=== PATIENT | female | born 1935 | race Caucasian/White ===

== ENCOUNTER → 2016-07-12 | Outpatient (CLI) | payer BC ==
[~2016-07-12] MED LIST: ALL300 PO; ALLO300T2 PO; ALPR-411 PO; AMR2 PO; ASPEC81 PO; ASPI81TA28 PO; ATEN50TA8 PO; ATOR10TA82 PO; BIOTCAP2 PO; ERGO1CAP35 PO; ERGO500011 PO; ESCI1TAB6 PO; GLIM1TAB PO; LORA10TA5 PO; SITA50TA5 PO; SYN137 PO; TERA5CAP PO
== END | disposition home or self-care (01) ==
LOC: C.RDSM 13:08
PROVIDERS: ATTEND Family Medicine
DX: M25.642 Stiffness of left hand, not elsewhere classified (principal)

== ENCOUNTER 2016-08-05 21:21 | Emergency (ER) | payer BC ==
[~2016-08-05] VITALS: Ht 160 cm; Wt 92.7 kg
[~2016-08-05 21:21] MED LIST changes: -ALLO300T2 PO; -ASPI81TA28 PO; -ATOR10TA82 PO; -ERGO500011 PO; -ESCI1TAB6 PO; -GLIM1TAB PO
[2016-08-05 21:32] VITALS: TEMP 36.6; Ht 160 cm; Wt 92.7 kg
[2016-08-05 23:00] LABS: BASO % 0.3 %; BASO ABS # 0.02 K/uL (0-0.2); COMPLETE YES; EOS % 1.3 %; HEMATOCRIT 36.7 % (37-47); IG% 0.2 %; LYMPH % 34.6 %; LYMPH ABS # 2.13 K/uL (1.2-3.4); MEAN CELL VOLUME 92.2 fL (80-100); MEAN CORPUSCULAR HEMOGLOBIN 30.7 pg (25-34); MEAN CORPUSCULAR HGB CONC 33.2 g/dl (32-36); MEAN PLATELET VOLUME 11.4 fL (7.4-10.4); MONO % 8.6 %; PLATELET COUNT 137 K/uL (130-400); RED BLOOD COUNT 3.98 M/uL (4.2-5.4); WHITE BLOOD COUNT 6.15 K/uL (4.8-10.8)
[2016-08-05 23:05] LABS: BUN/CREATININE RATIO 22.2 (10-20); CALCIUM 10.1 mg/dl (8.5-10.1); CREATININE 0.99 mg/dl (0.60-1.20); POTASSIUM 4.5 mmol/L (3.5-5.1)
[2016-08-06 00:09] LABS: URINE APPEARANCE CLEAR (CLEAR); URINE BILIRUBIN NEG (NEG); URINE COLOR YELLOW; URINE EPITHELIAL CELL AUTO >30 /lpf (0-5); URINE NITRITE NEG (NEG); URINE PH 5.5 (4.5-7.5); URINE SPECIFIC GRAVITY 1.017 (1.000-1.030); UROBILINOGEN NEG (NEG); ZZUR CULT IF INDIC CLEAN CATCH YES
[2016-08-06 00:10] VITALS: BP 195/86; PULSE 58; O2SAT 95
[2016-08-06 00:12] LABS: MANUAL MICROSCOPIC REQUIRED? NO; REVIEW REQ? NO
[2016-08-06] MEDS ORDERED: ASPI81TA28 PO (00:21)
[2016-08-06] MEDS ORDERED: ALLO300T2 PO (00:21)
[2016-08-06] MEDS ORDERED: GLIM1TAB PO (00:21)
[2016-08-06] MEDS ORDERED: ATOR10TA82 PO (00:22)
[2016-08-06] MEDS ORDERED: ERGO500011 PO (00:22)
--- NOTE | 2016-08-06 03:25 | EMERGENCY ROOM VISIT NOTE ---
History Report prepared by Belinda: Yaniv Porter Under the Supervision of: Dr. Greg Zheng D.O. First contact with patient: 22:10 Chief Complaint: HYPERTENSION Stated Complaint: HIGH BLOOD PRESSURE History of Present Illness The patient is an 81 year old female who presents to the Emergency Room with complaints of constant hypertension occurring earlier tonight. The patient additionally is complaining of a slight headache for the past few days which she associates this with her high blood pressure. The patient states that her blood pressure was around 170, though it was after walking around and not resting. The patient states that she had some recent diarrhea. The patient states that she took two aspirin and alprazolam. Additionally she states that she has been having two new changes in her medication. Pt denies change in vision, fevers, chest pain, shortness of breath, nausea, vomiting, pain with urination, and melena. She notes that she has been very stressed recently with both her sons currently living back in with her. One just got out of nursing home. Source of History: patient Onset: earlier tonight Position: other (global) Quality: other (hypertensive) Timing: constant Associated Symptoms: + diarrhea Review of Systems See HPI for pertinent positives & negatives. A total of 10 systems reviewed and were otherwise negative. Past Medical & Surgical Medical Problems: (1) Diabetes (2) Hernia (3) HTN (hypertension) (4) Kidney stone (5) Sciatica Family History Diabetes mellitus FH: Parkinson's disease FH: liver cancer FHx: colon cancer Hypertension Social History Smoking Status: Never Smoker Alcohol Use: none Drug Use: none Marital Status: Housing Status: lives with significant other Occupation Status: retired Current/Historical Medications Scheduled Allopurinol (Zyloprim), 300 MG PO DAILY Aspirin (Aspirin Ec), 81 MG PO DAILY Atenolol (Tenormin), 50 MG PO QPM Atorvastatin (Lipitor), 10 MG PO DAILY Biotin (Biotin 5000), 1 CAP PO QAM Ergocalciferol (Vitamin D 94839 Unit), 1 TAB PO WK Glimepiride (Amaryl), 1 MG PO AMPM Levothyroxine Sodium (Levothyroxine Sodium), 137 TAB PO QAM Loratadine (Claritin), 10 MG PO DAILY Sitagliptin-Metformin Hcl (Janumet), 1 TAB PO QAM Terazosin (Hytrin), 5 MG PO HS Scheduled PRN Alprazolam (Xanax), 0.5 MG PO HS PRN for PRN Allergies Coded Allergies: Tramadol (Verified Allergy, Severe, HIVES, ITCHING, 08/06/16) Propoxyphene (Verified Allergy, Intermediate, ITCHING, 08/06/16) Candesartan (Verified Allergy, Unknown, UNKNOWN, 08/06/16) Ciprofloxacin (Verified Allergy, Unknown, SICK, 08/06/16) Iodine (Verified Allergy, Unknown, IV DYE-ITCHING, HOARSENESS-SEVERE REACTION, 08/06/16) Morphine (Verified Allergy, Unknown, HALLUCINATIONS, 08/06/16) Oxycodone (Verified Allergy, Unknown, UNKNOWN, 08/06/16) Penicillins (Verified Allergy, Unknown, RASH, 08/06/16) Scallop (Verified Allergy, Unknown, DIARRHEA, VOMITING, 08/06/16) Topiramate (Verified Allergy, Unknown, UNKNOWN, 08/06/16) Physical Exam Vital Signs Date Time Temp Pulse Resp B/P Pulse Ox O2 Delivery O2 Flow Rate FiO2 08/06/16 00:10 58 18 195/86 95 Room Air 08/05/16 23:54 55 18 190/86 97 Room Air 08/05/16 22:44 61 08/05/16 22:19 196/88 08/05/16 21:32 36.6 67 18 197/84 97 Room Air Physical Exam GENERAL: sitting up in bed, alert, well appearing, well nourished, no distress, non-toxic EYE EXAM: normal conjunctiva, PERRL and EOM's intact OROPHARYNX: no exudate, no erythema, lips, buccal mucosa, and tongue normal and mucous membranes are moist NECK: supple, no nuchal rigidity, no adenopathy, non-tender LUNGS: Clear to auscultation. Normal chest wall mechanics HEART: no murmurs, S1 normal and S2 normal ABDOMEN: abdomen soft, non-tender, normo-active bowel sounds, no masses, no rebound or guarding. BACK: Back is symmetrical on inspection and there is no deformity, no midline tenderness, no CVA tenderness. SKIN: no rashes and no bruising UPPER EXTREMITIES: upper extremities are grossly normal. LOWER EXTREMITIES: No pitting edema. NEURO EXAM: Normal sensorium, cranial nerves II-XII grossly intact, normal speech, no gross weakness of arms, no gross weakness of legs. No drift. Finger to nose intact. Gross sensation intact. Medical Decision & Procedures ER Provider Diagnostic Interpretation: Radiology results as stated below per my review and the radiologist's interpretation: CT HEAD: Comparison: None available No ICH, mass effect or edema. No evidence of acute cortical stroke. Visualized sinuses and mastoid air cells are clear Laboratory Results 08/05/16 22:35 Red Blood Count 3.98, Mean Corpuscular Volume 92.2, Mean Corpuscular Hemoglobin 30.7, Mean Corpuscular Hemoglobin Concent 33.2, Mean Platelet Volume 11.4, Neutrophils (%) (Auto) 55.0, Lymphocytes (%) (Auto) 34.6, Monocytes (%) (Auto) 8.6, Eosinophils (%) (Auto) 1.3, Basophils (%) (Auto) 0.3, Neutrophils # (Auto) 3.38, Lymphocytes # (Auto) 2.13, Monocytes # (Auto) 0.53, Eosinophils # (Auto) 0.08, Basophils # (Auto) 0.02 08/05/16 22:35 Test 08/05/16 22:35 08/05/16 23:43 White Blood Count 6.15 K/uL (4.8-10.8) Red Blood Count 3.98 M/uL (4.2-5.4) Hemoglobin 12.2 g/dL (12.0-16.0) Hematocrit 36.7 % (37-47) Mean Corpuscular Volume 92.2 fL (80-100) Mean Corpuscular Hemoglobin 30.7 pg (25-34) Mean Corpuscular Hemoglobin Concent 33.2 g/dl (32-36) Platelet Count 137 K/uL (130-400) Mean Platelet Volume 11.4 fL (7.4-10.4) Neutrophils (%) (Auto) 55.0 % Lymphocytes (%) (Auto) 34.6 % Monocytes (%) (Auto) 8.6 % Eosinophils (%) (Auto) 1.3 % Basophils (%) (Auto) 0.3 % Neutrophils # (Auto) 3.38 K/uL (1.4-6.5) Lymphocytes # (Auto) 2.13 K/uL (1.2-3.4) Monocytes # (Auto) 0.53 K/uL (0.11-0.59) Eosinophils # (Auto) 0.08 K/uL (0-0.5) Basophils # (Auto) 0.02 K/uL (0-0.2) RDW Standard Deviation 46.0 fL (36.4-46.3) RDW Coefficient of Variation 13.5 % (11.5-14.5) Immature Granulocyte % (Auto) 0.2 % Immature Granulocyte # (Auto) 0.01 K/uL (0.00-0.02) Anion Gap 8.0 mmol/L (3-11) Est Creatinine Clear Calc Drug Dose 47.4 ml/min Estimated GFR () 61.5 Estimated GFR (Non- 53.1 BUN/Creatinine Ratio 22.2 (10-20) Calcium Level 10.1 mg/dl (8.5-10.1) Urine Color YELLOW Urine Appearance CLEAR (CLEAR) Urine pH 5.5 (4.5-7.5) Urine Specific Caro 1.017 (1.000-1.030) Urine Protein TRACE (NEG) Urine Glucose (UA) NEG (NEG) Urine Ketones NEG (NEG) Urine Occult Blood NEG (NEG) Urine Nitrite NEG (NEG) Urine Bilirubin NEG (NEG) Urine Urobilinogen NEG (NEG) Urine Leukocyte Esterase SMALL (NEG) Urine WBC (Auto) 10-30 /hpf (0-5) Urine RBC (Auto) 0-4 /hpf (0-4) Urine Hyaline Casts (Auto) 1-5 /lpf (0-5) Urine Epithelial Cells (Auto) >30 /lpf (0-5) Urine Bacteria (Auto) NEG (NEG) Date/Time Source Procedure Growth Status 08/05/16 23:43 Urine , Clean Catch Urine Culture - Final THREE TYPES OF ORGANISMS PRESENT, ALL... Complete Laboratory results per my review. ECG Indication: other (hypertension) Rate (beats per minute): 59 Rhythm: sinus bradycardia Findings: other (LAD and LVH) Comparison ECG Date: 12/20/15 Change: no significant change ED Course ED COURSE: Vital signs were reviewed and showed hypertension The patients medical record was reviewed The above diagnostic studies were performed and reviewed. ED treatments and interventions as stated above. 2210: The patient was evaluated in room C3. A complete history and physical examination was performed. 0014: Upon reevaluation, the patient is feeling better.I discussed my findings with the patient and she understands and agrees with the treatment plan. Based on the patients age, coexisting illnesses, exam and lab findings the decision to treat as an outpatient was made. The patient remained stable while under my care. The patient appeared well at the time of discharge. Medical Decision Differential Diagnosis includes but is not limited to headache, tension headache , cluster headache, migraine, subarachnoid hemorrhage, meningitis, mass, central venous thrombus, concussion, trauma and epidural/subdural hemorrhage. Patient is an 81-year-old female who presents the ER for hypertension with a slight headache which started several days ago. She notes she has a history of hypertension. She is completely neurologically intact. CT head was negative. Vitals did show systolic blood pressures in the 190s. They did drop to 180 with rest. EKG was unchanged and did show some LVH. CBC and BMP was unremarkable. UA did have some small protein present. At this time I felt there is no need for any emergent changes in her blood pressure. I stressed the importance of close follow-up for better long-term blood pressure control. Patient felt comfortable with this. I do believe some of these exacerbating factors are family stressors as she is extremely worked up and anxious at this time. Discussed with Pt concerning signs and symptoms to watch out for. Pt was instructed to follow up with their PCP and discussed with the patient their option to return to the ED at anytime for persistent or worsening symptoms. The appropriate anticipatory guidance and out-patient management, including indications for return to the emergency department, were explained at length to the patient and understood. Impression Primary Impression: HTN (hypertension) Scribe Attestation The scribe's documentation has been prepared under my direction and personally reviewed by me in its entirety. I confirm that the note above accurately reflects all work, treatment, procedures, and medical decision making performed by me. Departure Information Dispostion Home / Self-Care Referrals Sparkle Hernandez DO (PCP) Forms HOME CARE DOCUMENTATION FORM, IMPORTANT VISIT INFORMATION, WORK / SCHOOL INSTRUCTIONS Patient Instructions ED HTN Established, My [facility] Problem Qualifiers Primary Impression: HTN (hypertension) Hypertension type: unspecified secondary hypertension Qualified Codes: I15.9 - Secondary hypertension, unspecified
--- NOTE | 2016-08-06 06:59 | DIAGNOSTIC IMAGING REPORT ---
HEAD CT NONCONTRAST CT DOSE: 569.73 mGy.cm HISTORY: Headache. TECHNIQUE: Multiaxial CT images of the head were performed without the use of intravenous contrast. Automated exposure control was utilized for this study. Comparison: Head CT 01/07/2008. Findings: The paranasal sinuses and mastoid air cells are clear. The calvarium and skull base are intact. There is no mass, hematoma, midline shift, acute infarct. White matter hypodensity is nonspecific but suggestive of microvascular ischemic change. The ventricles and sulci demonstrate mild age-related involutional changes. Impression: No acute intracranial abnormality. Electronically signed by: Kenneth Mishra M.D. 08/06/2016 6:57 AM Dictated Date/Time: 08/06/2016 6:56 AM
== END 2016-08-06 00:31 | disposition home or self-care (01) ==
LOC: C.EDB 21:22 → C.EDC 08-06 00:31
DX: I10 Essential (primary) hypertension (principal); E11.9 Type 2 diabetes mellitus without complications; Z87.442 Personal history of urinary calculi; Z79.82 Long term (current) use of aspirin; Z79.899 Other long term (current) drug therapy

== ENCOUNTER → 2016-08-14 | Outpatient (CLI) | payer BC ==
[~2016-08-14] MED LIST changes: -ALL300 PO; +ALLO300T2 PO; -AMR2 PO; -ASPEC81 PO; +ASPI81TA28 PO; +ATOR10TA82 PO; -ERGO1CAP35 PO; +ERGO500011 PO; +ESCI1TAB6 PO; +GLIM1TAB PO
[2016-08-14 13:37] LABS: ESTIMATED AVERAGE GLUCOSE 146 mg/dl; HA1C FLAG Normal (Normal)
[2016-08-14 14:23] LABS: RATIO 100.6 mcg/mg (0-30.0)
== END | disposition home or self-care (01) ==
LOC: C.LABBC 11:50
PROVIDERS: ATTEND Nurse Practitioner Family
DX: E11.9 Type 2 diabetes mellitus without complications (principal)

== ENCOUNTER 2016-09-06 18:22 | Emergency (ER) | payer BC ==
[~2016-09-06] VITALS: Ht 160 cm; Wt 89.6 kg
[~2016-09-06 18:22] MED LIST changes: -ESCI1TAB6 PO
[2016-09-06 18:31] VITALS: TEMP 37.6; Ht 160 cm; Wt 89.6 kg
[2016-09-06] MEDS ORDERED: SODIUM CHLORIDE 0.9% 1000ML 500 ML IV STA (18:43)
[2016-09-06 18:55] VITALS: O2SAT 96
[2016-09-06 19:07] LABS: HEMATOCRIT 37.4 % (37-47); MEAN CELL VOLUME 91.9 fL (80-100); MEAN CORPUSCULAR HGB CONC 32.6 g/dl (32-36); MEAN PLATELET VOLUME 10.7 fL (7.4-10.4); PLATELET COUNT 125 K/uL (130-400); RED BLOOD COUNT 4.07 M/uL (4.2-5.4); WHITE BLOOD COUNT 5.81 K/uL (4.8-10.8)
--- NOTE | 2016-09-06 19:09 | DIAGNOSTIC IMAGING REPORT ---
CHEST ONE VIEW PORTABLE CLINICAL HISTORY: Chest pain. COMPARISON STUDY: Chest CT January 19, 2016. FINDINGS: A 1.4 cm right upper lobe nodule is similar to exam of January 19, 2016 but slightly increased in size since earlier exams. There is no pneumothorax or pleural effusion. Borderline cardiomegaly is noted. There is no evidence of pulmonary edema. There is no consolidation to suggest pneumonia. IMPRESSION: 1. No acute cardiopulmonary findings. 2. 1.4 cm right upper lobe nodule which is similar to prior CT but increased in size since earlier exams. This represents an indeterminate slowly growing pulmonary nodule. Electronically signed by: Hardeep Osman M.D. 09/06/2016 7:08 PM Dictated Date/Time: 09/06/2016 7:04 PM
[2016-09-06 19:16] LABS: PARTIAL THROMBOPLASTIN RATIO 1.1; PROTHROMBIN TIME (PATIENT) 10.8 SECONDS (9.0-12.0)
[2016-09-06 19:25] LABS: BUN/CREATININE RATIO 21.4 (10-20); CALCIUM 10.2 mg/dl (8.5-10.1); CREATININE 0.92 mg/dl (0.60-1.20); POTASSIUM 4.3 mmol/L (3.5-5.1)
--- NOTE | 2016-09-06 19:25 | EMERGENCY ROOM VISIT NOTE ---
History Report prepared by Belinda: Yaniv Porter Under the Supervision of: Dr. Chi Moser M.D. First contact with patient: 18:37 Chief Complaint: SHORTNESS OF BREATH Stated Complaint: POSSIBLE REACTION TO CORTISONE SHOT - SOB, CP Nursing Triage Summary: Pt reports "stinging in my whole chest area and it got really hot. Then my head felt funny, but nothing I could put my finger on. I felt sob." Sx began approx 30 mins. Pt states had a cortisone shot today, but has had them in the past. History of Present Illness The patient is an 81 year old female who presents to the Emergency Room with complaints of sudden tingling in her chest and shortness of breath occurring 30- 40 minutes prior to arrival. The patient additionally felt heat and a buzzing in her chest. The patient states that a couple of hours ago she had two cortisone shots in her finger which might have contained some iodine, and she states that she is allergic to iodine. The patient denies any cough, fever, rashes, itching, or tightness in her throat. Source of History: patient Onset: 30-40 minutes prior to arrival Position: chest, other (global) Quality: tingling Timing: other (sudden) Associated Symptoms: + SOB, No cough, No fevers, No rash Review of Systems See HPI for pertinent positives & negatives. A total of 10 systems reviewed and were otherwise negative. Past Medical & Surgical Medical Problems: (1) Diabetes (2) Hernia (3) HTN (hypertension) (4) Kidney stone (5) Sciatica Family History Diabetes mellitus FH: Parkinson's disease FH: liver cancer FHx: colon cancer Hypertension Social History Smoking Status: Never Smoker Alcohol Use: none Drug Use: none Marital Status: Housing Status: lives with significant other Occupation Status: retired Current/Historical Medications Scheduled Allopurinol (Zyloprim), 300 MG PO DAILY Aspirin (Aspirin Ec), 81 MG PO DAILY Atenolol (Tenormin), 50 MG PO QPM Atorvastatin (Lipitor), 10 MG PO DAILY Biotin (Biotin 5000), 1 CAP PO QAM Ergocalciferol (Vitamin D 27528 Unit), 1 TAB PO WK Escitalopram Oxalate (Lexapro), 1 TAB PO DAILY Glimepiride (Amaryl), 1 MG PO AMPM Levothyroxine Sodium (Levothyroxine Sodium), 137 TAB PO QAM Loratadine (Claritin), 10 MG PO DAILY Sitagliptin-Metformin Hcl (Janumet), 1 TAB PO QAM Terazosin (Hytrin), 5 MG PO HS Scheduled PRN Alprazolam (Xanax), 0.5 MG PO HS PRN for PRN Allergies Coded Allergies: Tramadol (Verified Allergy, Severe, HIVES, ITCHING, 08/06/16) Propoxyphene (Verified Allergy, Intermediate, ITCHING, 08/06/16) Candesartan (Verified Allergy, Unknown, UNKNOWN, 08/06/16) Ciprofloxacin (Verified Allergy, Unknown, SICK, 08/06/16) Iodine (Verified Allergy, Unknown, IV DYE-ITCHING, HOARSENESS-SEVERE REACTION, 08/06/16) Morphine (Verified Allergy, Unknown, HALLUCINATIONS, 08/06/16) Oxycodone (Verified Allergy, Unknown, UNKNOWN, 08/06/16) Penicillins (Verified Allergy, Unknown, RASH, 08/06/16) Scallop (Verified Allergy, Unknown, DIARRHEA, VOMITING, 08/06/16) Topiramate (Verified Allergy, Unknown, UNKNOWN, 08/06/16) Physical Exam Vital Signs Date Time Temp Pulse Resp B/P Pulse Ox O2 Delivery O2 Flow Rate FiO2 09/06/16 22:06 56 25 96 09/06/16 22:01 184/70 09/06/16 21:36 60 22 97 09/06/16 21:31 188/83 09/06/16 21:06 52 19 96 09/06/16 21:01 176/74 09/06/16 20:31 186/75 09/06/16 20:06 63 16 97 09/06/16 20:01 164/83 09/06/16 19:52 58 17 96 09/06/16 19:31 188/87 09/06/16 19:22 63 25 98 09/06/16 19:02 186/79 09/06/16 18:55 96 Room Air 09/06/16 18:52 63 24 09/06/16 18:47 61 09/06/16 18:31 37.6 67 20 192/84 97 Room Air 09/06/16 18:29 97 Room Air Physical Exam GENERAL: Patient is in no acute distress. HEENT: No acute trauma, normocephalic atraumatic, mucous membranes moist, no nasal congestion, no scleral icterus. NECK: No stridor, no adenopathy, no meningismus, trachea is midline. LUNGS: Clear to auscultation bilaterally, no wheeze, no rhonchi, breath sounds equal. HEART: Without murmurs gallops or rubs, regular rate and rhythm. ABDOMEN: Soft, nontender, bowel sounds positive, no hernias, no peritonitis. EXTREMITIES: Mild bilateral pedal edema. No cyanosis, full range of motion of all the joints without pain or difficulty, no signs for acute trauma. NEUROLOGIC: Oriented x 3, no acute motor or sensory deficits, no focal weakness. SKIN: Pale. No rash, no jaundice, no diaphoresis. Medical Decision & Procedures ER Provider Diagnostic Interpretation: Radiology results as stated below per my review and radiologist interpretation: CHEST ONE VIEW PORTABLE CLINICAL HISTORY: Chest pain. COMPARISON STUDY: Chest CT January 19, 2016. FINDINGS: A 1.4 cm right upper lobe nodule is similar to exam of January 19, 2016 but slightly increased in size since earlier exams. There is no pneumothorax or pleural effusion. Borderline cardiomegaly is noted. There is no evidence of pulmonary edema. There is no consolidation to suggest pneumonia. IMPRESSION: 1. No acute cardiopulmonary findings. 2. 1.4 cm right upper lobe nodule which is similar to prior CT but increased in size since earlier exams. This represents an indeterminate slowly growing pulmonary nodule. Electronically signed by: Hardeep Osman M.D. 09/06/2016 7:08 PM Dictated Date/Time: 09/06/2016 7:04 PM Laboratory Results 09/06/16 18:50 09/06/16 18:50 Test 09/06/16 18:50 09/06/16 18:59 09/06/16 20:35 Red Blood Count 4.07 M/uL (4.2-5.4) Mean Corpuscular Volume 91.9 fL (80-100) Mean Corpuscular Hemoglobin 30.0 pg (25-34) Mean Corpuscular Hemoglobin Concent 32.6 g/dl (32-36) RDW Standard Deviation 44.6 fL (36.4-46.3) RDW Coefficient of Variation 13.4 % (11.5-14.5) Mean Platelet Volume 10.7 fL (7.4-10.4) Prothrombin Time 10.8 SECONDS (9.0-12.0) Prothromb Time International Ratio 1.0 (0.9-1.1) Activated Partial Thromboplast Time 28.5 SECONDS (21.0-31.0) Partial Thromboplastin Ratio 1.1 Anion Gap 5.0 mmol/L (3-11) Est Creatinine Clear Calc Drug Dose 50.1 ml/min Estimated GFR () 67.2 Estimated GFR (Non- 58.0 BUN/Creatinine Ratio 21.4 (10-20) Calcium Level 10.2 mg/dl (8.5-10.1) Total Bilirubin 0.4 mg/dl (0.2-1) Aspartate Amino Transf (AST/SGOT) 20 U/L (15-37) Alanine Aminotransferase (ALT/SGPT) 23 U/L (12-78) Alkaline Phosphatase 96 U/L (45-117) Total Protein 7.5 gm/dl (6.4-8.2) Albumin 3.9 gm/dl (3.4-5.0) Globulin 3.6 gm/dl (2.5-4.0) Albumin/Globulin Ratio 1.1 (0.9-2) Lipase 156 U/L (73-393) Bedside Troponin I 0.000 ng/ml (0-0.045) Troponin I < 0.015 ng/ml (0-0.045) Laboratory results reviewed by me. Medications Administered Medications (Trade) Dose Ordered Sig/Nathan Route Start Time Stop Time Status Last Admin Dose Admin Sodium Chloride (Nss 1000ml) 500 ml @ 999 mls/hr Q31M STAT IV 09/06/16 18:43 09/06/16 19:13 DC 09/06/16 19:06 999 MLS/HR ECG Indication: chest pain, SOB/dyspnea Rate (beats per minute): 67 Rhythm: sinus rhythm Findings: 1st degree AV block, no acute ischemic change, other (LVH) ED Course 1836: The patient was evaluated in room B2. A complete history and physical exam was performed. 1842: Sodium Chloride 500 ml @ 999 mls/hr IV 2027: I reevaluated the patient, and she was doing fine. 2208: Reevaluated the patient. Discussed results and discharge instructions: She verbalized understanding and agreement. The patient is ready for discharge. Medical Decision The patient is a 81 year old female who presents to the ED with complaints of chest tingling and shortness of breath. Differential diagnoses considered include medication reaction, viral illness, cardiac ischemia, SC, pneumonia, or electrolyte imbalance. There is no leukocytosis or concerning anemia. No significant electrolyte abnormality, kidney failure or hepatitis. EKG shows a sinus rhythm with LVH and a first-degree AV block, no acute ischemia. Cardiac enzyme testing times one is not consistent with acute cardiac injury. Chest x-ray does not show mediastinal widening, pneumonia or pneumothorax. The patient did receive a small amount of IV saline, she required no pain medication. The patient is resting comfortably. Her symptoms have resolved. She may have had a reaction to the cortisone shot received earlier. Her workup here is negative for any acute emergent process. She is being discharged home. She will keep a watch on her blood pressure as it was somewhat elevated here. Impression Primary Impression: Chest tightness Scribe Attestation The scribe's documentation has been prepared under my direction and personally reviewed by me in its entirety. I confirm that the note above accurately reflects all work, treatment, procedures, and medical decision making performed by me. Departure Information Dispostion Home / Self-Care Referrals Sparkle Hernandez DO (PCP) Forms HOME CARE DOCUMENTATION FORM, IMPORTANT VISIT INFORMATION Patient Instructions My [facility] Additional Instructions all testing was ok return if worsening
[2016-09-06 19:28] LABS: ALB/GLOB RATIO 1.1 (0.9-2)
[2016-09-06] MEDS ORDERED: ESCI1TAB6 PO (19:41)
[2016-09-06 22:01] VITALS: BP 184/70
[2016-09-06 22:06] VITALS: PULSE 56; O2SAT 96
== END 2016-09-06 22:15 | disposition home or self-care (01) ==
LOC: C.EDB 18:24
DX: R07.89 Other chest pain (principal); E11.9 Type 2 diabetes mellitus without complications; I10 Essential (primary) hypertension; Z87.442 Personal history of urinary calculi; M54.30 Sciatica, unspecified side; Z83.3 Family history of diabetes mellitus; Z80.9 Family history of malignant neoplasm, unspecified; Z82.49 Family history of ischemic heart disease and other diseases of the circulatory system; Z79.82 Long term (current) use of aspirin; Z79.899 Other long term (current) drug therapy

== ENCOUNTER → 2016-09-08 | Outpatient (CLI) | payer BC ==
[~2016-09-08] MED LIST changes: +ESCI1TAB6 PO
[2016-09-08 14:01] LABS: CHOLESTEROL/HDL RATIO 3.3; MAGNESIUM 1.6 mg/dl (1.8-2.4); THYROID STIMULATING HORMONE 0.042 uIu/ml (0.300-4.500)
== END | disposition home or self-care (01) ==
LOC: C.LABBC 09:02
PROVIDERS: ATTEND Family Medicine
DX: E11.9 Type 2 diabetes mellitus without complications (principal); E61.2 Magnesium deficiency

== ENCOUNTER → 2016-11-20 | Outpatient (CLI) | payer BC ==
[~2016-11-20] MED LIST changes: -ATOR10TA82 PO; +ATOR10TA88 PO; +ERGO1CAP41 PO; -ERGO500011 PO
[2016-11-20 14:32] LABS: ESTIMATED AVERAGE GLUCOSE 131 mg/dl; HA1C FLAG Normal (Normal)
[2016-11-20 14:45] LABS: MAGNESIUM 1.6 mg/dl (1.8-2.4); THYROID STIMULATING HORMONE 0.038 uIu/ml (0.300-4.500)
== END | disposition home or self-care (01) ==
LOC: C.LABBC 11:42
PROVIDERS: ATTEND Nurse Practitioner Family
DX: E11.21 Type 2 diabetes mellitus with diabetic nephropathy (principal); E11.42 Type 2 diabetes mellitus with diabetic polyneuropathy; I10 Essential (primary) hypertension; R00.1 Bradycardia, unspecified

== ENCOUNTER → 2017-01-04 | Outpatient (CLI) | payer BC ==
[2017-01-04 13:45] LABS: BLOOD UREA NITROGEN 33 mg/dl (7-18); BUN/CREATININE RATIO 30.2 (10-20); CALCIUM 10.2 mg/dl (8.5-10.1); CARBON DIOXIDE 29 mmol/L (21-32); CHLORIDE 107 mmol/L (98-107); GLUCOSE 179 mg/dl (70-99); MAGNESIUM 1.8 mg/dl (1.8-2.4); POTASSIUM 4.2 mmol/L (3.5-5.1); SODIUM 140 mmol/L (136-145)
[2017-01-04 13:56] LABS: THYROID STIMULATING HORMONE 0.155 uIu/ml (0.300-4.500)
== END | disposition home or self-care (01) ==
LOC: C.LABBC 11:42
PROVIDERS: ATTEND Nurse Practitioner Family
DX: I10 Essential (primary) hypertension (principal); E83.42 Hypomagnesemia; E03.9 Hypothyroidism, unspecified

== ENCOUNTER → 2017-01-23 | Outpatient (CLI) | payer BC ==
--- NOTE | 2017-01-23 12:17 | DIAGNOSTIC IMAGING REPORT ---
CT OF THE CHEST WITHOUT IV CONTRAST CLINICAL HISTORY: Solitary pulmonary nodule. COMPARISON STUDY: Chest CT January 19, 2016 and chest radiograph September 06, 2016 and PET/CT November 29, 2011. CT DOSE: 435.44 mGycm TECHNIQUE: Axial images of the chest were obtained without IV contrast. Images were reviewed in the axial, sagittal, and coronal planes. IV contrast was not administered for this examination. A dose lowering technique was utilized adhering to the principles of ALARA. FINDINGS: No enlarged axillary, mediastinal or hilar lymph nodes are present. The size of the heart is normal. There is no pericardial effusion. There is extensive coronary artery calcification. Central airways are patent. There is no consolidation to suggest pneumonia. Several calcified nodules are unchanged. A 1.1 cm circumscribed right upper lobe nodule shown image 86 of 306 is unchanged since exam of January 19, 2016. This has slightly increased in size since exam of August 30, 2011 when it measured 1 cm. A subtle 6 mm groundglass density within left upper lobe shown on image 47 is unchanged. Numerous additional smaller nodules are unchanged. There are no new pulmonary nodules. Bony thorax is unremarkable. Upper abdomen is unremarkable on this unenhanced exam. Subpleural reticulation and groundglass opacity is noted. This is similar to prior study. There is no honeycombing. There is no traction bronchiectasis. IMPRESSION: No change in several pulmonary nodules as prior exam. The 1.1 cm right upper lobe nodule is unchanged since exam of January 19, 2016 and only slightly increased in size since exam of August 30, 2011. This remains indeterminate and a follow-up chest CT in one year is recommended. Electronically signed by: Hardeep Osman M.D. 01/23/2017 12:16 PM Dictated Date/Time: 01/23/2017 12:09 PM
== END | disposition home or self-care (01) ==
LOC: C.CTS 11:47
PROVIDERS: ATTEND Internal Medicine Pulmonary Disease
DX: R91.1 Solitary pulmonary nodule (principal)

== ENCOUNTER → 2017-01-30 | Outpatient (CLI) | payer BC ==
[2017-01-30 16:32] LABS: BASO % 0.2 %; BASO ABS # 0.01 K/uL (0-0.2); COMPLETE YES; EOS % 2.2 %; HEMATOCRIT 38.4 % (37-47); IG% 0.2 %; LYMPH % 36.9 %; LYMPH ABS # 2.22 K/uL (1.2-3.4); MEAN CELL VOLUME 92.1 fL (80-100); MEAN CORPUSCULAR HEMOGLOBIN 29.5 pg (25-34); MEAN PLATELET VOLUME 11.7 fL (7.4-10.4); MONO % 5.5 %; PLATELET COUNT 139 K/uL (130-400); RED BLOOD COUNT 4.17 M/uL (4.2-5.4); WHITE BLOOD COUNT 6.02 K/uL (4.8-10.8)
[2017-01-30 16:54] LABS: FERRITIN 204.7 ng/ml (8.0-388.0)
== END | disposition home or self-care (01) ==
LOC: C.LAB1850 15:45
PROVIDERS: ATTEND Dermatology
DX: L65.9 Nonscarring hair loss, unspecified (principal)

== ENCOUNTER → 2017-02-28 | Outpatient (CLI) | payer BC ==
[~2017-02-28] MED LIST changes: +ATOR10TA82 PO; -ATOR10TA88 PO; -ERGO1CAP41 PO; +ERGO500011 PO
[2017-02-28 17:41] LABS: THYROID STIMULATING HORMONE 0.064 uIu/ml (0.300-4.500)
== END | disposition home or self-care (01) ==
LOC: C.LABBC 12:26
PROVIDERS: ATTEND Nurse Practitioner Family
DX: E03.9 Hypothyroidism, unspecified (principal); B37.2 Candidiasis of skin and nail

== ENCOUNTER → 2017-04-05 | Outpatient (CLI) | payer BC ==
[~2017-04-05] MED LIST changes: +CHOL100010 PO; +HYDR-5688 PO; +LEVO112T4 PO; -LORA10TA5 PO; +LORA10TA6 PO
== END | disposition home or self-care (01) ==
LOC: C.LAB1850 14:54
PROVIDERS: ATTEND Dermatology
DX: L65.9 Nonscarring hair loss, unspecified (principal)

== ENCOUNTER → 2017-04-18 | Outpatient (CLI) | payer BC ==
--- NOTE | 2017-04-18 11:40 | DIAGNOSTIC IMAGING REPORT ---
ULTRASOUND OF THE ADRENAL GLANDS CLINICAL HISTORY: Abnormal adrenal laboratory studies. COMPARISON STUDY: Abdominal CT dated 11/15/2015. Chest CT dated 01/23/2017. FINDINGS: Real-time grayscale sonography of the adrenal glands was attempted. The adrenal glands are not identified. There is no sonographic evidence of adrenal lesion. No adrenal lesion seen on recent CT scans. IMPRESSION: The adrenal glands were not visualized. There is no sonographic evidence of adrenal lesion, and no adrenal lesion was seen by CT on 11/15/2015 or 01/23/2017. Electronically signed by: Chi Crystal M.D. 04/18/2017 11:38 AM Dictated Date/Time: 04/18/2017 11:36 AM
== END | disposition home or self-care (01) ==
LOC: C.ULTRBC 11:04
PROVIDERS: ATTEND Dermatology
DX: R89.9 Unspecified abnormal finding in specimens from other organs, systems and tissues (principal)

== ENCOUNTER → 2017-04-24 | Outpatient (CLI) | payer BC ==
[~2017-04-24] MED LIST changes: -CHOL100010 PO; -HYDR-5688 PO; -LEVO112T4 PO
[2017-04-25 06:32] LABS: HEMOGLOBIN A1C 6.1 % (4.5-5.6)
== END | disposition home or self-care (01) ==
LOC: C.LABBC 12:45
PROVIDERS: ATTEND Nurse Practitioner Family
DX: E11.21 Type 2 diabetes mellitus with diabetic nephropathy (principal); E03.9 Hypothyroidism, unspecified

== ENCOUNTER → 2017-05-24 | Outpatient (CLI) | payer BC ==
[2017-05-24 18:25] LABS: HEMOGLOBIN A1C 6.2 % (4.5-5.6)
== END | disposition home or self-care (01) ==
LOC: C.LABBC 14:52
PROVIDERS: ATTEND Nurse Practitioner Family
DX: E03.9 Hypothyroidism, unspecified (principal)

== ENCOUNTER → 2017-08-03 | Outpatient (CLI) | payer BC | END | disposition home or self-care (01) | LOC: C.LABBC 11:33 | PROVIDERS: ATTEND Family Medicine | DX: E03.9 Hypothyroidism, unspecified (principal) ==

== ENCOUNTER → 2017-08-16 | Outpatient (CLI) | payer BC ==
--- NOTE | 2017-08-16 11:17 | DIAGNOSTIC IMAGING REPORT ---
L KNEE 3 VIEWS CLINICAL HISTORY: LEFT KNEE PAIN pain COMPARISON: None. DISCUSSION: Evidence for a total right knee arthroplasty. Mild degenerative change medial joint compartment left knee. Minimal degenerative change of the left patellofemoral articular services. No significant joint effusion. Soft tissue vascular calcification bilaterally. There is no evidence for soft tissue swelling. IMPRESSION: 1. Anatomic alignment post right knee total arthroplasty. 2. Mild degenerative narrowing medial joint compartment left knee. 3. Minimal degenerative change patellofemoral joint left knee. The above report was generated using voice recognition software. It may contain grammatical, syntax or spelling errors. Electronically signed by: Amado Yu M.D. 08/16/2017 11:15 AM Dictated Date/Time: 08/16/2017 11:14 AM
== END | disposition home or self-care (01) ==
LOC: C.RDSM 11:05
PROVIDERS: ATTEND Family Medicine
DX: M25.562 Pain in left knee (principal)

== ENCOUNTER 2017-09-03 16:44 | Emergency (ER) | payer BC ==
[2017-09-03 16:46] VITALS: TEMP 37.1; Ht 160 cm
[2017-09-03] MEDS ORDERED: TRAMADOL HCL 50 MG TAB PO STA (17:25)
--- NOTE | 2017-09-03 17:25 | EMERGENCY ROOM VISIT NOTE ---
History First contact with patient: 16:50 Chief Complaint: LEG PAIN,LEG INJURY Stated Complaint: LEG PAIN L History of Present Illness The patient is a 82 year old female who presents to the Emergency Room with complaints of left knee and leg pain for approximately 2 weeks. Prior to the pain, the patient started using an exercise bike. She noticed the pain in her leg the day after. She has tried naproxen and ibuprofen with minimal relief of the pain. She is having difficulty with weightbearing. She denies any prior injury to the knee. She denies any history of DVT. She does not smoke. No recent long travel. No hormone replacement. The patient saw her primary care physician approximately 2 weeks ago. An x-ray was performed of the knee. She was told there were no abnormalities. She denies any chest pain or difficulty breathing. Patient was seen and evaluated by her orthopedic doctor today. She was sent here to the emergency department for possible concern for blood clot. Review of Systems 10 system review performed and negative unless noted in HPI or below Past Medical/Surgical History Medical Problems: (1) Diabetes (2) Hernia (3) HTN (hypertension) (4) Kidney stone (5) Sciatica Family History Diabetes mellitus FH: Parkinson's disease FH: liver cancer FHx: colon cancer Hypertension Social History Smoking Status: Never Smoker Alcohol Use: none Drug Use: none Marital Status: Housing Status: lives with significant other Occupation Status: retired Current/Historical Medications Scheduled Allopurinol (Zyloprim), 300 MG PO DAILY Aspirin (Aspirin Ec), 81 MG PO DAILY Atenolol (Tenormin), 50 MG PO QPM Atorvastatin (Lipitor), 10 MG PO DAILY Biotin (Biotin 5000), 1 CAP PO QAM Cholecalciferol (Vitamin D), PO DAILY Escitalopram Oxalate (Lexapro), 1 TAB PO DAILY Glimepiride (Amaryl), 1 MG PO AMPM Levothyroxine Sodium (Levothyroxine Sodium), 137 TAB PO QAM Loratadine (Claritin), 10 MG PO DAILY Sitagliptin-Metformin Hcl (Janumet), 1 TAB PO QAM Terazosin (Hytrin), 5 MG PO HS Scheduled PRN Alprazolam (Xanax), 0.25 MG PO HS PRN for PRN Hydrocodone/Acetaminophen 5MG/325MG ([place] 5MG/325MG), 1 TABLET PO Q4H PRN for Pain Physical Exam Vital Signs Date Time Temp Pulse Resp B/P (MAP) Pulse Ox O2 Delivery O2 Flow Rate FiO2 09/03/17 19:26 70 16 125/69 99 09/03/17 18:46 77 18 178/74 98 Room Air 09/03/17 16:46 37.1 60 20 182/95 98 Room Air Physical Exam VITALS: Vitals are noted on the nurse's note and reviewed by myself. Vital signs stable. GENERAL: 82-year-old female, in no acute distress, nondiaphoretic, well- developed well-nourished. SKIN: The skin was intact HEAD: Normocephalic atraumatic. Conjunctivae without injection, sclerae without icterus. Extraocular movements intact. NECK:. No JVD. HEART: Regular rate and rhythm without murmurs gallops or rubs. LUNGS: Clear to auscultation bilaterally without wheezes, rales or rhonchi. No accessory muscle use. MUSCULOSKELETAL: LLE: Trace pitting edema in the left lower extremity noted without any erythema or warmth appreciated. There is tenderness in the popliteal area. Difficulty with flexion of the knee. Significant pain with flexion of the knee. Tenderness over the joint line noted. Effusion noted. No ligamentous instability appreciated however exam is limited secondary to pain. DP pulse + 2. Sensation in the foot is intact. NEURO: Patient was alert and oriented to person place and time. Normal sensation to touch. No focal neurological deficits. Medical Decision & Procedures ER Provider Diagnostic Interpretation: Left knee x-ray IMPRESSION: 1. Small joint effusion and mild soft tissue swelling without acute fracture or dislocation. 2. 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 3. Peripheral arterial disease. The above report was generated using voice recognition software. It may contain grammatical, syntax or spelling errors. Electronically signed by: Madhu Martin M.D. 09/03/2017 5:32 PM Dictated Date/Time: 09/03/2017 5:30 PM Left lower extremity ultrasound IMPRESSION: No evidence of deep venous thrombus within the left lower extremity. Electronically signed by: Hardeep Osman M.D. 09/03/2017 6:24 PM Dictated Date/Time: 09/03/2017 6:24 PM The status of this report is Signed. Draft = Not yet reviewed or approved by Radiologist. Signed = Reviewed and approved by Radiologist. Laboratory Results 09/03/17 17:42 Red Blood Count 3.89, Mean Corpuscular Volume 90.2, Mean Corpuscular Hemoglobin 29.3, Mean Corpuscular Hemoglobin Concent 32.5, Mean Platelet Volume 10.7, Neutrophils (%) (Auto) 60.6, Lymphocytes (%) (Auto) 31.7, Monocytes (%) (Auto) 5.5, Eosinophils (%) (Auto) 1.6, Basophils (%) (Auto) 0.4, Neutrophils # (Auto) 3.43, Lymphocytes # (Auto) 1.79, Monocytes # (Auto) 0.31, Eosinophils # (Auto) 0.09, Basophils # (Auto) 0.02 09/03/17 17:42 Test 09/03/17 17:42 White Blood Count 5.65 K/uL (4.8-10.8) Red Blood Count 3.89 M/uL (4.2-5.4) Hemoglobin 11.4 g/dL (12.0-16.0) Hematocrit 35.1 % (37-47) Mean Corpuscular Volume 90.2 fL (80-100) Mean Corpuscular Hemoglobin 29.3 pg (25-34) Mean Corpuscular Hemoglobin Concent 32.5 g/dl (32-36) Platelet Count 116 K/uL (130-400) Mean Platelet Volume 10.7 fL (7.4-10.4) Neutrophils (%) (Auto) 60.6 % Lymphocytes (%) (Auto) 31.7 % Monocytes (%) (Auto) 5.5 % Eosinophils (%) (Auto) 1.6 % Basophils (%) (Auto) 0.4 % Neutrophils # (Auto) 3.43 K/uL (1.4-6.5) Lymphocytes # (Auto) 1.79 K/uL (1.2-3.4) Monocytes # (Auto) 0.31 K/uL (0.11-0.59) Eosinophils # (Auto) 0.09 K/uL (0-0.5) Basophils # (Auto) 0.02 K/uL (0-0.2) RDW Standard Deviation 45.8 fL (36.4-46.3) RDW Coefficient of Variation 14.0 % (11.5-14.5) Immature Granulocyte % (Auto) 0.2 % Immature Granulocyte # (Auto) 0.01 K/uL (0.00-0.02) Prothrombin Time 10.3 SECONDS (9.0-12.0) Prothromb Time International Ratio 1.0 (0.9-1.1) Activated Partial Thromboplast Time 27.5 SECONDS (21.0-31.0) Partial Thromboplastin Ratio 1.1 Anion Gap 6.0 mmol/L (3-11) Estimated GFR () 60.3 Estimated GFR (Non- 52.1 BUN/Creatinine Ratio 28.3 (10-20) Calcium Level 10.0 mg/dl (8.5-10.1) Medications Administered Medications (Trade) Dose Ordered Sig/Nathan Route Start Time Stop Time Status Last Admin Dose Admin Acetaminophen/ Hydrocodone Bitart ([place] 5/325 Tab) 1 tab ONE STAT PO 09/03/17 17:28 09/03/17 17:29 DC 09/03/17 17:57 1 TAB ED Course Patient was seen and examined Vital signs including blood pressure were reviewed medications list was verified with patient Labs were obtained, and a saline lock was established The patient was given [place] for pain. Imaging was performed and reviewed. The patient was reassessed and resting comfortably. She was also seen by my supervising physician. I reviewed the patient's workup with the patient. Her orthopedic doctor was also notified. They are comfortable with her being discharged home. The patient was given a knee immobilizer. She has a walker at home. I reviewed discharge instructions the patient. They voiced understanding and had no further questions. Medical Decision Differential diagnosis: Knee injury, effusion, DVT, cellulitis, PAD, PVD, cellulitis, among others were entertained This patient is an 82-year-old female that presents to the emergency department with left knee/leg pain for the last 2 weeks. On exam, she had difficulty with flexion of the knee. She had a knee effusion present. She had some mild edema present. The left calf was noticeably larger than the right. She had good distal pulses. Imaging did not reveal any signs of a DVT. She does have a small knee effusion in addition to osteoarthritis. I believe this is likely more of a knee injury as opposed to a vascular issue. The patient had good pain relief in the emergency department. I believe she is stable to be discharged home. She was given a knee immobilizer. She will follow-up with her orthopedic doctor, in addition to her primary care physician. She will return with any worsening or concerning symptoms. This chart was completed in part utilizing [employer] Speech Voice Recognition software. Attempts were made to minimize the grammatical errors, random word insertions, pronoun errors and incomplete sentences. Any formal questions or concerns about the content, text or information contained within the body of this dictation should be directly addressed to the provider for clarification. Medication Reconcilliation Current Medication List: was personally reviewed by me Blood Pressure Screening Patient's blood pressure: Elevated blood pressure Blood pressure disposition: Referred to PCP Impression Primary Impression: Leg pain, left Departure Information Dispostion Home / Self-Care Condition GOOD Prescriptions Hydrocodone/Acetaminophen 5MG/325MG ([place] 5MG/325MG) Tab 1 TABLET PO Q4H Y for Pain, #15 TAB For Initial Treatment Prov: Misty Amezquita PA-C 09/03/17 Referrals Sparkle Hernandez DO (PCP) Colt Flores MD Patient Instructions My [facility] Additional Instructions You were evaluated in the emergency department for knee and leg pain. There are no signs of a blood clot. Please apply ice for 20 minute intervals and elevate the leg. [place] 1/2 tab to 1 tab every 4 hours for severe pain. Do not drink alcohol or drive while taking this medication. This may be taken with ibuprofen, but avoid Tylenol. Please use the knee immobilizer and walker for stability and getting around Please follow-up with Dr. Keith. Call tomorrow morning for a follow-up appointment. Of note, your blood pressure was elevated today. Please have this rechecked. Please do not hesitate to return to the emergency department with any new, worsening or concerning symptoms It was a pleasure participating in your care today.
[2017-09-03] MEDS ORDERED: HYDROCODONE/ACETAMIN 5/325MG TAB PO STA (17:28)
--- NOTE | 2017-09-03 17:33 | DIAGNOSTIC IMAGING REPORT ---
L KNEE 3 VIEWS HISTORY: 82 years-old Female L knee pain swelling acute left knee pain and swelling COMPARISON: Radiograph 08/16/2017 TECHNIQUE: 3 views of the left knee FINDINGS: Bones are mildly demineralized. Moderate patellofemoral osteoarthritis with minimal marginal spurring about the medial and lateral compartments. Chondrocalcinosis with spurring of the tibial spines. 6 mm linear ossification is seen lateral to the lateral femoral condyle. Peripheral arterial calcifications are noted. Small joint effusion with mild soft tissue swelling about the knee. There is no acute fracture or dislocation identified. IMPRESSION: 1. Small joint effusion and mild soft tissue swelling without acute fracture or dislocation. 2. 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 3. Peripheral arterial disease. The above report was generated using voice recognition software. It may contain grammatical, syntax or spelling errors. Electronically signed by: Madhu Martin M.D. 09/03/2017 5:32 PM Dictated Date/Time: 09/03/2017 5:30 PM
[2017-09-03] MEDS ORDERED: CHOL100010 PO (17:58)
[2017-09-03 18:00] LABS: BASO % 0.4 %; BASO ABS # 0.02 K/uL (0-0.2); EOS % 1.6 %; EOS ABS # 0.09 K/uL (0-0.5); HEMATOCRIT 35.1 % (37-47); HEMOGLOBIN 11.4 g/dL (12.0-16.0); IG# 0.01 K/uL (0.00-0.02); LYMPH % 31.7 %; LYMPH ABS # 1.79 K/uL (1.2-3.4); MEAN CELL VOLUME 90.2 fL (80-100); MEAN CORPUSCULAR HEMOGLOBIN 29.3 pg (25-34); MEAN CORPUSCULAR HGB CONC 32.5 g/dl (32-36); MEAN PLATELET VOLUME 10.7 fL (7.4-10.4); MONO % 5.5 %; MONO ABS # 0.31 K/uL (0.11-0.59); NEUT % 60.6 %; NEUT ABS # 3.43 K/uL (1.4-6.5); PLATELET COUNT 116 K/uL (130-400); RED CELL DISTRIBUTION WIDTH SD 45.8 fL (36.4-46.3); WHITE BLOOD COUNT 5.65 K/uL (4.8-10.8)
[2017-09-03 18:09] LABS: PTT PATIENT 27.5 SECONDS (21.0-31.0)
[2017-09-03 18:18] LABS: BLOOD UREA NITROGEN 28 mg/dl (7-18); CARBON DIOXIDE 27 mmol/L (21-32); GLUCOSE 88 mg/dl (70-99); POTASSIUM 4.3 mmol/L (3.5-5.1); SODIUM 141 mmol/L (136-145)
--- NOTE | 2017-09-03 18:26 | DIAGNOSTIC IMAGING REPORT ---
LEFT LOWER EXTREMITY VENOUS DOPPLER CLINICAL HISTORY: L knee/leg pain edema noted COMPARISON STUDY: No previous studies for comparison. TECHNIQUE: Sonography of the deep venous system of the left lower extremity was performed. Compression and augmentation were evaluated. FINDINGS: The common femoral, superficial femoral and popliteal veins were compressible. Augmentation was normal. Flow was shown within the deep calf vessels. IMPRESSION: No evidence of deep venous thrombus within the left lower extremity. Electronically signed by: Hardeep Osman M.D. 09/03/2017 6:24 PM Dictated Date/Time: 09/03/2017 6:24 PM
[2017-09-03] MEDS ORDERED: HYDR-5688 PO (18:52)
[2017-09-03] MEDS ORDERED: NORCO 5/325MG HOME PACK PO ONE (19:00)
[2017-09-03 19:26] VITALS: BP 125/69; PULSE 70; O2SAT 99
== END 2017-09-03 19:26 | disposition home or self-care (01) ==
LOC: C.EDB 16:45 → C.EDD 19:26
DX: M79.605 Pain in left leg (principal); E11.9 Type 2 diabetes mellitus without complications; I10 Essential (primary) hypertension; Z87.442 Personal history of urinary calculi; Z83.3 Family history of diabetes mellitus; Z82.0 Family history of epilepsy and other diseases of the nervous system; Z80.0 Family history of malignant neoplasm of digestive organs; Z79.82 Long term (current) use of aspirin; Z79.84 Long term (current) use of oral hypoglycemic drugs; Z79.899 Other long term (current) drug therapy

== ENCOUNTER → 2017-10-10 | Outpatient (CLI) | payer BC ==
[~2017-10-10] MED LIST changes: +CHOL100010 PO; -ERGO500011 PO; +HYDR-5688 PO; +LEVO112T4 PO
== END | disposition home or self-care (01) ==
LOC: C.PATHSPEC 17:56
PROVIDERS: ATTEND Physician Assistant
DX: D48.9 Neoplasm of uncertain behavior, unspecified (principal)

== ENCOUNTER → 2017-11-06 | Outpatient (CLI) | payer BC | END | disposition home or self-care (01) | LOC: C.RDSM 13:39 | PROVIDERS: ATTEND Orthopaedic Surgery | DX: S82.002A Unspecified fracture of left patella, initial encounter for closed fracture (principal); X58.XXXA Exposure to other specified factors, initial encounter ==

== ENCOUNTER → 2017-11-22 | Outpatient (CLI) | payer BC ==
[~2017-11-22] MED LIST changes: -BIOTCAP2 PO; -SYN137 PO
[2017-11-23 05:36] LABS: HEMOGLOBIN A1C 6.4 % (4.5-5.6)
== END | disposition home or self-care (01) ==
LOC: C.LABBC 12:56
PROVIDERS: ATTEND Family Medicine
DX: E11.42 Type 2 diabetes mellitus with diabetic polyneuropathy (principal); E03.9 Hypothyroidism, unspecified

== ENCOUNTER 2019-10-06 20:25 | Observation (INO) ==
[2019-10-06] MEDS ORDERED: SODIUM CHLORIDE 0.9% 500 ML IV SCH (21:00)
--- NOTE | 2019-10-06 21:00 | Emergency Department Note ---
History of Present Illness General Chief complaint: Rectal Bleed Stated complaint: BLEEDING FROM RECTAL Time Seen by Provider: 10/06/19 20:41 Source: patient Mode of arrival: ambulatory Limitations: no limitations History of Present Illness Provider Complaint: + gross hematochezia Onset (ago): 6 hour(s) Pain Consistency: + intermittent Severity: moderate Current Pain Intensity: 0 Relieved By: + none Exacerbated By: + none Context: + hemorrhoids; no anticoagulant use Associated symptoms: + denies other symptoms HPI Narrative: The patient presents to the ED with a chief complaint of rectal bleeding. The patient states that she had 2 episodes of bloody bowel movements this evening. She states that each episode she passed about a half a cup of blood. She does report some left lower quadrant abdominal pain. She had this for a number of days and provided a urine sample to her doctor earlier today to check for urinary tract infection. Denies chest pains, lightheadedness, dizziness, easy bruising or use of anticoagulants. Home Medications Home Medications Medication Instructions Recorded Confirmed Type aspirin [Aspir-81] 81 mg PO QAM 02/20/18 10/06/19 History blood-glucose meter #1 ea 12/16/18 06/26/19 History lancets 33 gauge #100 ea 12/16/18 06/26/19 History OneTouch Verio test strips #100 ea NS 01/10/19 06/26/19 Rx calcium carbonate 600 mg calcium 1,200 mg PO PM tab 05/15/19 10/06/19 History (1,500 mg) tablet atorvastatin 10 mg tablet 10 mg PO QAM #90 tab 07/03/19 10/06/19 Rx Diabetic Shoes #1 ea 07/04/19 Rx glimepiride 1 mg tablet 1 mg PO BID #180 tab 09/05/19 10/06/19 Rx allopurinol 300 mg PO QAM 10/06/19 10/06/19 History atenolol 25 mg PO PM 10/06/19 10/06/19 History levothyroxine 125 mcg PO QAM 10/06/19 10/06/19 History lisinopril 5 mg PO QAM 10/06/19 10/06/19 History Allergies Allergy/AdvReac Type Severity Reaction Status Date / Time iodine Allergy Severe IV Verified 10/06/19 21:35 DYE-TROUBLE BREATHING HOARSENESS-SEVERE REACTION tramadol Allergy Severe HIVES, Verified 10/06/19 21:35 ITCHING morphine Allergy Intermediate HALLUCINATI Verified 10/06/19 21:35 ONS propoxyphene Allergy Intermediate ITCHING Verified 10/06/19 21:35 scallops Allergy Intermediate DIARRHEA, Verified 10/06/19 21:35 VOMITING ciprofloxacin Allergy Mild SICK Verified 10/06/19 21:35 Penicillins Allergy Mild RASH Verified 10/06/19 21:35 candesartan Allergy Unknown UNKNOWN Verified 10/06/19 21:35 Cipro Allergy Unknown SICK Verified 11/07/17 20:31 oxycodone Allergy Unknown UNKNOWN Verified 10/06/19 21:35 topiramate Allergy Unknown UNKNOWN Verified 10/06/19 21:35 acetaminophen [From Percocet] Allergy Verified 10/06/19 21:35 levothyroxine sodium AdvReac Mild Dry mouth; Verified 10/06/19 21:35 fatigue Past Med/Surg History Medical History Chronic back pain Diabetes NIDDM Hx of cancer of uterus NO CHEMO/NO RADIATION Hyperlipidemia Hypertension Hypothyroidism Obesity Personal history of kidney stones Surgical History History of arthroplasty of right knee History of lithotripsy LEFT ESWL= 11/26/15= LMA#4 History of lumbar surgery X2 Hx of bilateral cataract extraction Hx of colonoscopy Hx of hand surgery Hx of hernia repair VENTRAL Hx of hysterectomy Hx of tonsillectomy Hx of wisdom tooth extraction Family History Father Parkinson disease Renal failure Liver cancer Colorectal cancer Mother Colorectal cancer Liver cancer Son Diabetes Unknown Hypertension Denies family history of Ovarian cancer Prostate cancer Myocardial infarction Breast cancer Social History Preferred Language: Hungarian Communication Ability: Effective Visual Impairment: No Limitations Hearing Ability: Normal Insurance Sales Executive Required: No Beliefs That Will Affect Care: None Current Living Situation: Spouse current occupational status: retired Feels Safe at Home: Yes Smoking Status: Former smoker Hx Alcohol Use: No Hx Substance Use: No Childhood Exposure to Second-Hand Smoke: Yes Dental Care, Regularly: Yes Physical Activity Frequency: 1-2 Times per Week Seatbelt Use: always Sunscreen Use: Yes Review of Systems A total of 10 systems reviewed and were otherwise negative Physical Exam Vital Signs: Vital Signs - 24 hr 10/06/19 20:27 10/06/19 21:14 10/06/19 21:20 Temperature 36.8 C Temperature Source Oral Pulse Rate 86 77 68 Pulse Rate from Sp O2 Sensor Respiratory Rate 20 21 30 H Respiratory Effort / Characteristics Non-Labored Sponta neous Respiratory Depth Normal Blood Pressure 214/102 H Blood Pressure Shaunna n 139 Pulse Oximetry 95 Oxygen Delivery Me thod Room Air Sepsis Action Take n by Nursing No Action Required 10/06/19 21:30 10/06/19 21:40 10/06/19 21:50 Temperature Temperature Source Pulse Rate 68 66 67 Pulse Rate from Sp O2 Sensor Respiratory Rate 29 H 32 H 28 H Respiratory Effort / Characteristics Respiratory Depth Blood Pressure Blood Pressure Shaunna n Pulse Oximetry Oxygen Delivery Me thod Sepsis Action Take n by Nursing 10/06/19 22:00 10/06/19 22:28 10/06/19 22:30 Temperature Temperature Source Pulse Rate 67 70 Pulse Rate from Sp O2 Sensor 73 69 Respiratory Rate 24 18 Respiratory Effort / Characteristics Respiratory Depth Blood Pressure 192/97 H Blood Pressure Shaunna n 111 Pulse Oximetry 96 98 Oxygen Delivery Me thod Sepsis Action Take n by Nursing 10/06/19 22:31 Temperature Temperature Source Pulse Rate 68 Pulse Rate from Sp O2 Sensor 68 Respiratory Rate 27 H Respiratory Effort / Characteristics Respiratory Depth Blood Pressure Blood Pressure Shaunna n Pulse Oximetry 97 Oxygen Delivery Me thod Sepsis Action Take n by Nursing Physical Exam: CONSTITUTIONAL/VITAL SIGNS: Reviewed / noted above. GENERAL: Non-toxic in appearance. INTEGUMENTARY: Warm, dry, and [place]. HEAD: Normocephalic. EYES: without scleral icterus or trauma. ENT/OROPHARYNX: clear and moist. LYMPHADENOPATHY/NECK: Is supple without lymphadenopathy or meningismus. RESPIRATORY: Lungs clear and equal. CARDIOVASCULAR: Regular rate and rhythm. GI/ABDOMEN: Soft and nontender. No organomegaly or pulsatile mass. No rebound or guarding. Normal bowel sounds. EXTREMITIES: Warm and well perfused. BACK: No CVA tenderness. NEUROLOGICAL: Intact without focal deficits. PSYCHIATRIC: normal affect. MUSCULOSKELETAL: Normally developed with good muscle tone. Rectal exam: The patient has gross blood on rectal exam. TRIAGE NURSING DOCUMENTATION REVIEWED. Course Administered Medications Discontinued Medications Sodium Chloride (Nss) 500 mls @ 999 mls/hr IV .Q31M TIFFANY Stop: 10/06/19 21:30 Last Infusion: 10/06/19 21:40 Dose: 0 mls/hr Documented by: [id number] Admin: 10/06/19 21:09 Dose: 999 mls/hr Documented by: [id number] Medical Decision Making Differential Diagnosis + hemorrhoids, + gastritis, + Lower gastrointestinal hemorrhage, + hematochezia, + AVM, + coagulopathy, + colitis, + inflammatory bowel disease and + malignancy Medical Records Attestation: I reviewed the patient's medical records. Home Medications Current Medication List: was personally reviewed by me Laboratory Data Attestation: I reviewed the patient's lab results. Result diagrams: 10/06/19 21:04 10/06/19 21:04 Lab Results 10/06/19 10/06/19 10/06/19 Range/Units 21:04 21:04 21:04 WBC 4.99 (4.8-10.8) K/uL RBC 3.90 L (4.2-5.4) M/uL Hgb 11.4 L (12.0-16.0) g/dL Hct 35.6 L (37-47) % MCV 91.3 (80-100) fL MCH 29.2 (25-34) pg MCHC 32.0 (32-36) g/dL RDW Std Deviation 47.1 H (36.4-46.3) fL RDW Coeff of Tia 14.2 (11.5-14.5) % Plt Count 136 (130-400) K/uL MPV 11.1 H (7.4-10.4) fL Immature Gran % (Auto) 0.6 % Neut % (Auto) 64.7 % Lymph % (Auto) 25.5 % [place] % (Auto) 7.2 % Eos % (Auto) 1.8 % Baso % (Auto) 0.2 % Neut # (Auto) 3.23 (1.4-6.5) K/uL Lymph # (Auto) 1.27 (1.2-3.4) K/uL [place] # (Auto) 0.36 (0.11-0.59) K/uL Eos # (Auto) 0.09 (0-0.5) K/uL Baso # (Auto) 0.01 (0-0.2) K/uL Immature Gran # (Auto) 0.03 H (0.00-0.02) K/uL PT 10.6 (9.0-12.0) Seconds INR 1.0 (0.9-1.1) APTT 28.8 (21.0-31.0) Seconds PTT Ratio 1.0 Sodium (136-145) mmol/L Potassium (3.5-5.1) mmol/L Chloride (98-107) mmol/L Carbon Dioxide (21-32) mmol/L Anion Gap (3-11) BUN (7-18) mg/dl Creatinine (0.6-1.2) mg/dl Est Cr Clr Drug Dosing ml/min Est GFR ( Amer) Est GFR (Non-Af Amer) BUN/Creatinine Ratio (10-20) Glucose (70-99) mg/dl Calcium (8.5-10.1) mg/dl Total Bilirubin (0.2-1) mg/dl AST (15-37) U/L ALT (12-78) U/L Alkaline Phosphatase (45-117) U/L Total Protein (6.4-8.2) gm/dl Albumin (3.4-5.0) gm/dl Globulin (2.5-4.0) gm/dl Albumin/Globulin Ratio (0.9-2) Urine Color Urine Appearance (Clear) Urine pH (4.5-7.5) Ur Specific [place] (1.000-1.030) Urine Protein (Negative) Urine Glucose (UA) (Negative) Urine Ketones (Negative) Urine Blood (Negative) Urine Nitrite (Negative) Urine Bilirubin (Negative) Urine Urobilinogen (Negative) Ur Leukocyte Esterase (Negative) Urine WBC (Auto) (0-5) /hpf Urine RBC (Auto) (0-4) /hpf U Hyaline Cast (Auto) (0-5) /lpf U Epithel Cells (Auto) (0-5) /lpf Urine Bacteria (Auto) (Negative) Blood Type O Positive Antibody Screen NEGATIVE 10/06/19 10/06/19 Range/Units 21:04 22:15 WBC (4.8-10.8) K/uL RBC (4.2-5.4) M/uL Hgb (12.0-16.0) g/dL Hct (37-47) % MCV (80-100) fL MCH (25-34) pg MCHC (32-36) g/dL RDW Std Deviation (36.4-46.3) fL RDW Coeff of Tia (11.5-14.5) % Plt Count (130-400) K/uL MPV (7.4-10.4) fL Immature Gran % (Auto) % Neut % (Auto) % Lymph % (Auto) % [place] % (Auto) % Eos % (Auto) % Baso % (Auto) % Neut # (Auto) (1.4-6.5) K/uL Lymph # (Auto) (1.2-3.4) K/uL [place] # (Auto) (0.11-0.59) K/uL Eos # (Auto) (0-0.5) K/uL Baso # (Auto) (0-0.2) K/uL Immature Gran # (Auto) (0.00-0.02) K/uL PT (9.0-12.0) Seconds INR (0.9-1.1) APTT (21.0-31.0) Seconds PTT Ratio Sodium 139 (136-145) mmol/L Potassium 4.0 (3.5-5.1) mmol/L Chloride 106 (98-107) mmol/L Carbon Dioxide 26 (21-32) mmol/L Anion Gap 7.0 (3-11) BUN 23 H (7-18) mg/dl Creatinine 1.13 (0.6-1.2) mg/dl Est Cr Clr Drug Dosing 39.6 ml/min Est GFR ( Amer) 51.3 Est GFR (Non-Af Amer) 44.3 BUN/Creatinine Ratio 20.3 H (10-20) Glucose 274 H (70-99) mg/dl Calcium 9.8 (8.5-10.1) mg/dl Total Bilirubin 0.3 (0.2-1) mg/dl AST 19 (15-37) U/L ALT 22 (12-78) U/L Alkaline Phosphatase 89 (45-117) U/L Total Protein 7.1 (6.4-8.2) gm/dl Albumin 3.3 L (3.4-5.0) gm/dl Globulin 3.8 (2.5-4.0) gm/dl Albumin/Globulin Ratio 0.9 (0.9-2) Urine Color Yellow Urine Appearance Clear (Clear) Urine pH 5.5 (4.5-7.5) Ur Specific [place] 1.018 (1.000-1.030) Urine Protein 2+ H (Negative) Urine Glucose (UA) 2+ H (Negative) Urine Ketones Negative (Negative) Urine Blood 2+ H (Negative) Urine Nitrite Negative (Negative) Urine Bilirubin Negative (Negative) Urine Urobilinogen Negative (Negative) Ur Leukocyte Esterase Negative (Negative) Urine WBC (Auto) 1-5 (0-5) /hpf Urine RBC (Auto) 0-4 (0-4) /hpf U Hyaline Cast (Auto) 0 (0-5) /lpf U Epithel Cells (Auto) >30 H (0-5) /lpf Urine Bacteria (Auto) Negative (Negative) Blood Type Antibody Screen Imaging Data Radiologist's Impression: CT scan of the abdomen pelvis reveals no acute intra- abdominal abnormality. Fat-containing ventral hernia. ECG Data Attestation: I personally reviewed and interpreted this ECG as follows: Indication: weakness Rate (beats per minute): 72 Rhythm: normal sinus Findings: no PVC and no ST elevation Blood Pressure Blood Pressure Findings: Elevated blood pressure Blood Pressure Disposition: further management by hospitalist PHIL Narrative The patient presents to the ED with a chief complaint of rectal bleeding. The patient states that she had 2 episodes of bloody bowel movements this evening. She states that each episode she passed about a half a cup of blood. She does report some left lower quadrant abdominal pain. She had this for a number of days and provided a urine sample to her doctor earlier today to check for urinary tract infection. The patient exam reveals gross blood on rectal. Is mildly tender in the left lower quadrant. The patient's twelve-lead EKG shows a sinus rhythm at a rate of 72 with LVH. CBC is unremarkable. Hemoglobin was 11.4. Complete metabolic panel was unremarkable. Urine was contaminated. CT scan of the abdomen pelvis did not show acute abnormality. The patient was told the results of the test. The patient will be seen by the hospitalist for hospitalization for her rectal bleeding. Impression & Plan Acute GI bleeding Discharge Plan Visit Data Chief Complaint: Rectal Bleed Stated Complaint: BLEEDING FROM RECTAL ED Provider: Benjamin Minor Discharge Problem: Acute GI bleeding Patient Disposition: Being Evaluated by Hospitalist Forms Stand Alone Forms: [facility], Virtual Emergency Department, Important Visit Information Prescriptions Prescriptions: No Action (DME) OneTouch Verio test strips strip See Dose Instructions .ROUTE .MEDSUPPLY Qty: 100 RF: 11 atorvastatin 10 mg tablet 10 mg PO QAM Qty: 90 RF: 3 (DME) Diabetic Shoes Misc See Rx Instructions .ROUTE .MEDSUPPLY Qty: 1 RF: 0 glimepiride 1 mg tablet 1 mg PO BID Qty: 180 RF: 1 (DME) blood-glucose meter [OneTouch Verio Meter] misc See Dose Instructions .ROUTE .MEDSUPPLY Qty: 1 RF: 0 (DME) lancets [OneTouch Delica Plus Lancet] 33 gauge misc See Dose Instructions .ROUTE .MEDSUPPLY Qty: 100 RF: 0 aspirin [Aspir-81] 81 mg Tablet,Delayed Release (Dr/Ec) 81 mg PO QAM RF: 0 calcium carbonate [Calcium 600] 600 mg calcium (1,500 mg) tablet 1,200 mg PO PM RF: 0 atenolol 25 mg tablet 25 mg PO PM RF: 0 levothyroxine 125 mcg tablet 125 mcg PO QAM RF: 0 allopurinol 300 mg tablet 300 mg PO QAM RF: 0 lisinopril 5 mg tablet 5 mg PO QAM RF: 0 Referrals Referrals: Sabine Aldrich MD [Primary Care Provider] -
[2019-10-06 21:22] LABS: Basophils # (auto) 0.01 K/uL (0-0.2); Basophils % (auto) 0.2 %; Eosinophils # (auto) 0.09 K/uL (0-0.5); Eosinophils % (auto) 1.8 %; Hematocrit (blood only) 35.6 % (37-47); Hemoglobin 11.4 g/dL (12.0-16.0); Immature Granulocytes # (auto) 0.03 K/uL (0.00-0.02); Immature Granulocytes % (auto) 0.6 %; Lymphocytes # (auto) 1.27 K/uL (1.2-3.4); Lymphocytes % (auto) 25.5 %; Mean Corpuscular Hemoglobin 29.2 pg (25-34); Mean Corpuscular Volume 91.3 fL (80-100); Mean Platelet Volume 11.1 fL (7.4-10.4); Monocytes # (auto) 0.36 K/uL (0.11-0.59); Monocytes % (auto) 7.2 %; Neutrophils # (auto) 3.23 K/uL (1.4-6.5); Neutrophils % (auto) 64.7 %; Platelet Count 136 K/uL (130-400); RDW Coefficient of Variation 14.2 % (11.5-14.5); RDW Standard Deviation 47.1 fL (36.4-46.3); White Blood Count 4.99 K/uL (4.8-10.8)
[2019-10-06 21:36] LABS: Partial Thromboplastin Time 28.8 Seconds (21.0-31.0); Prothrombin Time 10.6 Seconds (9.0-12.0)
[2019-10-06 21:42] LABS: Albumin Level 3.3 gm/dl (3.4-5.0); BUN Creatinine Ratio 20.3 (10-20); Calcium 9.8 mg/dl (8.5-10.1); Creatinine Clr Calc Pharmacy 39.6 ml/min; Est GFR (African American) 51.3; Est GFR (Non-African American) 44.3
[2019-10-06 21:45] LABS: Albumin Globulin Ratio 0.9 (0.9-2); Bilirubin,Total 0.3 mg/dl (0.2-1); Globulin 3.8 gm/dl (2.5-4.0); Total Protein 7.1 gm/dl (6.4-8.2)
[2019-10-06 22:37] LABS: Appearance Urine Clear (Clear); Bacteria Urine Automated Negative (Negative); Bilirubin Urine Negative (Negative); Blood Urine 2+ (Negative); Cast Urine Automated 0 /lpf (0-5); Color Urine Yellow; Epithelial Cell Urine Auto >30 /lpf (0-5); Glucose Urine UA 2+ (Negative); Ketones Urine Negative (Negative); Leukocyte Esterase Urine Negative (Negative); Nitrite Urine Negative (Negative); Protein Urine 2+ (Negative); RBC Urine Automated 0-4 /hpf (0-4); Specific Gravity Urine 1.018 (1.000-1.030); Urobilinogen Urine Negative (Negative); pH Urine 5.5 (4.5-7.5)
--- NOTE | 2019-10-07 00:33 | History & Physical Report ---
Date of Service October 07, 2019 Assessment & Plan (1) Acute GI bleeding: Pt is an 84yo female with a PMHx of hypothyroidism, DMII, HLD, HTN, Hyperuricemia, Anxiety, Depression, PTSD who presents with rectal bleed. Rectal bleed -Pt with 2 day Hx of BRBPR associated with dizziness currently -Denies melena or hematochezia, states it is liquid red blood that stains her underwear and pants. -Denies use of anticoagulation but takes home baby aspirin -Known Hx of external hemorrhoids, last colonoscopy was normal about 3 years ago. -hemodynamically stable, Hgb of 11.4 on admission -FOBT pending -CT abdomen/pelvis with no evidence of diverticulosis/diverticulitis -consult placed to GI -NPO for possible procedure -hold home aspirin -IV protonix 40mg BID -given pt hemodynamic stability, will re-check hgb with AM labs Suprapubic pain -Pt with outpt workup for UTI prior to arrival -UA notes blood, but no bacteria, nitrites or leukocyte esterase -No indication to treat currently Hypothyroidism -hold PO home levothyroxine 125mcg DMII -hgba1c of 7.7 on June 17, 2019, repeat placed for AM -hold home PO glimepiride 1mg BID and metformin -ISS while hospitalized HLD -hold home PO atorvastatin 10mg -hold home PO aspirin 81mg HTN -hold home PO atenolol 25mg -hold home PO lisinopril 5mg Hyperuricemia -hold home PO allopurinol 300mg FEN/GI: NPO, NSS@80mls CODE STATUS: Full DVT prophylaxis: pt currently bleeding, no chemical proph at this time Dispo: Med/Surg with tele History of Present Illness Primary Care Provider: Sabine Aldrich MD Pt is an 84yo female with a PMHx of hypothyroidism, DMII, HLD, HTN, Hyperuricemia, Anxiety, Depression, PTSD who presents with rectal bleed. States it started about 2 days ago, has been worsening to the point that has been soiling her underwear and pants. Has Hx of external hemorrhoids. Last colonoscopy was 3 years prior, unremarkable. Not on anticoagulants but takes daily aspirin 81mg. Currently dizzy on her feet. Had recent workup for UTI given suprapubic torres. Allergies Allergy/AdvReac Type Severity Reaction Status Date / Time iodine Allergy Severe IV Verified 10/06/19 21:35 DYE-TROUBLE BREATHING HOARSENESS-SEVERE REACTION tramadol Allergy Severe HIVES, Verified 10/06/19 21:35 ITCHING morphine Allergy Intermediate HALLUCINATI Verified 10/06/19 21:35 ONS propoxyphene Allergy Intermediate ITCHING Verified 10/06/19 21:35 scallops Allergy Intermediate DIARRHEA, Verified 10/06/19 21:35 VOMITING ciprofloxacin Allergy Mild SICK Verified 10/06/19 21:35 Penicillins Allergy Mild RASH Verified 10/06/19 21:35 candesartan Allergy Unknown UNKNOWN Verified 10/06/19 21:35 Cipro Allergy Unknown SICK Verified 11/07/17 20:31 oxycodone Allergy Unknown UNKNOWN Verified 10/06/19 21:35 topiramate Allergy Unknown UNKNOWN Verified 10/06/19 21:35 acetaminophen [From Percocet] Allergy Verified 10/06/19 21:35 levothyroxine sodium AdvReac Mild Dry mouth; Verified 10/06/19 21:35 fatigue Home Medications Home Medications Medication Instructions Recorded Confirmed Type aspirin [Aspir-81] 81 mg PO QAM 02/20/18 10/06/19 History blood-glucose meter #1 ea 12/16/18 06/26/19 History lancets 33 gauge #100 ea 12/16/18 06/26/19 History OneTouch Verio test strips #100 ea NS 01/10/19 06/26/19 Rx calcium carbonate 600 mg calcium 1,200 mg PO PM tab 05/15/19 10/06/19 History (1,500 mg) tablet atorvastatin 10 mg tablet 10 mg PO QAM #90 tab 07/03/19 10/06/19 Rx Diabetic Shoes #1 ea 07/04/19 Rx glimepiride 1 mg tablet 1 mg PO BID #180 tab 09/05/19 10/06/19 Rx allopurinol 300 mg PO QAM 10/06/19 10/06/19 History atenolol 25 mg PO PM 10/06/19 10/06/19 History levothyroxine 125 mcg PO QAM 10/06/19 10/06/19 History lisinopril 5 mg PO QAM 10/06/19 10/06/19 History Past Med/Surg History Medical History Chronic back pain Diabetes NIDDM Hx of cancer of uterus NO CHEMO/NO RADIATION Hyperlipidemia Hypertension Hypothyroidism Obesity Personal history of kidney stones Surgical History History of arthroplasty of right knee History of lithotripsy LEFT ESWL= 11/26/15= LMA#4 History of lumbar surgery X2 Hx of bilateral cataract extraction Hx of colonoscopy Hx of hand surgery Hx of hernia repair VENTRAL Hx of hysterectomy Hx of tonsillectomy Hx of wisdom tooth extraction Family History Father Parkinson disease Renal failure Liver cancer Colorectal cancer Mother Colorectal cancer Liver cancer Son Diabetes Unknown Hypertension Denies family history of Ovarian cancer Prostate cancer Myocardial infarction Breast cancer Social History Preferred Language: Thai Communication Ability: Effective Visual Impairment: No Limitations Hearing Ability: Normal Shopping Centre Manager Required: No Beliefs That Will Affect Care: None Current Living Situation: Spouse current occupational status: retired Feels Safe at Home: Yes Smoking Status: Former smoker Hx Alcohol Use: No Hx Substance Use: No Childhood Exposure to Second-Hand Smoke: Yes Dental Care, Regularly: Yes Physical Activity Frequency: 1-2 Times per Week Seatbelt Use: always Sunscreen Use: Yes Review of Systems Constitutional: no fever, no chills and no sweats Eyes: no worsening vision Ear, Nose, Mouth, Throat: no nasal congestion and no sore throat Respiratory: no cough and no dyspnea Cardiovascular: + edema; no chest pain, no dyspnea, no palpitations and no calf pain Gastrointestinal: + abdominal pain; no nausea, no vomiting, no hematemesis, no constipation, no diarrhea/loose stools, no blood in stools and no melena Genitourinary: + dysuria Musculoskeletal: no body aches Integumentary: no rash and no bleeding lesions Neurologic: + dizziness; no headache(s) and no confusion Psychiatric: + depression and + anxiety; no confusion Physical Exam Physical Exam: General: Alert, oriented. No acute distress laying in bed Skin: No noted rashes or bruises, lots of SKs noted on back Psych: Appropriate mood and affect Neuro: No gross deficits HEENT: NC/AT Chest: Nontender to palpation. CV: RRR, Normal s1, s2. Resp: Breath sounds clear bilaterally, no increased effort of breathing. No crackles/rhonchi/rales. Abdomen: Soft, nontender. No guarding. +suprapubic tenderness Extremities: Trace edema in lower extremities bilaterally. Results & Data Results & Data ([facility]) Vital Signs (Past 12 Hours) Vital Signs Temp Pulse Pulse Resp BP BP Pulse Ox 10/07/19 00:03 70 18 188/90 H 96 10/06/19 22:31 68 27 H 97 10/06/19 22:30 70 18 192/97 H 98 10/06/19 22:28 96 10/06/19 22:00 67 24 10/06/19 21:50 67 28 H 10/06/19 21:40 66 32 H 10/06/19 21:30 68 29 H 10/06/19 21:20 68 30 H 10/06/19 21:14 77 21 10/06/19 20:27 36.8 C 86 20 214/102 H 95 Supervising Physician Co-Signing Physician Notes Attending addendum: I have physically seen this patient, have supervised the medical residents activities, and agree with the H&P unless as otherwise noted. Assessment and Plan: Rectal bleeding- Most likely hemorrhoidal. Last colonoscopy 3 years ago with no other findings Hemoglobin stable 11.4, with stable blood pressure and heart rate CT abdomen pelvis no acute findings NPO Hold aspirin Pantoprazole 40 mg IV twice daily Serial H&H's every 6 hours Consult gastroenterology Diabetes mellitus- Hold glimepiride and metformin Placed on Accu-Cheks before meals and at bedtime/every 6 hours with NovoLog coverage per scale Remainder of orders and notations as noted Resident Activity Tracking Resident Involvement: Resident Care Provided Care Provided: Adult Hospital Medicine
[2019-10-07] MEDS ORDERED: CARBOHYDRATES FOR HYPOGLYCEMIA PO PRN (01:46)
[2019-10-07] MEDS ORDERED: GLUCOSE 10 TABS/TUBE PO PRN (01:46)
[2019-10-07] MEDS ORDERED: GLUCOSE 40% GEL 15 GM TUBE PO PRN (01:46)
[2019-10-07] MEDS ORDERED: GLUCAGON FOR INJ 1 MG VIAL SQ PRN (01:46)
[2019-10-07] MEDS ORDERED: DEXTROSE 50% 50 ML SYRINGE IV PRN (01:46)
[2019-10-07] MEDS: PANTOprazole 40 MG in SYRINGE 0 ML IV SCH ×4 (03:26→20:46)
[2019-10-07] MEDS: SODIUM CHLORIDE 0.9% 1000ML 1,000 ML IV SCH ×2 (03:26→16:00)
[2019-10-07] MEDS: INSULIN ASPART 100 UNITS/ML 3 ML PEN SC SCH ×5 (03:34→23:54)
[2019-10-07 06:17] LABS: Basophils # (auto) 0.01 K/uL (0-0.2); Basophils % (auto) 0.2 %; Eosinophils # (auto) 0.07 K/uL (0-0.5); Eosinophils % (auto) 1.4 %; Hematocrit (blood only) 32.9 % (37-47); Hemoglobin 10.8 g/dL (12.0-16.0); Immature Granulocytes # (auto) 0.03 K/uL (0.00-0.02); Immature Granulocytes % (auto) 0.6 %; Lymphocytes # (auto) 1.54 K/uL (1.2-3.4); Lymphocytes % (auto) 31.1 %; Mean Corpuscular Hemoglobin 29.8 pg (25-34); Mean Corpuscular Hgb Conc 32.8 g/dL (32-36); Mean Corpuscular Volume 90.9 fL (80-100); Mean Platelet Volume 10.6 fL (7.4-10.4); Monocytes # (auto) 0.34 K/uL (0.11-0.59); Monocytes % (auto) 6.9 %; Neutrophils # (auto) 2.96 K/uL (1.4-6.5); Neutrophils % (auto) 59.8 %; Platelet Count 107 K/uL (130-400); RDW Coefficient of Variation 14.3 % (11.5-14.5); Red Blood Count 3.62 M/uL (4.2-5.4); White Blood Count 4.95 K/uL (4.8-10.8)
[2019-10-07 06:26] LABS: Prothrombin Time 10.8 Seconds (9.0-12.0)
[2019-10-07 06:45] LABS: Estimated Average Glucose 183 mg/dl
[2019-10-07 06:52] LABS: BUN Creatinine Ratio 21.2 (10-20); Calcium 9.4 mg/dl (8.5-10.1); Creatinine Clr Calc Pharmacy 56.6 ml/min; Est GFR (African American) 73.5; Est GFR (Non-African American) 63.4; Potassium 4.1 mmol/L (3.5-5.1)
--- NOTE | 2019-10-07 08:46 | CT Scan Report ---
ABDOMEN AND PELVIS CT WITHOUT CONTRAST CT DOSE: 1072.06 mGy.cm HISTORY: Left lower quadrant pain. TECHNIQUE: Multiaxial CT images of the abdomen and pelvis were performed without contrast. A dose lo wering technique was utilized adhering to the principles of ALARA. COMPARISON STUDY: Abdomen and pelvis CT 11/15/2015. FINDINGS: A few scattered tiny nodules at the lung bases which are likely benign. There is mild chron ic interstitial thickening at the lung bases. No pneumoperitoneum. No pneumatosis. Small fat-containi ng left-sided Bochdalek hernia, unchanged. Subtle nodular contour to the liver consistent with cirrho sis. This is also unchanged. The unenhanced gallbladder, spleen, and adrenal glands unremarkable. Sta ble 3 cm hypodense lesion within the lower pole of the right kidney and a 9 cm exophytic hypodense le ariana within the left kidney. These favor cysts. There is a 5 mm stone within the lower pole the left kidney. No ureteral stones. No hydronephrosis. Normal bladder. Small fat-containing umbilical hernia which has slightly increased in size. A few scattered punctate calcifications within the pancreas rem ain unchanged. This is consistent with a chronic pancreatitis. No evidence for acute pancreatitis. No retroperitoneal lymphadenopathy. Calcified plaque within the normal caliber abdominal aorta. Subopti mal evaluation for bowel pathology due to the lack of intravenous and oral contrast. However, there i s no definite bowel wall thickening or obstruction. Normal appendix. IMPRESSION: 1. No definite bowel wall thickening or obstruction. 2. Left-sided nephrolithiasis. No ureteral stones. No hydronephrosis. 3. Normal appendix. 4. Slight increase in size in the small fat-containing umbilical hernia. 5. Cirrhotic liver, unchanged. ACT 112: Negative or not required by law. Electronically signed by: Kenneth Mishra M.D. 10/07/2019 8:44 AM
[2019-10-07] MEDS ORDERED: ONDANSETRON INJ 2 MG/ML 2 ML VIAL IV PRN (14:11)
--- NOTE | 2019-10-07 15:47 | Electrocardiogram Report ---
Test Reason : Blood Pressure : / mmHG Vent. Rate : 072 BPM Atrial Rate : 072 BPM P-R Int : 226 ms QRS Dur : 108 ms QT Int : 388 ms P-R-T Axes : 054 -39 116 degrees QTc Int : 424 ms Sinus rhythm with 1st degree A-V block with Premature atrial complexes Left axis deviation Left ventricular hypertrophy with repolarization abnormality Cannot rule out Septal infarct (cited on or before 27-OCT-2018) Abnormal ECG When compared with ECG of 27-OCT-2018 21:02, Premature atrial complexes are now Present Questionable change in initial forces of Septal leads T wave inversion now evident in Anterior leads Confirmed by Aroldo Saravia ([id number]) on 10/07/2019 3:46:50 PM Referred By: REFERRED SELF Confirmed By:Aroldo Saravia
--- NOTE | 2019-10-07 16:32 | Gastrointestinal Consultation ---
Date of Consultation October 07, 2019 Assessment & Plan (1) Acute GI bleeding: Most consistent with lower GI bleeding with bright red stool. Has abated at present. Doubt UGI bleed with rapid transit as would expect hemodynmic changes and more acute drop in Hgb. Discussed with patient watch and wait to see if bleeding has completely resolved versus do colonscopy to evaluate for benign and serious patholgy causing bleeding. She elects to do colonoscopy and will arrange for tomorrow. Proc and risks explained which include but not limited to med reaction, bleeding, perforation, aspiration, and missed lesions. cirrhosis on CT--compensated, will discuss with patient tomorrow as she is di stressed about bleeding at present and do not want to add to that. However, favor no workup as she is 84. anemia--follow and transfuse prn. History of Present Illness Reason for Consultation: rectal bleeding Requesting Physician: DR Nida Hanley Attending Physician: Junior De La Rosa, History of Present Illness CC rectal bleeding HPI Reviewed this EMR and [facility] EMR for recent data. Noted colonscopy by me 08/2015 to cecum for hx of colon polyps and fhx of CRC. Exam was to cecum and noted internal hemorrhoids, otherwise normal. Pt states she has had limited rectal bleeding thought from hemorrhoids in the past but she had acute onset of profuse bright red bleeding yesterday. She has been NPO and no bms nor bleeding today. CBC on admit 11.4 vs 11.6 on 10/27/[address] scan showed some cirrhosis but was stable from 2016. She is on ASA but no blood thinners otherwise. She has midline lower abd pain increased with the quanity of IVF she is receiving. Allergies Allergy/AdvReac Type Severity Reaction Status Date / Time iodine Allergy Severe IV Verified 10/06/19 21:35 DYE-TROUBLE BREATHING HOARSENESS-SEVERE REACTION tramadol Allergy Severe HIVES, Verified 10/06/19 21:35 ITCHING morphine Allergy Intermediate HALLUCINATI Verified 10/06/19 21:35 ONS propoxyphene Allergy Intermediate ITCHING Verified 10/06/19 21:35 scallops Allergy Intermediate DIARRHEA, Verified 10/06/19 21:35 VOMITING ciprofloxacin Allergy Mild SICK Verified 10/06/19 21:35 Penicillins Allergy Mild RASH Verified 10/06/19 21:35 candesartan Allergy Unknown UNKNOWN Verified 10/06/19 21:35 Cipro Allergy Unknown SICK Verified 11/07/17 20:31 oxycodone Allergy Unknown UNKNOWN Verified 10/06/19 21:35 topiramate Allergy Unknown UNKNOWN Verified 10/06/19 21:35 acetaminophen [From Percocet] Allergy Verified 10/06/19 21:35 levothyroxine sodium AdvReac Mild Dry mouth; Verified 10/06/19 21:35 fatigue Home Medications Home Medications Medication Instructions Recorded Confirmed Type aspirin [Aspir-81] 81 mg PO QAM 02/20/18 10/06/19 History blood-glucose meter #1 ea 12/16/18 06/26/19 History lancets 33 gauge #100 ea 12/16/18 06/26/19 History OneTouch Verio test strips #100 ea NS 01/10/19 06/26/19 Rx calcium carbonate 600 mg calcium 1,200 mg PO PM tab 05/15/19 10/06/19 History (1,500 mg) tablet atorvastatin 10 mg tablet 10 mg PO QAM #90 tab 07/03/19 10/06/19 Rx Diabetic Shoes #1 ea 07/04/19 Rx glimepiride 1 mg tablet 1 mg PO BID #180 tab 09/05/19 10/06/19 Rx allopurinol 300 mg PO QAM 10/06/19 10/06/19 History atenolol 25 mg PO PM 10/06/19 10/06/19 History levothyroxine 125 mcg PO QAM 10/06/19 10/06/19 History lisinopril 5 mg PO QAM 10/06/19 10/06/19 History Patient History Medical History Chronic back pain Diabetes NIDDM Hx of cancer of uterus NO CHEMO/NO RADIATION Hyperlipidemia Hypertension Hypothyroidism Obesity Personal history of kidney stones Surgical History History of arthroplasty of right knee History of lithotripsy LEFT ESWL= 11/26/15= LMA#4 History of lumbar surgery X2 Hx of bilateral cataract extraction Hx of colonoscopy Hx of hand surgery Hx of hernia repair VENTRAL Hx of hysterectomy Hx of tonsillectomy Hx of wisdom tooth extraction Family History Father Parkinson disease Renal failure Liver cancer Colorectal cancer Mother Colorectal cancer Liver cancer Son Diabetes Unknown Hypertension Denies family history of Ovarian cancer Prostate cancer Myocardial infarction Breast cancer Social History Preferred Language: Bengali Communication Ability: Effective Visual Impairment: No Limitations Hearing Ability: Normal Athletic Gear Custodian Required: No Beliefs That Will Affect Care: None Current Living Situation: Spouse current occupational status: retired Feels Safe at Home: Yes Smoking Status: Former smoker Hx Alcohol Use: No Hx Substance Use: No Childhood Exposure to Second-Hand Smoke: Yes Dental Care, Regularly: Yes Physical Activity Frequency: 1-2 Times per Week Seatbelt Use: always Sunscreen Use: Yes Review of Systems Review of Systems: All systems reviewed & are unremarkable except as noted in HPI & below Physical Exam Constitutional: WD/WN, vitals as above ENMT: external ear and nose normal. Neck: normal visual inspection and trachea midline Respiratory: normal respiratory effort, lungs clear to auscultation Cardiovascular: RRR, no murmur, no edema Gastrointestinal (Abdomen): normal bowel sounds, soft, nontender, no hepatosplenomegaly Skin: warm and dry Neurologic: PERRL, EOMI, accommodation nl, no face palsy, no dysarthria Psychiatric: A+Ox3, euthymic affect Results & Data ([facility]) Vital Signs (Past 12 Hours) Vital Signs Temp Pulse Pulse Resp BP Pulse Ox 10/07/19 16:18 84 10/07/19 15:22 37.2 C 60 20 174/78 H 95 10/07/19 11:23 36.8 C 64 20 173/75 H 93 10/07/19 09:10 62 10/07/19 07:31 36.7 C 55 L 20 150/68 H 96 10/07/19 05:28 65
[2019-10-07] MEDS ORDERED: POLYETHYLENE (MIRALAX) 17 GM PACK PO SCH (18:00)
[2019-10-07] MEDS ORDERED: ATENOLOL 25 MG TABLET PO SCH (21:00)
[2019-10-08] MEDS: INSULIN ASPART 100 UNITS/ML 3 ML PEN SC SCH ×3 (00:18→12:50)
[2019-10-08] MEDS ORDERED: MAGNESIUM CITRATE 296 ML/BTL PO STA (05:15)
[2019-10-08] MEDS: PANTOprazole 40 MG in SYRINGE 0 ML IV SCH (08:56)
[2019-10-08 09:33] LABS: Basophils # (auto) 0.01 K/uL (0-0.2); Basophils % (auto) 0.2 %; Eosinophils # (auto) 0.09 K/uL (0-0.5); Hematocrit (blood only) 32.7 % (37-47); Hemoglobin 10.6 g/dL (12.0-16.0); Immature Granulocytes # (auto) 0.01 K/uL (0.00-0.02); Immature Granulocytes % (auto) 0.2 %; Lymphocytes # (auto) 1.34 K/uL (1.2-3.4); Lymphocytes % (auto) 29.1 %; Mean Corpuscular Hemoglobin 29.6 pg (25-34); Mean Corpuscular Hgb Conc 32.4 g/dL (32-36); Mean Corpuscular Volume 91.3 fL (80-100); Mean Platelet Volume 10.4 fL (7.4-10.4); Monocytes # (auto) 0.29 K/uL (0.11-0.59); Monocytes % (auto) 6.3 %; Neutrophils # (auto) 2.87 K/uL (1.4-6.5); Neutrophils % (auto) 62.2 %; Platelet Count 128 K/uL (130-400); RDW Coefficient of Variation 14.2 % (11.5-14.5); RDW Standard Deviation 46.8 fL (36.4-46.3); Red Blood Count 3.58 M/uL (4.2-5.4); White Blood Count 4.61 K/uL (4.8-10.8)
[2019-10-08 10:11] LABS: Albumin Level 3.1 gm/dl (3.4-5.0); BUN Creatinine Ratio 15.9 (10-20); Calcium 9.5 mg/dl (8.5-10.1); Creatinine Clr Calc Pharmacy 43.2 ml/min; Est GFR (Non-African American) 45.7; Potassium 4.4 mmol/L (3.5-5.1)
[2019-10-08 10:13] LABS: Albumin Globulin Ratio 0.8 (0.9-2); Bilirubin,Total 0.5 mg/dl (0.2-1); Globulin 3.7 gm/dl (2.5-4.0); Total Protein 6.8 gm/dl (6.4-8.2)
[2019-10-08 10:18] LABS: Tear Drop Cells Occasional
[2019-10-08] MEDS ORDERED: MAGNESIUM CITRATE 296 ML/BTL ONE (10:44)
[2019-10-08] MEDS ORDERED: D5W AND 1/2NSS 1,000 ML IV SCH (10:45)
--- NOTE | 2019-10-08 11:53 | Anesthesiology Consultation ---
Date of Service October 08, 2019 Assessment & Plan Chart Review Chart Review: Acceptable Risk for Surgery and Patient NOT seen in Pre Admission Testing Consults Requested none ASA ASA4 Proposed Anesthesia Anesthesia Type: MAC History Surgery Operation Date: 10/08/19 16:30 Proposed Procedures p Colonoscopy Dr Sandoval - Nilton Sandoval Height/Weight Height: 5 ft 3 in Weight: 104.4 kg Allergies Allergy/AdvReac Type Severity Reaction Status Date / Time iodine Allergy Severe IV Verified 10/06/19 21:35 DYE-TROUBLE BREATHING HOARSENESS-SEVERE REACTION tramadol Allergy Severe HIVES, Verified 10/06/19 21:35 ITCHING morphine Allergy Intermediate HALLUCINATI Verified 10/06/19 21:35 ONS propoxyphene Allergy Intermediate ITCHING Verified 10/06/19 21:35 scallops Allergy Intermediate DIARRHEA, Verified 10/06/19 21:35 VOMITING ciprofloxacin Allergy Mild SICK Verified 10/06/19 21:35 Penicillins Allergy Mild RASH Verified 10/06/19 21:35 candesartan Allergy Unknown UNKNOWN Verified 10/06/19 21:35 Cipro Allergy Unknown SICK Verified 11/07/17 20:31 oxycodone Allergy Unknown UNKNOWN Verified 10/06/19 21:35 topiramate Allergy Unknown UNKNOWN Verified 10/06/19 21:35 acetaminophen [From Percocet] Allergy Verified 10/06/19 21:35 levothyroxine sodium AdvReac Mild Dry mouth; Verified 10/06/19 21:35 fatigue Medications Home Medications Medication Instructions Recorded Confirmed Last Taken aspirin [Aspir-81] 81 mg PO QAM 02/20/18 10/06/19 10/06/19 blood-glucose meter #1 ea 12/16/18 06/26/19 Unknown lancets 33 gauge #100 ea 12/16/18 06/26/19 Unknown OneTouch Verio test strips #100 ea NS 01/10/19 06/26/19 Unknown calcium carbonate 600 mg calcium 1,200 mg PO PM tab 05/15/19 10/06/19 10/05/19 (1,500 mg) tablet atorvastatin 10 mg tablet 10 mg PO QAM #90 tab 07/03/19 10/06/19 10/06/19 Diabetic Shoes #1 ea 07/04/19 Unknown glimepiride 1 mg tablet 1 mg PO BID #180 tab 09/05/19 10/06/19 10/06/19 allopurinol 300 mg PO QAM 10/06/19 10/06/19 10/06/19 atenolol 25 mg PO PM 10/06/19 10/06/19 10/05/19 levothyroxine 125 mcg PO QAM 10/06/19 10/06/19 10/06/19 lisinopril 5 mg PO QAM 10/06/19 10/06/19 10/06/19 Active Medications Generic Name Dose Route Start Last Admin Trade Name Freq PRN Reason Stop Dose Admin Atenolol 25 mg 10/07/19 21:00 10/07/19 20:46 Tenormin PO 11/06/19 20:59 25 mg PM TIFFANY Administration Pantoprazole Sodium 40 mg/ 10 mls @ 5 mls/min 10/07/19 02:30 10/08/19 08:56 Syringe IV 11/06/19 02:29 5 mls/min BID TIFFANY Administration Dextrose/Sodium Chloride 1,000 mls @ 80 mls/hr 10/08/19 10:45 10/08/19 11:12 D5w And 1/2nss IV 11/07/19 10:44 80 mls/hr .[id number] TIFFANY Administration Insulin Aspart 0 units 10/07/19 02:45 10/08/19 05:55 Novolog Flexpen SC 11/06/19 02:44 Not Given Q6 TIFFANY Ondansetron HCl 4 mg 10/07/19 14:11 10/07/19 18:03 Zofran IV 11/06/19 14:10 4 mg Q4H PRN Administration Nausea Past Medical History Medical History Chronic back pain Diabetes NIDDM Hx of cancer of uterus NO CHEMO/NO RADIATION Hyperlipidemia Hypertension Hypothyroidism Obesity Personal history of kidney stones Exercise / Class Metabolic Activity III < 4 Walking/Shop/Light housework Past Family History Family History Father Parkinson disease Renal failure Liver cancer Colorectal cancer Mother Colorectal cancer Liver cancer Son Diabetes Unknown Hypertension Denies family history of Ovarian cancer Prostate cancer Myocardial infarction Breast cancer Past Surgical History Surgical History History of arthroplasty of right knee History of lithotripsy LEFT ESWL= 11/26/15= LMA#4 History of lumbar surgery X2 Hx of bilateral cataract extraction Hx of colonoscopy Hx of hand surgery Hx of hernia repair VENTRAL Hx of hysterectomy Hx of tonsillectomy Hx of wisdom tooth extraction Past Anesthesia History No Hx of Anesthesia Complications and No Family Hx of Anesthesia Complications History of PONV No Hx of PONV and No Hx of Motion Sickness Social History Smoking Status: Former smoker Hx Alcohol Use: No Hx Substance Use: No substance use type: does not use Physical Exam Vital Signs Last Vital Signs Temp 36.4 C L 10/08/19 07:14 Pulse 56 L 10/08/19 07:14 Resp 18 10/08/19 07:14 BP 154/68 H 10/08/19 07:14 Pulse Ox 97 10/08/19 07:14 Testing Laboratory Results 10/08/19 09:23 10/08/19 09:23 PT 10.8 Seconds (9.0-12.0) 10/07/19 06:04 INR 1.0 (0.9-1.1) 10/07/19 06:04 APTT 28.8 Seconds (21.0-31.0) 10/06/19 21:04 Hemoglobin A1c 8.0 % (4.5-5.6) H 10/07/19 06:04 Urine Color Yellow 10/06/19 22:15 Urine Appearance Clear (Clear) 10/06/19 22:15 Urine pH 5.5 (4.5-7.5) 10/06/19 22:15 Ur Specific Bude 1.018 (1.000-1.030) 10/06/19 22:15 Urine Protein 2+ (Negative) H 10/06/19 22:15 Urine Glucose (UA) 2+ (Negative) H 10/06/19 22:15 Urine Ketones Negative (Negative) 10/06/19 22:15 Urine Nitrite Negative (Negative) 10/06/19 22:15 Ur Leukocyte Esterase Negative (Negative) 10/06/19 22:15 Urine WBC (Auto) 1-5 /hpf (0-5) 10/06/19 22:15 Urine RBC (Auto) 0-4 /hpf (0-4) 10/06/19 22:15 U Hyaline Cast (Auto) 0 /lpf (0-5) 10/06/19 22:15 U Epithel Cells (Auto) >30 /lpf (0-5) H 10/06/19 22:15 Urine Bacteria (Auto) Negative (Negative) 10/06/19 22:15 Blood Type O Positive 10/06/19 21:04 Antibody Screen NEGATIVE 10/06/19 21:04 10/08/19 10/08/19 10/07/19 11:42 05:50 23:58 POC Glucose 166 H 119 H 189 H Electrocardiogram Date: 10/06/19 Findings: + LVH SR aw/1st degree AV block w/ PAC's
--- NOTE | 2019-10-08 13:45 | History & Physical Report ---
Date of Service October 08, 2019 Assessment & Plan (1) Acute GI bleeding: Colonoscopy today for lower GI bleeding. Proc and risks explained which include but not limited to med reaction, bleeding, perforation, aspiration, and missed lesions. cirrhosis on CT--compensated. Favor no workup as she is 84. anemia--stable. History of Present Illness Chief Complaint: CC gi bleeding Primary Care Provider: Sabine Aldrich MD HPI She took prep last night and had results. When I called early this am the nurse stated there was still some blood and yellow material with sediment. I ordered mag citrate. Pt states blood cleared and most recent stool is green. She denies abd pain. Allergies Allergy/AdvReac Type Severity Reaction Status Date / Time iodine Allergy Severe IV Verified 10/06/19 21:35 DYE-TROUBLE BREATHING HOARSENESS-SEVERE REACTION tramadol Allergy Severe HIVES, Verified 10/06/19 21:35 ITCHING morphine Allergy Intermediate HALLUCINATI Verified 10/06/19 21:35 ONS propoxyphene Allergy Intermediate ITCHING Verified 10/06/19 21:35 scallops Allergy Intermediate DIARRHEA, Verified 10/06/19 21:35 VOMITING ciprofloxacin Allergy Mild SICK Verified 10/06/19 21:35 Penicillins Allergy Mild RASH Verified 10/06/19 21:35 candesartan Allergy Unknown UNKNOWN Verified 10/06/19 21:35 Cipro Allergy Unknown SICK Verified 11/07/17 20:31 oxycodone Allergy Unknown UNKNOWN Verified 10/06/19 21:35 topiramate Allergy Unknown UNKNOWN Verified 10/06/19 21:35 acetaminophen [From Percocet] Allergy Verified 10/06/19 21:35 levothyroxine sodium AdvReac Mild Dry mouth; Verified 10/06/19 21:35 fatigue Home Medications Home Medications Medication Instructions Recorded Confirmed Type aspirin [Aspir-81] 81 mg PO QAM 02/20/18 10/06/19 History blood-glucose meter #1 ea 12/16/18 06/26/19 History lancets 33 gauge #100 ea 12/16/18 06/26/19 History OneTouch Verio test strips #100 ea NS 01/10/19 06/26/19 Rx calcium carbonate 600 mg calcium 1,200 mg PO PM tab 05/15/19 10/06/19 History (1,500 mg) tablet atorvastatin 10 mg tablet 10 mg PO QAM #90 tab 07/03/19 10/06/19 Rx Diabetic Shoes #1 ea 07/04/19 Rx glimepiride 1 mg tablet 1 mg PO BID #180 tab 09/05/19 10/06/19 Rx allopurinol 300 mg PO QAM 10/06/19 10/06/19 History atenolol 25 mg PO PM 10/06/19 10/06/19 History levothyroxine 125 mcg PO QAM 10/06/19 10/06/19 History lisinopril 5 mg PO QAM 10/06/19 10/06/19 History Past Med/Surg History Medical History Chronic back pain Diabetes NIDDM Hx of cancer of uterus NO CHEMO/NO RADIATION Hyperlipidemia Hypertension Hypothyroidism Obesity Personal history of kidney stones Surgical History History of arthroplasty of right knee History of lithotripsy LEFT ESWL= 11/26/15= LMA#4 History of lumbar surgery X2 Hx of bilateral cataract extraction Hx of colonoscopy Hx of hand surgery Hx of hernia repair VENTRAL Hx of hysterectomy Hx of tonsillectomy Hx of wisdom tooth extraction Family History Father Parkinson disease Renal failure Liver cancer Colorectal cancer Mother Colorectal cancer Liver cancer Son Diabetes Unknown Hypertension Denies family history of Ovarian cancer Prostate cancer Myocardial infarction Breast cancer Social History Preferred Language: Slovenian Communication Ability: Effective Visual Impairment: No Limitations Hearing Ability: Normal Butter Fat Tester Required: No Beliefs That Will Affect Care: None Current Living Situation: Spouse current occupational status: retired Feels Safe at Home: Yes Smoking Status: Former smoker Hx Alcohol Use: No Hx Substance Use: No Childhood Exposure to Second-Hand Smoke: Yes Dental Care, Regularly: Yes Physical Activity Frequency: 1-2 Times per Week Seatbelt Use: always Sunscreen Use: Yes Physical Exam Constitutional: WD/WN, vitals as above Respiratory: normal respiratory effort, lungs clear to auscultation Cardiovascular: RRR, no murmur, no edema Gastrointestinal (Abdomen): normal bowel sounds, soft, nontender, no hepatosplenomegaly Psychiatric: A+Ox3, euthymic affect Results & Data Vital Signs (Past 12 Hours) Vital Signs Temp Pulse Resp BP Pulse Ox 10/08/19 07:14 36.4 C L 56 L 18 154/68 H 97 10/08/19 03:46 36.7 C 55 L 18 141/54 H 95
[2019-10-08] MEDS ORDERED: ePHEDrine sulfate 50 MG/ML AMP IV PRN (13:51)
[2019-10-08] MEDS ORDERED: ATROPINE SULFATE 0.1 MG/ML 10ML SYR IV PRN (13:51)
[2019-10-08] MEDS ORDERED: LIDOCAINE HCL 2% 2 ML VIAL/AMP(20MG/ML) INFIL ONE (13:59)
[2019-10-08] MEDS ORDERED: PROPOFOL IV EMULSION 10 MG/ML 20 ML VIAL IV ONE (13:59)
--- NOTE | 2019-10-08 14:24 | Post Operative Brief Note ---
Immediate Post Op Note v1 Date of Surgery October 08, 2019 Pre & Post Diagnosis Operation Date: 10/08/19 16:30 Pre-Op Diagnosis: RECTAL BLEED Post-Op Diagnosis: hemorrhoids I identified the patient and participated in the time-out.: Yes Procedure Operation Date: 10/08/19 16:30 Actual Procedures p Colonoscopy - Nilton Sandoval Surgeon Nilton Sandoval Fish Hatchery Laborer see report Estimated Blood Loss 0 Findings See Below No fresh nor old blood noted. Large hemorrhoids noted, presumably source of bleeding. As long as she is stable post colonscopy, she can be DCed today.
--- NOTE | 2019-10-08 14:30 | GI REPORT ---
Patient Name: Tonie Salinas Procedure Date: 10/08/2019 1:39 PM Date of : 1935 Admit Type: Inpatient Age: 84 Gender: Female Attending MD: Nilton Sandoval MD Procedure: Colonoscopy Providers: Nilton Sandoval MD Referring MD: Referred Self Indications: Hematochezia Medicines: Monitored Anesthesia Care Complications: No immediate complications. Estimated blood loss: None. Estimated Blood Loss: Estimated blood loss: none. Procedure: Pre-Anesthesia Assessment: - The risks and benefits of the procedure and the sedation options and risks were discussed with the patient. All questions were answered and informed consent was obtained. - Patient identification and proposed procedure were verified prior to the procedure by the physician, the nurse and the poultice machine operator. The procedure was verified in the procedure room. After I obtained informed consent, the scope was passed under direct vision. Throughout the procedure, the patient's blood pressure, pulse, and oxygen saturations were monitored continuously. The Colonoscope was introduced through the anus and advanced to the cecum, identified by appendiceal orifice and ileocecal valve. Attempted to intubate ileocecal valve but was not successful. The colonoscopy was performed without difficulty. The patient tolerated the procedure well. Procedure and risks explained to patient which include but not limited to med reaction, bleeding, perforation, aspiration and missed lesions. Judicious gas insufflation and gas removal done on the way out. The lumen always well visualized when advancing the scope. Washes and suctioning used as needed for good visuzlization of mucosa. Prep was good. Retroflexion in the rectum to look at the distal rectum and anal canal done. Findings: Internal hemorrhoids were found during retroflexion. The hemorrhoids were large. The exam was otherwise without abnormality on direct and retroflexion views. Impression: - Internal hemorrhoids. - The examination was otherwise normal on direct and retroflexion views. - No specimens collected. Recommendation: - Return patient to [facility] for possible discharge same day. Nilton Sandoval M.D. Nilton Sandoval MD 10/08/2019 2:29:47 PM This report has been signed electronically. Note Initiated On: 10/08/2019 1:39 PM Number of Addenda: 0 I attest to the content of the Intraoperative Record and orders documented therein, exceptions below {[id number]}
--- NOTE | 2019-10-08 14:39 | Anesthesiology Progress Note ---
Date of Service October 08, 2019 Anesthesia Post Procedure Vital Signs Vital Signs: Temp Pulse Pulse Resp BP BP Pulse Ox 10/08/19 14:34 58 L 18 128/50 L 99 10/08/19 14:19 54 L 18 125/48 L 99 10/08/19 13:40 36.8 C 63 18 178/77 H 98 10/08/19 07:14 36.4 C L 56 L 18 154/68 H 97 10/08/19 03:46 36.7 C 55 L 18 141/54 H 95 10/07/19 23:33 36.6 C 60 18 132/71 94 10/07/19 20:48 110 H 121/87 10/07/19 16:18 84 10/07/19 15:22 37.2 C 60 20 174/78 H 95 Transfer of Care Handoff Completed per policy Notes Mental Status: alert / awake / arousable Patient Amnestic to Procedure: Yes Nausea / Vomiting: adequately controlled Pain: adequately controlled Airway Patency, RR, SpO2: stable & adequate BP & HR: stable & adequate Hydration State: stable & adequate Anesthetic Complications: no major complications apparent
--- NOTE | 2019-10-08 15:59 | Discharge Summary ---
Date of Service October 08, 2019 Admission HPI Per Admitting Provider Pt is an 84yo female with a PMHx of hypothyroidism, DMII, HLD, HTN, Hyperuricemia, Anxiety, Depression, PTSD who presents with rectal bleed. States it started about 2 days ago, has been worsening to the point that has be en soiling her underwear and pants. Has Hx of external hemorrhoids. Last colonoscopy was 3 years prior, unremarkable. Not on anticoagulants but takes daily aspirin 81mg. Currently dizzy on her feet. Had recent workup for UTI given suprapubic pain Principal Diagnosis Lower GI bleeding, likely due to hemorrhoids Discharge Exam Constitutional WD/WN, vitals as above + overweight Eyes PERRL, conjunctivae normal, anicteric sclerae ENMT external ear and nose normal, oropharynx normal Neck trachea midline, no thyromegaly Respiratory normal respiratory effort, lungs clear to auscultation Cardiovascular RRR, no murmur, no edema Gastrointestinal (Abdomen) normal bowel sounds, soft, nontender, no hepatosplenomegaly Musculoskeletal no cyanosis or clubbing, extremities motor strength 5/5 Skin no rashes, warm and dry Neurologic patellar DTR's 2+ bilat, sensation intact and PERRL, EOMI, accommodation nl, no face palsy, no dysarthria Psychiatric A+Ox3, euthymic affect Lymphatic no cervical or axillary lymphadenopathy Discharge Data Allergies Allergy/AdvReac Type Severity Reaction Status Date / Time iodine Allergy Severe IV Verified 10/10/19 11:58 DYE-TROUBLE BREATHING HOARSENESS-SEVERE REACTION tramadol Allergy Severe HIVES, Verified 10/10/19 11:58 ITCHING morphine Allergy Intermediate HALLUCINATI Verified 10/10/19 11:58 ONS propoxyphene Allergy Intermediate ITCHING Verified 10/10/19 11:58 scallops Allergy Intermediate DIARRHEA, Verified 10/10/19 11:58 VOMITING ciprofloxacin Allergy Mild SICK Verified 10/10/19 11:58 Penicillins Allergy Mild RASH Verified 10/10/19 11:58 candesartan Allergy Unknown UNKNOWN Verified 10/10/19 11:58 Cipro Allergy Unknown SICK Verified 11/07/17 20:31 oxycodone Allergy Unknown UNKNOWN Verified 10/10/19 11:58 topiramate Allergy Unknown UNKNOWN Verified 10/10/19 11:58 acetaminophen [From Percocet] Allergy Verified 10/10/19 11:58 levothyroxine sodium AdvReac Mild Dry mouth; Verified 10/10/19 11:58 fatigue Consultations 10/06/19 22:48 ED Decision to Admit Stat 10/07/19 01:46 Consult Gastroenterology Routine Procedures Performed Operation Date: 10/08/19 16:30 Actual Procedures p Colonoscopy - Nilton Sandoval Ordered Studies 10/06/19 21:42 CT abd pelvis wo con Urgent Hospital Course (1) Acute GI bleeding: no further bleeding after admission, all prior bleeding was described as bright red blood went through colonoscopy prep, adequately cleaned out colonoscopy on the day of discharge, no signs of bleeding, no colon lesions identified she has large hemorrhoids, likely the source of bleeding discharged to home per GI recommendations (2) Increased frequency of urination: ongoing issue, combined with suprapubic pain patient says she has been following with Dr. Dorman, multiple medications have been tried with limited success she even got a second opinion from a urologist with [facility], Dr. Powers, she had nothing else to suggest patient has a follow up appointment with Dr. Dorman soon (3) Anxiety disorder: mood stable while admitted (4) Controlled type 2 diabetes mellitus with kidney complication, without long- term current use of insulin: Novolog SS diabetic diet resume home regimen on discharge (5) Depression: (6) Hypertension: BP well controlled on home regimen (7) Hyperuricemia: Allopurinol Total Time Total Time Spent Total Time Spent (In Minutes): 25 Total Time Includes: Examination of the Patient, Discharge Planning, Medication Reconciliation and Communication With Other Providers (Dr. Sandoval) Discharge Plan Discharge Items Patient Disposition: Home - Self-Care Reason For Visit: RECTAL BLEED Discharge Diagnosis: Rectal bleeding, likely from hemorrhoids, no active bleeding Cirrhotic changes in liver Condition on Discharge: Good Goals: follow up with Dr. Sandoval, his office will call you Activity: Resume your previous activity Non-emergency contact: Primary Care Provider and Press Worker Helper Call non-emergency contact if: you have any medication questions, your symptoms worsen and you have a fever Follow-up/Referrals: Sabine Aldrich MD [Primary Care Provider] - 10/14/19 4:00 pm (Please, follow up at Dr. Aldrich's office with her associate, Giovani MERAZ, on SundayOctober 13 at 4:00 pm. *If you need to change this appointment, call their office at [phone].) Nilton Sandoval [Physician] - (his office will call for appt) Diet: Carb Consistent or DM2 and Heart Healthy Addtl Attending Provider Instructions: Medications: no changes Rectal bleeding, resolved mild drop in hemoglobin initially but not stable for 24 hours, no further signs of bleeding colonoscopy today with Dr. Sandoval showed hemorrhoids, no other signs of bleeding safe to discharge home Dr. Sandoval will call you for follow up Cirrhotic changes in liver on CT scan Dr. Sandoval will follow up with you, his office will call Urinary frequency, bladder pain please keep appointment with Dr. Dorman Pending Studies at Discharge: No Stand-Alone Forms: My [employer], Smoking Cessation Medications and DC Order Prescriptions: Continued (DME) OneTouch Verio test strips strip See Dose Instructions .ROUTE .MEDSUPPLY Qty: 100 RF: 11 (DME) Diabetic Shoes Mis See Rx Instructions .ROUTE .MEDSUPPLY Qty: 1 RF: 0 glimepiride 1 mg tablet 1 mg PO BID Qty: 180 RF: 1 (DME) blood-glucose meter [[place]Touch [place]io Meter[place] [facility] [place] Dose Instructions .ROUTE .MEDSUPPLY Qty: 1 RF: 0 (DME) lancets [OneTouch Delica Plus Lancet] [facility] See Dose Instructions .ROUTE .MEDSUPPLY Qty: 100 RF: 0 aspirin [Aspir-81] 81 mg Tablet,Delayed Release (Dr/Ec) 81 mg PO QAM RF: 0 calcium carbonate [Calcium 600] 600 mg calcium (1,500 mg) tablet 1,200 mg PO PM RF: 0 atenolol 25 mg tablet 25 mg PO PM RF: 0 levothyroxine 125 mcg tablet 125 mcg PO QAM RF: 0 allopurinol 300 mg tablet 300 mg PO QAM RF: 0 lisinopril 5 mg tablet 5 mg PO QAM RF: 0 No Action tacrolimus 0.1 % ointment 1 applic TOPICAL BID PRN (Reason: Rash) RF: 0 Janumet 50-500 mg tablet 1 tab PO DAILY RF: 0 ketoconazole 2 % cream 1 applic TOPICAL BID PRN (Reason: Rash) RF: 0 pramoxine [Proctofoam] 1 % foam 1 appln PA BID Qty: 15 RF: 0 Discharge Orders: Discharge Order (Routine); Ordered 10/08/19 Ordered By: Junior Hammond/Other Patient Handouts: Managing Type 2 Diabetes Admission Data Admit Date/Time: 10/07/19 00:03 Attending Provider: Junior De La Rosa Admit Provider: Nida Hanley Primary Care Provider: Sabine Aldrich Other Providers: Frank Adan ; Tal Shaffer Other Interventions: Discharge Summary Assessment (RN) Last Done: 10/08/19 16:00 DC Date/Time DO NOT enter until pt leaves facility: 10/08/19 17:01 Coding Level of Care Code D/C Day Management <30 mins Diagnoses Acute GI bleeding K92.2 Increased frequency of urination R35.0 Anxiety disorder F41.9 Controlled type 2 diabetes mellitus with kidney complication, without long-term current use of insulin E11.29 Depression F32.9 Hypertension I10 Hyperuricemia E79.0
[2019-10-08] MEDS ORDERED: INSULIN ASPART 100 UNITS/ML 3 ML PEN SC SCH (16:30)
--- NOTE | 2019-10-09 01:13 | Billing Data ---
Date of Service October 09, 2019 Coding Level of Care Code 86200 Initial Inpt Care Lvl 3
== END 2019-10-08 17:01 | disposition home or self-care (01) ==
LOC: ED 20:25 → INTOOBSV 10-07 00:03 → SUATTDRO 10-07 00:03 → 2W 10-07 00:03

== ENCOUNTER 2020-01-17 11:12 | Inpatient (IN) ==
--- NOTE | 2020-01-17 11:38 | Emergency Department Note ---
Impression & Plan Acute CVA (cerebrovascular accident), HTN (hypertension), Arm weakness ED Provider Note NAME: NIKKI CURIEL AGE: 84 SEX: F : 1935 ARRIVES VIA: Walk-In INFORMANT: Patient ED PROVIDER(S): Greg Zheng DO CHIEF COMPLAINT: Right upper extremity weakness and numbness HPI: Patient is an 84-year-old female who presents the ER for right upper extremity weakness and numbness. She notes that last night she was waking up every hour. At 8 AM she took her pills and notes that she had no weakness or numbness. Patient does not remember what happened when she woke up around 9:00 but at 10:00 she noticed some weakness in her right upper extremity. Feels as though it is numb. Denies any headache or change in vision. No chest pain or shortness of breath. No nausea vomiting or diarrhea. She is never had this before. She is severely allergic to IV iodine. No other exacerbating or remitting factors. ROS: See above HPI for pertinent positives & negatives. A total of 10 systems reviewed and were otherwise negative. PAST MEDICAL HISTORY:See Below PAST SURGICAL HISTORY:See Below FAMILY HISTORY:See Below SOCIAL HISTORY:See Below HOME MEDICATIONS:See Below ALLERGIES:See Below VITALS:See Below PHYSICAL EXAMINATION: GENERAL: Sitting up in bed, alert, well appearing, well nourished, no distress, non-toxic EYE EXAM: normal conjunctiva. PERRL and EOM's intact. OROPHARYNX: no exudate, no erythema, lips, buccal mucosa, and tongue normal and mucous membranes are moist NECK: supple, no nuchal rigidity, no adenopathy, non-tender LUNGS: Clear to auscultation. Normal chest wall mechanics HEART: no murmurs, S1 normal and S2 normal ABDOMEN: abdomen soft, non-tender, normo-active bowel sounds, no masses, no rebound or guarding. BACK: Back is symmetrical on inspection and there is no deformity, no midline tenderness, no CVA tenderness. SKIN: no rashes and no bruising UPPER EXTREMITIES: upper extremities are grossly normal. LOWER EXTREMITIES: No pitting edema. NEURO EXAM: Normal sensorium, cranial nerves II-XII intact, normal speech, weakness with grasp as well as flexion-extension at the elbow and the shoulder of the right upper extremity 4 out of 5, left upper extremity 5 out of 5, no weakness of legs. +No drift with right upper extremity. Gross sensation intact. MEDICAL DECISION MAKING: Patient is an 84-year-old female who presents the ER for right upper extremity weakness. Uncertain of the true onset of symptoms but does appear to to have occurred some around 9. On exam patient has weakness with grasp as well as flexion extension of the shoulder and elbow. Stroke alert was called after a slightly protracted time as he took extra time to ascertain what exact time this occurred. Labs showed no significant leukocytosis or anemia. INR was unremarkable. BMP with slightly elevated chloride. Calcium was slightly elevated and magnesium was low. LFTs bilirubin troponin was negative. Patient was significantly hypertensive. Only able to obtain Noncon CT head due to contrast allergy. Discussed with Dr. Aburto from [facility]-stroke neurology who evaluated the patient. She recommended lowering the blood pressure in preparation for possible TPA. Blood pressure was 200 initially. She is given 2 doses of IV labetalol. Systolic pressures trended down to 170. Patient was evaluated by [facility]-stroke. She had a previous history of a GI bleed which is secondary to an internal hemorrhoid. After prolonged conversation with the family by Dr. Aburto they elected to go with Plavix and aspirin at this time and hold on TPA. Noncon of the head showed no obvious infarct. Patient was admitted to the hospital for stroke. She was given 300 Plavix and aspirin loading dose. Triage Nursing notes reviewed. Prior medical records reviewed Vital Signs: reviewed and remarkable for HTN Differential diagnosis: Differential Diagnosis includes but is not limited to ischemic Stroke, hemorrhagic stroke, bells palsy, mass, neoplasm, migraine headache, seizure, subarachnoid hemorrhage, TIA, and transient global amnesia. ER treatment provided: See below Diagnostics interpreted by me: ECG: Sinus rhythm rate of 64 Left axis LVH by voltage criteria ST depression high lateral Normal QTC Cardiac Monitoring: An order was placed for continuous cardiac monitoring. The monitor shows a rate of 60 with sinus rhythm. Laboratory studies: As stated above and show below. Imaging studies: CT head was negative Consultation(s): Dr. Aburto from [facility]-stroke neurology recommended holding on TPA and administering double antiplatelet treatment ED COURSE: Procedures: none Critical Care: I have personally spent 32 minutes of critical care time in the direct management of this patient. This includes bedside care, interpretation of diagnostic studies, and testing, discussion with consultants, patient, and family members, and other required patient management activities. This 32 minutes is in excess of all separately billable procedures. Past Med/Surg History Medical History (Updated 01/17/20 @ 15:54 by Greg Zheng DO) Chronic back pain Cirrhosis Diabetes NIDDM History of anesthesia reaction hallucinations after back surgery. Hx of cancer of uterus NO CHEMO/NO RADIATION Hyperlipidemia Hypertension Hypothyroidism Obesity Personal history of kidney stones Poor historian Surgical History H/O colonoscopy 10/07/19 Dr. Nilton Sandoval History of arthroplasty of right knee History of lithotripsy LEFT ESWL= 11/26/15= LMA#4 History of lumbar surgery X2 Hx of bilateral cataract extraction Hx of colonoscopy Hx of hand surgery Hx of hernia repair VENTRAL Hx of hysterectomy Robotic Lap hysterectomy with BSO Hx of tonsillectomy Hx of wisdom tooth extraction Family History Father Parkinson disease Renal failure Liver cancer Colorectal cancer Mother Colorectal cancer Liver cancer Son Diabetes Unknown Hypertension Denies family history of Ovarian cancer Prostate cancer Myocardial infarction Breast cancer Social History Smoking Status: Former smoker Second Hand Exposure: No; Hx Alcohol Use: No Hx Substance Use: No Preferred Language: [place] Communication Ability: Effective Visual Impairment: No Limitations Hearing Ability: Normal Order Make Up Clerk Required: No Beliefs That Will Affect Care: None Current Living Situation: Spouse Current Living Situation Comment: and son current occupational status: retired Feels Safe at Home: Yes Childhood Exposure to Second-Hand Smoke: Yes Dental Care, Regularly: Yes Physical Activity Frequency: 1-2 Times per Week Seatbelt Use: always Sunscreen Use: Yes Assistive Devices: Cane, Denture - Upper, Denture - Lower, Glasses and Walker Allergies Allergies Allergy/AdvReac Type Severity Reaction Status Date / Time iodine Allergy Severe IV Verified 01/17/20 13:01 DYE-TROUBLE BREATHING HOARSENESS-SEVERE REACTION tramadol Allergy Severe HIVES, Verified 01/17/20 13:01 ITCHING morphine Allergy Intermediate HALLUCINATI Verified 01/17/20 13:01 ONS propoxyphene Allergy Intermediate ITCHING Verified 01/17/20 13:01 scallops Allergy Intermediate DIARRHEA, Verified 01/17/20 13:01 VOMITING ciprofloxacin Allergy Mild SICK Verified 01/17/20 13:01 Penicillins Allergy Mild RASH Verified 01/17/20 13:01 candesartan Allergy Unknown UNKNOWN Verified 01/17/20 13:01 Cipro Allergy Unknown SICK Verified 11/07/17 20:31 oxycodone Allergy Unknown UNKNOWN Verified 01/17/20 13:01 topiramate Allergy Unknown UNKNOWN Verified 01/17/20 13:01 levothyroxine sodium AdvReac Mild Dry mouth; Verified 01/17/20 13:01 fatigue atorvastatin AdvReac Unknown Muscle Pain Verified 01/17/20 13:01 Home Meds Home Medications Medication Instructions Recorded Confirmed blood-glucose meter #1 ea 12/16/18 01/15/20 calcium carbonate 600 mg calcium 600 mg PO PM tab 05/15/19 01/17/20 (1,500 mg) tablet allopurinol 300 mg PO QAM 10/06/19 01/17/20 atenolol 25 mg PO PM 10/06/19 01/17/20 levothyroxine 125 mcg PO QAM 10/06/19 01/17/20 lisinopril 5 mg PO QAM 10/06/19 01/17/20 Janumet 1 tab PO QAM 01/17/20 01/17/20 aspirin [Aspir-81] 81 mg PO QAM 01/17/20 01/17/20 Previous Rx's Medication Instructions Recorded OneTouch Verio test strips #100 ea NS 01/10/19 Diabetic Shoes #1 ea 07/04/19 glimepiride 1 mg tablet 1 mg PO BID #180 tab 09/05/19 lancets 33 gauge #100 ea 11/14/19 Results & Data (ED) Vital Signs Vital Signs - 24 hr 01/17/20 11:14 01/17/20 11:44 01/17/20 12:01 Temperature 36.7 C Temperature Source Oral Pulse Rate 68 64 Pulse Rate from SpO2 Sensor 66 Respiratory Rate 19 20 Respiratory Effort / Characteristics Non-Labored Spontaneous Respiratory Depth Normal Respiratory Pattern Regular Blood Pressure 206/87 H 208/78 H 204/83 H Blood Pressure Mean 126 119 93 Pulse Oximetry 98 97 97 Oxygen Delivery Method Room Air Room Air Sepsis Recent Fever Within 48 Hours No Sepsis New/Unexplained Change in Mental Status No Sepsis Action Taken by Nursing No Action Required 01/17/20 12:15 01/17/20 12:16 01/17/20 12:20 Temperature Temperature Source Pulse Rate 64 63 63 Pulse Rate from SpO2 Sensor Respiratory Rate 21 19 19 Respiratory Effort / Characteristics Respiratory Depth Respiratory Pattern Blood Pressure 170/105 H 176/78 H Blood Pressure Mean 128 103 Pulse Oximetry 96 Oxygen Delivery Method Sepsis Recent Fever Within 48 Hours Sepsis New/Unexplained Change in Mental Status Sepsis Action Taken by Nursing 01/17/20 12:21 01/17/20 12:27 01/17/20 12:30 Temperature Temperature Source Pulse Rate 64 64 64 Pulse Rate from SpO2 Sensor 64 64 Respiratory Rate 22 18 18 Respiratory Effort / Characteristics Respiratory Depth Respiratory Pattern Blood Pressure 184/95 H 184/95 H Blood Pressure Mean 124 143 Pulse Oximetry 96 95 Oxygen Delivery Method Sepsis Recent Fever Within 48 Hours Sepsis New/Unexplained Change in Mental Status Sepsis Action Taken by Nursing 01/17/20 12:31 01/17/20 12:32 01/17/20 12:40 Temperature Temperature Source Pulse Rate 65 63 62 Pulse Rate from SpO2 Sensor 64 63 62 Respiratory Rate 22 21 23 Respiratory Effort / Characteristics Respiratory Depth Respiratory Pattern Blood Pressure 172/98 H 180/85 H Blood Pressure Mean 127 113 Pulse Oximetry 95 96 97 Oxygen Delivery Method Sepsis Recent Fever Within 48 Hours Sepsis New/Unexplained Change in Mental Status Sepsis Action Taken by Nursing 01/17/20 12:45 01/17/20 13:00 01/17/20 13:16 Temperature Temperature Source Pulse Rate 62 62 63 Pulse Rate from SpO2 Sensor 61 Respiratory Rate 24 19 14 Respiratory Effort / Characteristics Respiratory Depth Respiratory Pattern Blood Pressure 182/86 H 187/85 H 172/73 H Blood Pressure Mean 116 98 105 Pulse Oximetry 94 94 95 Oxygen Delivery Method Room Air Sepsis Recent Fever Within 48 Hours Sepsis New/Unexplained Change in Mental Status Sepsis Action Taken by Nursing 01/17/20 13:30 Temperature Temperature Source Pulse Rate 63 Pulse Rate from SpO2 Sensor Respiratory Rate 22 Respiratory Effort / Characteristics Respiratory Depth Respiratory Pattern Blood Pressure 176/80 H Blood Pressure Mean 93 Pulse Oximetry 96 Oxygen Delivery Method Sepsis Recent Fever Within 48 Hours Sepsis New/Unexplained Change in Mental Status Sepsis Action Taken by Nursing Laboratory Data Result diagrams: 01/17/20 11:31 01/17/20 11:31 Lab Results 01/17/20 01/17/20 01/17/20 Range/Units 11:28 11:31 11:31 WBC 4.98 (4.8-10.8) K/uL RBC 4.15 L (4.2-5.4) M/uL Hgb 12.1 (12.0-16.0) g/dL Hct 37.3 (37-47) % MCV 89.9 (80-100) fL MCH 29.2 (25-34) pg MCHC 32.4 (32-36) g/dL RDW Std Deviation 46.2 (36.4-46.3) fL RDW Coeff of Tia 14.0 (11.5-14.5) % Plt Count 131 (130-400) K/uL MPV 10.6 H (7.4-10.4) fL Immature Gran % (Auto) 0.4 % Neut % (Auto) 63.5 % Lymph % (Auto) 28.5 % Norton % (Auto) 5.6 % Eos % (Auto) 2.0 % Baso % (Auto) 0.0 % Neut # (Auto) 3.16 (1.4-6.5) K/uL Lymph # (Auto) 1.42 (1.2-3.4) K/uL Norton # (Auto) 0.28 (0.11-0.59) K/uL Eos # (Auto) 0.10 (0-0.5) K/uL Baso # (Auto) 0.00 (0-0.2) K/uL Immature Gran # (Auto) 0.02 (0.00-0.02) K/uL PT 10.8 (9.0-12.0) Seconds INR 1.0 (0.9-1.1) APTT 27.4 (21.0-31.0) Seconds PTT Ratio 1.0 Sodium (136-145) mmol/L Potassium (3.5-5.1) mmol/L Chloride (98-107) mmol/L Carbon Dioxide (21-32) mmol/L Anion Gap (3-11) BUN (7-18) mg/dl Creatinine (0.6-1.2) mg/dl Est Cr Clr Drug Dosing ml/min Est GFR ( Amer) Est GFR (Non-Af Amer) BUN/Creatinine Ratio (10-20) Glucose (70-99) mg/dl POC Glucose 152 H (70-99) mg/dl Calcium (8.5-10.1) mg/dl Magnesium (1.8-2.4) mg/dl Total Bilirubin (0.2-1) mg/dl AST (15-37) U/L ALT (12-78) U/L Alkaline Phosphatase (45-117) U/L Troponin I (0-0.045) ng/ml Total Protein (6.4-8.2) gm/dl Albumin (3.4-5.0) gm/dl Globulin (2.5-4.0) gm/dl Albumin/Globulin Ratio (0.9-2) 01/17/20 Range/Units 11:31 WBC (4.8-10.8) K/uL RBC (4.2-5.4) M/uL Hgb (12.0-16.0) g/dL Hct (37-47) % MCV (80-100) fL MCH (25-34) pg MCHC (32-36) g/dL RDW Std Deviation (36.4-46.3) fL RDW Coeff of Tia (11.5-14.5) % Plt Count (130-400) K/uL MPV (7.4-10.4) fL Immature Gran % (Auto) % Neut % (Auto) % Lymph % (Auto) % Norton % (Auto) % Eos % (Auto) % Baso % (Auto) % Neut # (Auto) (1.4-6.5) K/uL Lymph # (Auto) (1.2-3.4) K/uL Norton # (Auto) (0.11-0.59) K/uL Eos # (Auto) (0-0.5) K/uL Baso # (Auto) (0-0.2) K/uL Immature Gran # (Auto) (0.00-0.02) K/uL PT (9.0-12.0) Seconds INR (0.9-1.1) APTT (21.0-31.0) Seconds PTT Ratio Sodium 139 (136-145) mmol/L Potassium 4.3 (3.5-5.1) mmol/L Chloride 108 H (98-107) mmol/L Carbon Dioxide 24 (21-32) mmol/L Anion Gap 7.0 (3-11) BUN 23 H (7-18) mg/dl Creatinine 0.95 (0.6-1.2) mg/dl Est Cr Clr Drug Dosing 46.3 ml/min Est GFR ( Amer) 63.3 Est GFR (Non-Af Amer) 54.6 BUN/Creatinine Ratio 23.7 H (10-20) Glucose 162 H (70-99) mg/dl POC Glucose (70-99) mg/dl Calcium 10.9 H (8.5-10.1) mg/dl Magnesium 1.4 L (1.8-2.4) mg/dl Total Bilirubin 0.5 (0.2-1) mg/dl AST 18 (15-37) U/L ALT 19 (12-78) U/L Alkaline Phosphatase 96 (45-117) U/L Troponin I < 0.015 (0-0.045) ng/ml Total Protein 7.6 (6.4-8.2) gm/dl Albumin 3.4 (3.4-5.0) gm/dl Globulin 4.2 H (2.5-4.0) gm/dl Albumin/Globulin Ratio 0.8 L (0.9-2) Administered Medications Discontinued Medications Aspirin (Aspirin Chew 324 Mg) 324 mg PO NOW STA Stop: 01/17/20 12:44 Last Admin: 01/17/20 13:05 Dose: 243 mg Documented by: [id number] Clopidogrel Bisulfate (Clopidogrel Bisulfate 300 Mg Tab) 300 mg PO NOW STA Stop: 01/17/20 12:44 Last Admin: 01/17/20 13:05 Dose: 300 mg Documented by: [id number] Nicardipine HCl 25 mg/ Sodium (Chloride) 250 mls @ 50 mls/hr IV .Q5H TIFFANY Stop: 02/16/20 11:44 Last Admin: 01/17/20 13:05 Dose: Not Given Documented by: [id number] Labetalol HCl (Labetalol Hcl Iv 5 Mg/Ml 20ml) 10 mg IV NOW STA Stop: 01/17/20 11:46 Last Admin: 01/17/20 11:53 Dose: 10 mg Documented by: [id number] Cosigned by: [id number] Labetalol HCl (Labetalol Hcl Iv 5 Mg/Ml 20ml) 10 mg IV NOW STA Stop: 01/17/20 12:09 Last Admin: 01/17/20 12:08 Dose: 10 mg Documented by: [id number] Cosigned by: [id number] Miscellaneous (Stat Iv Infusion Titration Per Protocol) 1 ea N/A NOW STA Stop: 01/17/20 11:46 Last Admin: 01/17/20 13:04 Dose: Not Given Documented by: [id number] Ondansetron HCl (Ondansetron Inj 2 Mg/Ml 2 Ml Vial) Confirm Administered Dose 4 mg .ROUTE .STK-MED ONE Stop: 01/17/20 12:00 Last Admin: 01/17/20 12:02 Dose: 4 mg Documented by: [id number] Discharge Plan Visit Data Chief Complaint: Stroke/CVA Symptoms Stated Complaint: STROKE SYMPTOMS ED Provider: Greg Zheng Discharge Problem: Acute CVA (cerebrovascular accident), HTN (hypertension), Arm weakness Patient Disposition: Admitted As Inpatient Discharge Instructions Interventions: ED Discharge Assessment Last Done: 01/17/20 15:05 Discharge Problem: HTN (hypertension) Qualifiers: Hypertension type: unspecified Qualified Code(s): I10 - Essential (primary) hypertension
[2020-01-17 11:43] LABS: Hematocrit (blood only) 37.3 % (37-47); Hemoglobin 12.1 g/dL (12.0-16.0); Immature Granulocytes # (auto) 0.02 K/uL (0.00-0.02); Immature Granulocytes % (auto) 0.4 %; Lymphocytes # (auto) 1.42 K/uL (1.2-3.4); Lymphocytes % (auto) 28.5 %; Mean Corpuscular Hemoglobin 29.2 pg (25-34); Mean Corpuscular Hgb Conc 32.4 g/dL (32-36); Mean Corpuscular Volume 89.9 fL (80-100); Mean Platelet Volume 10.6 fL (7.4-10.4); Monocytes # (auto) 0.28 K/uL (0.11-0.59); Monocytes % (auto) 5.6 %; Neutrophils # (auto) 3.16 K/uL (1.4-6.5); Neutrophils % (auto) 63.5 %; Platelet Count 131 K/uL (130-400); RDW Standard Deviation 46.2 fL (36.4-46.3); Red Blood Count 4.15 M/uL (4.2-5.4); White Blood Count 4.98 K/uL (4.8-10.8)
[2020-01-17] MEDS ORDERED: STAT IV Infusion **Titration per Protocol STA (11:45)
[2020-01-17] MEDS ORDERED: LABETALOL HCL IV 5 MG/ML 20ML IV STA ×2 (11:45→12:08)
[2020-01-17] MEDS ORDERED: niCARdipine 25 MG in SODIUM CHLORIDE 0.9% 240 ML IV SCH (11:45)
--- NOTE | 2020-01-17 11:49 | CT Scan Report ---
HEAD CT NONCONTRAST CT DOSE: 537.48 mGy.cm HISTORY: Right arm numbness and weakness. Stroke evaluation TECHNIQUE: Multiaxial CT images of the head were performed without the use of intravenous contrast. A utomated exposure control was utilized for this study. A dose lowering technique was utilized adheri ng to the principles of ALARA. Comparison: Head CT 10/27/2018. Findings: The paranasal sinuses and mastoid air cells are clear. The calvarium and skull base are int act. There is no mass, hematoma, midline shift, acute infarct. White matter hypodensity is nonspecifi c but suggestive of microvascular ischemic change. The ventricles and sulci demonstrate mild age-rela [place] involutional changes. Impression: No acute intracranial abnormality. ACT 112: Negative or not required by law. Electronically signed by: Kenneth Mishra M.D. 01/17/2020 11:48 AM
[2020-01-17 11:58] LABS: Partial Thromboplastin Time 27.4 Seconds (21.0-31.0); Prothrombin Time 10.8 Seconds (9.0-12.0)
[2020-01-17 11:59] LABS: Alanine Aminotransferase 19 U/L (12-78); Albumin Level 3.4 gm/dl (3.4-5.0); Aspartate Aminotransferase 18 U/L (15-37); BUN Creatinine Ratio 23.7 (10-20); Blood Urea Nitrogen 23 mg/dl (7-18); Calcium 10.9 mg/dl (8.5-10.1); Carbon Dioxide 24 mmol/L (21-32); Chloride 108 mmol/L (98-107); Creatinine Clr Calc Pharmacy 46.3 ml/min; Est GFR (African American) 63.3; Est GFR (Non-African American) 54.6; Glucose 162 mg/dl (70-99); Magnesium 1.4 mg/dl (1.8-2.4); Potassium 4.3 mmol/L (3.5-5.1); Sodium 139 mmol/L (136-145)
[2020-01-17] MEDS ORDERED: ONDANSETRON INJ 2 MG/ML 2 ML VIAL ONE (11:59)
[2020-01-17 12:04] LABS: Albumin Globulin Ratio 0.8 (0.9-2); Alkaline Phosphatase 96 U/L (45-117); Bilirubin,Total 0.5 mg/dl (0.2-1); Globulin 4.2 gm/dl (2.5-4.0); Total Protein 7.6 gm/dl (6.4-8.2); Troponin I < 0.015 ng/ml (0-0.045)
[2020-01-17] MEDS ORDERED: CLOPIDOGREL BISULFATE 300 MG TAB PO STA (12:43)
[2020-01-17] MEDS ORDERED: ASPIRIN CHEW 324 MG PO STA (12:43)
--- NOTE | 2020-01-17 14:08 | History & Physical Report ---
Date of Service January 17, 2020 Assessment & Plan (1) Stroke-like episode: 84yo C female with history of DM, HTN, HLP presenting with RUE heaviness, paresthesias. Code Stroke called, no tPA administered. Patient loaded with ASA and Plavix. Symptoms stable and unchanged. ?TIA, CVA. ?right shoulder dysfunction - rotator cuff? - patient with mid-deltoid point tenderness, inability to raise arm past 90 degrees. -Admit to PCU -NIHSS, Neuro checks per protocol -Dysphagia screening as needed -Check MRI brain, MRA head and neck - patient with severe allergy to contrast dye -Check 2D echocardiogram -Check lipid panel in AM - patient is intolerant to statins due to muscle pain -Last Hgb A1C from 01/11 = 6.7 -Neurology consultation per protocol - assistance appreciated -Continue ASA 81mg po daily -Plavix 75mg po daily -Hold antihypertensive agents to allow for permissive HTN -Labetalol as needed for BP > 200/100 Present on Admission?: Yes (2) HTN (hypertension): Patient with elevated BP on arrival, was given Labetalol 10mg IV x 2 doses, now improved -Hold Lisinopril and Atenolol to allow for permissive HTN -Labetalol as needed Present on Admission?: Yes (3) Diabetes: Patient with well controlled DM - last HbgA1C on 01/12/20 = 6.7. On oral agents at home -Hold Glimepiride and Janumet -Lantus 7u BID and ISS, goal blood sugar 100 - 140 -CC diet as tolerated Present on Admission?: Yes (4) Cirrhosis: Patient recently diagnosed with liver cirrhosis. No history of EtOH, ?secondary to [place]. Compensated -Monitor Present on Admission?: Yes (5) Hypothyroidism: Chronic -Continue Levothyroxine F/E/N- [place]. Electrolytes WNL, will give Mg x 2 gm. AHA/CC diet as tolerated with aspiration precautions Ppx - Low risk for DVT Code - Full per discussion with patient Dispo - Observation to PCU to complete stroke workup Present on Admission?: Yes History of Present Illness Chief Complaint: RUE weakness Primary Care Provider: Sabine Aldrich MD Reed Salinas is a pleasant 84yo C female with history of HTN, HLP, DM and Cirrhosis presenting with RUE weakness/numbness. Patient reports that her symptoms were first noted this AM around 0900. She reported some mild paresthesias of her RUE as well as inability to raise it above 90 degrees and inability to control her RUE. Patient came to [facility] as a Code Stroke - no tPA administered. ASA and Plavix loading recommended. Patient feels that her right arm is heavy, slightly clumsy. She denies symptoms involving her RLE. No visual or speech disturbances. She reports some word-finding difficulty at baseline but does not feel that this has worsened. She does have a mild pressure in her head at present, otherwise no complaints. Patient with longstanding history of right rotator cuff pain. She has been offered injections in the past. ER Course: ASA 324mg, Plavix 300mg, Labetalol 10mg IV x 2 doses, Zofran 4mg IV Allergies Allergy/AdvReac Type Severity Reaction Status Date / Time iodine Allergy Severe IV Verified 01/17/20 13:01 DYE-TROUBLE BREATHING HOARSENESS-SEVERE REACTION tramadol Allergy Severe HIVES, Verified 01/17/20 13:01 ITCHING morphine Allergy Intermediate HALLUCINATI Verified 01/17/20 13:01 ONS propoxyphene Allergy Intermediate ITCHING Verified 01/17/20 13:01 scallops Allergy Intermediate DIARRHEA, Verified 01/17/20 13:01 VOMITING ciprofloxacin Allergy Mild SICK Verified 01/17/20 13:01 Penicillins Allergy Mild RASH Verified 01/17/20 13:01 candesartan Allergy Unknown UNKNOWN Verified 01/17/20 13:01 Cipro Allergy Unknown SICK Verified 11/07/17 20:31 oxycodone Allergy Unknown UNKNOWN Verified 01/17/20 13:01 topiramate Allergy Unknown UNKNOWN Verified 01/17/20 13:01 levothyroxine sodium AdvReac Mild Dry mouth; Verified 01/17/20 13:01 fatigue atorvastatin AdvReac Unknown Muscle Pain Verified 01/17/20 13:01 Home Medications Home Medications Medication Instructions Recorded Confirmed Type blood-glucose meter #1 ea 12/16/18 01/15/20 History OneTouch Verio test strips #100 ea NS 01/10/19 01/15/20 Rx calcium carbonate 600 mg calcium 600 mg PO PM tab 05/15/19 01/17/20 History (1,500 mg) tablet Diabetic Shoes #1 ea 07/04/19 01/15/20 Rx glimepiride 1 mg tablet 1 mg PO BID #180 tab 09/05/19 01/17/20 Rx allopurinol 300 mg PO QAM 10/06/19 01/17/20 History atenolol 25 mg PO PM 10/06/19 01/17/20 History levothyroxine 125 mcg PO QAM 10/06/19 01/17/20 History lisinopril 5 mg PO QAM 10/06/19 01/17/20 History lancets 33 gauge #100 ea 11/14/19 01/15/20 Rx Janumet 1 tab PO QAM 01/17/20 01/17/20 History aspirin [Aspir-81] 81 mg PO QAM 01/17/20 01/17/20 History Past Med/Surg History Medical History (Updated 01/17/20 @ 14:06 by Urmila Saldana DO) Chronic back pain Cirrhosis Diabetes NIDDM History of anesthesia reaction hallucinations after back surgery. Hx of cancer of uterus NO CHEMO/NO RADIATION Hyperlipidemia Hypertension Hypothyroidism Obesity Personal history of kidney stones Poor historian Surgical History H/O colonoscopy 10/07/19 Dr. Nilton Sandoval History of arthroplasty of right knee History of lithotripsy LEFT ESWL= 11/26/15= LMA#4 History of lumbar surgery X2 Hx of bilateral cataract extraction Hx of colonoscopy Hx of hand surgery Hx of hernia repair VENTRAL Hx of hysterectomy Robotic Lap hysterectomy with BSO Hx of tonsillectomy Hx of wisdom tooth extraction Family History Father Parkinson disease Renal failure Liver cancer Colorectal cancer Mother Colorectal cancer Liver cancer Son Diabetes Unknown Hypertension Denies family history of Ovarian cancer Prostate cancer Myocardial infarction Breast cancer Social History Smoking Status: Former smoker Second Hand Exposure: No; Do You Dip or Chew Tobacco: No; Tobacco Cessation Education Requested by Patient: No Hx Alcohol Use: No Hx Substance Use: No Preferred Language: Belarusian Communication Ability: Effective Visual Impairment: No Limitations Hearing Ability: Normal Icu Clerk Required: No Beliefs That Will Affect Care: None Current Living Situation: Spouse Current Living Situation Comment: and son current occupational status: retired Other Information That Helps Us Care for You: No Feels Safe at Home: Yes Safety Concerns: Feels Safe At This Time Childhood Exposure to Second-Hand Smoke: Yes Dental Care, Regularly: Yes Physical Activity Frequency: 1-2 Times per Week Seatbelt Use: always Sunscreen Use: Yes Assistive Devices: Cane, Denture - Upper, Denture - Lower, Glasses and Walker Review of Systems Review of Systems: All systems reviewed & are unremarkable except as noted in HPI & below No complaint of fever/cough/SOB/chest pain No concerns for COVID-19 exposure Physical Exam Physical Exam: General: patient resting comfortably, NAD, non-toxic in appearance, AA&O x 4 Skin: warm, dry, intact HEENT: NC/AT, PERRL, EOMI, anicteric sclera, conjunctiva without injection, external ear normal to inspection and nontender, nares patent, moist mucus membranes, dentition intact, no oropharyngeal lesions, neck supple, trachea midline, no LAD, no thyromegaly, no JVD Heart: +S1/S2, regular, no m/r/g Lungs: equal air entry bilaterally, no rales/rhonchi/wheezes Abd: +BS, soft, NT/ND, no masses/organomegaly/ascites Ext: warm, 2+ pulses in UE/LE bilaterally, no clubbing/cyanosis or edema. 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 Gait is slightly unsteady - patient uses a cane to ambulate Results & Data Results & Data ([facility]) Vital Signs (Past 12 Hours) Vital Signs Temp Pulse Resp BP Pulse Ox 01/17/20 13:16 63 14 172/73 H 95 01/17/20 13:00 62 19 187/85 H 94 01/17/20 12:45 62 24 182/86 H 94 01/17/20 12:40 62 23 180/85 H 97 10/03/20 12:32 63 21 96 01/17/20 12:31 65 22 172/98 H 95 01/17/20 12:30 64 18 95 01/17/20 12:27 64 18 184/95 H 96 01/17/20 12:21 64 22 184/95 H 01/17/20 12:20 63 19 176/78 H 01/17/20 12:16 63 19 01/17/20 12:15 64 21 170/105 H 96 01/17/20 12:01 64 20 204/83 H 97 01/17/20 11:44 208/78 H 97 01/17/20 11:14 36.7 C 68 19 206/87 H 98 Laboratory Results Lab Results 01/17/20 01/17/20 01/17/20 Range/Units 11:28 11:31 11:31 WBC 4.98 (4.8-10.8) K/uL RBC 4.15 L (4.2-5.4) M/uL Hgb 12.1 (12.0-16.0) g/dL Hct 37.3 (37-47) % MCV 89.9 (80-100) fL MCH 29.2 (25-34) pg MCHC 32.4 (32-36) g/dL RDW Std Deviation 46.2 (36.4-46.3) fL RDW Coeff of Tia 14.0 (11.5-14.5) % Plt Count 131 (130-400) K/uL MPV 10.6 H (7.4-10.4) fL Immature Gran % (Auto) 0.4 % Neut % (Auto) 63.5 % Lymph % (Auto) 28.5 % [place] % (Auto) 5.6 % Eos % (Auto) 2.0 % Baso % (Auto) 0.0 % Neut # (Auto) 3.16 (1.4-6.5) K/uL Lymph # (Auto) 1.42 (1.2-3.4) K/uL [place] # (Auto) 0.28 (0.11-0.59) K/uL Eos # (Auto) 0.10 (0-0.5) K/uL Baso # (Auto) 0.00 (0-0.2) K/uL Immature Gran # (Auto) 0.02 (0.00-0.02) K/uL PT 10.8 (9.0-12.0) Seconds INR 1.0 (0.9-1.1) APTT 27.4 (21.0-31.0) Seconds PTT Ratio 1.0 Sodium (136-145) mmol/L Potassium (3.5-5.1) mmol/L Chloride (98-107) mmol/L Carbon Dioxide (21-32) mmol/L Anion Gap (3-11) BUN (7-18) mg/dl Creatinine (0.6-1.2) mg/dl Est Cr Clr Drug Dosing ml/min Est GFR ( Amer) Est GFR (Non-Af Amer) BUN/Creatinine Ratio (10-20) Glucose (70-99) mg/dl POC Glucose 152 H (70-99) mg/dl Calcium (8.5-10.1) mg/dl Magnesium (1.8-2.4) mg/dl Total Bilirubin (0.2-1) mg/dl AST (15-37) U/L ALT (12-78) U/L Alkaline Phosphatase (45-117) U/L Troponin I (0-0.045) ng/ml Total Protein (6.4-8.2) gm/dl Albumin (3.4-5.0) gm/dl Globulin (2.5-4.0) gm/dl Albumin/Globulin Ratio (0.9-2) 01/17/20 Range/Units 11:31 WBC (4.8-10.8) K/uL RBC (4.2-5.4) M/uL Hgb (12.0-16.0) g/dL Hct (37-47) % MCV (80-100) fL MCH (25-34) pg MCHC (32-36) g/dL RDW Std Deviation (36.4-46.3) fL RDW Coeff of Tia (11.5-14.5) % Plt Count (130-400) K/uL MPV (7.4-10.4) fL Immature Gran % (Auto) % Neut % (Auto) % Lymph % (Auto) % [place] % (Auto) % Eos % (Auto) % Baso % (Auto) % Neut # (Auto) (1.4-6.5) K/uL Lymph # (Auto) (1.2-3.4) K/uL [place] # (Auto) (0.11-0.59) K/uL Eos # (Auto) (0-0.5) K/uL Baso # (Auto) (0-0.2) K/uL Immature Gran # (Auto) (0.00-0.02) K/uL PT (9.0-12.0) Seconds INR (0.9-1.1) APTT (21.0-31.0) Seconds PTT Ratio Sodium 139 (136-145) mmol/L Potassium 4.3 (3.5-5.1) mmol/L Chloride 108 H (98-107) mmol/L Carbon Dioxide 24 (21-32) mmol/L Anion Gap 7.0 (3-11) BUN 23 H (7-18) mg/dl Creatinine 0.95 (0.6-1.2) mg/dl Est Cr Clr Drug Dosing 46.3 ml/min Est GFR ( Amer) 63.3 Est GFR (Non-Af Amer) 54.6 BUN/Creatinine Ratio 23.7 H (10-20) Glucose 162 H (70-99) mg/dl POC Glucose (70-99) mg/dl Calcium 10.9 H (8.5-10.1) mg/dl Magnesium 1.4 L (1.8-2.4) mg/dl Total Bilirubin 0.5 (0.2-1) mg/dl AST 18 (15-37) U/L ALT 19 (12-78) U/L Alkaline Phosphatase 96 (45-117) U/L Troponin I < 0.015 (0-0.045) ng/ml Total Protein 7.6 (6.4-8.2) gm/dl Albumin 3.4 (3.4-5.0) gm/dl Globulin 4.2 H (2.5-4.0) gm/dl Albumin/Globulin Ratio 0.8 L (0.9-2) Diagnostic Findings HEAD CT NONCONTRAST CT DOSE: 537.48 mGy.cm HISTORY: Right arm numbness and weakness. Stroke evaluation TECHNIQUE: Multiaxial CT images of the head were performed without the use of intravenous contrast. Automated exposure control was utilized for this study. A dose lowering technique was utilized adhering to the principles of ALARA. Comparison: Head CT 10/27/2018. Findings: The paranasal sinuses and mastoid air cells are clear. The calvarium and skull base are intact. There is no mass, hematoma, midline shift, acute infarct. White matter hypodensity is nonspecific but suggestive of microvascular ischemic change. The ventricles and sulci demonstrate mild age-related involutional changes. Impression: No acute intracranial abnormality. ACT 112: Negative or not required by law. Electronically signed by: Kenneth Mishra M.D. 01/17/2020 11:48 AM Dictated: 01/17/20 1146 Transcribed: 01/17/20 1146 ECG Additional Comments: EKG with SR at 64bpm, 1st degree AV block with PS=310, FHO=567, JCi=050, LAD Code Status & VTE Plan Code Status FULL PG Care Time/CCT Total # of Minutes Spent Total Time Spent with Patient: Total time spent is greater than 50% in coordination of care (as documented) at patient's floor/unit and/or counseling patient: Coding Level of Care Code 48778 OBS Care - Level 3 Diagnoses Stroke-like episode R29.90 HTN (hypertension) I10 Hypertension type: essential hypertension Diabetes E11.9 Diabetes mellitus type: type 2 Diabetes mellitus assisted insulin use: without terminal block assembler use Diabetes mellitus complication status: without complication Cirrhosis K74.60 Hepatic cirrhosis type: unspecified hepatic cirrhosis Ascites presence: unspecified Hypothyroidism E03.9 Hypothyroidism type: unspecified (1) Cirrhosis Hepatic cirrhosis type: unspecified hepatic cirrhosis Ascites presence: unspecified Qualified Code(s): K74.60 - Unspecified cirrhosis of liver (2) HTN (hypertension) Hypertension type: essential hypertension Qualified Code(s): I10 - Essential (primary) hypertension (3) Diabetes Diabetes mellitus type: type 2 Diabetes mellitus terminal block assembler insulin use: without terminal block assembler use Diabetes mellitus complication status: without complication Qualified Code(s): E11.9 - Type 2 diabetes mellitus without complications (4) Hypothyroidism Hypothyroidism type: unspecified Qualified Code(s): E03.9 - Hypothyroidism, unspecified
[2020-01-17] MEDS ORDERED: GLUCOSE 40% GEL 15 GM TUBE PO PRN (15:37)
[2020-01-17] MEDS ORDERED: GLUCOSE 10 TABS/TUBE PO PRN (15:37)
[2020-01-17] MEDS ORDERED: CARBOHYDRATES FOR HYPOGLYCEMIA PO PRN (15:37)
[2020-01-17] MEDS ORDERED: LABETALOL HCL IV 5 MG/ML 20ML IV PRN (15:37)
[2020-01-17] MEDS ORDERED: GLUCAGON FOR INJ 1 MG VIAL SQ PRN (15:37)
[2020-01-17] MEDS ORDERED: DEXTROSE 50% 50 ML SYRINGE IV PRN (15:37)
[2020-01-17] MEDS ORDERED: ONDANSETRON INJ 2 MG/ML 2 ML VIAL IV PRN (15:37)
[2020-01-17] MEDS: MAGNESIUM SULFATE / D5W 1 GM/100 ML BAG IV SCH ×2 (16:38→20:12)
[2020-01-17] MEDS ORDERED: LORazepam 1 MG/2 ML VIAL IV PRN ×2 (16:50→17:01)
--- NOTE | 2020-01-17 17:25 | Electrocardiogram Report ---
Test Reason : Blood Pressure : / mmHG Vent. Rate : 064 BPM Atrial Rate : 064 BPM P-R Int : 236 ms QRS Dur : 118 ms QT Int : 410 ms P-R-T Axes : 060 -35 122 degrees QTc Int : 422 ms Sinus rhythm with 1st degree A-V block Left axis deviation Left ventricular hypertrophy with QRS widening and repolarization abnormality Abnormal ECG When compared with ECG of 06-OCT-2019 21:12, Premature atrial complexes are no longer Present Confirmed by Turner Stafford ([id number]) on 01/17/2020 5:25:24 PM Referred By: REFERRED SELF Confirmed By:Sukhi Stafford
[2020-01-17] MEDS: INSULIN ASPART 100 UNITS/ML 3 ML PEN SC SCH ×2 (18:34→20:15)
[2020-01-17] MEDS ORDERED: GADOXETATE DISODIUM IV ONE (18:43)
--- NOTE | 2020-01-17 18:53 | Magnetic Resonance Report ---
Brain MRI WITH AND WITHOUT CONTRAST HISTORY: Right upper extremity paresthesia. Assess for stroke. TECHNIQUE: Multiplanar multisequence MRI of the brain was performed both before and after the intrave nous administration of contrast. COMPARISON STUDY: Head CT 01/17/2020. Brain MRI 01/03/2006. FINDINGS: Small focus of restricted diffusion within the left high convexity consistent with an acute infarct. This is at the frontoparietal junction. There are also a few small foci of restricted diffu ariana within the left occipital lobe consistent with an additional acute infarct. The midline structur es are intact. Trace mastoid effusions. The mastoid air cells are clear. The major vascular flow-void s at the skull base are well-maintained. Mild atrophy and microvascular ischemic changes are noted. T here is no mass, hematoma, midline shift. Small focal areas of enhancement associated with the infarc t is noted. No additional areas of abnormal enhancement within the brain. IMPRESSION: Small acute infarcts seen within the left occipital lobe and left high convexity. ACT 112: Negative or not required by law. Electronically signed by: Kenneth Mishra M.D. 01/17/2020 6:52 PM
--- NOTE | 2020-01-17 18:55 | Magnetic Resonance Report ---
Brain MRA HISTORY: Left-sided stroke. Right upper extremity paresthesias. TECHNIQUE: 3-D [id number] MRA of the brain was performed without contrast. COMPARISON STUDY: None. FINDINGS: Motion artifact results in suboptimal evaluation. Visualized intracranial internal carotid arteries, distal vertebral arteries, and basilar artery are widely patent. There is no significant st enosis, occlusion, or aneurysm seen within the bilateral ACAs, MCAs, or glass unloading equipment tender. IMPRESSION: Motion artifact. However, no definite stenosis, occlusion, or aneurysm within the [place]. ACT 112: Negative or not required by law. Electronically signed by: Kenneth Mishra M.D. 01/17/2020 6:54 PM
--- NOTE | 2020-01-17 18:58 | Magnetic Resonance Report ---
NECK CTA HISTORY: Left-sided stroke. Right upper extremity weakness/paresthesias. TECHNIQUE: Multiaxial CT images of the neck were performed following the intravenous administration o f contrast to evaluate the major cervical vessels. Maximum intensity projection images were also obta ined. All measurements were calculated based on NASCET criteria. A dose lowering technique was utili zed adhering to the principles of ALARA. COMPARISON STUDY: None. FINDINGS: Suboptimal evaluation due to motion artifact. The aortic arch and proximal great vessels ap pear patent. Nondiagnostic evaluation of the bilateral proximal to mid internal carotid arteries. However, no high -grade stenosis or occlusion identified within the visualized carotid or vertebral arteries.. IMPRESSION: Suboptimal study due to motion artifact. However, no high-grade stenosis or occlusion identified with in the carotid or vertebral arteries. ACT 112: Negative or not required by law. Electronically signed by: Kenneth Mishra M.D. 01/17/2020 6:57 PM
[2020-01-17] MEDS: INSULIN GLARGINE SOLOSTAR 100 UNITS/ML 3 ML PEN SC SCH (20:12)
[2020-01-17] MEDS: ACETAMINOPHEN 325 MG TAB PO PRN (20:12)
[2020-01-18] MEDS: ACETAMINOPHEN 325 MG TAB PO PRN ×2 (05:32→18:29)
[2020-01-18] MEDS: LEVOTHYROXINE SODIUM 125 MCG TABLET PO SCH (05:32)
[2020-01-18 06:14] LABS: Basophils # (auto) 0.01 K/uL (0-0.2); Basophils % (auto) 0.2 %; Eosinophils # (auto) 0.05 K/uL (0-0.5); Eosinophils % (auto) 0.9 %; Hematocrit (blood only) 34.4 % (37-47); Hemoglobin 11.1 g/dL (12.0-16.0); Immature Granulocytes # (auto) 0.03 K/uL (0.00-0.02); Immature Granulocytes % (auto) 0.5 %; Lymphocytes % (auto) 28.5 %; Mean Corpuscular Hemoglobin 29.1 pg (25-34); Mean Corpuscular Hgb Conc 32.3 g/dL (32-36); Mean Corpuscular Volume 90.1 fL (80-100); Mean Platelet Volume 11.7 fL (7.4-10.4); Monocytes # (auto) 0.55 K/uL (0.11-0.59); Monocytes % (auto) 9.8 %; Neutrophils # (auto) 3.37 K/uL (1.4-6.5); Neutrophils % (auto) 60.1 %; Platelet Count 152 K/uL (130-400); RDW Coefficient of Variation 14.2 % (11.5-14.5); RDW Standard Deviation 46.5 fL (36.4-46.3); Red Blood Count 3.82 M/uL (4.2-5.4); White Blood Count 5.61 K/uL (4.8-10.8)
[2020-01-18 06:48] LABS: BUN Creatinine Ratio 19.5 (10-20); Calcium 9.7 mg/dl (8.5-10.1); Creatinine Clr Calc Pharmacy 40.9 ml/min; Est GFR (African American) 55.4; Est GFR (Non-African American) 47.8; Potassium 4.2 mmol/L (3.5-5.1)
[2020-01-18] MEDS: ASPIRIN 81 MG ECTAB PO SCH (08:18)
[2020-01-18] MEDS: INSULIN ASPART 100 UNITS/ML 3 ML PEN SC SCH ×4 (08:18→20:30)
[2020-01-18] MEDS: INSULIN GLARGINE SOLOSTAR 100 UNITS/ML 3 ML PEN SC SCH ×2 (08:18→20:30)
[2020-01-18] MEDS: allopurinoL 300 MG TAB PO SCH (08:19)
[2020-01-18] MEDS: CLOPIDOGREL BISULFATE 75 MG TAB PO SCH (08:19)
--- NOTE | 2020-01-18 10:46 | Neurology Consultation ---
Date of Consultation January 18, 2020 Assessment & Plan (1) Acute CVA (cerebrovascular accident): (2) Arm weakness: (3) HTN (hypertension): (4) Diabetic peripheral neuropathy: Patient had the acute onset of right upper extremity weakness January 16. MRI of the brain shows a small left posterior frontal /parietal infarct at the convexity, as well as a small left occipital stroke. The patient has no vision problems, weakness or numbness in the face or leg on the right. She has a moderate right upper extremity paresis. There is no obvious new sensory deficit or speech problems. The patient may have an underlying dementia of a mild nature but I see no evidence for aphasia or dysarthria. 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 She has no abnormal cardiac or dysrhythmic history but I cannot entirely exclude embolus as a source. Echocardiogram is pending. She also has diabetes and dyslipidemia which increase her risk for small vessel ischemia. Recommendations: 1. Agree with dual antiplatelet therapy including 81 milligram aspirin +75 milligrams clopidogrel daily for 3 weeks. After 3 weeks discontinue aspirin and remain on clopidogrel alone. I see no reason for anticoagulation at this time. 2. Control blood pressure as you are doing, aiming for a mean arterial pressure of 95-100. 3. Improve glucose control, aiming for a hemoglobin A1c of closer to 6.0. 4. The patient requires a statin if no other contraindications but she would not be a high dose statin candidate given her advanced age 5. awaiting echocardiogram is also. 6. physical, occupational, and speech therapy consults. Increase activity as able. Overall, I spent a total of 70 minutes with this case including review of records, review of MRI films, direct evaluation the patient bedside, and discussion of the case with the patient at bedside, nurse at bedside, and with Dr. Moss including differential diagnosis and treatment. History of Present Illness Reason for Consultation: Patient is an 84-year-old, who was asked to see the rest Dr. Saldana, for neurologic consultation regarding stroke Requesting Physician: Dr. Saldana Attending Physician: Oneil Moss MD History of Present Illness patient has a longstanding history of diabetes since her "40s or 50s". She also carries a diagnosis of hypertension and dyslipidemia as well as hypothyroidism. She has renal stones and a 2 month history of cirrhosis. She was in her usual state of health when she woke up around 0800 on January 16 and seemed unremarkable. She next woke up around 0930 feeling well and at 1000 she had the onset of weakness of the right upper extremity. She felt it was rather sudden but not "instantaneous". She had no pain and she felt that she had numbness of the right arm. Her speech was unremarkable but she wondered if her ability to think of words was a little worse than usual since this event. The symptoms stayed. She arrived to the emergency room January 16 1114, with a temperature 36.7, pulse 68, respiratory rate 19, blood pressure 2/6 over 87, and O2 saturation 98 percent. On exam she was described as having 4/5 strength diffusely in the right upper extremity. CBC was unremarkable. Chem profile was remarkable for glucose of 162. CT scan of the head was unremarkable. Tele stroke with [facility] was performed and she was deemed to be not a tPA candidate. She was given a 300 milligram loading dose of clopidogrel. MR angiography of the head and neck were largely unremarkable although she did move some during the study. No significant stenoses of major vessels were noted. MRI of the brain showed 2 small areas of acute stroke 1 in the left occipital lobe and the other in the high convexity frontoparietal head region. Overall she has mild small vessel ischemia for age as well as mild generalized atrophy. I reviewed these films. Echocardiogram was performed but the result is pending. This morning she feels that her arms a little bit better than yesterday but still weak. She denied any type of symptoms in her lower extremities, face, vision, confusion, speech issues, balance issues, or incontinence. She has been fatigued more recently but has enough energy to do what she has to do CBC was unremarkable this morning. Chem profile was unremarkable and triglycerides were 198 include total cholesterol 185. hemoglobin A1c January 11 was 6.7 Allergies Allergy/AdvReac Type Severity Reaction Status Date / Time iodine Allergy Severe IV Verified 01/17/20 13:01 DYE-TROUBLE BREATHING HOARSENESS-SEVERE REACTION tramadol Allergy Severe HIVES, Verified 01/17/20 13:01 ITCHING morphine Allergy Intermediate HALLUCINATI Verified 01/17/20 13:01 ONS propoxyphene Allergy Intermediate ITCHING Verified 01/17/20 13:01 scallops Allergy Intermediate DIARRHEA, Verified 01/17/20 13:01 VOMITING ciprofloxacin Allergy Mild SICK Verified 01/17/20 13:01 Penicillins Allergy Mild RASH Verified 01/17/20 13:01 candesartan Allergy Unknown UNKNOWN Verified 01/17/20 13:01 Cipro Allergy Unknown SICK Verified 11/07/17 20:31 oxycodone Allergy Unknown UNKNOWN Verified 01/17/20 13:01 topiramate Allergy Unknown UNKNOWN Verified 01/17/20 13:01 levothyroxine sodium AdvReac Mild Dry mouth; Verified 01/17/20 13:01 fatigue atorvastatin AdvReac Unknown Muscle Pain Verified 01/17/20 13:01 Home Medications Home Medications Medication Instructions Recorded Confirmed Type blood-glucose meter #1 ea 12/16/18 01/15/20 History OneTouch Verio test strips #100 ea NS 01/10/19 01/15/20 Rx calcium carbonate 600 mg calcium 600 mg PO PM tab 05/15/19 01/17/20 History (1,500 mg) tablet Diabetic Shoes #1 ea 07/04/19 01/15/20 Rx glimepiride 1 mg tablet 1 mg PO BID #180 tab 09/05/19 01/17/20 Rx allopurinol 300 mg PO QAM 10/06/19 01/17/20 History atenolol 25 mg PO PM 10/06/19 01/17/20 History levothyroxine 125 mcg PO QAM 10/06/19 01/17/20 History lisinopril 5 mg PO QAM 10/06/19 01/17/20 History lancets 33 gauge #100 ea 11/14/19 01/15/20 Rx Janumet 1 tab PO QAM 01/17/20 01/17/20 History aspirin [Aspir-81] 81 mg PO QAM 01/17/20 01/17/20 History Patient History Medical History Chronic back pain Cirrhosis Diabetes NIDDM History of anesthesia reaction hallucinations after back surgery. Hx of cancer of uterus NO CHEMO/NO RADIATION Hyperlipidemia Hypertension Hypothyroidism Obesity Personal history of kidney stones Poor historian Surgical History H/O colonoscopy 10/07/19 Dr. Nilton Sandoval History of arthroplasty of right knee History of lithotripsy LEFT ESWL= 11/26/15= LMA#4 History of lumbar surgery X2 Hx of bilateral cataract extraction Hx of colonoscopy Hx of hand surgery Hx of hernia repair VENTRAL Hx of hysterectomy Robotic Lap hysterectomy with BSO Hx of tonsillectomy Hx of wisdom tooth extraction Family History Father , in his 30s according to the patient Liver cancer Colorectal cancer Mother , age 87 of renal complications Kidney disease Parkinson disease Son Diabetes Unknown Hypertension Denies family history of Ovarian cancer Prostate cancer Myocardial infarction Breast cancer Social History Smoking Status: Former smoker Second Hand Exposure: No; Hx Alcohol Use: No Hx Substance Use: No Preferred Language: Kiswahili Communication Ability: Effective Visual Impairment: No Limitations Hearing Ability: Normal Auto Fleet Manager Required: No Beliefs That Will Affect Care: None Current Living Situation: Spouse Current Living Situation Comment: and son current occupational status: retired 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 Feels Safe at Home: Yes Childhood Exposure to Second-Hand Smoke: Yes Dental Care, Regularly: Yes Physical Activity Frequency: 1-2 Times per Week Seatbelt Use: always Sunscreen Use: Yes Assistive Devices: Cane, Denture - Upper, Denture - Lower, Glasses and Walker Review of Systems Constitutional: + fatigue; no fever and no weakness Eyes: no diplopia, no eye pain and no worsening vision Ear, Nose, Mouth, Throat: + hearing loss; no ear pain, no tinnitus, no dizziness, no hoarseness and no dysphagia Respiratory: no cough and no dyspnea Cardiovascular: no chest pain, no palpitations and no lightheadedness Gastrointestinal: no abdominal pain, no nausea and no vomiting Genitourinary: + urinary frequency and + urinary urgency; no dysuria and no urinary incontinence Musculoskeletal: no back pain, no neck pain, no radicular pain, no joint pain and no myalgia Integumentary: + rash ( has a left upper thigh rash and seen by Dermatology recently); no lesions Neurologic: + gait abnormality, + localized weakness and + memory loss; no generalized weakness, no tingling, no numbness, no tremor(s), no abnormal movements, no headache(s), no abnormal speech and no confusion Psychiatric: no depression, no irritability, no anxiety, no difficulty concentrating, no confusion and no hallucinations Endocrine: + fatigue; no flushing Hematologic / Lymphatic: no easy bleeding and no easy bruising Allergy / Immunological: no urticaria and no problem reported Exam (Neuro) Physical Exam: The patient is right-handed. The patient is awake, alert, and attentive. Speech is normal without any obvious aphasia or dysarthria. She can name objects, repeat phrases, and has normal spontaneous speech. Mentation and thought processes are intact, with orientation to person, place and time, and normal fund of knowledge. Attention and concentration are normal. Mood and affect are normal and appropriate. General appearance and grooming are normal. short to intermediate term memory is mildly impaired The discs are sharp with positive venous pulsations bilaterally. There are no exudates, hemorrhages, or blood vessel changes seen. Pupils are 3 mm bilaterally and reactive to light. Extraocular eye muscles are intact without nystagmus. Visual acuity and visual lazar seem normal grossly to confrontation. There are no deficits to sensation in the face in all 3 distributions of the fifth cranial nerve bilaterally. Corneal reflexes are positive bilaterally. Facial strength and symmetry was normal bilaterally. Hearing is decreased bilaterally. Palate moves well without asymmetry. There is normal sternocleidomastoid and trapezius (shoulder shrug) strength bilaterally. Tongue is midline with good strength bilaterally. Neck has a full range of motion without discomfort. There are no cervical bruits bilaterally. There are no cranial or ocular bruits. Heart is without murmur. There is a regular rhythm and rate. Cervical, thoracic, and lumbar spine are nontender to palpation. Gait is not tested and stance sitting up in bed is somewhat poor and gives her increased lightheadedness. With outstretched arms there is Drift on the right. There are no resting tremors. There is no ataxia with finger to nose testing , but there is some mild action tremor on the left with [id number] testing.. There is good facility in the left hand and decreased on the right. No other abnormal involuntary movements are noted. Motor strength is 5/5 diffusely in the left upper extremity including deltoids, biceps, triceps, brachioradialis, wrist flexors and extensors, office assistant receptionist, and intrinsic hand muscles. strength is 4/5 diffusely in the right upper extremity both proximally distally including shoulder, biceps, triceps, wrist, and intrinsics/office assistant receptionist. Motor strength is 5/5 diffusely in the legs bilaterally including hip flexors, quadriceps, hamstrings, gastrocnemius, tibialis anterior, tibialis posterior, and Peroneii muscles. Toe extensors are normal and there is good bulk in the extensor digitorum brevis muscles bilaterally. The limbs have good tone without rigidity or spasticity. There is no atrophy noted in the muscles. Muscle bulk is normal, there is no tenderness to palpation, no myotonia to percussion, and no fasciculations seen. Sensory examination is intact to touch and pin throughout all 4 limbs diffusely. Reflexes are 1/4 in the biceps, triceps, brachioradialis, and quadriceps tendons bilaterally. Achilles tendon reflexes are absent bilaterally. There is no clonus bilaterally. Toes are downgoing with plantar stimulation bilaterally. Peripheral pulses are present and of normal quality distally in all 4 limbs. There is no peripheral edema noted in the limbs. Results & Data ([facility]) Vital Signs (Past 12 Hours) Vital Signs Temp Pulse Pulse Resp BP BP Pulse Ox 01/18/20 07:32 37.5 C 67 21 142/56 H 93 01/18/20 03:50 37.6 C H 68 21 155/78 H 96 01/18/20 00:57 64 01/17/20 23:16 37.8 C H 68 20 148/59 H 95 Diagnostic Findings Brain MRI WITH AND WITHOUT CONTRAST HISTORY: Right upper extremity paresthesia. Assess for stroke. TECHNIQUE: Multiplanar multisequence MRI of the brain was performed both before and after the intravenous administration of contrast. COMPARISON STUDY: Head CT 01/17/2020. Brain MRI 01/03/2006. FINDINGS: Small focus of restricted diffusion within the left high convexity consistent with an acute infarct. This is at the frontoparietal junction. There are also a few small foci of restricted diffusion within the left occipital lobe consistent with an additional acute infarct. The midline structures are intact. Trace mastoid effusions. The mastoid air cells are clear. The major vascular flow-voids at the skull base are well-maintained. Mild atrophy and microvascular ischemic changes are noted. There is no mass, hematoma, midline shift. Small focal areas of enhancement associated with the infarct is noted. No additional areas of abnormal enhancement within the brain. IMPRESSION: Small acute infarcts seen within the left occipital lobe and left high convexity. ACT 112: Negative or not required by law. Electronically signed by: Kenneth Mishra M.D. 01/17/2020 6:52 PM PG Care Time/CCT Total # of Minutes Spent Total Time Spent with Patient: Total time spent is greater than 50% in coordination of care (as documented) at patient's floor/unit and/or counseling patient: Coding Level of Care Code 39879 OBS Care - Level 3 Diagnoses Acute CVA (cerebrovascular accident) I63.9 Arm weakness R29.898 HTN (hypertension) I10 Hypertension type: essential hypertension Diabetic peripheral neuropathy E11.42 Time Spent (min) 70 (1) HTN (hypertension) Hypertension type: essential hypertension Qualified Code(s): I10 - Essential (primary) hypertension
--- NOTE | 2020-01-18 13:12 | Hospitalist Progress Note ---
Date of Service January 18, 2020 Assessment & Plan (1) Acute CVA (cerebrovascular accident): MRI brain on 01/16 showed small acute infarcts seen within the left occipital lobe and left high convexity. - MRA brain/neck on 01/16 was limited, but showed no high-grade stenosis or occlusion. - Continue ASA/Plavix - To follow CHANCE trial will plan for DAPT x 3 weeks, then Plavix afterward. - A1c 6.7%; LDL was 110. - Will discuss alternative statin; she has had muscle pain with prior attempts. 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 - Blood pressure control (2) HTN (hypertension): Patient with elevated BP to 210/80 on arrival, was given Labetalol 10mg IV x 2 doses, now improved. - Continue lisinopril and atenolol to allow for permissive HTN - Labetalol as needed (3) Diabetes: Patient with well controlled DM - last HbgA1C on 01/12/20 = 6.7%. On oral agents at home. - Hold Glimepiride and Janumet - Lantus 7u BID and ISS, goal blood sugar 100 - 140 - CC diet as tolerated (4) Cirrhosis: Patient recently diagnosed with liver cirrhosis. No history of EtOH, ?secondary to [place]. Compensated. - Outpatient follow up (5) Hypothyroidism: Chronic. No signs/symptoms of hypo-/hyperthyroidism. TSH was 0.05 on 01/11. - Continue levothyroxine 125 mcg. - Defer to outpatient provider to adjust levothyroxine. (6) DVT prophylaxis: SCDs - Low DVT risk per admission calculator; early ambulation as well. Admission and Anticipated Discharge Date Admission Date: January 17, 2020 Subjective Doing better today. Still having some memory and word-finding issues. Reports no fevers/chills, chest pain, shortness of breath, abdominal pain, nausea, or vomiting. Physical Exam Constitutional: WD/WN, vitals as above Eyes: EOM intact bilaterally; no conjunctival abnormality ENMT: external ear and nose normal, oropharynx normal Neck: trachea midline, no thyromegaly normal visual inspection Respiratory: normal respiratory effort, lungs clear to auscultation no respiratory distress Cardiovascular: RRR, no murmur, no edema Gastrointestinal (Abdomen): Inspection/Auscultation: abdomen normal to inspection; abdomen not distended Musculoskeletal: no cyanosis or clubbing, extremities motor strength 5/5 Skin: no rashes, warm and dry Neurologic: moves all extremities and awake Psychiatric: Orientation: alert, oriented to person and cooperative Results & Data Results & Data ([facility]) Vital Signs (Past 12 Hours) Vital Signs Temp Pulse Resp BP BP Pulse Ox 01/18/20 12:35 36.7 C 65 16 166/70 H 95 01/18/20 07:32 37.5 C 67 21 142/56 H 93 01/18/20 03:50 37.6 C H 68 21 155/78 H 96 PG Care Time/CCT Total # of Minutes Spent Total Time Spent with Patient: Total time spent is greater than 50% in coordination of care (as documented) at patient's floor/unit and/or counseling patient: Coding Level of Care Code 68460 Subseq Hosp Care Lvl 3 Diagnoses Acute CVA (cerebrovascular accident) I63.9 HTN (hypertension) I10 Hypertension type: essential hypertension Diabetes E11.9 Diabetes mellitus type: type 2 Diabetes mellitus halfway insulin use: without halfway use Diabetes mellitus complication status: without complication Cirrhosis K74.60 Hepatic cirrhosis type: unspecified hepatic cirrhosis Ascites presence: unspecified Hypothyroidism E03.9 Hypothyroidism type: unspecified DVT prophylaxis Z29.9 (1) HTN (hypertension) Hypertension type: essential hypertension Qualified Code(s): I10 - Essential (primary) hypertension (2) Diabetes Diabetes mellitus type: type 2 Diabetes mellitus superintendent container terminal insulin use: without superintendent container terminal use Diabetes mellitus complication status: without complication Qualified Code(s): E11.9 - Type 2 diabetes mellitus without complications (3) Cirrhosis Hepatic cirrhosis type: unspecified hepatic cirrhosis Ascites presence: unspecified Qualified Code(s): K74.60 - Unspecified cirrhosis of liver (4) Hypothyroidism Hypothyroidism type: unspecified Qualified Code(s): E03.9 - Hypothyroidism, unspecified
[2020-01-18] MEDS ORDERED: KETOCONAZOLE 2% CR 15 GM TUBE EXT PRN (18:17)
--- NOTE | 2020-01-18 18:46 | XCELERA ---
[id number]
[2020-01-19 06:27] LABS: Basophils # (auto) 0.01 K/uL (0-0.2); Basophils % (auto) 0.3 %; Eosinophils # (auto) 0.09 K/uL (0-0.5); Eosinophils % (auto) 2.3 %; Hematocrit (blood only) 36.7 % (37-47); Hemoglobin 11.4 g/dL (12.0-16.0); Immature Granulocytes # (auto) 0.02 K/uL (0.00-0.02); Immature Granulocytes % (auto) 0.5 %; Lymphocytes # (auto) 1.63 K/uL (1.2-3.4); Lymphocytes % (auto) 41.3 %; Mean Corpuscular Hemoglobin 28.4 pg (25-34); Mean Corpuscular Hgb Conc 31.1 g/dL (32-36); Mean Corpuscular Volume 91.3 fL (80-100); Mean Platelet Volume 10.2 fL (7.4-10.4); Monocytes # (auto) 0.31 K/uL (0.11-0.59); Monocytes % (auto) 7.8 %; Neutrophils # (auto) 1.89 K/uL (1.4-6.5); Neutrophils % (auto) 47.8 %; Platelet Count 125 K/uL (130-400); RDW Coefficient of Variation 14.2 % (11.5-14.5); RDW Standard Deviation 47.4 fL (36.4-46.3); Red Blood Count 4.02 M/uL (4.2-5.4); White Blood Count 3.95 K/uL (4.8-10.8)
[2020-01-19 06:28] VITALS: TEMP 97.5; O2SAT 93
[2020-01-19] MEDS: LEVOTHYROXINE SODIUM 125 MCG TABLET PO SCH (06:33)
[2020-01-19 06:59] LABS: BUN Creatinine Ratio 25.3 (10-20); Calcium 10.2 mg/dl (8.5-10.1); Creatinine Clr Calc Pharmacy 41.3 ml/min; Est GFR (African American) 56.1; Est GFR (Non-African American) 48.4; Potassium 4.1 mmol/L (3.5-5.1)
[2020-01-19] MEDS: INSULIN GLARGINE SOLOSTAR 100 UNITS/ML 3 ML PEN SC SCH (08:31)
[2020-01-19] MEDS: allopurinoL 300 MG TAB PO SCH (08:31)
[2020-01-19] MEDS: INSULIN ASPART 100 UNITS/ML 3 ML PEN SC SCH ×2 (08:31→12:41)
[2020-01-19] MEDS: ASPIRIN 81 MG ECTAB PO SCH (08:31)
[2020-01-19] MEDS: CLOPIDOGREL BISULFATE 75 MG TAB PO SCH (08:31)
[2020-01-19] MEDS ORDERED: PHARMACIST DISCHARGE MED REC CONSULT STA (11:56)
[2020-01-19 12:27] VITALS: BP 155/78; PULSE 70
--- NOTE | 2020-01-19 13:49 | Discharge Summary ---
Date of Service January 19, 2020 Admission HPI Per Admitting Provider Reed Salinas is a pleasant 84yo C female with history of HTN, HLP, DM and Cirrhosis presenting with RUE weakness/numbness. Patient reports that her symptoms were first noted this AM around 0900. She reported some mild paresthesias of her RUE as well as inability to raise it above 90 degrees and inability to control her RUE. Patient came to [facility] as a Code Stroke - no tPA administered. ASA and Plavix loading recommended. Patient feels that her right arm is heavy, slightly clumsy. She denies symptoms involving her RLE. No visual or speech disturbances. She reports some word- finding difficulty at baseline but does not feel that this has worsened. She does have a mild pressure in her head at present, otherwise no complaints. Patient with longstanding history of right rotator cuff pain. She has been of fered injections in the past. ER Course: ASA 324mg, Plavix 300mg, Labetalol 10mg IV x 2 doses, Zofran 4mg IV Principal Diagnosis Acute CVA Discharge Exam Constitutional WD/WN, vitals as above Eyes EOM intact bilaterally; no conjunctival abnormality ENMT external ear and nose normal, oropharynx normal Neck trachea midline, no thyromegaly normal visual inspection Respiratory normal respiratory effort, lungs clear to auscultation no respiratory distress Cardiovascular RRR, no murmur, no edema Gastrointestinal (Abdomen) Inspection/Auscultation: abdomen normal to inspection; abdomen not distended Musculoskeletal no cyanosis or clubbing, extremities motor strength 5/5 Skin no rashes, warm and dry Neurologic moves all extremities and awake Psychiatric Orientation: alert, oriented to person and cooperative Discharge Data Allergies Allergy/AdvReac Type Severity Reaction Status Date / Time iodine Allergy Severe IV Verified 01/17/20 13:01 DYE-TROUBLE BREATHING HOARSENESS-SEVERE REACTION tramadol Allergy Severe HIVES, Verified 01/17/20 13:01 ITCHING morphine Allergy Intermediate HALLUCINATI Verified 01/17/20 13:01 ONS propoxyphene Allergy Intermediate ITCHING Verified 01/17/20 13:01 scallops Allergy Intermediate DIARRHEA, Verified 01/17/20 13:01 VOMITING ciprofloxacin Allergy Mild SICK Verified 01/17/20 13:01 Penicillins Allergy Mild RASH Verified 01/17/20 13:01 candesartan Allergy Unknown UNKNOWN Verified 01/17/20 13:01 Cipro Allergy Unknown SICK Verified 11/07/17 20:31 oxycodone Allergy Unknown UNKNOWN Verified 01/17/20 13:01 topiramate Allergy Unknown UNKNOWN Verified 01/17/20 13:01 levothyroxine sodium AdvReac Mild Dry mouth; Verified 01/17/20 13:01 fatigue atorvastatin AdvReac Unknown Muscle Pain Verified 01/17/20 13:01 Consultations 01/17/20 12:25 ED Decision to Admit Stat 01/17/20 15:37 Consult Neurology Routine Ordered Studies 01/17/20 11:32 CT head/brain wo con Stat 01/17/20 15:37 MR angio head wo con Urgent MR angio neck wo/w con Routine MR brain wo/w con Routine Hospital Course (1) Acute CVA (cerebrovascular accident): MRI brain on 01/16 showed small acute infarcts seen within the left occipital lobe and left high convexity. - MRA brain/neck on 01/16 was limited, but showed no high-grade stenosis or occlusions. - Continue ASA/Plavix - To follow CHANCE trial will plan for DAPT x 3 weeks, then Plavix afterward. - A1c 6.7%; LDL was 110. - Discharged on rosuvastatin given muscle pain with atorvastatin. Can follow up with PCP. - PT/OT/PIPER INSTALLER recommended home with home services. - Echo without any concerning findings. - Given multiple small strokes, will get 30-day event monitor on discharge to rule out afib and embolic source. (2) HTN (hypertension): Patient with elevated BP to 210/80 on arrival, was given Labetalol 10mg IV x 2 doses, now improved. - Continue lisinopril and atenolol to allow for permissive HTN - Labetalol as needed - By discharge, BP was 155/80. Will need PCP follow up to aim for BP < 130/80. (3) Diabetes: Patient with well controlled DM - last HbgA1C on 01/12/20 = 6.7%. On oral agents at home. - Continue glimepiride and Janumet - No changes needed. (4) Cirrhosis: Patient recently diagnosed with liver cirrhosis. No history of EtOH, ?secondary to [place]. Compensated. - Outpatient follow up (5) Hypothyroidism: Chronic. No signs/symptoms of hypo-/hyperthyroidism. TSH was 0.05 on 01/11. - Continue levothyroxine 125 mcg. - Defer to outpatient provider to adjust levothyroxine. (6) DVT prophylaxis: SCDs - Low DVT risk per admission calculator; early ambulation as well. Total Time Total Time Spent Total Time Spent (In Minutes): 35 Discharge Plan Discharge Items Patient Disposition: Home - Home Health Services Reason For Visit: STROKE LIKE SYMPTOMS Discharge Diagnosis: Stroke Activity: Resume your previous activity Non-emergency contact: Primary Care Provider and Neurologist Call non-emergency contact if: your symptoms worsen Follow-up/Referrals: Ajay Sanchez MD [Physician] - (Please see Dr. Sanchez or his associate in 4-6 weeks.) Sabine Aldrich MD [Primary Care Provider] - 01/21/20 4:00 pm (appointment with Dr Aldrich at 01/21/20 at 4pm appointment with Sonja Mena in 's office 02/16/20 at 1pm) Diet: Carb Consistent or DM2 and Heart Healthy Addtl Attending Provider Instructions: Ms. Salinas, You were admitted to the hospital with symptoms concerning for a stroke. The MRI of your brain did show some small strokes. We think that this is what is causing some of your memory troubles as well as the speech troubles. We are adjusting your medications to hopefully prevent any future stroke. We are also sending a heart monitor to your house that will make sure you don't have any funny heart rhythms that could have caused the stroke. Please take aspirin and Plavix for 21 days (3 weeks). After 3 weeks, you can stop the aspirin and just take Plavix until you are seen by Dr. Sanchez in the office and can discuss any other medication changes needed. We did start a medication called rosuvastatin. You have had muscle aches in the past, but this is a different one, so hopefully will help prevent you from feeling the muscle aches. Pending Studies at Discharge: No Stand-Alone Forms: My [employer], Smoking Cessation Medications and DC Order Prescriptions: New clopidogrel 75 mg Tablet 75 mg PO QAM Qty: 30 RF: 1 rosuvastatin 20 mg tablet 20 mg PO HS Qty: 30 RF: 0 Continued (DME) OneTouch Verio test strips strip See Dose Instructions .ROUTE .MEDSUPPLY Qty: 100 RF: 11 (DME) Diabetic Shoes Misc See Rx Instructions .ROUTE .MEDSUPPLY Qty: 1 RF: 0 glimepiride 1 mg tablet 1 mg PO BID Qty: 180 RF: 1 (DME) lancets [OneTouch Delica Plus Lancet] 33 gauge misc See Dose Instructions .ROUTE .MEDSUPPLY Qty: 100 RF: 0 (DME) blood-glucose meter [OneTouch Verio Meter] misc See Dose Instructions .ROUTE .MEDSUPPLY Qty: 1 RF: 0 calcium carbonate [Calcium 600] 600 mg calcium (1,500 mg) tablet 600 mg PO PM RF: 0 aspirin 81 mg Tablet,Delayed Release (Dr/Ec) 81 mg PO QAM RF: 0 Janumet 50-500 mg tablet 1 tab PO QAM RF: 0 atenolol 25 mg tablet 25 mg PO PM RF: 0 levothyroxine 125 mcg tablet 125 mcg PO QAM RF: 0 allopurinol 300 mg tablet 300 mg PO QAM RF: 0 lisinopril 5 mg tablet 5 mg PO QAM RF: 0 Discharge Orders: Discharge Order (Routine); Ordered 01/19/20 Ordered By: Oneil Moss Admission Data Admit Date/Time: 01/18/20 15:32 Attending Provider: Oneil Moss Admit Provider: Urmila Saldana Primary Care Provider: Sabine Aldrich Other Providers: Ajay Sanchez ; Oneil Moss ; [facility] Other Interventions: Discharge Summary Assessment (RN) Last Done: 01/19/20 11:59 Coding Level of Care Code D/C Day Management >30 mins Diagnoses Acute CVA (cerebrovascular accident) I63.9 HTN (hypertension) I10 Hypertension type: essential hypertension Diabetes E11.9 Diabetes mellitus type: type 2 Diabetes mellitus assisted insulin use: without oil heaterman use Diabetes mellitus complication status: without complication Cirrhosis K74.60 Hepatic cirrhosis type: unspecified hepatic cirrhosis Ascites presence: unspecified Hypothyroidism E03.9 Hypothyroidism type: unspecified DVT prophylaxis Z29.9
--- NOTE | 2020-01-20 08:06 | Pharmacy Report ---
Pharmacist Stroke Counseling - Date of Service January 20, 2020 - Scope: Pharmacy has been consulted to provide medication discharge counseling for this patient admitted with [ischemic stroke] [hemorrhagic stroke] [transient ischemic attack] as per the Pharmacist Discharge Counseling for Stroke Patients Abbie col. - Medications on Discharge: Home Medications Medication Instructions Recorded Confirmed blood-glucose meter #1 ea 12/16/18 01/15/20 calcium carbonate 600 mg calcium 600 mg PO PM tab 05/15/19 01/17/20 (1,500 mg) tablet allopurinol 300 mg PO QAM 10/06/19 01/17/20 atenolol 25 mg PO PM 10/06/19 01/17/20 levothyroxine 125 mcg PO QAM 10/06/19 01/17/20 lisinopril 5 mg PO QAM 10/06/19 01/17/20 Janumet 1 tab PO QAM 01/17/20 01/17/20 aspirin 81 mg PO QAM 01/17/20 01/17/20 New Rx's Medication Instructions Recorded OneTouch Verio test strips #100 ea NS 01/10/19 Diabetic Shoes #1 ea 07/04/19 glimepiride 1 mg tablet 1 mg PO BID #180 tab 09/05/19 lancets 33 gauge #100 ea 11/14/19 clopidogrel 75 mg PO QAM #30 tab 01/19/20 rosuvastatin 20 mg PO HS #30 tab 01/19/20 - Action: The above medications, specifically ones for stroke treatment/prophylaxis, have been reviewed in detail with the patient and/or patient termite control service representative(s) prior to discharge. This includes indication, common adverse reactions, drug interactions, and medication administration. Medication counseling has been employed using the teach-back method to ensure understanding. - Outcome: The patient and/or patient termite control service representative(s) have demonstrated understanding of the medications. Additional comments: Called and spoke with patient over the phone for discharge counseling 01/18. Reviewed all new medications in depth and reviewed monitoring/side effects. Patient aware to stop aspirin after 3 weeks and continue only on plavix thereafter. No concerns during interview. Patient demonstrated understanding of medication changes. Thank you for allowing pharmacy to be involved in the care of this patient. Please call [phone] with any additional questions
== END 2020-01-19 14:30 | disposition home health service (06) | DRG 66 ==
LOC: 2E 11:12 → ED 11:12 → SUATTDRO 13:37 → 2E 15:05

== ENCOUNTER 2021-06-04 03:43 | Inpatient (IN) ==
[2021-06-04] MEDS ORDERED: ACETAMINOPHEN 1,000 MG/100 ML VIAL IV STA ×2 (03:59→07:58)
[2021-06-04] MEDS ORDERED: fentaNYL citrate 100 MCG/2 ML VIAL IV STA ×2 (03:59→05:39)
[2021-06-04] MEDS ORDERED: SODIUM CHLORIDE 0.9% 1000ML 1,000 ML IV SCH (04:00)
--- NOTE | 2021-06-04 04:03 | Emergency Department Note ---
History of Present Illness General Chief complaint: Flank Pain Stated complaint: PAIN IN LEFT SIDE AND DIARRHEA Time Seen by Provider: 06/04/21 03:53 Source: patient Mode of arrival: ambulatory Limitations: no limitations History of Present Illness Provider complaint: Flank pain Onset (ago): hour(s) 2 Location: back and abdomen Radiation: non-radiation Severity: severe Pain Consistency: + constant Maximum Pain Intensity: 10 Relieved By: + none Exacerbated By: + none Associated symptoms: + denies other symptoms Treatments prior to arrival: none This is an 86-year-old female presents due to concern for abrupt onset left flank pain. Patient states the pain woke her up from sleep, was sudden and severe. Patient states that it is a sharp pain and otherwise nonradiating. Patient denies any accompanying nausea or vomiting, fevers or chills. Patient states pain is similar to a prior episode where she was diagnosed with a kidney stone. Patient denies any recent change in diet or medications. Patient states she has been evaluated for her kidneys previously. Patient did not take any medication prior to arrival. Patient states she has had loose stools recently since starting lactulose. She denies any black or bloody stools. Patient denies noting any change in her urine. Pt seen during a time of high acuity and national emergency pandemic while wearing PPE. Home Medications Medication Instructions Recorded Confirmed Type blood-glucose meter (OneTouch #1 ea 12/16/18 05/31/21 History Verio Meter) Diabetic Shoes #1 ea 07/04/19 05/31/21 Rx lancets 33 gauge (OneTouch Delica #200 ea 02/11/20 05/31/21 Rx Plus Lancet) linagliptin 2.5 mg-metformin 500 1 tab PO DAILY 90 Days #90 tab 09/02/20 06/04/21 Rx mg tablet (Jentadueto) levothyroxine 100 mcg tablet 100 mcg PO DAILY #90 tab 11/19/20 06/04/21 Rx cholecalciferol (vitamin D3) 50 200 mcg PO DAILY 01/31/21 06/04/21 History mcg (2,000 unit) capsule (Vitamin D3) cyanocobalamin (vitamin B-12) 1,000 mcg PO DAILY #30 tab 02/14/21 06/04/21 Rx 1,000 mcg tablet clopidogrel 75 mg tablet 75 mg PO QAM #90 tab 03/02/21 06/04/21 Rx lisinopril 20 mg tablet 20 mg PO DAILY #90 tab 03/07/21 06/04/21 Rx magnesium oxide 400 mg PO DAILY #90 cap 03/07/21 06/04/21 Rx atenolol 25 mg tablet 25 mg PO QPM #90 tab 04/01/21 06/04/21 Rx glimepiride 1 mg tablet See Rx Instructions .ROUTE 04/11/21 06/04/21 Rx .COMPLEX #180 tab OneTouch Verio test strips (blood #100 ea NS 05/17/21 05/31/21 Rx sugar diagnostic) Allergies Allergy/AdvReac Type Severity Reaction Status Date / Time iodine Allergy Severe IV Verified 06/04/21 08:04 DYE-TROUBLE BREATHING HOARSENESS-SEVERE REACTION tramadol Allergy Severe HIVES, Verified 06/04/21 08:04 ITCHING morphine Allergy Intermediate HALLUCINATI Verified 06/04/21 08:04 ONS propoxyphene Allergy Intermediate ITCHING Verified 06/04/21 08:04 scallops Allergy Intermediate DIARRHEA, Verified 06/04/21 08:04 VOMITING ciprofloxacin Allergy Mild SICK Verified 06/04/21 08:04 Penicillins Allergy Mild RASH Verified 06/04/21 08:04 candesartan Allergy Unknown UNKNOWN Verified 06/04/21 08:04 oxycodone Allergy Unknown UNKNOWN Verified 06/04/21 08:04 topiramate Allergy Unknown UNKNOWN Verified 06/04/21 08:04 atorvastatin AdvReac Intermediate Muscle Pain Verified 06/04/21 08:04 levothyroxine sodium AdvReac Mild Dry mouth; Verified 05/31/21 15:45 fatigue Past Med/Surg History Medical History Chronic back pain Cirrhosis Diabetes NIDDM History of anesthesia reaction hallucinations after back surgery. Hx of cancer of uterus NO CHEMO/NO RADIATION Hyperlipidemia Hypertension Hypothyroidism Obesity Personal history of kidney stones Poor historian Stroke Surgical History H/O colonoscopy 10/07/19 Dr. Nilton Sandoval History of arthroplasty of right knee History of lithotripsy LEFT ESWL= 11/26/15= LMA#4 History of lumbar surgery X2 Hx of bilateral cataract extraction Hx of colonoscopy Hx of hand surgery Hx of hernia repair VENTRAL Hx of hysterectomy Robotic Lap hysterectomy with BSO Hx of tonsillectomy Hx of wisdom tooth extraction S/P total knee replacement using cement Family History Father , in his 30s according to the patient Liver cancer Colorectal cancer Mother , age 87 of renal complications Kidney disease Parkinson disease Son Diabetes Unknown Hypertension Denies family history of Ovarian cancer Prostate cancer Myocardial infarction Breast cancer Social History Smoking Status: Never smoker Second Hand Exposure: No; Do You Dip or Chew Tobacco: No; Hx Alcohol Use: No Hx Substance Use: No Preferred Language: [place] Communication Ability: Effective Visual Impairment: No Limitations Hearing Ability: Normal Client Service Representative Required: No Beliefs That Will Affect Care: None marital status: Current Living Situation: Spouse and Family Current Living Situation Comment: and son current occupational status: retired 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 Other Information That Helps Us Care for You: No other: 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 Feels Safe at Home: Yes Safety Concerns: Feels Safe At This Time Childhood Exposure to Second-Hand Smoke: Yes Dental Care, Regularly: Yes Physical Activity Frequency: 1-2 Times per Week Seatbelt Use: always Sunscreen Use: Yes Assistive Devices: None Review of Systems A total of 10 systems reviewed and were otherwise negative All systems reviewed & are unremarkable except as noted in HPI & below Physical Exam Vital Signs Vital Signs - 24 hr 06/04/21 05:30 06/04/21 05:31 06/04/21 05:52 Pulse Rate 45 L Pulse Rate [Apical] 47 L Pulse Rate from SpO2 Sensor Pulse Rhythm [Apical] Pulse Strength [Apical] Respiratory Rate 26 H 22 20 Respiratory Effort / Characteristics Non-Labored Spontaneous Respiratory Depth Respiratory Pattern Blood Pressure 160/67 H Blood Pressure [Right Arm] 160/67 H Blood Pressure Mean 98 Blood Pressure Mean [Right Arm] 98 Blood Pressure Position [Right Arm] Pulse Oximetry 97 96 Oxygen Delivery Method Room Air Nasal Cannula Oxygen Flow Rate 2 06/04/21 05:59 06/04/21 06:25 06/04/21 08:00 Pulse Rate 48 L Pulse Rate [Apical] 53 L Pulse Rate from SpO2 Sensor 48 L Pulse Rhythm [Apical] Regular Pulse Strength [Apical] Normal Respiratory Rate 16 18 Respiratory Effort / Characteristics Non-Labored Spontaneous Respiratory Depth Normal Respiratory Pattern Regular Blood Pressure 167/69 H Blood Pressure [Right Arm] 193/120 H Blood Pressure Mean 101 Blood Pressure Mean [Right Arm] 144 Blood Pressure Position [Right Arm] Lying Pulse Oximetry 99 99 99 Oxygen Delivery Method Room Air Room Air Nasal Cannula Oxygen Flow Rate 2 GENERAL: alert, uncomfortable appearing, well nourished, mild distress, non- toxic, BMI>33 EYE EXAM: normal conjunctiva, PERRL and EOM's grossly intact OROPHARYNX: no exudate, no erythema, lips, buccal mucosa, and tongue normal and mucous membranes are moist NECK: supple, no nuchal rigidity, no adenopathy, non-tender LUNGS: Clear to auscultation. Normal chest wall mechanics, no w/r/r HEART: no murmurs, S1 normal and S2 normal ABDOMEN: abdomen soft, non-tender, normo-active bowel sounds, no masses, no rebound or guarding. Discomfort with palpation in the left flank. BACK: Back is symmetrical on inspection and there is no deformity, no midline tenderness, no CVA tenderness. SKIN: no rashes and no bruising UPPER EXTREMITIES: upper extremities are grossly normal. FROM, nml pulses b/l. LOWER EXTREMITIES: No pitting edema. FROM, nml pulses b/l. NEURO EXAM: Normal sensorium, cranial nerves II-XII grossly intact, normal speech, no gross weakness of arms, no gross weakness of legs. Gross sensation intact. Course Course 0652: Pt updated on results. States still having pain. states has minimal relief with fentanyl. 0702: Discussed with Dr. Lisa, urology. 0755: Discussed with Dr. Shah. Administered Medications Acetaminophen (Acetaminophen 1000 Mg/100 Ml Iv) 1,000 mg IV Q8H PRN PRN Reason: Pain Stop: 06/07/21 23:56 Last Admin: 06/05/21 05:03 Dose: 1,000 mg Documented by: [id number] Atenolol (Atenolol 25 Mg Tablet) 25 mg PO QPM [facility] Stop: 07/04/21 20:59 Last Admin: 06/04/21 20:07 Dose: 25 mg Documented by: [id number] Clopidogrel Bisulfate (Clopidogrel Bisulfate 75 Mg Tab) 75 mg PO QAM [facility] Stop: 07/04/21 10:29 Last Admin: 06/04/21 12:03 Dose: 75 mg Documented by: [id number] Cyanocobalamin (Cyanocobalamin (B-12) 500 Mcg Tablet) 1,000 mcg PO DAILY [facility] Stop: 07/04/21 10:29 Last Admin: 06/04/21 12:02 Dose: 1,000 mcg Documented by: [id number] Heparin Sodium (Porcine) (Heparin Sod 5,000 Unit/0.5 Ml Vial) 5,000 units SQ Q12 [facility] Stop: 07/04/21 10:29 Last Admin: 06/04/21 20:07 Dose: 5,000 units Documented by: [id number] Admin: 06/04/21 12:50 Dose: Not Given Documented by: [id number] Hydromorphone HCl (Hydromorphone Inj 0.5 Mg/0.5 Ml Syr) 0.25 mg IV Q6H PRN PRN Reason: Pain - breakthrough Stop: 06/18/21 12:34 Last Admin: 06/04/21 23:32 Dose: 0.25 mg Documented by: [id number] Lactated Ringer's (Lr) 1,000 mls @ 125 mls/hr IV .Q8H TIFFANY Stop: 07/04/21 10:03 Last Admin: 06/05/21 02:38 Dose: 125 mls/hr Documented by: [id number] Infusion: 06/05/21 02:13 Dose: 125 mls/hr Documented by: [id number] Admin: 06/04/21 18:13 Dose: 125 mls/hr Documented by: [id number] Infusion: 06/04/21 18:13 Dose: 125 mls/hr Documented by: [id number] Admin: 06/04/21 10:28 Dose: 125 mls/hr Documented by: [id number] Insulin Aspart (Insulin Aspart Per Unit) 0 units SC ACHS TIFFANY Stop: 07/04/21 11:29 Last Admin: 06/04/21 21:42 Dose: Not Given Documented by: [id number] Cosigned by: [id number] Admin: 06/04/21 18:25 Dose: Not Given Documented by: [id number] Admin: 06/04/21 13:31 Dose: 3 units Documented by: [id number] Cosigned by: [id number] Levothyroxine Sodium (Levothyroxine Sodium 100 Mcg Tablet) 100 mcg PO DAILYBB [facility] Stop: 07/04/21 10:29 Last Admin: 06/05/21 05:09 Dose: 100 mcg Documented by: [id number] Admin: 06/04/21 12:02 Dose: 100 mcg Documented by: [id number] Lisinopril (Lisinopril 20 Mg Tab) 20 mg PO DAILY [facility] Stop: 07/04/21 10:29 Last Admin: 06/04/21 12:02 Dose: 20 mg Documented by: [id number] Magnesium Oxide (Magnesium Oxide 400 Mg Tab) 400 mg PO DAILY [facility] Stop: 07/04/21 10:29 Last Admin: 06/04/21 12:02 Dose: 400 mg Documented by: [id number] Tamsulosin HCl (Tamsulosin Hcl 0.4 Mg Cap) 0.4 mg PO BID [facility] Stop: 07/04/21 10:29 Last Admin: 06/04/21 20:07 Dose: 0.4 mg Documented by: [id number] Admin: 06/04/21 12:02 Dose: 0.4 mg Documented by: [id number] Vitamin D (Cholecalciferol 5,000 Units 125 Mcg Tab) 5,000 units PO QAM [facility] Stop: 07/04/21 10:29 Last Admin: 06/04/21 12:02 Dose: 5,000 units Documented by: [id number] Vitamin D (Cholecalciferol 1,000 Units 25 Mcg Tab) 3,000 units PO QAM [facility] Stop: 07/04/21 10:29 Last Admin: 06/04/21 12:03 Dose: 3,000 units Documented by: [id number] Discontinued Medications Acetaminophen (Acetaminophen 325 Mg Tab) 650 mg PO TID [facility] Stop: 07/04/21 08:59 Last Admin: 06/04/21 20:06 Dose: 650 mg Documented by: [id number] Admin: 06/04/21 13:31 Dose: 650 mg Documented by: [id number] Admin: 06/04/21 08:18 Dose: 650 mg Documented by: [id number] Fentanyl Citrate (Fentanyl Citrate 100 Mcg/2 Ml Vial) 50 mcg IV NOW STA Stop: 06/04/21 04:00 Last Admin: 06/04/21 04:17 Dose: 50 mcg Documented by: [id number] Fentanyl Citrate (Fentanyl Citrate 100 Mcg/2 Ml Vial) 50 mcg IV NOW STA Stop: 06/04/21 05:40 Last Admin: 02/19/22 05:46 Dose: 50 mcg Documented by: [id number] Fentanyl Citrate (Fentanyl Citrate 100 Mcg/2 Ml Vial) 50 mcg IV Q15M PRN PRN Reason: Pain Stop: 06/18/21 06:51 Last Admin: 06/04/21 09:47 Dose: 50 mcg Documented by: [id number] Admin: 06/04/21 07:17 Dose: 50 mcg Documented by: [id number] Sodium Chloride (Nss 1000ml) 1,000 mls @ 125 mls/hr IV .Q8H TIFFANY Stop: 07/04/21 03:59 Last Infusion: 06/04/21 10:06 Dose: 0 mls/hr Documented by: [id number] Admin: 06/04/21 04:18 Dose: 125 mls/hr Documented by: [id number] Acetaminophen (Ofirmev) 1,000 mg in 100 mls @ 400 mls/hr IV NOW STA Stop: 06/04/21 04:13 Last Infusion: 06/04/21 05:04 Dose: 0 mls/hr Documented by: [id number] Admin: 06/04/21 04:19 Dose: 400 mls/hr Documented by: [id number] Magnesium Sulfate/Dextrose (Magnesium Sulfate / D5w) 1 gm in 100 mls @ 100 mls/hr IV NOW STA Stop: 06/04/21 06:22 Last Infusion: 06/04/21 06:24 Dose: 0 mls/hr Documented by: [id number] Admin: 06/04/21 05:28 Dose: 100 mls/hr Documented by: [id number] Lorazepam (Ativan) 0.25 mg in 0.5 mls @ 0.5 mls/min IV NOW STA Stop: 06/04/21 07:21 Last Admin: 06/04/21 08:17 Dose: 0.5 mls/min Documented by: [id number] Acetaminophen (Ofirmev) 1,000 mg in 100 mls @ 400 mls/hr IV NOW STA Stop: 06/04/21 08:12 Last Admin: 06/04/21 08:19 Dose: Not Given Documented by: [id number] Ondansetron HCl (Ondansetron Inj 2 Mg/Ml 2 Ml Vial) 4 mg IV NOW STA Stop: 06/04/21 04:32 Last Admin: 06/04/21 04:54 Dose: 4 mg Documented by: [id number] Ondansetron HCl (Ondansetron Inj 2 Mg/Ml 2 Ml Vial) Confirm Administered Dose 4 mg .ROUTE .STK-MED ONE Stop: 06/04/21 04:31 Last Admin: 06/04/21 04:54 Dose: Not Given Documented by: [id number] Medical Decision Making Differential Diagnosis Differential diagnosis: Etiologies such as shingles, pyelonephritis/UTI, renal colic, appendicitis, diverticulitis, mesenteric ischemia, torsion, aortic pathology, infections, inflammatory bowel disease, bowel obstruction, PUD, biliary pathology, as well as others were entertained. Medical Records Attestation: I reviewed the patient's medical records. Home Medications Current Medication List: was personally reviewed by me Laboratory Data Attestation: I reviewed the patient's lab results. Result diagrams: 06/04/21 04:12 06/04/21 05:45 Lab Results 06/04/21 06/04/21 06/04/21 Range/Units 04:12 04:12 05:45 WBC 5.85 (4.8-10.8) K/uL RBC 4.12 L (4.2-5.4) M/uL Hgb 12.3 (12.0-16.0) g/dL Hct 37.2 (37-47) % MCV 90.3 (80-100) fL MCH 29.9 (25-34) pg MCHC 33.1 (32-36) g/dL RDW Std Deviation 43.5 (36.4-46.3) fL RDW Coeff of Tia 13.3 (11.5-14.5) % Plt Count 133 (130-400) K/uL MPV 11.0 H (7.4-10.4) fL Immature Gran % (Auto) 0.3 % Neut % (Auto) 58.5 % Lymph % (Auto) 32.1 % Weber % (Auto) 7.2 % Eos % (Auto) 1.7 % Baso % (Auto) 0.2 % Neut # (Auto) 3.42 (1.4-6.5) K/uL Lymph # (Auto) 1.88 (1.2-3.4) K/uL Weber # (Auto) 0.42 (0.11-0.59) K/uL Eos # (Auto) 0.10 (0-0.5) K/uL Baso # (Auto) 0.01 (0-0.2) K/uL Immature Gran # (Auto) 0.02 (0.00-0.02) K/uL Sodium 134 L (136-145) mmol/L Potassium TNP 4.7 Chloride 104 (98-107) mmol/L Carbon Dioxide 21 (21-32) mmol/L Anion Gap 9 (3-11) BUN 43 H (6-23) mg/dl Creatinine 1.47 H (0.6-1.2) mg/dl Est Cr Clr Drug Dosing Not Reportable Est GFR ( Amer) 36.8 ml/min Est GFR (Non-Af Amer) 31.8 ml/min BUN/Creatinine Ratio 29.3 H (10-20) Glucose 172 H (70-99(Fasting)) mg/dl Calcium 10.5 H (8.5-10.1) mg/dl Magnesium 1.6 L (1.7-2.4) mg/dl Total Bilirubin 0.4 (0.2-1.0) mg/dl AST TNP 13 ALT 14 (7-52) U/L Alkaline Phosphatase 79 (34-104) U/L Troponin I < 0.03 (0-0.04) ng/ml Total Protein 6.9 (6.0-8.3) gm/dl Albumin 3.9 (3.4-5.0) gm/dl Globulin 3.0 (2.5-4.0) gm/dl Albumin/Globulin Ratio 1.3 (0.9-2) Lipase 33 (11-82) U/L Urine Color Urine Appearance Urine pH Ur Specific El[place] Urine Protein Urine Glucose (UA) Urine Ketones Urine Blood Urine Nitrite Urine Bilirubin Urine Urobilinogen Ur Leukocyte Esterase Urine WBC (Auto) Urine RBC (Auto) U Hyaline Cast (Auto) U Epithel Cells (Auto) Urine Bacteria (Auto) Ur Renal Epithelial Cell Urine Crystals Calcium Oxalate Crystal Uric Acid Crystals Triple Phos Crystals Other Crystals Amorphous Sediment Granular Casts Waxy Casts RBC Casts WBC Casts Other Casts Urine Mucus Urine Other Urine Trichomonas Urine Yeast Urine Sperm Ur Oval Fat Bodies SARS-CoV-2, RNA, NAAT (NEGATIVE) 02/19/22 02/19/22 Range/Units 07:20 08:00 WBC (4.8-10.8) K/uL RBC (4.2-5.4) M/uL Hgb (12.0-16.0) g/dL Hct (37-47) % MCV (80-100) fL MCH (25-34) pg MCHC (32-36) g/dL RDW Std Deviation (36.4-46.3) fL RDW Coeff of Tia (11.5-14.5) % Plt Count (130-400) K/uL MPV (7.4-10.4) fL Immature Gran % (Auto) % Neut % (Auto) % Lymph % (Auto) % Weber % (Auto) % Eos % (Auto) % Baso % (Auto) % Neut # (Auto) (1.4-6.5) K/uL Lymph # (Auto) (1.2-3.4) K/uL Weber # (Auto) (0.11-0.59) K/uL Eos # (Auto) (0-0.5) K/uL Baso # (Auto) (0-0.2) K/uL Immature Gran # (Auto) (0.00-0.02) K/uL Sodium (136-145) mmol/L Potassium Chloride (98-107) mmol/L Carbon Dioxide (21-32) mmol/L Anion Gap (3-11) BUN (6-23) mg/dl Creatinine (0.6-1.2) mg/dl Est Cr Clr Drug Dosing Est GFR ( Amer) ml/min Est GFR (Non-Af Amer) ml/min BUN/Creatinine Ratio (10-20) Glucose (70-99(Fasting)) mg/dl Calcium (8.5-10.1) mg/dl Magnesium (1.7-2.4) mg/dl Total Bilirubin (0.2-1.0) mg/dl AST ALT (7-52) U/L Alkaline Phosphatase (34-104) U/L Troponin I (0-0.04) ng/ml Total Protein (6.0-8.3) gm/dl Albumin (3.4-5.0) gm/dl Globulin (2.5-4.0) gm/dl Albumin/Globulin Ratio (0.9-2) Lipase (11-82) U/L Urine Color Cancelled Urine Appearance Cancelled Urine pH Cancelled Ur Specific [place] Cancelled Urine Protein Cancelled Urine Glucose (UA) Cancelled Urine Ketones Cancelled Urine Blood Cancelled Urine Nitrite Cancelled Urine Bilirubin Cancelled Urine Urobilinogen Cancelled Ur Leukocyte Esterase Cancelled Urine WBC (Auto) Cancelled Urine RBC (Auto) Cancelled U Hyaline Cast (Auto) Cancelled U Epithel Cells (Auto) Cancelled Urine Bacteria (Auto) Cancelled Ur Renal Epithelial Cell Cancelled Urine Crystals Cancelled Calcium Oxalate Crystal Cancelled Uric Acid Crystals Cancelled Triple Phos Crystals Cancelled Other Crystals Cancelled Amorphous Sediment Cancelled Granular Casts Cancelled Waxy Casts Cancelled RBC Casts Cancelled WBC Casts Cancelled Other Casts Cancelled Urine Mucus Cancelled Urine Other Cancelled Urine Trichomonas Cancelled Urine Yeast Cancelled Urine Sperm Cancelled Ur Oval Fat Bodies Cancelled SARS-CoV-2, RNA, NAAT NEGATIVE (NEGATIVE) Imaging Data Radiologist's Impression: Abdomen/Pelvis CT 06/04/21 03:59 CT SCAN OF THE ABDOMEN AND PELVIS WITHOUT IV CONTRAST CLINICAL HISTORY: Left flank pain. COMPARISON STUDY: Abdominal CT dated 04/20/2020. TECHNIQUE: CT scan of the abdomen and pelvis is performed from the lung bases to the proximal femora. Images are reviewed in the axial, sagittal, and coronal p lanes. IV contrast was not administered for this examination. A dose lowering technique was utilized adhering to the principles of ALARA. CT DOSE: 656.36 mGy.cm FINDINGS: Lung bases: The heart is normal in size and without pericardial effusion. The coronary arteries are densely calcified. Subpleural reticulation is noted at both lung bases. There are scattered calcified granulomas. No airspace consolidation or pleural effusion is identified. A fat-containing Bochdalek hernia is noted on the left. A small hiatal hernia is noted. Liver: The unenhanced liver is cirrhotic in morphology and heterogeneous in attenuation. There is nodularity of the surface contour and hypertrophy of the left lobe. There is no intrahepatic biliary ductal dilatation. Gallbladder: Unremarkable. Spleen: Normal in size and attenuation. Pancreas: The unenhanced pancreas is moderately atrophic. calcifications indicate chronic pancreatitis. Adrenal glands: Unremarkable. Kidneys: The unenhanced kidneys demonstrate cortical atrophy. There is a 7 mm obstructing calculus at the left ureteropelvic junction seen on image #182. This is located at the level of L3 and causes moderate left hydronephrosis. There are 2 additional calculi seen just below this stone in the left proximal ureter measuring up to 4 mm on image #190. There is associated left-sided perinephric stranding and fluid. No additional left renal calculi are identified. There is a punctate nonobstructing right renal calculus. No right ureteral stone is seen. Bilateral renal cysts measure up to 7.7 cm. Abdominal vasculature: The abdominal aorta is normal in course and caliber noti ng advanced atherosclerotic calcification. Bowel: There is no bowel obstruction. The appendix is normal as visualized. Peritoneum: There is no intraperitoneal free air or abdominal ascites. There is evidence of previous ventral hernia repair. A large fat-containing umbilical hernia is noted. Lymphadenopathy: None. Pelvic viscera: The bladder is normal as visualized. The uterus is surgically a bsent. No adnexal lesion is seen. Skeletal structures: The skeletal structures are osteopenic. There is moderate to advanced lumbosacral spondylosis with postlaminectomy change seen in the lower lumbar region. No lytic or blastic lesions are seen. IMPRESSION: 1. There is a 7 mm obstructing calculus at the left ureteropelvic junction. This causes moderate left-sided hydronephrosis. 2. There are 2 additional smaller calculi in the left proximal ureter just below this stone measuring up to 4 mm. 3. There is a punctate nonobstructing right renal calculus. 4. Cirrhotic liver morphology. 5. Advanced coronary artery calcification. 6. Large fat-containing umbilical hernia. 7. There is evidence of chronic pancreatitis. 8. Additional findings as above. ACT 112: Negative or not required by law. Electronically signed by: Chi Crystal M.D. 06/04/2021 6:23 AM ECG Data Attestation: I personally reviewed and interpreted this ECG as follows: Indication: + weakness Rate (beats per minute): 50 Rhythm: + sinus bradycardia ECG Intervals/blocks: + First degree AV block, + IVCD and + Normal QT ECG [employer]: + Left axis deviation ECG ST segments: + Nonspecific ST abnormalities MDM Narrative This is an elderly female who presents after abrupt onset of left-sided flank pain. Patient with complicated past medical history and lengthy allergy list. Patient was afebrile and hemodynamically stable. Labs are drawn and sent and were reassuring, CT did reveal multiple stones, the largest of which was at the UPJ which per the patient's report has been there for a while and is being monitored by Dr. Dorman of urology. I suspect the 2 smaller stones more distal are the cause of her pain this evening. Patient did receive multiple doses of I V pain medication as well as IV Tylenol in an attempt to control her pain. Patient reported persistent pain and due to limitations given patient's allergy list and other medications as well as concern given her advanced age, I discussed with the patient additional inpatient evaluation and management. She verbalized understanding was in agreement. I did discuss case with Dr. Lisa given multiple stones noted, and then discussed the case with the hospitalist. No evidence at this time for evolving bacteremia/sepsis. Patient was being cautiously rehydrated, and when she urinated it was only small amount, we opted to send the culture and lieu of the UA. We will attempt to obtain a second spe cimen for UA when she urinates again. The hospitalist was updated on this also. An order was placed for continuous cardiac monitoring. The monitor shows a rate of _56_ with _sinus bradycardia_ rhythm. Impression & Plan Acute left flank pain, Hypomagnesemia, Ureterolithiasis, Creatinine elevation Discharge Plan Visit Data Chief Complaint: Flank Pain Stated Complaint: PAIN IN LEFT SIDE AND DIARRHEA ED Provider: Eveline Patton Discharge Problem: Acute left flank pain, Hypomagnesemia, Ureterolithiasis, Creatinine elevation Patient Disposition: Admitted As Inpatient Discharge Instructions Interventions: ED Discharge Assessment Last Done: 06/04/21 09:38
[2021-06-04 04:28] LABS: Basophils # (auto) 0.01 K/uL (0-0.2); Basophils % (auto) 0.2 %; Eosinophils % (auto) 1.7 %; Hematocrit (blood only) 37.2 % (37-47); Hemoglobin 12.3 g/dL (12.0-16.0); Immature Granulocytes # (auto) 0.02 K/uL (0.00-0.02); Immature Granulocytes % (auto) 0.3 %; Lymphocytes # (auto) 1.88 K/uL (1.2-3.4); Lymphocytes % (auto) 32.1 %; Mean Corpuscular Hemoglobin 29.9 pg (25-34); Mean Corpuscular Hgb Conc 33.1 g/dL (32-36); Mean Corpuscular Volume 90.3 fL (80-100); Monocytes # (auto) 0.42 K/uL (0.11-0.59); Monocytes % (auto) 7.2 %; Neutrophils # (auto) 3.42 K/uL (1.4-6.5); Neutrophils % (auto) 58.5 %; Platelet Count 133 K/uL (130-400); RDW Coefficient of Variation 13.3 % (11.5-14.5); RDW Standard Deviation 43.5 fL (36.4-46.3); Red Blood Count 4.12 M/uL (4.2-5.4); White Blood Count 5.85 K/uL (4.8-10.8)
[2021-06-04] MEDS ORDERED: ONDANSETRON INJ 2 MG/ML 2 ML VIAL ONE (04:30)
[2021-06-04] MEDS ORDERED: ONDANSETRON INJ 2 MG/ML 2 ML VIAL IV STA (04:31)
[2021-06-04 05:07] LABS: Troponin I < 0.03 ng/ml (0-0.04)
[2021-06-04 05:20] LABS: Alanine Aminotransferase 14 U/L (7-52); Albumin Globulin Ratio 1.3 (0.9-2); Albumin Level 3.9 gm/dl (3.4-5.0); Alkaline Phosphatase 79 U/L (34-104); Anion Gap 9 (3-11); BUN Creatinine Ratio 29.3 (10-20); Bilirubin,Total 0.4 mg/dl (0.2-1.0); Blood Urea Nitrogen 43 mg/dl (6-23); Calcium 10.5 mg/dl (8.5-10.1); Carbon Dioxide 21 mmol/L (21-32); Chloride 104 mmol/L (98-107); Est GFR (African American) 36.8 ml/min; Est GFR (Non-African American) 31.8 ml/min; Glucose 172 mg/dl (70-99(Fasting)); Lipase 33 U/L (11-82); Magnesium 1.6 mg/dl (1.7-2.4); Sodium 134 mmol/L (136-145); Total Protein 6.9 gm/dl (6.0-8.3)
[2021-06-04] MEDS ORDERED: MAGNESIUM SULFATE / D5W 1 GM/100 ML BAG IV STA (05:23)
[2021-06-04 06:18] LABS: Potassium 4.7 mmol/L (3.5-5.1)
--- NOTE | 2021-06-04 06:25 | CT Scan Report ---
CT SCAN OF THE ABDOMEN AND PELVIS WITHOUT IV CONTRAST CLINICAL HISTORY: Left flank pain. COMPARISON STUDY: Abdominal CT dated 04/20/2020. TECHNIQUE: CT scan of the abdomen and pelvis is performed from the lung bases to the proximal femora. Images are reviewed in the axial, sagittal, and coronal planes. IV contrast was not administered for this examination. A dose lowering technique was utilized adhering to the principles of ALARA. CT DOSE: 656.36 mGy.cm FINDINGS: Lung bases: The heart is normal in size and without pericardial effusion. The coronary arteries are d ensely calcified. Subpleural reticulation is noted at both lung bases. There are scattered calcified granulomas. No airspace consolidation or pleural effusion is identified. A fat-containing Bochdalek h ernia is noted on the left. A small hiatal hernia is noted. Liver: The unenhanced liver is cirrhotic in morphology and heterogeneous in attenuation. There is nod ularity of the surface contour and hypertrophy of the left lobe. There is no intrahepatic biliary clinton zainab dilatation. Gallbladder: Unremarkable. Spleen: Normal in size and attenuation. Pancreas: The unenhanced pancreas is moderately atrophic. calcifications indicate chronic pa ncreatitis. Adrenal glands: Unremarkable. Kidneys: The unenhanced kidneys demonstrate cortical atrophy. There is a 7 mm obstructing calculus at the left ureteropelvic junction seen on image #182. This is located at the level of L3 and causes mo derate left hydronephrosis. There are 2 additional calculi seen just below this stone in the left pro ximal ureter measuring up to 4 mm on image #190. There is associated left-sided perinephric stranding and fluid. No additional left renal calculi are identified. There is a punctate nonobstructing right renal calculus. No right ureteral stone is seen. Bilateral renal cysts measure up to 7.7 cm. Abdominal vasculature: The abdominal aorta is normal in course and caliber noting advanced atheroscle rotic calcification. Bowel: There is no bowel obstruction. The appendix is normal as visualized. Peritoneum: There is no intraperitoneal free air or abdominal ascites. There is evidence of previous ventral hernia repair. A large fat-containing umbilical hernia is noted. Lymphadenopathy: None. Pelvic viscera: The bladder is normal as visualized. The uterus is surgically absent. No adnexal lesi on is seen. Skeletal structures: The skeletal structures are osteopenic. There is moderate to advanced lumbosacra l spondylosis with postlaminectomy change seen in the lower lumbar region. No lytic or blastic lesion s are seen. IMPRESSION: 1. There is a 7 mm obstructing calculus at the left ureteropelvic junction. This causes moderate left -sided hydronephrosis. 2. There are 2 additional smaller calculi in the left proximal ureter just below this stone measuring up to 4 mm. 3. There is a punctate nonobstructing right renal calculus. 4. Cirrhotic liver morphology. 5. Advanced coronary artery calcification. 6. Large fat-containing umbilical hernia. 7. There is evidence of chronic pancreatitis. 8. Additional findings as above. ACT 112: Negative or not required by law. Electronically signed by: Chi Crystal M.D. 06/04/2021 6:23 AM
[2021-06-04] MEDS: fentaNYL citrate 100 MCG/2 ML VIAL IV PRN ×2 (07:17→09:47)
[2021-06-04] MEDS ORDERED: LORazepam 0.25 MG/0.5 ML VIAL IV STA (07:20)
[2021-06-04] MEDS: ACETAMINOPHEN 325 MG TAB PO SCH ×3 (08:18→20:06)
--- NOTE | 2021-06-04 09:51 | Electrocardiogram Report ---
Test Reason : Blood Pressure : / mmHG Vent. Rate : 050 BPM Atrial Rate : 050 BPM P-R Int : 286 ms QRS Dur : 122 ms QT Int : 460 ms P-R-T Axes : 083 -36 109 degrees QTc Int : 419 ms Sinus bradycardia with 1st degree A-V block Left axis deviation Left ventricular hypertrophy with QRS widening and repolarization abnormality Cannot rule out Septal infarct (cited on or before 04-JUN-2021) Lateral infarct , age undetermined Abnormal ECG When compared with ECG of 01-MAR-2021 20:22, Serial changes of Septal infarct Present Confirmed by Rob Arambula ([id number]) on 06/04/2021 9:50:53 AM Referred By: REFERRED SELF Confirmed By:Rob Arambula
[2021-06-04] MEDS ORDERED: ALUMINUM/MAGNESIUM SUSP 30 ML UDC PO PRN (10:04)
[2021-06-04] MEDS ORDERED: POLYETHYLENE (MIRALAX) 17 GM PACK PO PRN (10:04)
[2021-06-04] MEDS ORDERED: MAGNESIUM HYDROXIDE SUSP 30 ML UDC PO PRN (10:04)
[2021-06-04] MEDS: LACTATED RINGER'S 1,000 ML IV SCH ×2 (10:28→18:13)
--- NOTE | 2021-06-04 11:44 | Urology Consultation ---
Date of Consultation June 04, 2021 Assessment & Plan (1) Ureterolithiasis: (2) Creatinine elevation: We reviewed the stones seen in her proximal left ureter on CT scan. I think the smaller of the stones has a good chance to pass spontaneously, however the 7 mm stone is likely to require intervention. Overall her renal function appears stable, I suspect the elevation is related to dehydration. I have low suspicion for an obstructed infection behind the stone. Given these factors, intervention with stone treatment/stent placement is not an emergency. For the time being we discussed that we could try for pain control and give her a trial of spontaneous passage. Unfortunately, pain control has been challenging so far and she will likely require an intervention in the future, it is not unreasonable to consider doing this while she is here and can be medically optimized. We discussed the proposed intervention of cystoscopy, left retrograde pyelogram, left ureteroscopy with laser lithotripsy and left ureteral stent placement. We discussed the risks of this procedure including bleeding, infection, injury to the urinary tract, inability to access/treat the stones, need for additional procedures. She and her expressed understanding but did not want to go through the surgery at the current moment. We discussed that this could potentially be done tomorrow, if her pain cannot be controlled and that she has not passed the stones. PLAN: Pain control: Tylenol, ibuprofen or ketorolac, consider tamsulosin and Pyridium. Strain all urine Okay for diet today, NPO at midnight on 06/05/21 for potential intervention. Briefly discussed her case with the anesthesia team, to make them aware of potential intervention tomorrow in case there is any optimization they would recommend. Tentatively plan for cystoscopy, left retrograde pyelogram, left ureteroscopy with laser lithotripsy, left ureteral stent placement on 06/05/2021. History of Present Illness Reason for Consultation: Left ureterolithiasis Attending Physician: Greg Shah DO History of Present Illness This is an 86-year-old female with history of prior stroke, hypertension, diabetes and nephrolithiasis who presented to the ED on 06/04/2021 with acute onset of left-sided flank pain. The pain is severe, and has not responded well to oral medications at this point. She has recently been undergoing work-up for milk allergy, and reports that she has been having a lot of diarrhea recently. She denies any fevers or chills. She reports she is still making urine. She reports a history of kidney stones in the past and has required surgery for stones. She does not remember what type of surgery she had. She is unsure whether she has had a stent in the past. Work-up in the ED was notable for no leukocytosis on lab work (WBC 5.5). Hemoglobin is normal (12.3). She is mildly hyponatremic (134). Sodium and chloride are within normal limits and her creatinine is 1.47, up slightly from what appears to be her baseline closer to 1. She was found to be Covid negative. A CT scan was performed, which I independently reviewed. There are 2 kidneys, both with associated cysts. On the left side there is moderate hydronephrosis related to what appears to be 2 stones in the proximal left ureter. The largest stone is approximately 6 mm in diameter, smaller is approximately 3 mm. The smaller stone appears to be within the ureter, and the larger stone is at the UPJ, difficult to interpret whether it is obstructing or not. There is a punctate stone in the right kidney, which may be intraparenchymal. Allergies Allergy/AdvReac Type Severity Reaction Status Date / Time iodine Allergy Severe IV Verified 06/04/21 08:04 DYE-TROUBLE BREATHING HOARSENESS-SEVERE REACTION tramadol Allergy Severe HIVES, Verified 06/04/21 08:04 ITCHING morphine Allergy Intermediate HALLUCINATI Verified 06/04/21 08:04 ONS propoxyphene Allergy Intermediate ITCHING Verified 06/04/21 08:04 scallops Allergy Intermediate DIARRHEA, Verified 06/04/21 08:04 VOMITING ciprofloxacin Allergy Mild SICK Verified 06/04/21 08:04 Penicillins Allergy Mild RASH Verified 06/04/21 08:04 candesartan Allergy Unknown UNKNOWN Verified 06/04/21 08:04 oxycodone Allergy Unknown UNKNOWN Verified 06/04/21 08:04 topiramate Allergy Unknown UNKNOWN Verified 06/04/21 08:04 atorvastatin AdvReac Intermediate Muscle Pain Verified 06/04/21 08:04 levothyroxine sodium AdvReac Mild Dry mouth; Verified 05/31/21 15:45 fatigue Home Medications Medication Instructions Recorded Confirmed Type blood-glucose meter (OneTouch #1 ea 12/16/18 05/31/21 History Verio Meter) Diabetic Shoes #1 ea 07/04/19 05/31/21 Rx lancets 33 gauge (OneTouch Delica #200 ea 02/11/20 05/31/21 Rx Plus Lancet) linagliptin 2.5 mg-metformin 500 1 tab PO DAILY 90 Days #90 tab 09/02/20 06/04/21 Rx mg tablet (Jentadueto) levothyroxine 100 mcg tablet 100 mcg PO DAILY #90 tab 11/19/20 06/04/21 Rx cholecalciferol (vitamin D3) 50 200 mcg PO DAILY 01/31/21 06/04/21 History mcg (2,000 unit) capsule (Vitamin D3) cyanocobalamin (vitamin B-12) 1,000 mcg PO DAILY #30 tab 02/14/21 06/04/21 Rx 1,000 mcg tablet clopidogrel 75 mg tablet 75 mg PO QAM #90 tab 03/02/21 06/04/21 Rx lisinopril 20 mg tablet 20 mg PO DAILY #90 tab 03/07/21 06/04/21 Rx magnesium oxide 400 mg PO DAILY #90 cap 03/07/21 06/04/21 Rx atenolol 25 mg tablet 25 mg PO QPM #90 tab 04/01/21 06/04/21 Rx glimepiride 1 mg tablet See Rx Instructions .ROUTE 04/11/21 06/04/21 Rx .COMPLEX #180 tab inTarvoTouch Verio test strips (blood #100 ea NS 05/17/21 05/31/21 Rx sugar diagnostic) Patient History Medical History (Updated 06/04/21 @ 11:47 by Ken Lisa MD) Chronic back pain Cirrhosis Diabetes NIDDM History of anesthesia reaction hallucinations after back surgery. Hx of cancer of uterus NO CHEMO/NO RADIATION Hyperlipidemia Hypertension Hypothyroidism Obesity Personal history of kidney stones Poor historian Stroke Surgical History H/O colonoscopy 10/07/19 Dr. Nilton Sandoval History of arthroplasty of right knee History of lithotripsy LEFT ESWL= 11/26/15= LMA#4 History of lumbar surgery X2 Hx of bilateral cataract extraction Hx of colonoscopy Hx of hand surgery Hx of hernia repair VENTRAL Hx of hysterectomy Robotic Lap hysterectomy with BSO Hx of tonsillectomy Hx of wisdom tooth extraction S/P total knee replacement using cement Family History Father , in his 30s according to the patient Liver cancer Colorectal cancer Mother , age 87 of renal complications Kidney disease Parkinson disease Son Diabetes Unknown Hypertension Denies family history of Ovarian cancer Prostate cancer Myocardial infarction Breast cancer Social History Smoking Status: Never smoker Second Hand Exposure: No; Do You Dip or Chew Tobacco: No; Hx Alcohol Use: No Hx Substance Use: No Preferred Language: Bangladeshi Communication Ability: Effective Visual Impairment: No Limitations Hearing Ability: Normal Wad Impregnator Required: No Beliefs That Will Affect Care: None marital status: Current Living Situation: Spouse and Family Current Living Situation Comment: and son current occupational status: retired 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 Constitutional: No recent fevers or chills Gastrointestinal: Recent diarrhea Physical Exam Constitutional: well developed and + frail appearing; no acute distress Eyes: + anicteric sclerae; pupils not irregular Respiratory: normal respiratory effort; no respiratory distress, does not use accessory muscles and no cough Cardiovascular: well perfused Gastrointestinal (Abdomen): Inspection/Auscultation: abdomen normal to inspection; abdomen not distended Musculoskeletal: Extremities: extremities normal to inspection Skin: normal turgor; no rashes and no lesions Neurologic: moves all extremities and awake Psychiatric: Orientation: alert and oriented x 3 Results & Data ([facility]) Vital Signs (Past 12 Hours) Vital Signs Temp Pulse Pulse Resp BP BP Pulse Ox 06/04/21 10:15 36.7 C 50 L 20 196/78 H 96 06/04/21 09:38 49 L 20 162/66 H 100 06/04/21 08:00 53 L 18 193/120 H 99 06/04/21 06:25 99 06/04/21 05:59 48 L 16 167/69 H 99 06/04/21 05:52 20 96 06/04/21 05:31 47 L 22 160/67 H 97 06/04/21 05:30 45 L 26 H 160/67 H 06/04/21 05:00 47 L 22 164/72 H 96 06/04/21 04:57 53 L 26 H 176/91 H 95 06/04/21 03:45 36.4 C L 60 16 204/84 H 98 PG Care Time/CCT Total # of Minutes Spent Total Time Spent with Patient: Total time spent is greater than 50% in coordination of care (as documented) at patient's floor/unit and/or counseling patient: Coding Level of Care Code 48873 Initial Inpt Care Lvl 3 Diagnoses Ureterolithiasis N20.1 Creatinine elevation R79.89
[2021-06-04] MEDS: LEVOTHYROXINE SODIUM 100 MCG TABLET PO SCH (12:02)
[2021-06-04] MEDS: CHOLECALCIFEROL 5,000 UNITS 125 MCG TAB PO SCH (12:02)
[2021-06-04] MEDS: CYANOCOBALAMIN (B-12) 500 MCG TABLET PO SCH (12:02)
[2021-06-04] MEDS: MAGNESIUM OXIDE 400 MG TAB PO SCH (12:02)
[2021-06-04] MEDS: lisinopril 20 MG TAB PO SCH (12:02)
[2021-06-04] MEDS: TAMSULOSIN HCL 0.4 MG CAP PO SCH ×2 (12:02→20:07)
[2021-06-04] MEDS: CHOLECALCIFEROL 1,000 UNITS 25 MCG TAB PO SCH (12:03)
[2021-06-04] MEDS: CLOPIDOGREL BISULFATE 75 MG TAB PO SCH (12:03)
[2021-06-04] MEDS: HEPARIN SOD 5,000 UNIT/0.5 ML VIAL SQ SCH ×3 (12:03→20:07)
[2021-06-04] MEDS ORDERED: HYDROmorphone INJ 0.5 MG/0.5 ML SYR IV PRN (12:35)
[2021-06-04] MEDS: INSULIN ASPART PER UNIT SC SCH ×3 (13:31→21:42)
--- NOTE | 2021-06-04 14:19 | Anesthesiology Consultation ---
Date of Service June 04, 2021 Assessment & Plan (1) Encounter for pre-operative examination: Chart Review Chart Review: data entry manager initiated History Surgery Operation Date: 06/05/21 10:00 Proposed Procedures p Cystoscopy, Retrograde, Left Ureteroscopy(Left) - Ken Lisa MD s Laser Lithotripsy Holmium, Left Stent(Left) - Ken Lisa MD Height/Weight Height: 5 ft 3 in Weight: 85.9 kg Allergies Allergy/AdvReac Type Severity Reaction Status Date / Time iodine Allergy Severe IV Verified 06/04/21 08:04 DYE-TROUBLE BREATHING HOARSENESS-SEVERE REACTION tramadol Allergy Severe HIVES, Verified 06/04/21 08:04 ITCHING morphine Allergy Intermediate HALLUCINATI Verified 06/04/21 08:04 ONS propoxyphene Allergy Intermediate ITCHING Verified 06/04/21 08:04 scallops Allergy Intermediate DIARRHEA, Verified 06/04/21 08:04 VOMITING ciprofloxacin Allergy Mild SICK Verified 06/04/21 08:04 Penicillins Allergy Mild RASH Verified 06/04/21 08:04 candesartan Allergy Unknown UNKNOWN Verified 06/04/21 08:04 oxycodone Allergy Unknown UNKNOWN Verified 06/04/21 08:04 topiramate Allergy Unknown UNKNOWN Verified 06/04/21 08:04 atorvastatin AdvReac Intermediate Muscle Pain Verified 06/04/21 08:04 levothyroxine sodium AdvReac Mild Dry mouth; Verified 05/31/21 15:45 fatigue Medications Home Medications Medication Instructions Recorded Confirmed Last Taken blood-glucose meter (OneTouch #1 ea 12/16/18 05/31/21 Unknown Verio Meter) Diabetic Shoes #1 ea 07/04/19 05/31/21 Unknown lancets 33 gauge (OneTouch Delica #200 ea 02/11/20 05/31/21 Unknown Plus Lancet) linagliptin 2.5 mg-metformin 500 1 tab PO DAILY 90 Days #90 tab 09/02/20 06/04/21 03/01/21 mg tablet (Jentadueto) levothyroxine 100 mcg tablet 100 mcg PO DAILY #90 tab 11/19/20 06/04/21 03/01/21 cholecalciferol (vitamin D3) 50 200 mcg PO DAILY 01/31/21 06/04/21 03/01/21 mcg (2,000 unit) capsule (Vitamin D3) cyanocobalamin (vitamin B-12) 1,000 mcg PO DAILY #30 tab 02/14/21 06/04/21 03/01/21 1,000 mcg tablet clopidogrel 75 mg tablet 75 mg PO QAM #90 tab 03/02/21 06/04/21 Unknown lisinopril 20 mg tablet 20 mg PO DAILY #90 tab 03/07/21 06/04/21 Unknown magnesium oxide 400 mg PO DAILY #90 cap 03/07/21 06/04/21 Unknown atenolol 25 mg tablet 25 mg PO QPM #90 tab 04/01/21 06/04/21 Unknown glimepiride 1 mg tablet See Rx Instructions .ROUTE 04/11/21 06/04/21 Unknown .COMPLEX #180 tab OneTouch Verio test strips (blood #100 ea NS 05/17/21 05/31/21 Unknown sugar diagnostic) Active Medications Generic Name Dose Route Start Last Admin Trade Name Freq PRN Reason Stop Dose Admin Acetaminophen 650 mg 06/04/21 09:00 06/04/21 13:31 Acetaminophen 325 Mg Tab PO 07/04/21 08:59 650 mg TID TIFFANY Administration Clopidogrel Bisulfate 75 mg 06/04/21 10:30 06/04/21 12:03 Clopidogrel Bisulfate 75 Mg Tab PO 07/04/21 10:29 75 mg QAM TIFFANY Administration Cyanocobalamin 1,000 mcg 06/04/21 10:30 06/04/21 12:02 Cyanocobalamin (B-12) 500 Mcg Tablet PO 07/04/21 10:29 1,000 mcg DAILY TIFFANY Administration Heparin Sodium (Porcine) 5,000 units 06/04/21 10:30 06/04/21 12:50 Heparin Sod 5,000 Unit/0.5 Ml Vial SQ 07/04/21 10:29 Not Given Q12 TIFFANY Lactated Ringer's 1,000 mls @ 125 mls/hr 06/04/21 10:04 06/04/21 10:28 Lr IV 07/04/21 10:03 125 mls/hr .Q8H TIFFANY Administration Insulin Aspart 0 units 06/04/21 11:30 06/04/21 13:31 Insulin Aspart Per Unit SC 07/04/21 11:29 3 units ACHS TIFFANY Administration Levothyroxine Sodium 100 mcg 06/04/21 10:30 06/04/21 12:02 Levothyroxine Sodium 100 Mcg Tablet PO 07/04/21 10:29 100 mcg DAILYBB TIFFANY Administration Lisinopril 20 mg 06/04/21 10:30 06/04/21 12:02 Lisinopril 20 Mg Tab PO 07/04/21 10:29 20 mg DAILY TIFFANY Administration Magnesium Oxide 400 mg 06/04/21 10:30 06/04/21 12:02 Magnesium Oxide 400 Mg Tab PO 07/04/21 10:29 400 mg DAILY TIFFANY Administration Tamsulosin HCl 0.4 mg 06/04/21 10:30 06/04/21 12:02 Tamsulosin Hcl 0.4 Mg Cap PO 07/04/21 10:29 0.4 mg BID TIFFANY Administration Vitamin D 5,000 units 06/04/21 10:30 06/04/21 12:02 Cholecalciferol 5,000 Units 125 Mcg Tab PO 07/04/21 10:29 5,000 units QAM TIFFANY Administration Vitamin D 3,000 units 06/04/21 10:30 06/04/21 12:03 Cholecalciferol 1,000 Units 25 Mcg Tab PO 07/04/21 10:29 3,000 units QAM TIFFANY Administration Past Medical History Medical History Chronic back pain Cirrhosis Diabetes NIDDM History of anesthesia reaction hallucinations after back surgery. Hx of cancer of uterus NO CHEMO/NO RADIATION Hyperlipidemia Hypertension Hypothyroidism Obesity Personal history of kidney stones Poor historian Stroke Past Family History Family History Father , in his 30s according to the patient Liver cancer Colorectal cancer Mother , age 87 of renal complications Kidney disease Parkinson disease Son Diabetes Unknown Hypertension Denies family history of Ovarian cancer Prostate cancer Myocardial infarction Breast cancer Past Surgical History Surgical History H/O colonoscopy 10/07/19 Dr. Nilton Sandoval History of arthroplasty of right knee History of lithotripsy LEFT ESWL= 11/26/15= LMA#4 History of lumbar surgery X2 Hx of bilateral cataract extraction Hx of colonoscopy Hx of hand surgery Hx of hernia repair VENTRAL Hx of hysterectomy Robotic Lap hysterectomy with BSO Hx of tonsillectomy Hx of wisdom tooth extraction S/P total knee replacement using cement Social History Smoking Status: Never smoker Do You Dip or Chew Tobacco: No Hx Alcohol Use: No Hx Substance Use: No substance use type: does not use Physical Exam Vital Signs Last Vital Signs Temp 98.1 F 06/04/21 10:15 Pulse 50 L 06/04/21 10:15 Resp 20 06/04/21 10:15 BP 196/78 H 06/04/21 10:15 Pulse Ox 96 06/04/21 10:15 Testing Laboratory Results 06/04/21 04:12 06/04/21 05:45 Urine Color Cancelled 06/04/21 07:20 Urine Appearance Cancelled 06/04/21 07:20 Urine pH Cancelled 06/04/21 07:20 Ur Specific Jackson Cancelled 06/04/21 07:20 Urine Protein Cancelled 06/04/21 07:20 Urine Glucose (UA) Cancelled 06/04/21 07:20 Urine Ketones Cancelled 06/04/21 07:20 Urine Nitrite Cancelled 06/04/21 07:20 Ur Leukocyte Esterase Cancelled 06/04/21 07:20 Urine WBC (Auto) Cancelled 06/04/21 07:20 Urine RBC (Auto) Cancelled 06/04/21 07:20 U Hyaline Cast (Auto) Cancelled 06/04/21 07:20 U Epithel Cells (Auto) Cancelled 06/04/21 07:20 Urine Bacteria (Auto) Cancelled 06/04/21 07:20 06/04/21 11:52 POC Glucose 205 H Laboratory Tests 06/04/21 08:00 SARS-CoV-2, RNA, NAAT NEGATIVE Electrocardiogram Date: 06/04/21 Sinus bradycardia with 1st degree A-V block, rate 50 bpm Left axis deviation Left ventricular hypertrophy with QRS widening and repolarization abnormality Cannot rule out Septal infarct (cited on or before 04-JUN-2021) Lateral infarct , age undetermined Abnormal ECG When compared with ECG of 01-MAR-2021 20:22, Serial changes of Septal infarct Present Confirmed by Rob Arambula ([id number]) on 06/04/2021 9:50:53 AM Chest X-Ray Date: 05/21/21 IMPRESSION: 1. Cardiomegaly with no acute cardiopulmonary abnormality. 2. An 11 mm right upper lobe pulmonary nodule is unchanged. Echocardiogram Date: 01/18/20 There is severe concentric LVH LV systolic function is normal There is mild mitral annular calcification RVSP is normal
--- NOTE | 2021-06-04 15:12 | History & Physical Report ---
Date of Service June 04, 2021 Assessment & Plan (1) Ureterolithiasis: Plan: -IVF -pain control (reviewed - while she doesn't remember reactions to different meds, she denies ever having had hives or anaphylaxis; tolerated fentanyl well in ER -- can't continue this on med/surg - but likely will do similarly w dilauded - 0.25mg IV q6 prn; APAP for more mild pain) -flomax (not clear benefit, but with pressures being so high, also essentially nil risk) -urology input / intervention if she doesn't improve -no s/s infection (2) Creatinine elevation: Plan: -dehydration, likley related to above. -IVF (3) Anxiety disorder: Plan: -while she relates memory loss since stroke, bedside phenotype seems more c/w anxiety. tried to offer simple but complete explanations and a concrete plan of care - which seemed to help some (4) Diarrhea: Plan: -following actively w GI. outpt f/u with them -at the same time, reviewed CT images personally - and while there's certainly nothing c/w severe constipation/impaction/obstruction, there is a reasonable amount of solid stool, which makes me wonder if her diarrhea is really overflow. -given her anxiety and current demeanor, this may be a bit difficult ot explain to her - can start to explain what i'm thinking, and then will defer fully to her primary GI, particularly since they will be the ones taking care of her in follow up and therefore the ones to direct her on management if this is the case (5) DVT prophylaxis: Plan: heparin SQ - tried to explain rationale and low risk to pt with this - she was somewhat overwhelmed at this -- so while i rec pharmacologic proph - i advised her to move as much as possible if she declines. (6) Discharge planning issues: Admission and Anticipated Discharge Date Admission Date: June 04, 2021 History of Present Illness Chief Complaint: flank pain Primary Care Provider: Sabine Aldrich MD abrupt onset of flank pain last night. has known chronic stone but apparently no significant sx from that. but then sudden onset last night, severe. came to ER for further eval. notes some memory issues, so HPI and ROS a bit difficult to discern (additionally by the time i initially saw pt after she had been through ER, basic admission orders written, seen by urology, etc - she was more fixated on asking questions about DVT proph w heparin SQ than she seemed to have a solid recollection of the events that led to her being admitted -- to the points that i actually had to remind her that i was asking questions regarding kidney stone symptoms because she came to the hospital for those, not for DVT proph -- ie hpi and ros fairly limited but obtained as best as possible) does not seem to have any concerning infectious urinary sx does have chronic diarrhea - up and down sx. sometimes smaller chunks and muddy, other times watery. ongoing for quite a while. currently trying to avoid milk/dairy/lactose but not sure if it's making much of a difference - during interview her lunch arrives and since current lactose free was not known when initial orders written her lunch includes stuffed shells w mozzerella on top - despite telling her that we can change her diet and get her a new tray, she then is somewhat fixated and overwhelmed by this as well, further limiting ability to get meaningful HPI and ROS Allergies Allergy/AdvReac Type Severity Reaction Status Date / Time iodine Allergy Severe IV Verified 06/04/21 08:04 DYE-TROUBLE BREATHING HOARSENESS-SEVERE REACTION tramadol Allergy Severe HIVES, Verified 06/04/21 08:04 ITCHING morphine Allergy Intermediate HALLUCINATI Verified 06/04/21 08:04 ONS propoxyphene Allergy Intermediate ITCHING Verified 06/04/21 08:04 scallops Allergy Intermediate DIARRHEA, Verified 06/04/21 08:04 VOMITING ciprofloxacin Allergy Mild SICK Verified 06/04/21 08:04 Penicillins Allergy Mild RASH Verified 06/04/21 08:04 candesartan Allergy Unknown UNKNOWN Verified 06/04/21 08:04 oxycodone Allergy Unknown UNKNOWN Verified 06/04/21 08:04 topiramate Allergy Unknown UNKNOWN Verified 06/04/21 08:04 atorvastatin AdvReac Intermediate Muscle Pain Verified 06/04/21 08:04 levothyroxine sodium AdvReac Mild Dry mouth; Verified 05/31/21 15:45 fatigue Home Medications Medication Instructions Recorded Confirmed Type blood-glucose meter (Triplejump GroupTouch #1 ea 12/16/18 05/31/21 History Verio Meter) Diabetic Shoes #1 ea 07/04/19 05/31/21 Rx lancets 33 gauge (OneTouch Delica #200 ea 02/11/20 05/31/21 Rx Plus Lancet) linagliptin 2.5 mg-metformin 500 1 tab PO DAILY 90 Days #90 tab 09/02/20 06/04/21 Rx mg tablet (Jentadueto) levothyroxine 100 mcg tablet 100 mcg PO DAILY #90 tab 11/19/20 06/04/21 Rx cholecalciferol (vitamin D3) 50 200 mcg PO DAILY 01/31/21 06/04/21 History mcg (2,000 unit) capsule (Vitamin D3) cyanocobalamin (vitamin B-12) 1,000 mcg PO DAILY #30 tab 02/14/21 06/04/21 Rx 1,000 mcg tablet clopidogrel 75 mg tablet 75 mg PO QAM #90 tab 03/02/21 06/04/21 Rx lisinopril 20 mg tablet 20 mg PO DAILY #90 tab 03/07/21 06/04/21 Rx magnesium oxide 400 mg PO DAILY #90 cap 03/07/21 06/04/21 Rx atenolol 25 mg tablet 25 mg PO QPM #90 tab 04/01/21 06/04/21 Rx glimepiride 1 mg tablet See Rx Instructions .ROUTE 04/11/21 06/04/21 Rx .COMPLEX #180 tab Triplejump GroupTouch Verio test strips (blood #100 ea NS 05/17/21 05/31/21 Rx sugar diagnostic) Past Med/Surg History Medical History Chronic back pain Cirrhosis Diabetes NIDDM History of anesthesia reaction hallucinations after back surgery. Hx of cancer of uterus NO CHEMO/NO RADIATION Hyperlipidemia Hypertension Hypothyroidism Obesity Personal history of kidney stones Poor historian Stroke Surgical History H/O colonoscopy 10/07/19 Dr. Nilton Sandoval History of arthroplasty of right knee History of lithotripsy LEFT ESWL= 11/26/15= LMA#4 History of lumbar surgery X2 Hx of bilateral cataract extraction Hx of colonoscopy Hx of hand surgery Hx of hernia repair VENTRAL Hx of hysterectomy Robotic Lap hysterectomy with BSO Hx of tonsillectomy Hx of wisdom tooth extraction S/P total knee replacement using cement Family History Father , in his 30s according to the patient Liver cancer Colorectal cancer Mother , age 87 of renal complications Kidney disease Parkinson disease Son Diabetes Unknown Hypertension Denies family history of Ovarian cancer Prostate cancer Myocardial infarction Breast cancer Social History Smoking Status: Never smoker Second Hand Exposure: No; Do You Dip or Chew Tobacco: No; Hx Alcohol Use: No Hx Substance Use: No Preferred Language: Citizen Of [place] Communication Ability: Effective Visual Impairment: No Limitations Hearing Ability: Normal Knotter Hand Required: No Beliefs That Will Affect Care: None marital status: Current Living Situation: Spouse and Family Current Living Situation Comment: and son current occupational status: retired 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 NAD. heent nc at mmm cardio reg no r/m/g lungs cta b/l no rr//w good effort skin no rashes no pallor or icterus abd soft mild distention nontender no guarding/rebound/rigidity. ext no c/c trace b/l LE edema no erythema no cords no calf tenderness. neuro cn2-12 gross ly intact gross motor/sensory intact. mental status as above - fair recent and remote recall but hard to get to focus on details. somewhat anxious mood and affect. above essentially precludes being able to assess judgement and insight Results & Data Results & Data ([facility]) Vital Signs (Past 12 Hours) Vital Signs Temp Pulse Pulse Resp BP BP Pulse Ox 06/04/21 14:26 98.6 F 53 L 18 182/74 H 96 06/04/21 10:15 98.1 F 50 L 20 196/78 H 96 06/04/21 09:38 49 L 20 162/66 H 100 06/04/21 08:00 53 L 18 193/120 H 99 06/04/21 06:25 99 06/04/21 05:59 48 L 16 167/69 H 99 06/04/21 05:52 20 96 06/04/21 05:31 47 L 22 160/67 H 97 06/04/21 05:30 45 L 26 H 160/67 H 06/04/21 05:00 47 L 22 164/72 H 96 06/04/21 04:57 53 L 26 H 176/91 H 95 06/04/21 03:45 97.5 F L 60 16 204/84 H 98 Code Status & VTE Plan VTE Prophylaxis Plan VTE Prophylaxis will be ordered: Yes PG Care Time/CCT Total # of Minutes Spent Total Time Spent with Patient: Total time spent is greater than 50% in coordination of care (as documented) at patient's floor/unit and/or counseling patient: Coding Level of Care Code 49103 Initial Inpt Care Lvl 3 Diagnoses Ureterolithiasis N20.1 Creatinine elevation R79.89 Anxiety disorder F41.9 Diarrhea R19.7 DVT prophylaxis Z29.9 Discharge planning issues Z02.9
[2021-06-04] MEDS: ATENOLOL 25 MG TABLET PO SCH (20:07)
[2021-06-04] MEDS ORDERED: ACETAMINOPHEN 1000 MG/100 ML IV IV PRN (23:57)
[2021-06-05] MEDS: LACTATED RINGER'S 1,000 ML IV SCH ×3 (02:38→17:14)
[2021-06-05] MEDS: LEVOTHYROXINE SODIUM 100 MCG TABLET PO SCH (05:09)
[2021-06-05 06:44] LABS: Basophils # (auto) 0.01 K/uL (0-0.2); Basophils % (auto) 0.2 %; Eosinophils # (auto) 0.03 K/uL (0-0.5); Eosinophils % (auto) 0.5 %; Hemoglobin 10.4 g/dL (12.0-16.0); Immature Granulocytes # (auto) 0.01 K/uL (0.00-0.02); Immature Granulocytes % (auto) 0.2 %; Lymphocytes # (auto) 1.08 K/uL (1.2-3.4); Lymphocytes % (auto) 16.5 %; Mean Corpuscular Hemoglobin 29.4 pg (25-34); Mean Corpuscular Hgb Conc 32.5 g/dL (32-36); Mean Corpuscular Volume 90.4 fL (80-100); Mean Platelet Volume 11.4 fL (7.4-10.4); Monocytes # (auto) 0.49 K/uL (0.11-0.59); Monocytes % (auto) 7.5 %; Neutrophils # (auto) 4.93 K/uL (1.4-6.5); Neutrophils % (auto) 75.1 %; Platelet Count 103 K/uL (130-400); RDW Coefficient of Variation 13.1 % (11.5-14.5); RDW Standard Deviation 43.5 fL (36.4-46.3); Red Blood Count 3.54 M/uL (4.2-5.4); White Blood Count 6.55 K/uL (4.8-10.8)
[2021-06-05 07:04] LABS: BUN Creatinine Ratio 27.5 (10-20); Calcium 9.6 mg/dl (8.5-10.1); Creatinine Clr Calc Pharmacy 31.4 ml/min; Est GFR (African American) 42.3 ml/min; Est GFR (Non-African American) 36.5 ml/min; Potassium 4.7 mmol/L (3.5-5.1)
[2021-06-05] MEDS ORDERED: Nursing to Pharmacy Communication SCH ×2 (08:00→17:00)
--- NOTE | 2021-06-05 08:33 | Urology Progress Note ---
Date of Service June 05, 2021 Assessment & Plan (1) Acute left flank pain: (2) Kidney stone: Plan: We reviewed her nephrolithiasis and options including observation or intervention. Since she is afebrile and her renal function is okay, observation with a trial of stone passage is reasonable, however she is very anxious that her pain will return and she will be unable to function at home. We discussed the option of intervention with cystoscopy, retrograde pyelogram, possible ureteroscopy and laser lithotripsy, ureteral stent placement. We discussed the risks and benefits of this procedure including risk of bleeding, infection, injury to the urinary tract, need for stent placement, inability to treat the stone. She expressed understanding and would like to proceed with surgery. We will plan to get this done today. Assuming she does well in surgery, she should be appropriate for discharge home afterwards from the urology perspective. Admission and Anticipated Discharge Date Admission Date: June 04, 2021 Subjective Feeling okay, no fevers or chills. Pain has improved somewhat, but she is very anxious about the pain returning. Has not been eating or ambulating. Perseverative about her diarrhea and milk allergy. Review of Systems Constitutional: No fevers or chills Physical Exam Constitutional: Well-appearing, NAD Respiratory: Breathing comfortably on room air Cardiovascular: Well-perfused Results & Data ([facility]) Vital Signs (Past 12 Hours) Vital Signs Temp Pulse Resp BP BP Pulse Ox 06/05/21 07:40 36.7 C 51 L 18 115/64 93 06/04/21 22:57 37.8 C H 57 L 16 152/71 H 96 PG Care Time/CCT Total # of Minutes Spent Total Time Spent with Patient: Total time spent is greater than 50% in coordination of care (as documented) at patient's floor/unit and/or counseling patient: Coding Level of Care Code 34842 Subseq Hosp Care Lvl 2 Diagnoses Acute left flank pain R10.9 Kidney stone N20.0
[2021-06-05] MEDS: INSULIN ASPART PER UNIT SC SCH ×3 (08:55→21:10)
[2021-06-05] MEDS: HEPARIN SOD 5,000 UNIT/0.5 ML VIAL SQ SCH ×2 (09:00→21:02)
[2021-06-05] MEDS ORDERED: fentaNYL citrate 100 MCG/2 ML VIAL ONE (09:10)
[2021-06-05] MEDS ORDERED: ONDANSETRON INJ 2 MG/ML 2 ML VIAL IV PRN (09:15)
[2021-06-05] MEDS ORDERED: ePHEDrine sulfate 50 MG/ML AMP IV PRN (09:15)
[2021-06-05] MEDS ORDERED: ATROPINE SULFATE 0.1 MG/ML 10ML SYR IV PRN (09:15)
[2021-06-05] MEDS ORDERED: fentaNYL citrate 100 MCG/2 ML VIAL IV PRN (09:15)
[2021-06-05] MEDS ORDERED: ONDANSETRON INJ 2 MG/ML 2 ML VIAL ONE (09:39)
[2021-06-05] MEDS ORDERED: PROPOFOL IV EMULSION 10 MG/ML 20 ML VIAL IV ONE (09:39)
--- NOTE | 2021-06-05 10:07 | Operative Report ---
PG Post Operative Report Pre & Post Diagnosis Operation Date: 06/05/21 10:00 <No data on this case meets the specified criteria> I identified the patient and participated in the time-out.: Yes Procedure Operation Date: 06/05/21 10:00 <No data on this case meets the specified criteria> Surgeon Ken Lias MD Sales Engineer None Estimated Blood Loss 0 Findings See Below Successful left ureteral stent placement Specimens None Drains 6 Malaysian by 24 cm double-J ureteral stent in the left ureter Anesthesia Type General Complications none Disposition Disposition: Recovery Room Indications This is an 86-year-old female who presented to the ED on 06/04/2021 with left- sided flank pain, found to have obstructing left ureteral stones. She is being brought to the OR today for stent placement to decompress the left kidney. Description of Procedure The patient was identified in the holding area and informed consent was confirmed. They were marked on the left side, then were taken to the operating room where general anesthesia was initiated. They were placed in the dorsal lithotomy position with all pressure points appropriately padded. They were prepped and draped in the usual sterile fashion and a preoperative timeout was performed. A well-lubricated cystoscope was inserted per urethra and panendoscopy was performed. Her bladder was large in capacity, with no tumors or stones appreciated. Ureteral orifices were in orthotopic position. The left ureteral orifice was identified and cannulated with a 5 Malaysian open- ended catheter. A retrograde pyelogram was performed demonstrating the distal ureter was normal in course and caliber. There is a filling defect in the proximal ureter, suspicious for the stone, with hydronephrosis of the kidney. A 0.038" sensor wire was advanced to the level of the kidney under fluoroscopic guidance. Over the wire, a 6 Malaysian x 24 centimeter double-J ureteral stent was advanced. When the wire was removed, the proximal curl was visualized in the kidney with x-ray, and the distal curl visualized in the bladder with the cystoscope. At this point the bladder was drained and all instrumentation was removed. The patient was then awakened from anesthesia and was brought to the PACU in stable condition. I attest to the content of the Intraoperative Record and any orders documented therein. Any exceptions are noted below.
[2021-06-05] MEDS ORDERED: DIATRIZOATE MEGLUMINE 30% 100ML VIAL INSTIL PRN (10:08)
--- NOTE | 2021-06-05 10:22 | Anesthesiology Progress Note ---
Date of Service June 05, 2021 Anesthesia Post Procedure Vital Signs Vital Signs: Temp Pulse Pulse Resp BP BP Pulse Ox 06/05/21 10:10 45 L 14 106/42 L 95 06/05/21 10:02 97.7 F 43 L 14 89/38 L 98 06/05/21 07:40 98.1 F 51 L 18 115/64 93 06/04/21 22:57 100.0 F H 57 L 16 152/71 H 96 06/04/21 14:26 98.6 F 53 L 18 182/74 H 96 Pain Intensity Left Flank: Pain Intensity: 7 Transfer of Care Handoff Completed per policy Notes Mental Status: alert / awake / arousable and participated in evaluation Patient Amnestic to Procedure: Yes Nausea / Vomiting: adequately controlled Pain: adequately controlled Airway Patency, RR, SpO2: stable & adequate BP & HR: stable & adequate Hydration State: stable & adequate Anesthetic Complications: no major complications apparent and Pt Satisfied with anesthetic care
--- NOTE | 2021-06-05 10:29 | Fluoroscopy Report ---
FL retrograde includes kub HISTORY: 86 years-old Female LEFT CYTO/STENT status post placement of a left ureteral stent COMPARISON: CT abdomen and pelvis 06/04/2021 TECHNIQUE: 6 spot fluoroscopic images of the left abdomen were obtained utilizing 9.3 seconds fluoros copy time FINDINGS: Retrograde injection of contrast into the left ureter demonstrates persistent hydronephrosis. There i s cannulation of the left ureter with subsequent images demonstrate alignment of a left ureteral sten t. The proximal portion appearing to be in satisfactory positioning. The distal portion was not image d. IMPRESSION: Fluoroscopic assistance as above. ACT 112: Negative or not required by law. The above report was generated using voice recognition software. It may contain grammatical, syntax o r spelling errors. Electronically signed by: Derek Martin M.D. 06/05/2021 10:27 AM
[2021-06-05] MEDS: ONDANSETRON INJ 2 MG/ML 2 ML VIAL IV PRN ×2 (10:43→21:04)
--- NOTE | 2021-06-05 11:02 | Discharge Summary ---
Date of Service June 06, 2021 Admission HPI Per Admitting Provider abrupt onset of flank pain last night. has known chronic stone but apparently no significant sx from that. but then sudden onset last night, severe. came to ER for further eval. notes some memory issues, so HPI and ROS a bit difficult to discern (additionally by the time i initially saw pt after she had been through ER, basic admission orders written, seen by urology, etc - she was more fixated on asking questions about DVT proph w heparin SQ than she seemed to have a solid recollection of the events that led to her being admitted -- to the points that i actually had to remind her that i was asking questions regarding kidney stone symptoms because she came to the hospital for those, not for DVT proph -- ie hpi and ros fairly limited but obtained as best as possible) does not seem to have any concerning infectious urinary sx does have chronic diarrhea - up and down sx. sometimes smaller chunks and muddy, other times watery. ongoing for quite a while. currently trying to avoid milk/dairy/lactose but not sure if it's making much of a difference - during interview her lunch arrives and since current lactose free was not known when initial orders written her lunch includes stuffed shells w mozzerella on top - despite telling her that we can change her diet and get her a new tray, she then is somewhat fixated and overwhelmed by this as well, further limiting ability to get meaningful HPI and ROS Admission Exam Per Admitting Provider [employer] aaox3 but easily confused, distracted, and fixated on details surroundi ng current environment/etc. NAD. heent nc at mmm cardio reg no r/m/g lungs cta b/l no rr//w good effort skin no rashes no pallor or icterus abd soft mild distention nontender no guarding/rebound/rigidity. ext no c/c trace b/l LE edema no erythema no cords no calf tenderness. neuro cn2-12 grossly intact gross motor/sensory intact. mental status as above - fair recent and remote recall but hard to get to focus on details. somewhat anxious mood and affect. above essentially precludes being able to assess judgement and insight Principal Diagnosis Kidney stone Discharge Exam Constitutional WD/WN, vitals as above no acute distress Eyes + anicteric sclerae ENMT external ear and nose normal, oropharynx normal Neck trachea midline Respiratory no respiratory distress Musculoskeletal Head/Neck/Chest: normocephalic and head atraumatic Skin no rashes, warm and dry Neurologic moves all extremities Psychiatric A+Ox3, euthymic affect Affect: + anxious affect Discharge Data Allergies Allergy/AdvReac Type Severity Reaction Status Date / Time iodine Allergy Severe IV Verified 06/04/21 08:04 DYE-TROUBLE BREATHING HOARSENESS-SEVERE REACTION tramadol Allergy Severe HIVES, Verified 06/04/21 08:04 ITCHING morphine Allergy Intermediate HALLUCINATI Verified 06/04/21 08:04 ONS propoxyphene Allergy Intermediate ITCHING Verified 06/04/21 08:04 scallops Allergy Intermediate DIARRHEA, Verified 06/04/21 08:04 VOMITING ciprofloxacin Allergy Mild SICK Verified 06/04/21 08:04 Penicillins Allergy Mild RASH Verified 06/04/21 08:04 candesartan Allergy Unknown UNKNOWN Verified 06/04/21 08:04 oxycodone Allergy Unknown UNKNOWN Verified 06/04/21 08:04 topiramate Allergy Unknown UNKNOWN Verified 06/04/21 08:04 atorvastatin AdvReac Intermediate Muscle Pain Verified 06/04/21 08:04 levothyroxine sodium AdvReac Mild Dry mouth; Verified 05/31/21 15:45 fatigue Consultations 06/04/21 07:58 ED Decision to Admit Stat 06/04/21 08:13 Consult Urology Routine Procedures Performed Operation Date: 06/05/21 10:00 Actual Procedures p Cystoscopy, Retrograde, Left Ureteral Stent Insertion(Left) - Ken Lisa MD Ordered Studies 06/04/21 03:59 CT abd pelvis wo con Urgent 06/05/21 07:00 FL retrograde includes kub Routine Hospital Course (1) Ureterolithiasis: Patient with a history of a chronic left sided kidney stone, admitted for acute left flank pain due to stone migration and associated hydronephrosis. Ureterolithiasis: - CT abdomen and pelvis showed a 7 mm obstructing calculus at the left ureteropelvic junction with moderate left-sided hydronephrosis, as well as 2 additional smaller calculi in the left proximal ureter just below this stone measuring up to 4 mm. - patient was trialed on a day of conservative management with IVF and flomax, stone did not pass - Urology was consulted - although creatinine was only mildly elevated and patient did not appear toxic, patient opted for intervention with cystoscopy, retrograde pyelogram, and possible ureteroscopy. However, stone was unable to be retrieved - ureteral stent was placed for facilitation of urine passage. - outpatient follow up (likely with planned shock wave lithotripsy) was arranged upon discharge. Diarrhea - following actively w [facility] - reviewed CT images - and while there's certainly nothing c/w severe constipation/impaction/obstruction, there is a reasonable amount of solid stool, which makes me wonder if her diarrhea is really overflow. Will defer further management to GI Total Time Total Time Spent Total Time Spent (In Minutes): 30 Discharge Plan Discharge Items Patient Disposition: Home - Self-Care Reason For Visit: URETEROLITHIASIS Discharge Diagnosis: kidney stone Activity: Resume your previous activity Non-emergency contact: Primary Care Provider and Urologist Call non-emergency contact if: your pain is not controlled Follow-up/Referrals: Sabine Aldrich MD [Primary Care Provider] - 06/16/21 10:15 am Ken Lisa MD [Physician] - 06/16/21 3:15 pm Diet: Carb Consistent or DM2 Addtl Attending Provider Instructions: You were hospitalized at [facility] for evaluation of a sudden onset left flank pain. The cause of the pain was thought to be from your known left sided kidney stone - likely because it shifted or moved. A cat scan of your abdomen was ordered and showed multiple left sided kidney stones - one was small (likely to pass on its own) while the other was larger (7mm) and therefore less likely to pass on its own. We discussed options for treatment - which included a trial of IV fluids and flomax (a medication used to help kidney stones pass). Urology was consulted - ultimately you elected to procedure with a surgical procedure to attempt to remove the stone. While they were unable to safely get to the stone to remove it - they did place a stent in your left ureter, which will facilitate passage of urine around the stone. Please follow up with [facility] as directed. Addtl [employer] Provider Instructions: The surgery you had was left ureteral stent placement. The stone is still in place. We will need to schedule another appointment for stone removal Please take all medications as prescribed and keep all follow-ups as scheduled. Please call our office at [phone] with any questions, concerns or need to reschedule appointments for any reason. We are happy to assist you. What to expect with a stent: You may notice some blood in your urine. As long as you are able to urinate, this is ok. You may have some pain in your side when you urinate, that is a normal finding with a stent. It is okay to take Tylenol or ibuprofen if the stent is causing her discomfort. When to call [facility] at [phone]: Fever of 101F or higher Heavy bleeding Pain that is not controlled with medicine Uncontrolled vomiting Problems urinating or inability to urinate Pending Studies at Discharge: Yes (urine culture) Stand-Alone Forms: My [facility] [employer], Smoking Cessation Medications and DC Order Prescriptions: Continued (DME) Diabetic Shoes Mis See Rx Instructions .ROUTE .MEDSUPPLY Qty: 1 RF: 0 (DME) lancets [OneTouch Delica Plus Lancet] 33 gauge [facility] See Dose Instructions .ROUTE .MEDSUPPLY Qty: 200 RF: 1 levothyroxine 100 mcg tablet 100 mcg PO DAILY Qty: 90 RF: 0 cyanocobalamin (vitamin B-12) 1,000 mcg tablet 1,000 mcg PO DAILY Qty: 30 RF: 0 clopidogrel 75 mg tablet 75 mg PO QAM Qty: 90 RF: 3 atenolol 25 mg tablet 25 mg PO QPM Qty: 90 RF: 1 glimepiride 1 mg tablet See Rx Instructions .ROUTE .COMPLEX Qty: 180 RF: 1 (DME) OneTouch Verio test strips Strip See Dose Instructions .ROUTE .MEDSUPPLY Qty: 100 RF: 11 Jentadueto 2.5-500 mg tablet 1 tab PO DAILY 90 Days Qty: 90 RF: 3 (DME) blood-glucose meter [OneTouch Verio Meter] [facility] See Dose Instructions .ROUTE .MEDSUPPLY Qty: 1 RF: 0 lisinopril 20 mg tablet 20 mg PO DAILY Qty: 90 RF: 1 magnesium oxide 400 mg magnesium capsule 400 mg PO DAILY Qty: 90 RF: 3 cholecalciferol (vitamin D3) [Vitamin D3] 50 mcg (2,000 unit) Capsule 200 mcg PO DAILY RF: 0 Discharge Orders: Discharge Order (Routine); Ordered 06/06/21 Ordered By: Deneen Hammond/Other Patient Handouts: Having a Ureteral Stent Admission Data Admit Date/Time: 06/04/21 08:13 Attending Provider: Fady Coleman Admit Provider: Greg Shah Primary Care Provider: Sabine Aldrich Other Providers: Greg Shah ; Ken Lisa Other Interventions: Discharge Summary Assessment (RN) Last Done: 06/06/21 11:39 Supervising Physician Co-Signing Physician Notes I also saw the patient confirmed caro portions of the history and the physical examination. I agree with the impression and plan as noted in the resident documentation. Upon exam this morning, the patient overall felt well. She does note being tired. She is able to get up from her bed, ambulate to the bathroom, use the bathroom and complete ADLs without assistance. She does have both her and a son live with her at home for additional assistance. Left ureteral stone, status post ureteral stent placement Remains afebrile Tolerating stent with minimal symptoms Continue home physical therapy Outpatient follow-up with urology Resident Activity Tracking Resident Involvement: Resident Care Provided Care Provided: Adult [facility] Medicine
[2021-06-05] MEDS: lisinopril 20 MG TAB PO SCH (11:55)
[2021-06-05] MEDS: CHOLECALCIFEROL 5,000 UNITS 125 MCG TAB PO SCH (11:55)
[2021-06-05] MEDS: MAGNESIUM OXIDE 400 MG TAB PO SCH (11:55)
[2021-06-05] MEDS: TAMSULOSIN HCL 0.4 MG CAP PO SCH ×2 (11:55→21:02)
[2021-06-05] MEDS: CLOPIDOGREL BISULFATE 75 MG TAB PO SCH (11:55)
[2021-06-05] MEDS: CYANOCOBALAMIN (B-12) 500 MCG TABLET PO SCH (11:55)
[2021-06-05] MEDS: CHOLECALCIFEROL 1,000 UNITS 25 MCG TAB PO SCH (11:55)
[2021-06-05] MEDS ORDERED: INSULIN ASPART PER UNIT SC SCH (12:00)
[2021-06-05] MEDS ORDERED: ceFAZolin 330 MG/ML 1 GM VIAL ONE (12:30)
--- NOTE | 2021-06-05 12:36 | Hospitalist Progress Note ---
Date of Service June 05, 2021 Assessment & Plan (1) Ureterolithiasis: Plan: Patient with a history of a chronic left sided kidney stone, admitted for acute left flank pain due to stone migration and associated hydronephrosis. Ureterolithiasis: - CT abdomen and pelvis showed a 7 mm obstructing calculus at the left ureteropelvic junction with moderate left-sided hydronephrosis, as well as 2 additional smaller calculi in the left proximal ureter just below this stone measuring up to 4 mm. - patient was trialed on a day of conservative management with IVF and flomax, stone did not pass - Urology was consulted - although creatinine was only mildly elevated and patient did not appear toxic, patient opted for intervention with cystoscopy, retrograde pyelogram, and possible ureteroscopy. However, stone was unable to be retrieved - ureteral stent was placed for facilitation of urine passage. - outpatient follow up (likely with planned shock wave lithotripsy) was arranged upon discharge. - she will remain in hospital overnight for management of mild stent associated discomfort and sensation of urinary frequency - Tylenol prn for pain, Pyridium prn for bladder spasm Diarrhea - following actively w [facility] - reviewed CT images - and while there's certainly nothing c/w severe constipation/impaction/obstruction, there is a reasonable amount of solid stool, which makes me wonder if her diarrhea is really overflow. Will defer further management to GI Diabetes - A1c 6.8 in 12/2020 - hold home oral agents - SSI while inpatient Hypertension - continue lisinopril and atenolol Hypothyroidism - continue home dose levothyroxine Diet: carb consistent, lactose intolerant Dispo: Med/Surg DVT ppx: Heparin 5,000 units SQ q12 Code: Full Admission and Anticipated Discharge Date Admission Date: June 04, 2021 Supervising Physician Co-Signing Physician Notes I personally examined the patient and verified all caro points of history and exam, discussed case, and agree with decision making with Dr Houston seen post stent. feeling like she has to void and no return. nauseated. vitals noted, walking steadily without assistance, appears more distraught than in distress. heent nc at mmm breathing unlabored no accessory muscles good effort skin no rashes no pallor or icterus neuro no focal deficits stone/stent with post stent discomfort - time, supportive care - anticipate this will improve. once symptoms are tolerable, then safe for home diarrhea - probably overflow from chronic constipation based on my review of her sx and CT, but will defer to primary GI who has been following her for a while full code for now - have not really been able to meaningfully discuss this with pt DVT proph - heparin SQ when she allows Subjective No acute events overnight - expressed ambivalence about undergoing urologic intervention - however ultimately decided she would like to try to have stone removed. Review of Systems Psychiatric: + anxiety Physical Exam Constitutional: WD/WN, vitals as above no acute distress Eyes: + anicteric sclerae ENMT: external ear and nose normal, oropharynx normal Neck: trachea midline Respiratory: no respiratory distress Musculoskeletal: Head/Neck/Chest: normocephalic and head atraumatic Skin: no rashes, warm and dry Neurologic: moves all extremities Psychiatric: A+Ox3, euthymic affect Affect: + anxious affect Results & Data Results & Data ([facility]) Vital Signs (Past 12 Hours) Vital Signs Temp Pulse Pulse Pulse Resp BP Pulse Ox 06/05/21 11:30 36.3 C L 44 L 18 131/67 95 06/05/21 11:05 36.3 C L 40 L 15 120/65 93 06/05/21 10:31 36.6 C 43 L 18 122/52 L 98 06/05/21 10:20 36.5 C 48 L 16 106/51 L 98 06/05/21 10:10 45 L 14 106/42 L 95 06/05/21 10:02 36.5 C 43 L 14 89/38 L 98 06/05/21 07:40 36.7 C 51 L 18 115/64 93 Resident Activity Tracking Resident Involvement: Resident Care Provided Care Provided: Adult Hospital Medicine
[2021-06-05] MEDS ORDERED: MELATONIN 3 MG TAB PO PRN (12:42)
--- NOTE | 2021-06-05 13:42 | Billing Data ---
Date of Service June 05, 2021 Coding Level of Care Code 63095 Subseq Hosp Care Lvl 2
[2021-06-05] MEDS: PHENAZOPYRIDINE HCL 200 MG TAB PO PRN (15:20)
[2021-06-05] MEDS: ATENOLOL 25 MG TABLET PO SCH (21:02)
[2021-06-06] MEDS: LACTATED RINGER'S 1,000 ML IV SCH ×2 (01:49→09:11)
[2021-06-06] MEDS: LEVOTHYROXINE SODIUM 100 MCG TABLET PO SCH (06:05)
--- NOTE | 2021-06-06 08:27 | Urology Progress Note ---
Date of Service June 06, 2021 Assessment & Plan (1) Left ureteral stone: (2) S/P ureteral stent placement: Plan: - Pt POD#1 s/p cystoscopy, left stent insertion with Dr. Lisa - Doing well, progressing as expected - Afebrile, no new lab work at time of visit today - Creat 1.31, WBC 6.55 on 06/05 - Tolerating left ureteral stent with minimal bother - Okay to d/c from perspective when medically stable - Recommend d/c with course of Tamsulosin, prn Pyridium and prn pain medication for stent management if indicated - Expected clinical course reviewed, all questions answered - Will arrange outpatient follow-up with our service for definitive stone management Admission and Anticipated Discharge Date Admission Date: June 04, 2021 Subjective Patient seen and examined at bedside this AM. Awake, alert and resting in bed. No acute issues overnight. Denies flank or abdominal pain. Voiding spontaneously, no dysuria or hematuria. Notes urgency and frequency. No nausea or vomiting. No fever or chills. Offers no additional complaints at present. She hopes to go home today. Review of Systems Constitutional: as per Subjective / HPI Gastrointestinal: as per Subjective / HPI Genitourinary: as per Subjective / HPI Physical Exam Constitutional: well developed and well nourished; no acute distress and not ill appearing Respiratory: normal respiratory effort and able to speak in complete sentences; no respiratory distress and no labored breathing Cardiovascular: Extremities: no pedal edema Gastrointestinal (Abdomen): Inspection/Auscultation: abdomen normal to inspection; abdomen not distended Musculoskeletal: Head/Neck/Chest: normocephalic and head atraumatic Skin: no visible rashes Neurologic: moves all extremities and awake Psychiatric: Orientation: alert and oriented to person Results & Data ([facility]) Vital Signs (Past 12 Hours) Vital Signs Temp Pulse Pulse Resp BP BP Pulse Ox 06/06/21 07:11 36.9 C 56 L 20 173/70 H 92 06/06/21 03:59 37.1 C 55 L 16 171/78 H 94 06/05/21 23:00 36.7 C 55 L 16 149/61 H 94 PG Care Time/CCT Total # of Minutes Spent Total Time Spent with Patient: Total time spent is greater than 50% in coordination of care (as documented) at patient's floor/unit and/or counseling patient: Coding Level of Care Code 40181 Subseq Hosp Care Lvl 2 Diagnoses S/P ureteral stent placement Z96.0 Left ureteral stone N20.1
[2021-06-06] MEDS: INSULIN ASPART PER UNIT SC SCH ×2 (08:36→13:14)
[2021-06-06] MEDS: TAMSULOSIN HCL 0.4 MG CAP PO SCH (08:37)
[2021-06-06] MEDS: PHENAZOPYRIDINE HCL 200 MG TAB PO PRN (08:37)
[2021-06-06] MEDS: CHOLECALCIFEROL 1,000 UNITS 25 MCG TAB PO SCH (08:38)
[2021-06-06] MEDS: CYANOCOBALAMIN (B-12) 500 MCG TABLET PO SCH (08:39)
[2021-06-06] MEDS: MAGNESIUM OXIDE 400 MG TAB PO SCH (08:39)
[2021-06-06] MEDS: CHOLECALCIFEROL 5,000 UNITS 125 MCG TAB PO SCH (08:40)
[2021-06-06] MEDS: CLOPIDOGREL BISULFATE 75 MG TAB PO SCH (08:40)
[2021-06-06] MEDS: lisinopril 20 MG TAB PO SCH (08:40)
[2021-06-06] MEDS: HEPARIN SOD 5,000 UNIT/0.5 ML VIAL SQ SCH (08:42)
== END 2021-06-06 14:46 | disposition home or self-care (01) | DRG 661 ==
LOC: ED 03:43 → SUATTDRO 08:13 → 3W 08:13

== ENCOUNTER 2021-06-14 20:29 | Observation (INO) ==
[2021-06-14] MEDS ORDERED: PHENAZOPYRIDINE HCL 200 MG TAB PO STA (20:47)
[2021-06-14] MEDS ORDERED: ACETAMINOPHEN 325 MG TAB PO STA (21:14)
[2021-06-14 21:16] LABS: Appearance Urine Cloudy (Clear); Bacteria Urine Automated Negative (Negative); Bilirubin Urine Negative (Negative); Blood Urine 2+ (Negative); Color Urine Yellow; Epithelial Cell Urine Auto >30 /lpf (0-5); Glucose Urine UA Negative (Negative); Ketones Urine Negative (Negative); Leukocyte Esterase Urine 1+ (Negative); Nitrite Urine Negative (Negative); Protein Urine 2+ (Negative); RBC Urine Automated 0-4 /hpf (0-4); Specific Gravity Urine 1.009 (1.000-1.030); Urobilinogen Urine Negative (Negative)
--- NOTE | 2021-06-14 21:30 | Emergency Department Note ---
History of Present Illness General Chief complaint: Urinary Symptoms Stated complaint: EXCESSIVE URINATION, KIDNEY STONE Time Seen by Provider: 06/14/21 20:41 Source: patient Mode of arrival: ambulatory Limitations: no limitations History of Present Illness Provider complaint: Urinary frequency, urgency Onset (ago): hour(s) Maximum Pain Intensity: 10 This is an 86-year-old female presents emergency department complaining of urinary frequency, urgency, and pelvic/lower abdominal pain that began this evening. Patient with recent history of kidney stone who was admitted. She underwent left-sided ureteral stent placement by urology and was just discharged 3 days ago. Patient states she is scheduled for follow-up later on this week. Patient states she is taking Flomax at home as well as another medication for pain. She was not prescribed any additional narcotics. She states at time of discharge she had no pain and has not had any pain similar to this previously. Patient is concerned she is passing the stone or that there was something wrong with the stent. Patient denies fevers or chills, denies nausea and vomiting. Patient denies any coming back pain. Pt seen during a time of high acuity and national emergency pandemic while wearing PPE. Home Medications Medication Instructions Recorded Confirmed Type blood-glucose meter (OneTouch #1 ea 12/16/18 05/31/21 History Verio Meter) Diabetic Shoes #1 ea 07/04/19 05/31/21 Rx lancets 33 gauge (OneTouch Delica #200 ea 02/11/20 05/31/21 Rx Plus Lancet) linagliptin 2.5 mg-metformin 500 1 tab PO DAILY 90 Days #90 tab 09/02/20 06/14/21 Rx mg tablet (Jentadueto) levothyroxine 100 mcg tablet 100 mcg PO DAILY #90 tab 11/19/20 06/14/21 Rx cholecalciferol (vitamin D3) 50 200 mcg PO DAILY 01/31/21 06/14/21 History mcg (2,000 unit) capsule (Vitamin D3) cyanocobalamin (vitamin B-12) 1,000 mcg PO DAILY #30 tab 02/14/21 06/14/21 Rx 1,000 mcg tablet clopidogrel 75 mg tablet 75 mg PO QAM #90 tab 03/02/21 06/14/21 Rx lisinopril 20 mg tablet 20 mg PO DAILY #90 tab 03/07/21 06/14/21 Rx magnesium oxide 400 mg PO DAILY #90 cap 03/07/21 06/14/21 Rx atenolol 25 mg tablet 25 mg PO QPM #90 tab 04/01/21 06/14/21 Rx OneTouch Verio test strips (blood #100 ea NS 05/17/21 05/31/21 Rx sugar diagnostic) tamsulosin 0.4 mg capsule 0.4 mg PO DAILY #14 cap 06/06/21 06/14/21 Rx docusate sodium 100 mg capsule 100 mg PO DAILY PRN 06/14/21 06/14/21 History (Colace) glimepiride 1 mg tablet 1 mg PO BID 06/14/21 06/14/21 History Allergies Allergy/AdvReac Type Severity Reaction Status Date / Time iodine Allergy Severe IV Verified 06/14/21 21:13 DYE-TROUBLE BREATHING HOARSENESS-SEVERE REACTION tramadol Allergy Severe HIVES, Verified 06/14/21 21:13 ITCHING morphine Allergy Intermediate HALLUCINATI Verified 06/14/21 21:13 ONS propoxyphene Allergy Intermediate ITCHING Verified 06/14/21 21:13 scallops Allergy Intermediate DIARRHEA, Verified 06/14/21 21:13 VOMITING ciprofloxacin Allergy Mild SICK Verified 06/14/21 21:13 Penicillins Allergy Mild RASH Verified 06/14/21 21:13 candesartan Allergy Unknown UNKNOWN Verified 06/14/21 21:13 oxycodone Allergy Unknown UNKNOWN Verified 06/14/21 21:13 topiramate Allergy Unknown UNKNOWN Verified 06/14/21 21:13 atorvastatin AdvReac Intermediate Muscle Pain Verified 06/14/21 21:13 levothyroxine sodium AdvReac Mild Dry mouth; Verified 06/14/21 21:13 fatigue Past Med/Surg History Medical History Chronic back pain Cirrhosis Diabetes NIDDM History of anesthesia reaction hallucinations after back surgery. Hx of cancer of uterus NO CHEMO/NO RADIATION Hyperlipidemia Hypertension Hypothyroidism Obesity Personal history of kidney stones Poor historian Stroke Surgical History H/O colonoscopy 10/07/19 Dr. Nilton Sandoval History of arthroplasty of right knee History of lithotripsy LEFT ESWL= 11/26/15= LMA#4 History of lumbar surgery X2 Hx of bilateral cataract extraction Hx of colonoscopy Hx of hand surgery Hx of hernia repair VENTRAL Hx of hysterectomy Robotic Lap hysterectomy with BSO Hx of tonsillectomy Hx of wisdom tooth extraction S/P total knee replacement using cement Family History Father , in his 30s according to the patient Liver cancer Colorectal cancer Mother , age 87 of renal complications Kidney disease Parkinson disease Son Diabetes Unknown Hypertension Denies family history of Ovarian cancer Prostate cancer Myocardial infarction Breast cancer Social History Smoking Status: Never smoker Second Hand Exposure: No; Hx Alcohol Use: No Hx Substance Use: No Preferred Language: Slovak Communication Ability: Effective Visual Impairment: No Limitations Hearing Ability: Normal Computer Aided Design Designer Required: No Beliefs That Will Affect Care: None marital status: Current Living Situation: Spouse and Family Current Living Situation Comment: and son current occupational status: retired 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 Feels Safe at Home: Yes Childhood Exposure to Second-Hand Smoke: Yes Dental Care, Regularly: Yes Physical Activity Frequency: 1-2 Times per Week Seatbelt Use: always Sunscreen Use: Yes Assistive Devices: Walker Review of Systems A total of 10 systems reviewed and were otherwise negative All systems reviewed & are unremarkable except as noted in HPI & below Physical Exam Vital Signs Vital Signs - 24 hr 06/14/21 20:30 06/14/21 20:59 06/14/21 23:00 Temperature 36.4 C L Temperature Source Temporal Artery Scan Pulse Rate 62 Pulse Rate [Apical] 60 50 L Pulse Rhythm [Apical] Regular Respiratory Rate 18 18 18 Respiratory Effort / Characteristics Non-Labored Spontaneous Non-Labored Spontaneous Respiratory Depth Normal Normal Normal Respiratory Pattern Regular Regular Blood Pressure 207/76 H Blood Pressure [Left Arm] 219/91 H 154/69 H Blood Pressure Mean 119 Blood Pressure Mean [Left Arm] 133 97 Blood Pressure Position Sitting Blood Pressure Position [Left Arm] Sitting Pulse Oximetry 95 98 99 Oxygen Delivery Method Room Air Room Air Room Air Sepsis Recent Fever Within 48 Hours No Sepsis New/Unexplained Change in Mental Status No Sepsis Action Taken by Nursing No Action Required GENERAL: alert, uncomfortable appearing, well nourished, no distress, non-toxic EYE EXAM: normal conjunctiva, PERRL and EOM's grossly intact OROPHARYNX: no exudate, no erythema, lips, buccal mucosa, and tongue normal and mucous membranes are moist NECK: supple, no nuchal rigidity, no adenopathy, non-tender LUNGS: Clear to auscultation. Normal chest wall mechanics, no w/r/r HEART: no murmurs, S1 normal and S2 normal ABDOMEN: abdomen soft, non-tender, normo-active bowel sounds, no masses, no rebound or guarding. BACK: Back is symmetrical on inspection and there is no deformity, no midline tenderness, no CVA tenderness. SKIN: no rashes and no bruising UPPER EXTREMITIES: upper extremities are grossly normal. FROM, nml pulses b/l. LOWER EXTREMITIES: No pitting edema. FROM, nml pulses b/l. NEURO EXAM: Normal sensorium, cranial nerves II-XII grossly intact, normal speech, no gross weakness of arms, no gross weakness of legs. Gross sensation intact. Course Course 2224: Pt updated on UA. States sx better but not resolved. States she cannot go home given her pain and symptoms. 0022: Discussed with Dr. Flores. 0027: Patient is uncomfortable going home. States she is still having pain. uncomfortable with her at home in this much distress. Administered Medications Atenolol (Atenolol 25 Mg Tablet) 25 mg PO QPM TIFFANY Stop: 07/15/21 20:59 Last Admin: 06/16/21 07:45 Dose: 25 mg Documented by: [id number] Admin: 06/15/21 20:27 Dose: Not Given Documented by: [id number] Hydromorphone HCl (Hydromorphone Inj 0.5 Mg/0.5 Ml Syr) 0.25 mg IV Q6H PRN PRN Reason: Severe Pain Stop: 06/29/21 02:59 Last Admin: 06/15/21 17:08 Dose: 0.25 mg Documented by: [id number] Cefazolin Sodium 2,000 mg/ (Syringe) 15 mls @ 3.75 mls/min IV Q8H [facility]; Protocol Stop: 06/25/21 08:14 Last Admin: 06/16/21 11:06 Dose: 3.75 mls/min Documented by: [id number] Admin: 06/16/21 02:37 Dose: 3.75 mls/min Documented by: [id number] Admin: 06/15/21 18:26 Dose: 3.75 mls/min Documented by: [id number] Admin: 06/15/21 11:30 Dose: 3.75 mls/min Documented by: [id number] Insulin Aspart (Insulin Aspart Per Unit) 0 units SC ACHS TIFFANY Stop: 07/15/21 20:59 Last Admin: 06/16/21 12:50 Dose: 2 units Documented by: [id number] Cosigned by: [id number] Admin: 06/16/21 09:33 Dose: 2 units Documented by: [id number] Cosigned by: [id number] Admin: 06/15/21 23:37 Dose: Not Given Documented by: [id number] Cosigned by: [id number] Levothyroxine Sodium (Levothyroxine Sodium 100 Mcg Tablet) 100 mcg PO DAILYBB [facility] Stop: 07/15/21 06:29 Last Admin: 06/16/21 05:35 Dose: 100 mcg Documented by: [id number] Admin: 06/15/21 06:29 Dose: 100 mcg Documented by: [id number] Phenazopyridine HCl (Phenazopyridine Hcl 200 Mg Tab) 200 mg PO Q8H PRN PRN Reason: Bladder pain Stop: 07/15/21 16:14 Last Admin: 06/15/21 16:16 Dose: 200 mg Documented by: [id number] Tamsulosin HCl (Tamsulosin Hcl 0.4 Mg Cap) 0.4 mg PO DAILY TIFFANY Stop: 07/15/21 08:59 Last Admin: 06/16/21 07:45 Dose: 0.4 mg Documented by: [id number] Admin: 06/15/21 07:57 Dose: 0.4 mg Documented by: [id number] Vitamin D (Cholecalciferol 1,000 Units 25 Mcg Tab) 2,000 units PO DAILY TIFFANY Stop: 07/15/21 08:59 Last Admin: 06/16/21 07:44 Dose: 2,000 units Documented by: [id number] Admin: 06/15/21 07:57 Dose: 2,000 units Documented by: [id number] Discontinued Medications Acetaminophen (Acetaminophen 325 Mg Tab) 650 mg PO NOW STA Stop: 06/14/21 21:15 Last Admin: 06/14/21 21:25 Dose: 650 mg Documented by: [id number] Bisacodyl (Bisacodyl 10 Mg Supp) 10 mg TX ONE ONE Stop: 06/16/21 13:01 Last Admin: 06/16/21 13:04 Dose: 10 mg Documented by: [id number] Sodium Chloride (Nss) 500 mls @ 999 mls/hr IV .Q31M ONE Stop: 06/14/21 22:57 Last Infusion: 06/14/21 23:38 Dose: 0 mls/hr Documented by: [id number] Admin: 06/14/21 22:55 Dose: 999 mls/hr Documented by: [id number] Lactated Ringer's (Lr) 1,000 mls @ 80 mls/hr IV .[id number] [facility] Stop: 06/15/21 15:29 Last Infusion: 06/15/21 21:10 Dose: 80 mls/hr Documented by: [id number] Admin: 06/15/21 03:05 Dose: 80 mls/hr Documented by: [id number] Magnesium Sulfate/Dextrose (Magnesium Sulfate / D5w) 1 gm in 100 mls @ 50 mls/hr IV Q2H TIFFANY Stop: 06/16/21 13:03 Last Infusion: 06/16/21 16:01 Dose: 0 mls/hr Documented by: [id number] Admin: 06/16/21 11:52 Dose: 50 mls/hr Documented by: [id number] Infusion: 06/16/21 11:47 Dose: 50 mls/hr Documented by: [id number] Admin: 06/16/21 09:47 Dose: 50 mls/hr Documented by: [id number] Insulin Aspart (Insulin Aspart Per Unit) 0 units SC Q6 TIFFANY Stop: 07/15/21 05:59 Last Admin: 06/15/21 18:37 Dose: Not Given Documented by: [id number] Admin: 06/15/21 17:13 Dose: Not Given Documented by: [id number] Admin: 06/15/21 06:36 Dose: Not Given Documented by: [id number] Cosigned by: [id number] Iothalamate Meglumine (Iothalamate Meglumine Ii 17.2% 250 Ml Vial) 20 ml INSTIL ONCE ONE Stop: 06/15/21 13:57 Last Admin: 06/15/21 14:38 Dose: Not Given Documented by: [id number] Ketorolac Tromethamine (Ketorolac Tromethamine 15 Mg/Ml Vial) 10 mg IV NOW ONE Stop: 06/14/21 23:51 Last Admin: 06/15/21 00:05 Dose: 10 mg Documented by: [id number] Phenazopyridine HCl (Phenazopyridine Hcl 200 Mg Tab) 200 mg PO NOW STA Stop: 06/14/21 20:48 Last Admin: 06/14/21 21:09 Dose: 200 mg Documented by: [id number] Medical Decision Making Differential Diagnosis Differential: UTI, Urethritis, Pyelonephritis, STI, Herpetic, Vaginitis, Hyperglycemia, Yeast, PID, Hemorrhagic Cystitis, amongst other pathologies entertained. Medical Records Attestation: I reviewed the patient's medical records. Home Medications Current Medication List: was personally reviewed by me Laboratory Data Attestation: I reviewed the patient's lab results. Result diagrams: 06/16/21 05:35 06/16/21 05:35 Lab Results 06/14/21 06/14/21 06/14/21 Range/Units 22:50 22:50 Unknown WBC 5.82 (4.8-10.8) K/uL RBC 4.04 L (4.2-5.4) M/uL Hgb 12.2 (12.0-16.0) g/dL Hct 36.8 L (37-47) % MCV 91.1 (80-100) fL MCH 30.2 (25-34) pg MCHC 33.2 (32-36) g/dL RDW Std Deviation 44.4 (36.4-46.3) fL RDW Coeff of Tia 13.3 (11.5-14.5) % Plt Count 185 (130-400) K/uL MPV 10.8 H (7.4-10.4) fL Immature Gran % (Auto) 0.2 % Neut % (Auto) 64.1 % Lymph % (Auto) 27.1 % [place] % (Auto) 6.7 % Eos % (Auto) 1.7 % Baso % (Auto) 0.2 % Neut # (Auto) 3.73 (1.4-6.5) K/uL Lymph # (Auto) 1.58 (1.2-3.4) K/uL [place] # (Auto) 0.39 (0.11-0.59) K/uL Eos # (Auto) 0.10 (0-0.5) K/uL Baso # (Auto) 0.01 (0-0.2) K/uL Immature Gran # (Auto) 0.01 (0.00-0.02) K/uL Sodium 134 L (136-145) mmol/L Potassium (3.5-5.1) mmol/L Chloride 102 (98-107) mmol/L Carbon Dioxide 25 (21-32) mmol/L Anion Gap 7 (3-11) BUN 24 H (6-23) mg/dl Creatinine 1.23 H (0.6-1.2) mg/dl Est Cr Clr Drug Dosing Not Reportable Est GFR ( Amer) 45.7 ml/min Est GFR (Non-Af Amer) 39.4 ml/min BUN/Creatinine Ratio 19.5 (10-20) Glucose 120 H (70-99(Fasting)) mg/dl Calcium 10.7 H (8.5-10.1) mg/dl Magnesium (1.7-2.4) mg/dl Total Bilirubin 0.4 (0.2-1.0) mg/dl AST (13-39) U/L ALT 11 (7-52) U/L Alkaline Phosphatase 76 (34-104) U/L Total Protein 7.0 (6.0-8.3) gm/dl Albumin 4.0 (3.4-5.0) gm/dl Globulin 3.0 (2.5-4.0) gm/dl Albumin/Globulin Ratio 1.3 (0.9-2) Urine Color Yellow Urine Appearance Cloudy A (Clear) Urine pH 5.0 (4.5-7.5) Ur Specific [place]itt 1.009 (1.000-1.030) Urine Protein 2+ H (Negative) Urine Glucose (UA) Negative (Negative) Urine Ketones Negative (Negative) Urine Blood 2+ H (Negative) Urine Nitrite Negative (Negative) Urine Bilirubin Negative (Negative) Urine Urobilinogen Negative (Negative) Ur Leukocyte Esterase 1+ H (Negative) Urine WBC (Auto) 10-30 H (0-5) /hpf Urine RBC (Auto) 0-4 (0-4) /hpf U Hyaline Cast (Auto) 1-5 (0-5) /lpf U Epithel Cells (Auto) >30 H (0-5) /lpf Urine Bacteria (Auto) Negative (Negative) Ur Renal Epithelial Cell 0-5 (0-5) /lpf SARS-CoV-2, RNA, NAAT (NEGATIVE) 06/15/21 06/15/21 Range/Units 00:45 01:05 WBC (4.8-10.8) K/uL RBC (4.2-5.4) M/uL Hgb (12.0-16.0) g/dL Hct (37-47) % MCV (80-100) fL MCH (25-34) pg MCHC (32-36) g/dL RDW Std Deviation (36.4-46.3) fL RDW Coeff of Tia (11.5-14.5) % Plt Count (130-400) K/uL MPV (7.4-10.4) fL Immature Gran % (Auto) % Neut % (Auto) % Lymph % (Auto) % [place] % (Auto) % Eos % (Auto) % Baso % (Auto) % Neut # (Auto) (1.4-6.5) K/uL Lymph # (Auto) (1.2-3.4) K/uL [place] # (Auto) (0.11-0.59) K/uL Eos # (Auto) (0-0.5) K/uL Baso # (Auto) (0-0.2) K/uL Immature Gran # (Auto) (0.00-0.02) K/uL Sodium (136-145) mmol/L Potassium 4.4 (3.5-5.1) mmol/L Chloride (98-107) mmol/L Carbon Dioxide (21-32) mmol/L Anion Gap (3-11) BUN (6-23) mg/dl Creatinine (0.6-1.2) mg/dl Est Cr Clr Drug Dosing Est GFR ( Amer) ml/min Est GFR (Non-Af Amer) ml/min BUN/Creatinine Ratio (10-20) Glucose (70-99(Fasting)) mg/dl Calcium (8.5-10.1) mg/dl Magnesium 1.5 L (1.7-2.4) mg/dl Total Bilirubin (0.2-1.0) mg/dl AST 13 (13-39) U/L ALT (7-52) U/L Alkaline Phosphatase (34-104) U/L Total Protein (6.0-8.3) gm/dl Albumin (3.4-5.0) gm/dl Globulin (2.5-4.0) gm/dl Albumin/Globulin Ratio (0.9-2) Urine Color Urine Appearance (Clear) Urine pH (4.5-7.5) Ur Specific [place] (1.000-1.030) Urine Protein (Negative) Urine Glucose (UA) (Negative) Urine Ketones (Negative) Urine Blood (Negative) Urine Nitrite (Negative) Urine Bilirubin (Negative) Urine Urobilinogen (Negative) Ur Leukocyte Esterase (Negative) Urine WBC (Auto) (0-5) /hpf Urine RBC (Auto) (0-4) /hpf U Hyaline Cast (Auto) (0-5) /lpf U Epithel Cells (Auto) (0-5) /lpf Urine Bacteria (Auto) (Negative) Ur Renal Epithelial Cell (0-5) /lpf SARS-CoV-2, RNA, NAAT NEGATIVE (NEGATIVE) Imaging Data My Impression: KUB: Left-sided ureteral stent noted, calcification proximal to the stent likely the previously noted stone MDM Narrative THis is an elderly female patient who presents with suprapubic pain, dysuria, frequency and urgency s/p recent stent placement for ureteral calculi. Patient states she is taking her flomax and tylenol without relief. Pt given pyridium and UA collected and sent. Patient stated slightly improved after additional meds here but still uncomfortable, stating she cannot sleep and has no appetite and is demanding urology come in and take out her stent. I added labs and a KUB as a precaution which were reassuring. GIven patient had urology appt within 2 days, I encouraged to keep that and use her medications at home. She stated she could not go home due to this discomfort. I discussed this with urology. Given age, comorbidities, significant allergy list, I do not feel oral narcotics at home would be safe. I do not suspect evolving infection. No evidence of KEVIN. VS stable except elevated BP likely from pain and agitation. Impression & Plan Urinary frequency, Ureterolithiasis, S/P ureteral stent placement, Urinary urgency Discharge Plan Visit Data Chief Complaint: Urinary Symptoms Stated Complaint: EXCESSIVE URINATION, KIDNEY STONE ED Provider: Eveline Patton Discharge Problem: Urinary frequency, Ureterolithiasis, S/P ureteral stent placement, Urinary urgency Patient Disposition: Admitted As Inpatient Discharge Instructions Interventions: ED Discharge Assessment Last Done: 06/15/21 02:38
[2021-06-14 21:40] LABS: Renal Epithelial Cells Urine 0-5 /lpf (0-5)
[2021-06-14] MEDS ORDERED: SODIUM CHLORIDE 0.9% 500 ML IV ONE (22:27)
[2021-06-14 23:07] LABS: Basophils # (auto) 0.01 K/uL (0-0.2); Basophils % (auto) 0.2 %; Eosinophils % (auto) 1.7 %; Hematocrit (blood only) 36.8 % (37-47); Hemoglobin 12.2 g/dL (12.0-16.0); Immature Granulocytes # (auto) 0.01 K/uL (0.00-0.02); Immature Granulocytes % (auto) 0.2 %; Lymphocytes # (auto) 1.58 K/uL (1.2-3.4); Lymphocytes % (auto) 27.1 %; Mean Corpuscular Hemoglobin 30.2 pg (25-34); Mean Corpuscular Hgb Conc 33.2 g/dL (32-36); Mean Corpuscular Volume 91.1 fL (80-100); Mean Platelet Volume 10.8 fL (7.4-10.4); Monocytes # (auto) 0.39 K/uL (0.11-0.59); Monocytes % (auto) 6.7 %; Neutrophils # (auto) 3.73 K/uL (1.4-6.5); Neutrophils % (auto) 64.1 %; Platelet Count 185 K/uL (130-400); RDW Coefficient of Variation 13.3 % (11.5-14.5); RDW Standard Deviation 44.4 fL (36.4-46.3); Red Blood Count 4.04 M/uL (4.2-5.4); White Blood Count 5.82 K/uL (4.8-10.8)
[2021-06-14 23:36] LABS: Alanine Aminotransferase 11 U/L (7-52); Albumin Globulin Ratio 1.3 (0.9-2); Alkaline Phosphatase 76 U/L (34-104); Anion Gap 7 (3-11); BUN Creatinine Ratio 19.5 (10-20); Bilirubin,Total 0.4 mg/dl (0.2-1.0); Blood Urea Nitrogen 24 mg/dl (6-23); Calcium 10.7 mg/dl (8.5-10.1); Carbon Dioxide 25 mmol/L (21-32); Chloride 102 mmol/L (98-107); Est GFR (African American) 45.7 ml/min; Est GFR (Non-African American) 39.4 ml/min; Glucose 120 mg/dl (70-99(Fasting)); Sodium 134 mmol/L (136-145)
[2021-06-14] MEDS ORDERED: KETOROLAC TROMETHAMINE 15 MG/ML VIAL IV ONE (23:50)
[2021-06-15] MEDS ORDERED: fentaNYL citrate 100 MCG/2 ML VIAL IV PRN ×2 (00:27→12:43)
--- NOTE | 2021-06-15 01:29 | History & Physical Report ---
Date of Service June 15, 2021 Assessment & Plan (1) Acute left flank pain: Plan: Acute left flank pain/status post left ureteral stent placement for left ureteral stone- N.p.o. Patient was due to have stent removed on 06/16 Urology aware of patient will see patient in a.m. Acetaminophen 650 mg p.o. every 6 hours as needed mild pain or fever Dilaudid 0.25 mg IV every 3 hours as needed severe pain LR at 80 mils per hour x1 L Follow urine culture sensitivities Straight cath for post void residual greater than or equal to 300 cc Continue tamsulosin (2) Ureterolithiasis: Plan: See above (3) S/P ureteral stent placement: Plan: See above (4) Left ureteral stone: Plan: See above (5) Stroke: Plan: History of CVA/hypertension- Continue atenolol and lisinopril with hold parameters Hold clopidogrel for potential procedure tomorrow (6) Hypertension: Plan: See above (7) Diabetes: Plan: Hold Metformin, glimepiride and linagliptin. Place on Accu-Cheks before meals and at bedtime with NovoLog coverage per scale (8) Hypothyroidism: Plan: Continue levothyroxine History of Present Illness Chief Complaint: The patient presents to the emergency department with acute on chronic left flank pain and inability to know when she has to urinate Primary Care Provider: Sabine Aldrich MD The patient is an 86-year-old female who is status post left ureteral stent placement during admission from 06/04-06/06/2021. She reports that she had intermittent discomfort since that time, however, over the past 24 hours the pain was much stronger and more persistent, causing her to present to the ED for assessment. Allergies Allergy/AdvReac Type Severity Reaction Status Date / Time iodine Allergy Severe IV Verified 06/14/21 21:13 DYE-TROUBLE BREATHING HOARSENESS-SEVERE REACTION tramadol Allergy Severe HIVES, Verified 06/14/21 21:13 ITCHING morphine Allergy Intermediate HALLUCINATI Verified 06/14/21 21:13 ONS propoxyphene Allergy Intermediate ITCHING Verified 06/14/21 21:13 scallops Allergy Intermediate DIARRHEA, Verified 06/14/21 21:13 VOMITING ciprofloxacin Allergy Mild SICK Verified 06/14/21 21:13 Penicillins Allergy Mild RASH Verified 06/14/21 21:13 candesartan Allergy Unknown UNKNOWN Verified 06/14/21 21:13 oxycodone Allergy Unknown UNKNOWN Verified 06/14/21 21:13 topiramate Allergy Unknown UNKNOWN Verified 06/14/21 21:13 atorvastatin AdvReac Intermediate Muscle Pain Verified 06/14/21 21:13 levothyroxine sodium AdvReac Mild Dry mouth; Verified 06/14/21 21:13 fatigue Home Medications Medication Instructions Recorded Confirmed Type blood-glucose meter (OneTouch #1 ea 12/16/18 05/31/21 History Verio Meter) Diabetic Shoes #1 ea 07/04/19 05/31/21 Rx lancets 33 gauge (OneTouch Delica #200 ea 02/11/20 05/31/21 Rx Plus Lancet) linagliptin 2.5 mg-metformin 500 1 tab PO DAILY 90 Days #90 tab 09/02/20 06/14/21 Rx mg tablet (Jentadueto) levothyroxine 100 mcg tablet 100 mcg PO DAILY #90 tab 11/19/20 06/14/21 Rx cholecalciferol (vitamin D3) 50 200 mcg PO DAILY 01/31/21 06/14/21 History mcg (2,000 unit) capsule (Vitamin D3) cyanocobalamin (vitamin B-12) 1,000 mcg PO DAILY #30 tab 02/14/21 06/14/21 Rx 1,000 mcg tablet clopidogrel 75 mg tablet 75 mg PO QAM #90 tab 03/02/21 06/14/21 Rx lisinopril 20 mg tablet 20 mg PO DAILY #90 tab 03/07/21 06/14/21 Rx magnesium oxide 400 mg PO DAILY #90 cap 03/07/21 06/14/21 Rx atenolol 25 mg tablet 25 mg PO QPM #90 tab 04/01/21 06/14/21 Rx OneTouch Verio test strips (blood #100 ea NS 05/17/21 05/31/21 Rx sugar diagnostic) tamsulosin 0.4 mg capsule 0.4 mg PO DAILY #14 cap 06/06/21 06/14/21 Rx docusate sodium 100 mg capsule 100 mg PO DAILY PRN 06/14/21 06/14/21 History (Colace) glimepiride 1 mg tablet 1 mg PO BID 06/14/21 06/14/21 History Past Med/Surg History Medical History Chronic back pain Cirrhosis Diabetes NIDDM History of anesthesia reaction hallucinations after back surgery. Hx of cancer of uterus NO CHEMO/NO RADIATION Hyperlipidemia Hypertension Hypothyroidism Obesity Personal history of kidney stones Poor historian Stroke Surgical History H/O colonoscopy 10/07/19 Dr. Nilton Sandoval History of arthroplasty of right knee History of lithotripsy LEFT ESWL= 11/26/15= LMA#4 History of lumbar surgery X2 Hx of bilateral cataract extraction Hx of colonoscopy Hx of hand surgery Hx of hernia repair VENTRAL Hx of hysterectomy Robotic Lap hysterectomy with BSO Hx of tonsillectomy Hx of wisdom tooth extraction S/P total knee replacement using cement Family History Father , in his 30s according to the patient Liver cancer Colorectal cancer Mother , age 87 of renal complications Kidney disease Parkinson disease Son Diabetes Unknown Hypertension Denies family history of Ovarian cancer Prostate cancer Myocardial infarction Breast cancer Social History Smoking Status: Never smoker Second Hand Exposure: No; Hx Alcohol Use: No Hx Substance Use: No Preferred Language: Maori Communication Ability: Effective Visual Impairment: No Limitations Hearing Ability: Normal [employer] Executive Director Required: No Beliefs That Will Affect Care: None marital status: Current Living Situation: Spouse and Family Current Living Situation Comment: and son current occupational status: retired 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 Feels Safe at Home: Yes Childhood Exposure to Second-Hand Smoke: Yes Dental Care, Regularly: Yes Physical Activity Frequency: 1-2 Times per Week Seatbelt Use: always Sunscreen Use: Yes Assistive Devices: Cane and Walker Review of Systems Review of Systems: The patient denies chest pain, palpitations, shortness of breath, dyspnea on exertion, cough, lower extremity swelling, sore throat, fevers, chills, sweats, nausea, vomiting, diarrhea , constipation, blood in urine or stool, lightheadedness, dizziness, headache, memory loss, loss of consciousness, rash, abnormal bruising or bleeding, imbalance, focal or generalized weakness, numbness or tingling in arms or legs, generalized arthralgias or myalgias, neck pain, or night sweats. The review of systems is otherwise negative other than for that already noted above, and at least 10 systems have been reviewed. Physical Exam Physical Exam: The patient is awake, alert and oriented 3, well developed and well nourished, normocephalic and atraumatic, lying in bed and in no acute distress. HEENT--PERRL, EOMI, mucous membranes and oropharynx normal. Neck--supple. No JVD. No bruits. Thyroid normal, trachea midline, no adenopathy. Heart--normal S1 and S2. No murmurs, rubs or gallops. Lungs--clear bilaterally, no respiratory distress, no accessory muscle use. Abdomen--normal bowel sounds and soft. Nontender. Nondistended, no hernias or masses, no organomegaly. Extremities--no cyanosis or clubbing. No edema. Dermatologic--normal skin turgor, normal color, no abnormal lymph nodes, no rash. Neurologic--cranial nerves II through XII grossly intact. Rheumatologic--normal range of motion. Psychiatric--normal affect. Results & Data Results & Data ([facility]) Vital Signs (Past 12 Hours) Vital Signs Temp Pulse Pulse Resp BP BP Pulse Ox 06/15/21 00:54 52 L 18 170/69 H 98 06/14/21 23:00 50 L 18 154/69 H 99 06/14/21 20:59 60 18 219/91 H 98 06/14/21 20:30 36.4 C L 62 18 207/76 H 95 Laboratory Results Laboratory Results WBC 5.82 K/uL (4.8-10.8) 06/14/21 22:50 RBC 4.04 M/uL (4.2-5.4) L 06/14/21 22:50 Hgb 12.2 g/dL (12.0-16.0) 06/14/21 22:50 Hct 36.8 % (37-47) L 06/14/21 22:50 MCV 91.1 fL (80-100) 06/14/21 22:50 MCH 30.2 pg (25-34) 06/14/21 22:50 MCHC 33.2 g/dL (32-36) 06/14/21 22:50 RDW Std Deviation 44.4 fL (36.4-46.3) 06/14/21 22:50 RDW Coeff of Tia 13.3 % (11.5-14.5) 06/14/21 22:50 Plt Count 185 K/uL (130-400) 06/14/21 22:50 MPV 10.8 fL (7.4-10.4) H 06/14/21 22:50 Immature Gran % (Auto) 0.2 % 06/14/21 22:50 Neut % (Auto) 64.1 % 06/14/21 22:50 Lymph % (Auto) 27.1 % 06/14/21 22:50 [place] % (Auto) 6.7 % 06/14/21 22:50 Eos % (Auto) 1.7 % 06/14/21 22:50 Baso % (Auto) 0.2 % 06/14/21 22:50 Neut # (Auto) 3.73 K/uL (1.4-6.5) 06/14/21 22:50 Lymph # (Auto) 1.58 K/uL (1.2-3.4) 06/14/21 22:50 [place] # (Auto) 0.39 K/uL (0.11-0.59) 06/14/21 22:50 Eos # (Auto) 0.10 K/uL (0-0.5) 06/14/21 22:50 Baso # (Auto) 0.01 K/uL (0-0.2) 06/14/21 22:50 Immature Gran # (Auto) 0.01 K/uL (0.00-0.02) 06/14/21 22:50 Sodium 134 mmol/L (136-145) L 06/14/21 22:50 Potassium 4.4 mmol/L (3.5-5.1) 06/15/21 01:05 Chloride 102 mmol/L (98-107) 06/14/21 22:50 Carbon Dioxide 25 mmol/L (21-32) 06/14/21 22:50 Anion Gap 7 (3-11) 06/14/21 22:50 BUN 24 mg/dl (6-23) H 06/14/21 22:50 Creatinine 1.23 mg/dl (0.6-1.2) H 06/14/21 22:50 Est Cr Clr Drug Dosing Not Reportable 06/14/21 22:50 Est GFR ( Amer) 45.7 ml/min 06/14/21 22:50 Est GFR (Non-Af Amer) 39.4 ml/min 06/14/21 22:50 BUN/Creatinine Ratio 19.5 (10-20) 06/14/21 22:50 Glucose 120 mg/dl (70-99(Fasting)) H 06/14/21 22:50 Calcium 10.7 mg/dl (8.5-10.1) H 06/14/21 22:50 Magnesium 1.5 mg/dl (1.7-2.4) L 06/15/21 01:05 Total Bilirubin 0.4 mg/dl (0.2-1.0) 06/14/21 22:50 AST 13 U/L (13-39) 06/15/21 01:05 ALT 11 U/L (7-52) 06/14/21 22:50 Alkaline Phosphatase 76 U/L (34-104) 06/14/21 22:50 Total Protein 7.0 gm/dl (6.0-8.3) 06/14/21 22:50 Albumin 4.0 gm/dl (3.4-5.0) 06/14/21 22:50 Globulin 3.0 gm/dl (2.5-4.0) 06/14/21 22:50 Albumin/Globulin Ratio 1.3 (0.9-2) 06/14/21 22:50 Urine Color Yellow 06/14/21 Unknown Urine Appearance Cloudy (Clear) A 06/14/21 Unknown Urine pH 5.0 (4.5-7.5) 06/14/21 Unknown Ur Specific [place] 1.009 (1.000-1.030) 06/14/21 Unknown Urine Protein 2+ (Negative) H 06/14/21 Unknown Urine Glucose (UA) Negative (Negative) 06/14/21 Unknown Urine Ketones Negative (Negative) 06/14/21 Unknown Urine Blood 2+ (Negative) H 06/14/21 Unknown Urine Nitrite Negative (Negative) 06/14/21 Unknown Urine Bilirubin Negative (Negative) 06/14/21 Unknown Urine Urobilinogen Negative (Negative) 06/14/21 Unknown Ur Leukocyte Esterase 1+ (Negative) H 06/14/21 Unknown Urine WBC (Auto) 10-30 /hpf (0-5) H 06/14/21 Unknown Urine RBC (Auto) 0-4 /hpf (0-4) 06/14/21 Unknown U Hyaline Cast (Auto) 1-5 /lpf (0-5) 06/14/21 Unknown U Epithel Cells (Auto) >30 /lpf (0-5) H 06/14/21 Unknown Urine Bacteria (Auto) Negative (Negative) 06/14/21 Unknown Ur Renal Epithelial Cell 0-5 /lpf (0-5) 06/14/21 Unknown SARS-CoV-2, RNA, NAAT NEGATIVE (NEGATIVE) 06/15/21 00:45 Code Status & VTE Plan Code Status Full code VTE Prophylaxis Plan VTE Prophylaxis will be ordered: Yes PG Care Time/CCT Total # of Minutes Spent Total Time Spent with Patient: Total time spent is greater than 50% in coordination of care (as documented) at patient's floor/unit and/or counseling patient: Coding Level of Care Code INT OBSERVATION CARE 70M LVL 3 Diagnoses Ureterolithiasis N20.1 S/P ureteral stent placement Z96.0 Left ureteral stone N20.1 Hypertension I10 Diabetes E11.9 Diabetes mellitus type: type 2 Diabetes mellitus intermodal customer service insulin use: without intermodal customer service use Diabetes mellitus complication status: without complication Stroke I63.9 Acute left flank pain R10.9 Hypothyroidism E03.9 Hypothyroidism type: unspecified (1) Diabetes Diabetes mellitus type: type 2 Diabetes mellitus intermodal customer service insulin use: without intermodal customer service use Diabetes mellitus complication status: without complication Qualified Code(s): E11.9 - Type 2 diabetes mellitus without complications (2) Hypothyroidism Hypothyroidism type: unspecified Qualified Code(s): E03.9 - Hypothyroidism, unspecified
[2021-06-15 01:38] LABS: Magnesium 1.5 mg/dl (1.7-2.4); Potassium 4.4 mmol/L (3.5-5.1)
[2021-06-15] MEDS ORDERED: CARBOHYDRATES FOR HYPOGLYCEMIA PO PRN (03:00)
[2021-06-15] MEDS ORDERED: ACETAMINOPHEN 325 MG TAB PO PRN (03:00)
[2021-06-15] MEDS ORDERED: HYDROmorphone INJ 0.5 MG/0.5 ML SYR IV PRN (03:00)
[2021-06-15] MEDS ORDERED: LACTATED RINGER'S 1,000 ML IV SCH (03:00)
[2021-06-15] MEDS ORDERED: GLUCOSE 10 TABS/TUBE PO PRN (03:00)
[2021-06-15] MEDS ORDERED: GLUCOSE 40% GEL 15 GM TUBE PO PRN (03:00)
[2021-06-15] MEDS ORDERED: GLUCAGON FOR INJ 1 MG VIAL SQ PRN (03:00)
[2021-06-15] MEDS ORDERED: DEXTROSE 50% 50 ML SYRINGE IV PRN (03:00)
[2021-06-15] MEDS ORDERED: ONDANSETRON INJ 2 MG/ML 2 ML VIAL IV PRN ×2 (03:00→12:43)
[2021-06-15] MEDS ORDERED: Nursing to Pharmacy Communication SCH (03:30)
[2021-06-15] MEDS: LEVOTHYROXINE SODIUM 100 MCG TABLET PO SCH (06:29)
[2021-06-15] MEDS: INSULIN ASPART PER UNIT SC SCH ×4 (06:36→23:37)
[2021-06-15] MEDS ORDERED: INSULIN ASPART PER UNIT SC SCH (07:30)
[2021-06-15] MEDS: TAMSULOSIN HCL 0.4 MG CAP PO SCH (07:57)
[2021-06-15] MEDS: CHOLECALCIFEROL 1,000 UNITS 25 MCG TAB PO SCH (07:57)
--- NOTE | 2021-06-15 08:18 | XRay Report ---
XR KUB/Abdomen 1 view CLINICAL HISTORY: recent stone TECHNIQUE: 1 view of the abdomen was obtained. Comparison: Comparison is made to abdomen radiograph 05/10/2021 FINDINGS: Interval placement of left nephroureteral stent. Stable punctate stones. The osseous structures are g rossly unremarkable. The bowel gas pattern is nonobstructive. A moderate amount of stool is noted wit hin the large bowel. IMPRESSION: Interval placement of left ureteral stent. The small left renal stone is unchanged in appearance. ACT 112: Negative or not required by law. Electronically signed by: Junior Lou M.D. 06/15/2021 8:17 AM
[2021-06-15 09:03] LABS: Albumin Level 3.7 gm/dl (3.4-5.0); BUN Creatinine Ratio 19.1 (10-20); Calcium 9.7 mg/dl (8.5-10.1); Creatinine Clr Calc Pharmacy 35.4 ml/min; Est GFR (African American) 49.5 ml/min; Est GFR (Non-African American) 42.7 ml/min; Phosphorus 3.2 mg/dl (2.5-4.9)
[2021-06-15] MEDS: ceFAZolin 2,000 MG in SYRINGE 0 ML IV SCH ×2 (11:30→18:26)
--- NOTE | 2021-06-15 12:23 | Urology Consultation ---
Date of Consultation June 15, 2021 Assessment & Plan (1) Acute left flank pain: (2) Left ureteral stone: (3) S/P ureteral stent placement: 86yo F who is s/p recent urological procedure admitted with acute left flank pain. - Plan of care reviewed with Dr. Lisa, on-call urologist. - Pt with known ureteral stone and is s/p cystoscopy, left ureteral stent placement on 06/[address] Lisa. - Afebrile, labs reviewed- Wbc and creatinine normal. - Urinalysis on admission not overly suspicious for infection, culture pending. On IV Cefazolin. - Still with left flank and suprapubic discomfort, likely related to ureteral stent. - Discussed option for surgical intervention with ureteroscopy, stone treatment and stent exchange today. Risks and benefits were discussed. Stone free rates were also discussed as well as possibility of multiple procedures. Ureteral stents were discussed as well as post-operative issues and pain management. - Patient wishes to proceed with surgical intervention. - Will plan to proceed with OR today for cystoscopy, retrograde pyelogram, left ureteroscopy, laser lithotripsy, stone treatment, stent exchange depending on findings. - Risks and benefits to be reviewed with patient by Dr. Lisa. OR notified. Covid test negative. Covered with scheduled IV Cefazolin. - Keep NPO. - Continue supportive care, antibiotic therapy, and pain management. - Continue flomax and prn pyridium for stent management. - Will continue to follow Supervising Physician Co-Signing Physician Notes I have discussed Ms. Salinas's case with KT Wright and agree with the above documentation. She is having ongoing left-sided flank pain, related to the left ureteral stent. I have low suspicion for urinary tract infection, and I think it would be reasonable to treat the stone today, as we have time available and she has been NPO. We discussed the risks and benefits of this procedure. Specifically the risks of bleeding, infection, injury to the urinary tract, inability to treat the stone, need for ureteral stent to remain in place. She expressed understanding would like to proceed with surgery. History of Present Illness Reason for Consultation: flank pain- known stone with stent Attending Physician: Dnoald Warner History of Present Illness This is an 86-year-old female with history of prior stroke, hypertension, diabetes and nephrolithiasis who presented to the ED with complaints of urinary urgency, frequency, and worsening left flank pain. She was recently admitted from from 06/04-06/06/2021 and is s/p cystoscopy, left ureteral stent placement. Patient reported initially tolerating the ureteral stent with minimal bother, but over the past 24 hours the pain was much stronger and more persistent, causing her to present to the ED for assessment. On presentation, she was afebrile, no leukocytosis, renal function normal. Urinalysis with 2+blood, 1+ leuks, 10-30Wbc, >30Epis, negative bacteria, negative nitrites. KUB obtained and noted interval placement of left ureteral stent and the small left renal stone is unchanged in appearance. Pt was treated with pain medication, however felt uncomfortable going home due to concerns of pain. She was admitted for pain management. Pt examined at bedside this AM. Awake, resting in bed on arrival. No acute distress. Reports intermittent left flank and suprapubic discomfort. No fevers or chills. Denies nausea or vomiting. Voiding spontaneously. Some hematuria and dysuria. Reports urinary urgency and frequency. Has been NPO. Allergies Allergy/AdvReac Type Severity Reaction Status Date / Time iodine Allergy Severe IV Verified 06/14/21 21:13 DYE-TROUBLE BREATHING HOARSENESS-SEVERE REACTION tramadol Allergy Severe HIVES, Verified 06/14/21 21:13 ITCHING morphine Allergy Intermediate HALLUCINATI Verified 06/14/21 21:13 ONS propoxyphene Allergy Intermediate ITCHING Verified 06/14/21 21:13 scallops Allergy Intermediate DIARRHEA, Verified 06/14/21 21:13 VOMITING ciprofloxacin Allergy Mild SICK Verified 06/14/21 21:13 Penicillins Allergy Mild RASH Verified 06/14/21 21:13 candesartan Allergy Unknown UNKNOWN Verified 06/14/21 21:13 oxycodone Allergy Unknown UNKNOWN Verified 06/14/21 21:13 topiramate Allergy Unknown UNKNOWN Verified 06/14/21 21:13 atorvastatin AdvReac Intermediate Muscle Pain Verified 06/14/21 21:13 levothyroxine sodium AdvReac Mild Dry mouth; Verified 06/14/21 21:13 fatigue Home Medications Medication Instructions Recorded Confirmed Type blood-glucose meter (OneTouch #1 ea 12/16/18 05/31/21 History Verio Meter) Diabetic Shoes #1 ea 07/04/19 05/31/21 Rx lancets 33 gauge (OneTouch Delica #200 ea 02/11/20 05/31/21 Rx Plus Lancet) linagliptin 2.5 mg-metformin 500 1 tab PO DAILY 90 Days #90 tab 09/02/20 06/14/21 Rx mg tablet (Jentadueto) levothyroxine 100 mcg tablet 100 mcg PO DAILY #90 tab 11/19/20 06/14/21 Rx cholecalciferol (vitamin D3) 50 200 mcg PO DAILY 01/31/21 06/14/21 History mcg (2,000 unit) capsule (Vitamin D3) cyanocobalamin (vitamin B-12) 1,000 mcg PO DAILY #30 tab 02/14/21 06/14/21 Rx 1,000 mcg tablet clopidogrel 75 mg tablet 75 mg PO QAM #90 tab 03/02/21 06/14/21 Rx lisinopril 20 mg tablet 20 mg PO DAILY #90 tab 03/07/21 06/14/21 Rx magnesium oxide 400 mg PO DAILY #90 cap 03/07/21 06/14/21 Rx atenolol 25 mg tablet 25 mg PO QPM #90 tab 04/01/21 06/14/21 Rx OneTouch Verio test strips (blood #100 ea NS 05/17/21 05/31/21 Rx sugar diagnostic) tamsulosin 0.4 mg capsule 0.4 mg PO DAILY #14 cap 06/06/21 06/14/21 Rx docusate sodium 100 mg capsule 100 mg PO DAILY PRN 06/14/21 06/14/21 History (Colace) glimepiride 1 mg tablet 1 mg PO BID 06/14/21 06/14/21 History Patient History Medical History Chronic back pain Cirrhosis Diabetes NIDDM History of anesthesia reaction hallucinations after back surgery. Hx of cancer of uterus NO CHEMO/NO RADIATION Hyperlipidemia Hypertension Hypothyroidism Obesity Personal history of kidney stones Poor historian Stroke Surgical History H/O colonoscopy 10/07/19 Dr. Nilton Sandoval History of arthroplasty of right knee History of lithotripsy LEFT ESWL= 11/26/15= LMA#4 History of lumbar surgery X2 Hx of bilateral cataract extraction Hx of colonoscopy Hx of hand surgery Hx of hernia repair VENTRAL Hx of hysterectomy Robotic Lap hysterectomy with BSO Hx of tonsillectomy Hx of wisdom tooth extraction S/P total knee replacement using cement Family History Father , in his 30s according to the patient Liver cancer Colorectal cancer Mother , age 87 of renal complications Kidney disease Parkinson disease Son Diabetes Unknown Hypertension Denies family history of Ovarian cancer Prostate cancer Myocardial infarction Breast cancer Social History Smoking Status: Never smoker Second Hand Exposure: No; Hx Alcohol Use: No Hx Substance Use: No Preferred Language: Swedish Communication Ability: Effective Visual Impairment: No Limitations Hearing Ability: Normal Customer Accounts Advisor Required: No Beliefs That Will Affect Care: None marital status: Current Living Situation: Spouse and Family Current Living Situation Comment: and son current occupational status: retired 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 Feels Safe at Home: Yes Childhood Exposure to Second-Hand Smoke: Yes Dental Care, Regularly: Yes Physical Activity Frequency: 1-2 Times per Week Seatbelt Use: always Sunscreen Use: Yes Assistive Devices: None Review of Systems Review of Systems: All systems reviewed & are unremarkable except as noted in HPI & below Physical Exam Constitutional: well developed and well nourished; no acute distress and not ill appearing Neck: normal visual inspection Respiratory: normal respiratory effort and able to speak in complete sentences; no respiratory distress and no labored breathing Gastrointestinal (Abdomen): Inspection/Auscultation: abdomen normal to inspection; abdomen not distended Musculoskeletal: Head/Neck/Chest: normocephalic and head atraumatic Skin: no visible rashes Neurologic: moves all extremities and awake Psychiatric: Orientation: alert and oriented to person Results & Data ([facility]) Vital Signs (Past 12 Hours) Vital Signs Temp Pulse Resp BP Pulse Ox 06/15/21 07:30 36.6 C 51 L 16 159/68 H 96 06/15/21 02:45 36.5 C 18 172/85 H 97 06/15/21 00:54 52 L 18 170/69 H 98 PG Care Time/CCT Total # of Minutes Spent Total Time Spent with Patient: Total time spent is greater than 50% in coordination of care (as documented) at patient's floor/unit and/or counseling patient: Coding Level of Care Code 48772 Initial Inpt Care Lvl 2 Diagnoses Acute left flank pain R10.9 Left ureteral stone N20.1 S/P ureteral stent placement Z96.0
[2021-06-15] MEDS ORDERED: ePHEDrine sulfate 50 MG/ML AMP IV PRN (12:43)
[2021-06-15] MEDS ORDERED: ATROPINE SULFATE 0.1 MG/ML 10ML SYR IV PRN (12:43)
--- NOTE | 2021-06-15 12:44 | Anesthesiology Consultation ---
Date of Service June 15, 2021 Assessment & Plan (1) Encounter for pre-operative examination: Chart Review Chart Review: Acceptable Risk for Surgery and Patient NOT seen in Pre Admission Testing Consults Requested none History Surgery Operation Date: 06/15/21 12:35 Proposed Procedures p Cystoscopy, Retrograde Pyelogram, Ureteroscopy, Laser Stone Treatment, Left Stent Placement - Ken Lisa MD Height/Weight Height: 5 ft 3 in Weight: 84.1 kg Allergies Allergy/AdvReac Type Severity Reaction Status Date / Time iodine Allergy Severe IV Verified 06/14/21 21:13 DYE-TROUBLE BREATHING HOARSENESS-SEVERE REACTION tramadol Allergy Severe HIVES, Verified 06/14/21 21:13 ITCHING morphine Allergy Intermediate HALLUCINATI Verified 06/14/21 21:13 ONS propoxyphene Allergy Intermediate ITCHING Verified 06/14/21 21:13 scallops Allergy Intermediate DIARRHEA, Verified 06/14/21 21:13 VOMITING ciprofloxacin Allergy Mild SICK Verified 06/14/21 21:13 Penicillins Allergy Mild RASH Verified 06/14/21 21:13 candesartan Allergy Unknown UNKNOWN Verified 06/14/21 21:13 oxycodone Allergy Unknown UNKNOWN Verified 06/14/21 21:13 topiramate Allergy Unknown UNKNOWN Verified 06/14/21 21:13 atorvastatin AdvReac Intermediate Muscle Pain Verified 06/14/21 21:13 levothyroxine sodium AdvReac Mild Dry mouth; Verified 06/14/21 21:13 fatigue Medications Home Medications Medication Instructions Recorded Confirmed Last Taken blood-glucose meter (OneTouch #1 ea 12/16/18 05/31/21 Unknown Verio Meter) Diabetic Shoes #1 ea 07/04/19 05/31/21 Unknown lancets 33 gauge (OneTouch Delica #200 ea 02/11/20 05/31/21 Unknown Plus Lancet) linagliptin 2.5 mg-metformin 500 1 tab PO DAILY 90 Days #90 tab 09/02/20 06/14/21 06/14/21 mg tablet (Jentadueto) levothyroxine 100 mcg tablet 100 mcg PO DAILY #90 tab 11/19/20 06/14/21 06/14/21 cholecalciferol (vitamin D3) 50 200 mcg PO DAILY 01/31/21 06/14/21 06/14/21 mcg (2,000 unit) capsule (Vitamin D3) cyanocobalamin (vitamin B-12) 1,000 mcg PO DAILY #30 tab 02/14/21 06/14/21 06/14/21 1,000 mcg tablet clopidogrel 75 mg tablet 75 mg PO QAM #90 tab 03/02/21 06/14/21 06/14/21 lisinopril 20 mg tablet 20 mg PO DAILY #90 tab 03/07/21 06/14/21 06/14/21 magnesium oxide 400 mg PO DAILY #90 cap 03/07/21 06/14/21 06/14/21 atenolol 25 mg tablet 25 mg PO QPM #90 tab 04/01/21 06/14/21 06/14/21 OneTouch Verio test strips (blood #100 ea NS 05/17/21 05/31/21 Unknown sugar diagnostic) tamsulosin 0.4 mg capsule 0.4 mg PO DAILY #14 cap 06/06/21 06/14/21 06/14/21 docusate sodium 100 mg capsule 100 mg PO DAILY PRN 06/14/21 06/14/21 06/14/21 (Colace) glimepiride 1 mg tablet 1 mg PO BID 06/14/21 06/14/21 06/14/21 Active Medications Generic Name Dose Route Start Last Admin Trade Name Garrisonq PRN Reason Stop Dose Admin Lactated Ringer's 1,000 mls @ 80 mls/hr 06/15/21 03:00 06/15/21 03:05 Lr IV 06/15/21 15:29 80 mls/hr .[id number] TIFFANY Administration Cefazolin Sodium 2,000 mg/ 15 mls @ 3.75 mls/min 06/15/21 10:00 06/15/21 11:30 Syringe IV 06/25/21 08:14 3.75 mls/min Q8H TIFFANY Administration Protocol Insulin Aspart 0 units 06/15/21 06:00 06/15/21 06:36 Insulin Aspart Per Unit SC 07/15/21 05:59 Not Given Q6 TIFFANY Levothyroxine Sodium 100 mcg 06/15/21 06:30 06/15/21 06:29 Levothyroxine Sodium 100 Mcg Tablet PO 07/15/21 06:29 100 mcg DAILYBB TIFFANY Administration Tamsulosin HCl 0.4 mg 06/15/21 09:00 06/15/21 07:57 Tamsulosin Hcl 0.4 Mg Cap PO 07/15/21 08:59 0.4 mg DAILY TIFFANY Administration Vitamin D 2,000 units 06/15/21 09:00 06/15/21 07:57 Cholecalciferol 1,000 Units 25 Mcg Tab PO 07/15/21 08:59 2,000 units DAILY TIFFANY Administration Past Medical History Medical History Chronic back pain Cirrhosis Diabetes NIDDM History of anesthesia reaction hallucinations after back surgery. Hx of cancer of uterus NO CHEMO/NO RADIATION Hyperlipidemia Hypertension Hypothyroidism Obesity Personal history of kidney stones Poor historian Stroke Past Family History Family History Father , in his 30s according to the patient Liver cancer Colorectal cancer Mother , age 87 of renal complications Kidney disease Parkinson disease Son Diabetes Unknown Hypertension Denies family history of Ovarian cancer Prostate cancer Myocardial infarction Breast cancer Past Surgical History Surgical History H/O colonoscopy 10/07/19 Dr. Nilton Sandoval History of arthroplasty of right knee History of lithotripsy LEFT ESWL= 11/26/15= LMA#4 History of lumbar surgery X2 Hx of bilateral cataract extraction Hx of colonoscopy Hx of hand surgery Hx of hernia repair VENTRAL Hx of hysterectomy Robotic Lap hysterectomy with BSO Hx of tonsillectomy Hx of wisdom tooth extraction S/P total knee replacement using cement Social History Smoking Status: Never smoker Do You Dip or Chew Tobacco: No Hx Alcohol Use: No Hx Substance Use: No substance use type: does not use Physical Exam Vital Signs Last Vital Signs Temp 36.6 C 06/15/21 07:30 Pulse 51 L 06/15/21 07:30 Resp 16 06/15/21 07:30 BP 159/68 H 06/15/21 07:30 Pulse Ox 96 06/15/21 07:30 Testing Laboratory Results 06/14/21 22:50 06/15/21 07:46 Urine Color Yellow 06/14/21 Unknown Urine Appearance Cloudy (Clear) A 06/14/21 Unknown Urine pH 5.0 (4.5-7.5) 06/14/21 Unknown Ur Specific [place] 1.009 (1.000-1.030) 06/14/21 Unknown Urine Protein 2+ (Negative) H 06/14/21 Unknown Urine Glucose (UA) Negative (Negative) 06/14/21 Unknown Urine Ketones Negative (Negative) 06/14/21 Unknown Urine Nitrite Negative (Negative) 06/14/21 Unknown Ur Leukocyte Esterase 1+ (Negative) H 06/14/21 Unknown Urine WBC (Auto) 10-30 /hpf (0-5) H 06/14/21 Unknown Urine RBC (Auto) 0-4 /hpf (0-4) 06/14/21 Unknown U Hyaline Cast (Auto) 1-5 /lpf (0-5) 06/14/21 Unknown U Epithel Cells (Auto) >30 /lpf (0-5) H 06/14/21 Unknown Urine Bacteria (Auto) Negative (Negative) 06/14/21 Unknown 06/15/21 06/15/21 12:00 06:31 POC Glucose 99 96 Electrocardiogram Date: 06/04/21 DICTATED BY:Rob Arambula, DO Test Reason : Blood Pressure : / mmHG Vent. Rate : 050 BPM Atrial Rate : 050 BPM P-R Int : 286 ms QRS Dur : 122 ms QT Int : 460 ms P-R-T Axes : 083 -36 109 degrees QTc Int : 419 ms Sinus bradycardia with 1st degree A-V block Left axis deviation Left ventricular hypertrophy with QRS widening and repolarization abnormality Cannot rule out Septal infarct (cited on or before 04-JUN-2021) Lateral infarct , age undetermined Abnormal ECG When compared with ECG of 01-MAR-2021 20:22, Serial changes of Septal infarct Present Confirmed by Rob Arambula ([id number]) on 06/04/2021 9:50:53 AM
[2021-06-15] MEDS ORDERED: LIDOCAINE 2% 2 ML VIAL/AMP(20MG/ML) INFIL ONE (12:55)
[2021-06-15] MEDS ORDERED: DEXAMETHASONE SOD INJ 4 MG/ML VIAL ONE (12:55)
[2021-06-15] MEDS ORDERED: PROPOFOL IV EMULSION 10 MG/ML 20 ML VIAL IV ONE (12:55)
[2021-06-15] MEDS ORDERED: ONDANSETRON INJ 2 MG/ML 2 ML VIAL ONE (12:55)
[2021-06-15] MEDS ORDERED: fentaNYL citrate 100 MCG/2 ML VIAL ONE (12:56)
[2021-06-15] MEDS ORDERED: IOTHALAMATE MEGLUMINE II 17.2% 250 ML VIAL INSTIL ONE (13:56)
[2021-06-15] MEDS ORDERED: hydrALAZINE HCL 20 MG/ML VIAL ONE (14:53)
--- NOTE | 2021-06-15 14:54 | Operative Report ---
PG Post Operative Report Pre & Post Diagnosis Operation Date: 06/15/21 12:35 Pre-Op Diagnosis: Left Ureteral Stone Post-Op Diagnosis: Left Ureteral Stone I identified the patient and participated in the time-out.: Yes Procedure Operation Date: 06/15/21 12:35 Actual Procedures p Cystoscopy, Ureteroscopy, Laser lithotripsy, Stone basketing, Left Stent Place ment(Left) - Ken Lisa MD Surgeon Ken Lisa MD Visual Merchandising Director None Estimated Blood Loss 0 Findings See Below 2 stones visualized within the left kidney, fragmented with laser lithotripsy and removed with a wire basket. Successful left ureteral stent exchange. Specimens Left renal stones for analysis Drains 6 Jamaican by 24 cm double-J ureteral stent in the left ureter Anesthesia Type General Complications none Disposition Disposition: Recovery Room Indications This is an 86-year-old female, previously evaluated for left-sided nephrolithiasis. She had a stent placed in May, for intractable kidney stone pain. She returns to the OR today for definitive stone removal. Description of Procedure The patient was identified in the holding area and informed consent was confirmed. They were marked on the left side, then were taken to the operating room where general anesthesia was initiated. They were placed in the dorsal lithotomy position with all pressure points appropriately padded. They were prepped and draped in the usual sterile fashion and a preoperative timeout was performed. A well-lubricated cystoscope was inserted per urethra and panendoscopy was performed. Her urethra was normal with no strictures or mucosal abnormalities. The bladder was of normal size. Ureteral orifices were in orthotopic position. The left ureteral stent was visualized and grasped with the stent graspers. It was withdrawn to the urethral meatus, then was cannulated using a 0.038 inch zip wire. This advanced easily up to the kidney. Alongside the wire, a semirigid ureteroscope was inserted and used to survey the ureter. There were no stones within the left ureter. A second zip wire was advanced through the ureteroscope, up to the kidney under fluoroscopic guidance. Over the wire, a flexible ureteroscope was inserted and used to surveyed the kidney. There were 2 stones visualized in the renal pelvis and a lower pole c monserrat. The Nitinol wire basket was inserted and used to grasp the larger of the stones, to see whether it could be withdrawn. There was some resistance at the level of the UPJ, therefore the stone was placed in the upper pole calyx. The smaller stone was grasped with the basket, and was easily removed. The wire was replaced using a dual-lumen catheter, then a 12-14 Jamaican ureteral access sheath was placed. The ureteroscope was then reinserted and a 272 m holmium laser fiber was introduced and used to perform laser lithotripsy at high frequency, low amplitude settings to break the stone into smaller pieces. Once the pieces were satisfactorily small, they were removed with the Nitinol wire basket and collected and sent for pathologic analysis labeled as left kidney stone. Once satisfied that all stone fragments had been removed or were sufficiently small to pass without issue, the ureteroscope was withdrawn, surveying the ureter on the way out. There was no evidence of significant trauma or perforation. There were no remaining large stones in the ureter or the kidney. The cystoscope was reinserted over the wire, then a 6 Jamaican x 24 centimeter double-J ureteral stent was advanced. When the wire was removed, the proximal curl was visualized in the kidney with x-ray, and the distal curl visualized in the bladder with the cystoscope. The strings were left attached to the stent, to facilitate easier removal. At this point the bladder was drained and all instrumentation was removed. The patient was then awakened from anesthesia and was brought to the PACU in stable condition. I attest to the content of the Intraoperative Record and any orders documented therein. Any exceptions are noted below.
--- NOTE | 2021-06-15 15:06 | Fluoroscopy Report ---
INTRAOPERATIVE RADIOGRAPHS CLINICAL HISTORY: Left-sided laser lithotripsy and ureteral stent placement. Fluoroscopy time: 11 seconds. FINDINGS: 5 spot fluoroscopic views of the left abdomen are correlated with abdominal CT dated 022. Initial images show a wire which is advanced to the level of the left renal pelvis. A lithotrips y device is then advanced. The final image shows the proximal end of a left ureteral stent in place. IMPRESSION: Intraoperative images from a left ureteral stent placement procedure as above. Electronically signed by: Chi Crystal M.D. 06/15/2021 3:04 PM
--- NOTE | 2021-06-15 15:45 | Anesthesiology Progress Note ---
Date of Service June 15, 2021 Anesthesia Post Procedure Vital Signs Vital Signs: Temp Pulse Pulse Pulse Resp BP BP 06/15/21 15:40 60 20 06/15/21 15:30 62 20 06/15/21 15:20 36.6 C 60 20 06/15/21 15:10 67 18 06/15/21 15:00 64 17 06/15/21 14:50 56 L 14 06/15/21 14:48 36.3 C L 61 12 06/15/21 12:50 36.8 C 58 L 20 181/96 H 06/15/21 07:30 36.6 C 51 L 16 159/68 H 06/15/21 02:45 36.5 C 18 172/85 H 06/15/21 00:54 52 L 18 170/69 H 06/14/21 23:00 50 L 18 154/69 H 06/14/21 20:59 60 18 219/91 H 06/14/21 20:30 36.4 C L 62 18 207/76 H BP Pulse Ox 06/15/21 15:40 104/40 L 94 06/15/21 15:30 107/42 L 94 06/15/21 15:20 115/55 L 96 06/15/21 15:10 120/47 L 96 06/15/21 15:00 124/48 L 97 06/15/21 14:50 169/63 H 97 06/15/21 14:48 157/63 H 93 06/15/21 12:50 98 06/15/21 07:30 96 06/15/21 02:45 97 06/15/21 00:54 98 06/14/21 23:00 99 06/14/21 20:59 98 06/14/21 20:30 95 Pain Intensity Pelvic: Pain Intensity: 0 Transfer of Care Handoff Completed per policy Notes Mental Status: alert / awake / arousable and participated in evaluation Patient Amnestic to Procedure: Yes Nausea / Vomiting: adequately controlled Pain: adequately controlled Airway Patency, RR, SpO2: stable & adequate BP & HR: stable & adequate Hydration State: stable & adequate Anesthetic Complications: no major complications apparent and Pt Satisfied with anesthetic care
[2021-06-15] MEDS ORDERED: PHENAZOPYRIDINE HCL 200 MG TAB PO PRN (16:01)
[2021-06-15] MEDS ORDERED: DOCUSATE SODIUM 100 MG CAP PO PRN (16:49)
--- NOTE | 2021-06-15 16:58 | Hospitalist Progress Note ---
Date of Service June 15, 2021 Assessment & Plan (1) Acute left flank pain: Plan: 86-year-old white female with past history of CVA without sequela, hypothyroidism, diabetes mellitus and hypertension presented with left flank pain. * Hospitalized 06/04 through 06/05 with left flank pain and found to have a left ureteral stone with associated hydronephrosis. Ureteral stent placed 06/[address] Lisa. Discharged home on Flomax and Pyridium with plan for outpatient stone management. * Since being home, patient has developed urgency/frequency and gross hematuria. She does take Plavix * With review of records, patient found to have multiple urine cultures growing group B strep. Likely contaminant; however, cannot argue that this is not contributing to her symptomatology. * Spoke with urology and patient going for internal laser lithotripsy with basket extraction and potential stent exchange versus stent removal * Continue Flomax and Pyridium * Appreciate assistance from urology (2) UTI (urinary tract infection): Plan: * Patient with multiple urine culture showing group B strep. * Could be contaminated specimen; however, could be contributing to symptomatology * Have added Ancef with plan to transition to Keflex or Duricef upon discharge. Would treat for 7 to 10 days given indwelling stone and associated stent consistent with complicated UTI * Patient denies fevers and has remained afebrile in house. She does not have leukocytosis and has remained hemodynamically stable (3) Ureterolithiasis: Plan: See above (4) Stroke: Plan: * History of CVA/hypertension- * Continue atenolol and lisinopril with hold parameters * Continue to hold clopidogrel given surgical procedure planned for today (5) Hypertension: Plan: See above (6) Diabetes: Plan: Hold Metformin, glimepiride and linagliptin. Placed on Accu-Cheks before meals and at bedtime with NovoLog coverage per scale (7) Hypothyroidism: Plan: Continue levothyroxine Plan: Plan is for stone management today with likely discharge tomorrow Admission and Anticipated Discharge Date Admission Date: June 15, 2021 Supervising Physician Co-Signing Physician Notes Attending Attestation - Chart reviewed, care plan d/w LUANN Lyman. I agree with the caro components of her documentation. Donald Warner MD Subjective Patient seen on daily rounds today. Hospitalized in the overnight hours with left flank pain and gross hematuria. Hospitalized 06/04 through 06/09 left ureteral stone with associated hydronephrosis. Underwent ureteral stent placement on 06/[address] Lisa. Discharged with Flomax and Pyridium. Since being home, has had increased left flank pain now with urinary frequency and gross hematuria. Denies dysuria, fevers or chills. Seen by urology today and plan is for internal laser lithotripsy with basket extraction and potential stent exchange versus removal. Review of Systems Review of Systems: All systems reviewed and are unremarkable except as noted in HPI and below Denies fevers, chills, headache, nasal congestion, sore throat, cough, chest pain, shortness of breath, palpitations, orthopnea, PND, abdominal pain, nausea, vomiting, diarrhea, constipation, dysuria, hematuria, frequency, back pain, joint pain or swelling, easy bruising or bleeding, skin lesions or rashes. Physical Exam Physical Exam: General: Resting comfortably in her hospital bed. Appears younger than stated age.. NAD. HEENT: Head is AT/NC. Buccal mucosa is moist and pink Neck: No JVD. Negative hepatojugular reflex Cardiac: RRR Lungs: CTA without W/R/R Abdomen: Normoactive X4. Soft and nontender in all quadrants. No CVA tenderness. Extremities: No peripheral clubbing cyanosis or edema Neuro: A&O X4. Cranial nerves II through XII are grossly intact. No focal neuro deficits Skin: No obvious skin lesions or rashes Psych: Appropriate affect. Pleasant and cooperative Results & Data Results & Data ([facility]) Vital Signs (Past 12 Hours) Vital Signs Temp Pulse Pulse Resp BP BP Pulse Ox 06/15/21 16:30 63 20 117/50 L 95 06/15/21 16:20 67 20 111/44 L 96 06/15/21 16:10 61 20 113/44 L 96 06/15/21 16:00 60 20 106/63 96 06/15/21 15:50 60 20 114/40 L 96 06/15/21 15:40 60 20 104/40 L 94 06/15/21 15:30 62 20 107/42 L 94 06/15/21 15:20 36.6 C 60 20 115/55 L 96 06/15/21 15:10 67 18 120/47 L 96 06/15/21 15:00 64 17 124/48 L 97 06/15/21 14:50 56 L 14 169/63 H 97 06/15/21 14:48 36.3 C L 61 12 157/63 H 93 06/15/21 12:50 36.8 C 58 L 20 181/96 H 98 06/15/21 07:30 36.6 C 51 L 16 159/68 H 96 Laboratory Results 06/14/21 22:50 06/15/21 07:46 Procedure Result Verified Site Urine Culture Preliminary 06/15/21-1412 Organism 1 Group B Beta Strep [place] Count 60,000 CFU/ml Sens No Sensitivities to Follow PG Care Time/CCT Total # of Minutes Spent Total Time Spent with Patient: Total time spent is greater than 50% in coordination of care (as documented) at patient's floor/unit and/or counseling patient: Coding Level of Care Code None Diagnoses Acute left flank pain R10.9 Ureterolithiasis N20.1 Stroke I63.9 Hypertension I10 Diabetes E11.9 Diabetes mellitus complication status: without complication Diabetes mellitus group home insulin use: without group home use Diabetes mellitus type: type 2 Hypothyroidism E03.9 Hypothyroidism type: unspecified UTI (urinary tract infection) N39.0 (1) Diabetes Diabetes mellitus complication status: without complication Diabetes mellitus salvage determiner insulin use: without group home use Diabetes mellitus type: type 2 Qualified Code(s): E11.9 - Type 2 diabetes mellitus without complications (2) Hypothyroidism Hypothyroidism type: unspecified Qualified Code(s): E03.9 - Hypothyroidism, unspecified
[2021-06-15] MEDS: ATENOLOL 25 MG TABLET PO SCH (20:27)
[2021-06-16] MEDS: ceFAZolin 2,000 MG in SYRINGE 0 ML IV SCH ×3 (02:37→19:14)
[2021-06-16] MEDS: LEVOTHYROXINE SODIUM 100 MCG TABLET PO SCH (05:35)
[2021-06-16 06:18] LABS: Basophils # (auto) 0.01 K/uL (0-0.2); Basophils % (auto) 0.2 %; Eosinophils # (auto) 0.06 K/uL (0-0.5); Eosinophils % (auto) 1.5 %; Hematocrit (blood only) 31.4 % (37-47); Immature Granulocytes # (auto) 0.02 K/uL (0.00-0.02); Immature Granulocytes % (auto) 0.5 %; Lymphocytes # (auto) 1.17 K/uL (1.2-3.4); Mean Corpuscular Hemoglobin 29.3 pg (25-34); Mean Corpuscular Hgb Conc 31.8 g/dL (32-36); Mean Corpuscular Volume 92.1 fL (80-100); Mean Platelet Volume 10.5 fL (7.4-10.4); Monocytes # (auto) 0.33 K/uL (0.11-0.59); Monocytes % (auto) 8.2 %; Neutrophils # (auto) 2.44 K/uL (1.4-6.5); Neutrophils % (auto) 60.6 %; Platelet Count 142 K/uL (130-400); RDW Coefficient of Variation 13.4 % (11.5-14.5); RDW Standard Deviation 44.9 fL (36.4-46.3); Red Blood Count 3.41 M/uL (4.2-5.4); White Blood Count 4.03 K/uL (4.8-10.8)
[2021-06-16 06:42] LABS: Albumin Level 3.2 gm/dl (3.4-5.0); BUN Creatinine Ratio 17.6 (10-20); Calcium 9.8 mg/dl (8.5-10.1); Creatinine Clr Calc Pharmacy 34.2 ml/min; Est GFR (African American) 47.5 ml/min; Magnesium 1.4 mg/dl (1.7-2.4); Phosphorus 3.4 mg/dl (2.5-4.9); Potassium 4.2 mmol/L (3.5-5.1)
[2021-06-16] MEDS: CHOLECALCIFEROL 1,000 UNITS 25 MCG TAB PO SCH (07:44)
[2021-06-16] MEDS: ATENOLOL 25 MG TABLET PO SCH (07:45)
[2021-06-16] MEDS: TAMSULOSIN HCL 0.4 MG CAP PO SCH (07:45)
--- NOTE | 2021-06-16 08:06 | Urology Progress Note ---
Date of Service June 16, 2021 Assessment & Plan (1) Acute left flank pain: (2) S/P ureteral stent placement: Plan: 86yo F admitted with acute left flank pain. - POD #1 s/p Cystoscopy, Ureteroscopy, Laser lithotripsy, Stone basketing, Left Stent Placement with Dr. Lisa. - Pt doing well post procedure. - Remains afebrile, labs reviewed - White count 4.03, Creatinine 1.19. - Urine culture preliminary group B beta strep. - Continues on IV Cefazolin. - Tethered ureteral stent removed at bedside today without difficulty. Pt tolerated well. - Okay to d/c from perspective when medically stable. - Recommend d/c with short course of PO antibiotics. - Will arrange outpatient follow-up with our service. - will sign-off, please contact us with any further questions, concerns, or changes in patient status. Admission and Anticipated Discharge Date Admission Date: June 15, 2021 Supervising Physician Co-Signing Physician Notes Discussed patient with NAOMY. Agree with plan. Subjective Pt examined at bedside this afternoon. Awake, resting in bed on arrival. No acute issues overnight. Denies fevers or chills. Tolerating diet, no nausea or vomiting. Denies abdominal, flank, and suprapubic pain at present. Tolerating the ureteral stent with minimal bother. Voiding spontaneously. PVR this morning 150ml. Reports no BM for several days. Review of Systems Constitutional: as per Subjective / HPI Gastrointestinal: as per Subjective / HPI Genitourinary: as per Subjective / HPI Physical Exam Constitutional: well developed and well nourished; no acute distress and not ill appearing Respiratory: normal respiratory effort and able to speak in complete sentences; no respiratory distress and no labored breathing Gastrointestinal (Abdomen): Inspection/Auscultation: abdomen normal to inspection; abdomen not distended Percussion/Palpation: abdomen soft; abdomen nontender and no guarding Musculoskeletal: Head/Neck/Chest: normocephalic Skin: no visible rashes Neurologic: awake Psychiatric: Orientation: alert and oriented x 3 Genitourinary: no CVA tenderness Results & Data ([facility]) Vital Signs (Past 12 Hours) Vital Signs Temp Pulse Resp BP Pulse Ox 06/16/21 07:16 36.8 C 58 L 16 129/66 94 06/16/21 02:54 36.7 C 60 16 149/63 H 96 06/15/21 23:05 36.6 C 64 18 124/68 94 PG Care Time/CCT Total # of Minutes Spent Total Time Spent with Patient: Total time spent is greater than 50% in coordination of care (as documented) at patient's floor/unit and/or counseling patient: Coding Level of Care Code 67029 Subseq Hosp Care Lvl 2 Diagnoses Acute left flank pain R10.9 S/P ureteral stent placement Z96.0
[2021-06-16] MEDS: INSULIN ASPART PER UNIT SC SCH ×4 (09:33→21:38)
[2021-06-16] MEDS: MAGNESIUM SULFATE / D5W 1 GM/100 ML BAG IV SCH ×2 (09:47→11:52)
[2021-06-16] MEDS ORDERED: bisacodyL 10 MG SUPP PR ONE ×2 (10:34→13:00)
--- NOTE | 2021-06-16 14:54 | Hospitalist Progress Note ---
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 * Hospitalized 06/04 through 06/05 with left flank pain and found to have a left ureteral stone with associated hydronephrosis. Ureteral stent placed 06/[address] Lisa. Discharged home on Flomax and Pyridium with plan for outpatient stone management. * Since being home, patient has developed urgency/frequency and gross hematuria. She does take Plavix (currently on hold) * With review of records, patient found to have multiple urine cultures growing group B strep. Likely contaminant; however, cannot argue that this is not contributing to her symptomatology-- started on ancef with plan to transition to keflex or duricef * Patient is s/p internal nasal lithotripsy with basket extraction and stent exchange. Has a tethered stent that has partially been removed. Urology to be by today for complete removal * Continue Flomax and Pyridium * Appreciate assistance from urology (2) UTI (urinary tract infection): Plan: * Patient with multiple urine culture showing group B strep. * Could be contaminated specimen; however, could be contributing to symptomatology * Have added Ancef with plan to transition to Keflex or Duricef upon discharge. Would treat for 7 to 10 days given indwelling stone and associated stent consistent with complicated UTI * Patient denies fevers and has remained afebrile in house. She does not have leukocytosis and has remained hemodynamically stable * Her hematuria has since resolved (3) Ureterolithiasis: Plan: See above (4) Constipation: Plan: * Lengthy discussion with patient regarding this issue. I suspect is likely related to [id number] procedures/anesthesia, pain medications during these procedures, and overall lack of physical mobility while in the hospital. I have encouraged ambulation * I have offered MiraLAX, prune juice, fleets enema, and a Dulcolax suppository. She is unhappy with any of these options. Insist that she "wants something that is going to make her move her bowels but not have any loose BM". I assured her that any of these options potentially could make her have loose stool as motility increases. * After lengthy discussion, she is agreeable to trial a Dulcolax suppository. I suspect that she may need some MiraLAX with review of her initial CT scan done (stool burden seen without obstructing pattern) * Will order an ammonia level as she does have a diagnosis listed on her history of cirrhosis but she denies this accusation. Her ammonia level in the past was normal but has not been updated for over a year. If ammonia elevated, would attempt to talk her into lactulose. * Patient is refusing discharge at this time due to lack of having a bowel movement but again is also refusing any treatment for her constipation. (5) Stroke: Plan: * History of CVA/hypertension- * Continue atenolol and lisinopril with hold parameters * Continue to hold clopidogrel given procedure performed yesterday. Plan to resume 48 hours postoperatively (6) Hypertension: Plan: See above (7) Diabetes: Plan: Hold Metformin, glimepiride and linagliptin. Placed on Accu-Cheks before meals and at bedtime with NovoLog coverage per scale (8) Hypothyroidism: Plan: Continue levothyroxine Plan: Patient is medically hemodynamically stable for discharge to home however refuses to accept the discharge until she has a bowel movement but is also refusing medications to help her have a bowel movement. Ambulation encouraged. Will consult PT/OT. After lengthy discussion, she is agreeable to try a suppository. Will reassess later this afternoon. Admission and Anticipated Discharge Date Admission Date: June 15, 2021 Supervising Physician Co-Signing Physician Notes Attending Attestation - Chart reviewed, care plan d/w LUANN Lyman. I agree with the caro components of her documentation. Donald Warner MD Subjective Patient seen on daily rounds today. Fixated on her bowels today. Reports has not had a BM in days. Unable to elaborate further on this. Typically does not have issues with constipation. Insists on wanting something to have a bowel movement but refuses all options including MiraLAX, prune juice, Dulcolax suppository, fleets enema, bowel prep, and refuses to ambulate. Believes the stent is what is causing her to have trouble moving her bowels. She denies abd pain. Is passing Flatus. Tethered stent in place with plan to remove today. Nursing staff reports that it has partially fallen out. Urology planning to remove it completely today. Patient denies having any flank pain or discomfort from the stent. No longer having hematuria. Denies fevers, chills, suprapubic pain or dysuria. Refuses to be discharged today. Review of Systems Review of Systems: All systems reviewed and are unremarkable except as noted in HPI and below Denies fevers, chills, headache, nasal congestion, sore throat, cough, chest pain, shortness of breath, palpitations, orthopnea, PND, abdominal pain, nausea, vomiting, diarrhea, dysuria, hematuria, frequency, back pain, joint pain or swelling, easy bruising or bleeding, skin lesions or rashes. Physical Exam Physical Exam: General: Resting comfortably in her hospital bed. NAD. HEENT: Head is AT/NC. Buccal mucosa is moist and pink Neck: No JVD. Negative hepatojugular reflex Cardiac: RRR without M/G/R Lungs: CTA without W/R/R Abdomen: Normoactive X4. Soft and nontender in all quadrants. No CVA tenderness. Extremities: No peripheral clubbing cyanosis or edema Neuro: A&O X4. Cranial nerves II through XII are grossly intact. No focal neuro deficits Skin: No obvious skin lesions or rashes Psych: Appropriate affect. Pleasant and cooperative Results & Data Results & Data ([facility]) Vital Signs (Past 12 Hours) Vital Signs Temp Pulse Resp BP Pulse Ox 06/16/21 11:25 37.0 C 60 16 147/70 H 96 06/16/21 07:16 36.8 C 58 L 16 129/66 94 06/16/21 02:54 36.7 C 60 16 149/63 H 96 Laboratory Results 06/16/21 05:35 06/16/21 05:35 PG Care Time/CCT Total # of Minutes Spent Total Time Spent with Patient: Total time spent is greater than 50% in coordination of care (as documented) at patient's floor/unit and/or counseling patient: Coding Level of Care Code 19255 Subseq Hosp Care Lvl 2 Diagnoses Acute left flank pain R10.9 UTI (urinary tract infection) N39.0 Ureterolithiasis N20.1 Stroke I63.9 Hypertension I10 Diabetes E11.9 Diabetes mellitus complication status: without complication Diabetes mellitus dedicated intermodal truck driver insulin use: without dedicated intermodal truck driver use Diabetes mellitus type: type 2 Hypothyroidism E03.9 Hypothyroidism type: unspecified Constipation K59.00 (1) Diabetes Diabetes mellitus complication status: without complication Diabetes mellitus dedicated intermodal truck driver insulin use: without alf use Diabetes mellitus type: type 2 Qualified Code(s): E11.9 - Type 2 diabetes mellitus without complications (2) Hypothyroidism Hypothyroidism type: unspecified Qualified Code(s): E03.9 - Hypothyroidism, unspecified
[2021-06-16] MEDS: MAGNESIUM OXIDE 400 MG TAB PO SCH (19:58)
[2021-06-17] MEDS: ceFAZolin 2,000 MG in SYRINGE 0 ML IV SCH ×2 (02:12→10:38)
[2021-06-17] MEDS: LEVOTHYROXINE SODIUM 100 MCG TABLET PO SCH (05:32)
[2021-06-17 07:38] LABS: Hematocrit (blood only) 31.9 % (37-47); Hemoglobin 10.2 g/dL (12.0-16.0); Mean Corpuscular Hemoglobin 29.4 pg (25-34); Mean Corpuscular Volume 91.9 fL (80-100); Mean Platelet Volume 10.7 fL (7.4-10.4); Platelet Count 138 K/uL (130-400); RDW Coefficient of Variation 13.5 % (11.5-14.5); Red Blood Count 3.47 M/uL (4.2-5.4)
[2021-06-17] MEDS: CHOLECALCIFEROL 1,000 UNITS 25 MCG TAB PO SCH (07:41)
[2021-06-17] MEDS: MAGNESIUM OXIDE 400 MG TAB PO SCH (07:42)
[2021-06-17] MEDS: TAMSULOSIN HCL 0.4 MG CAP PO SCH (07:42)
[2021-06-17 08:20] LABS: Albumin Level 3.3 gm/dl (3.4-5.0); Calcium 9.3 mg/dl (8.5-10.1); Creatinine Clr Calc Pharmacy 33.7 ml/min; Est GFR (African American) 46.6 ml/min; Est GFR (Non-African American) 40.2 ml/min; Magnesium 1.8 mg/dl (1.7-2.4); Phosphorus 2.5 mg/dl (2.5-4.9); Potassium 4.2 mmol/L (3.5-5.1)
[2021-06-17] MEDS: INSULIN ASPART PER UNIT SC SCH ×2 (10:36→13:18)
--- NOTE | 2021-06-17 13:05 | XRay Report ---
KUB HISTORY: assess stool burden COMPARISON: KUB 06/14/2021. FINDINGS: The bowel gas pattern is unremarkable. There are no dilated loops of small bowel to suggest an obstruction. No ureteral calculi. Calcifications in the deep pelvis likely represent phleboliths . These remain unchanged. There are few punctate stones within the left kidney. The left ureteral janie nt has been removed. Advanced degenerative changes within the lumbar spine. Small amount of well-form ed stool seen within the colon. No pneumoperitoneum or pneumatosis. IMPRESSION: 1. Small amount of well-formed stool within the colon. 2. No evidence for bowel obstruction. 3. Left-sided nephrolithiasis. 4. Interval removal of a left ureteral stent. ACT 112: Negative or not required by law. Electronically signed by: Kenneth Mishra M.D. 06/17/2021 1:03 PM
--- NOTE | 2021-06-17 18:18 | Discharge Summary ---
Date of Service June 17, 2021 Admission HPI Per Admitting Provider The patient is an 86-year-old female who is status post left ureteral stent placement during admission from 06/04-06/06/2021. She reports that she had intermittent discomfort since that time, however, over the past 24 hours the pain was much stronger and more persistent, causing her to present to the ED for assessment. Principal Diagnosis 1. Left flank pain from ureteral lithiasis 2. S/p internal laser lithotripsy with stone extraction 3. S/p stent exchange and then removal 4. Mixed constipation with diarrheachronic 5. Hypomagnesemiareplaced Discharge Exam General: Resting comfortably in her hospital bed. NAD. HEENT: Head is AT/NC. Buccal mucosa is moist and pink Neck: No JVD. Negative hepatojugular reflex Cardiac: RRR without M/G/R Lungs: CTA without W/R/R Abdomen: Normoactive X4. Soft and nontender in all quadrants. No CVA tenderness. Extremities: No peripheral clubbing cyanosis or edema Neuro: A&O X4. Cranial nerves II through XII are grossly intact. No focal neuro deficits Skin: No obvious skin lesions or rashes Psych: Appropriate affect. Pleasant and cooperative Discharge Data Allergies Allergy/AdvReac Type Severity Reaction Status Date / Time iodine Allergy Severe IV Verified 06/14/21 21:13 DYE-TROUBLE BREATHING HOARSENESS-SEVERE REACTION tramadol Allergy Severe HIVES, Verified 06/14/21 21:13 ITCHING morphine Allergy Intermediate HALLUCINATI Verified 06/14/21 21:13 ONS propoxyphene Allergy Intermediate ITCHING Verified 06/14/21 21:13 scallops Allergy Intermediate DIARRHEA, Verified 06/14/21 21:13 VOMITING ciprofloxacin Allergy Mild SICK Verified 06/14/21 21:13 Penicillins Allergy Mild RASH Verified 06/14/21 21:13 candesartan Allergy Unknown UNKNOWN Verified 06/14/21 21:13 oxycodone Allergy Unknown UNKNOWN Verified 06/14/21 21:13 topiramate Allergy Unknown UNKNOWN Verified 06/14/21 21:13 atorvastatin AdvReac Intermediate Muscle Pain Verified 06/14/21 21:13 levothyroxine sodium AdvReac Mild Dry mouth; Verified 06/14/21 21:13 fatigue Consultations 06/15/21 00:46 ED Decision to Admit Stat 06/15/21 10:12 Consult Urology Routine Procedures Performed Operation Date: 06/15/21 12:35 Actual Procedures p Cystoscopy, Ureteroscopy, Laser Stone Treatment, Stone basketing, (Left) - Ken Lisa MD s Left Stent Placement(Left) - Ken Lisa MD Ordered Studies 06/15/21 13:30 FL KUB Routine Hospital Course (1) Acute left flank pain: 86-year-old white female with past history of CVA without sequela, hypothyroidism, diabetes mellitus and hypertension presented with left flank pain. * Hospitalized 06/04 through 06/05 with left flank pain and found to have a left ureteral stone with associated hydronephrosis. Ureteral stent placed 06/[address] Lisa. Discharged home on Flomax and Pyridium with plan for outpatient stone management. * Since being home, patient has developed urgency/frequency and gross hematuria. She does take Plavix (currently on hold)--okay to resume upon discharge * With review of records, patient found to have multiple urine cultures growing group B strep. Likely contaminant; however, cannot argue that this is not contributing to her symptomatology-- started on ancef with transition to Duricef upon discharge (as opposed to Keflex due to lack of compliance with 4 times a day dosing). Patient not happy with taking an antibiotic * Patient is s/p internal laser lithotripsy with basket extraction and stent exchange. Tethered stent placed and subsequently removed on 06/16 * Appreciate assistance from urology * Currently without flank pain or symptoms (2) UTI (urinary tract infection): * Patient with multiple urine culture showing group B strep. * Could be contaminated specimen; however, could be contributing to symptomatology * Have added Ancef with plan to transition to Duricef upon discharge. Would treat for 7 to 10 days given indwelling stone and associated stent consistent with complicated UTI * Patient denies fevers and has remained afebrile in house. She does not have leukocytosis and has remained hemodynamically stable * Her hematuria has since resolved (3) Ureterolithiasis: See above (4) Constipation: * Lengthy discussion with patient regarding this issue. I suspect is likely related to [id number] procedures/anesthesia, pain medications during these procedures, and overall lack of physical mobility while in the hospital. I have encouraged ambulation * I have offered MiraLAX, prune juice, fleets enema, and a Dulcolax suppository. She is unhappy with any of these options. Insist that she "wants something that is going to make her move her bowels but not have any loose BM". I assured her that any of these options potentially could make her have loose stool as motility increases. * After lengthy discussion, she was agreeable to trial a Dulcolax suppository. Did have multiple pellet-like stools with the Dulcolax suppository * Discussed lactulose but of course she also refused that. She did have a history documented of cirrhosis but denies this. Ammonia level obtained and normal at 24 * on 06/16: patient refused discharge due to lack of having a bowel movement but again is also refusing any treatment for her constipation. * On 06/17, remains bowel fixated. A KUB was done to assess stool burden. Only small stool burden with significant gas. Again she is refusing any medications. Upon lengthy discussion, she reports that this is not a new issue. She has waxing and waning diarrhea with constipation and follows Dr. Sandoval (GI). It was recently felt that she perhaps has lactose intolerance and is to be on a lactose-free diet. Has a follow-up with GI this month (5) Stroke: * History of CVA/hypertension- * Continue atenolol and lisinopril with hold parameters * Plavix held perioperatively but okay to resume upon discharge (6) Hypertension: See above. Did have some accelerated HTN while in house but patient also frustrated whitecoat syndrome and could have a component of White coat syndrome. PCP to follow-up in regards (7) Diabetes: Hold Metformin, glimepiride and linagliptin. Placed on Accu-Cheks before meals and at bedtime with NovoLog coverage per scale (8) Hypothyroidism: Continue levothyroxine Patient is medically hemodynamically stable for discharge to home however refuses to accept the discharge until she has a bowel movement but is also refusing medications to help her have a bowel movement. Ambulation encouraged. Will consult PT/OT. After lengthy discussion, she is agreeable to try a suppository. Will reassess later this afternoon. Total Time Total Time Spent Total Time Spent (In Minutes): 30 Discharge Plan Discharge Items Patient Disposition: Home - Self-Care Reason For Visit: INTRACTABLE PAIN Discharge Diagnosis: 1. Ureterolithiasis (stent in the left ureter)--s/p lithotripsy 2. Ureteral stentsince removed 3. Urinary tract infection 4. Constipation with mixed diarrheaongoing problem Activity: Resume your previous activity Non-emergency contact: Primary Care Provider and Urologist Call non-emergency contact if: you have any medication questions and your symptoms worsen Follow-up/Referrals: Sabine Alrdich MD [Primary Care Provider] - 07/05/21 1:40 pm Ken Lisa MD [Physician] - 08/18/21 1:00 pm Nilton Sandoval [Physician] - 07/13/21 9:40 am Diet: Lactose Intolerant Addtl Attending Provider Instructions: You presented to the emergency department complaining of left-sided pain which was likely related to the stent and indwelling stone "stuck" in your ureter You underwent a procedure called and internal laser lithotripsy to break up the stone. In addition, the large fragments of the stone have since been removed. The indwelling stent was changed out to a "tethered stent" which has since been removed You were also found to have a urinary tract infection. You will need to be continued on antibiotics for a total of 7 days. --Cefadroxil 500mg twice a day until complete, next dose due tonight Okay to stop Flomax that was prescribed following your recent stent procedure as the stent has been removed as has the stone Your Plavix was held while in the hospital given the blood in your urine (which was likely from the stent and the urinary tract infection). Okay to resume Plavix You have been started on magnesium supplementation while in house. Your PCP can repeat labs in 2 to 4 weeks to determine continued need for this You need to follow-up with urology as an outpatient You need to return to the emergency department for any new or worsening symptoms In addition, you have had complaints of constipation with mixed diarrhea. This is not new for you. Maintain the lactose-free diet as recommended by GI and follow-up with Dr. Sandoval. I would recommend calling his office first thing Sunday morning to see if your appointment can be done sooner. Otherwise, see him on 07/13 as scheduled. Addtl Public Transportation Inspector Provider Instructions: The surgery you had was ureteroscopy with laser lithotripsy and stent exchange. You had a tethered stent, which was removed the day after your procedure. Please take all medications as prescribed and keep all follow-ups as scheduled. Please call our office at [phone] with any questions, concerns or need to reschedule appointments for any reason. We are happy to assist you. Medications: please resume your normal medications as previously prescribed. For pain, continue taking the medications that you have been using. What to expect after your ureteroscopy and stone removal procedure: You may notice small pieces of stone or stone dust/gravel in your urine over the next few days. Drink plenty of liquids to help flush your system. You may notice some blood in your urine. As long as you are able to urinate, this is ok. When to call [facility] at [phone]: Fever of 101F or higher Heavy bleeding Pain that is not controlled with medicine Uncontrolled vomiting Problems urinating or inability to urinate Pending Studies at Discharge: No Stand-Alone Forms: [facility] and DC Order Prescriptions: New cefadroxil 500 mg capsule 500 mg PO BID Qty: 11 RF: 0 magnesium oxide 400 mg (241.3 mg magnesium) Tablet 400 mg PO DAILY Qty: 30 RF: 0 Continued (DME) [place] [facility] [place] Instructions .ROUTE .MEDSUPPLY Qty: 1 RF: 0 (DME) lancets [OneTouch Delica Plus Lancet] 33 gauge [facility] [place] See Dose Instructions .ROUTE .MEDSUPPLY Qty: 200 RF: 1 levothyroxine 100 mcg tablet 100 mcg PO DAILY Qty: 90 RF: 0 cyanocobalamin (vitamin B-12) 1,000 mcg tablet 1,000 mcg PO DAILY Qty: 30 RF: 0 clopidogrel 75 mg tablet 75 mg PO QAM Qty: 90 RF: 3 atenolol 25 mg tablet 25 mg PO QPM Qty: 90 RF: 1 (DME) OneTouch Verio test strips Strip See Dose Instructions .ROUTE .MEDSUPPLY Qty: 100 RF: 11 Jentadueto 2.5-500 mg tablet 1 tab PO DAILY 90 Days Qty: 90 RF: 3 (DME) blood-glucose meter [OneTouch Verio Meter] [facility] [place] See Dose Instructions .ROUTE .MEDSUPPLY Qty: 1 RF: 0 lisinopril 20 mg tablet 20 mg PO DAILY Qty: 90 RF: 1 magnesium oxide 400 mg magnesium capsule 400 mg PO DAILY Qty: 90 RF: 3 cholecalciferol (vitamin D3) [Vitamin D3] 50 mcg (2,000 unit) Capsule 200 mcg PO DAILY RF: 0 glimepiride 1 mg tablet 1 mg PO BID RF: 0 docusate sodium [Colace] 100 mg Capsule 100 mg PO DAILY PRN (Reason: Constipation) RF: 0 Discontinued tamsulosin 0.4 mg capsule 0.4 mg PO DAILY Qty: 14 RF: 0 Discharge Orders: Discharge Order (Routine); Ordered 06/17/21 Ordered By: Marie Hammond/Other Patient Handouts: Treating Constipation, Eating a High-Fiber Diet Admission Data Admit Date/Time: 06/15/21 01:28 Attending Provider: Donald Warner Admit Provider: Frank Adan Primary Care Provider: Sabine Alrdich Other Providers: Frank Adan ; Ken Lisa Other Interventions: Discharge Summary Assessment (RN) Last Done: 06/17/21 16:40 Coding Level of Care Code 87387 OBS Care - Discharge Diagnoses Acute left flank pain R10.9 UTI (urinary tract infection) N39.0 Ureterolithiasis N20.1 Constipation K59.00 Stroke I63.9 Hypertension I10 Diabetes E11.9 Diabetes mellitus type: type 2 Diabetes mellitus skilled nursing insulin use: without exterminator use Diabetes mellitus complication status: without complication Hypothyroidism E03.9 Hypothyroidism type: unspecified
[2021-06-20 03:06] LABS: Component 2 DNR; Source LEFT KIDNEY STONE
== END 2021-06-17 17:27 | disposition home or self-care (01) ==
LOC: ED 20:29 → 3W 20:29 → SUATTDRO 06-15 01:28 → 3W 06-15 02:38

== ENCOUNTER 2021-10-10 13:56 | Inpatient (IN) ==
--- NOTE | 2021-10-10 15:22 | Emergency Department Note ---
Impression & Plan Acute GI bleeding, HTN (hypertension) ED Provider Note NAME: NIKKI CURIEL AGE: 86 SEX: F : 1935 ARRIVES VIA: Walk-In INFORMANT: Patient ED PROVIDER(S): Greg Zheng DO CHIEF COMPLAINT: Blood in urine HPI: Patient is a 69-year-old female who takes Plavix for previous stroke, history of diabetes, depression hypertension and hypothyroidism that presents t he ER following Seeing blood in the toilet bowl. She Believes that she was urinating and saw blood in her urine. She does not believe that she had a bowel movement but does have memory issues. Denies any headache or change in vision. No chest pain or shortness of breath. No nausea vomiting or diarrhea. She does admit to right flank pain. No dysuria urgency or frequency. No other exacerbating or remitting factors. ROS: See above HPI for pertinent positives & negatives. A total of 10 systems reviewed and were otherwise negative. PAST MEDICAL HISTORY:See Below PAST SURGICAL HISTORY:See Below FAMILY HISTORY:See Below SOCIAL HISTORY:See Below HOME MEDICATIONS:See Below ALLERGIES:See Below VITALS:See Below PHYSICAL EXAMINATION: GENERAL: Sitting up in bed, alert, well appearing, well nourished, no distress, non-toxic EYE EXAM: normal conjunctiva. OROPHARYNX: no exudate, no erythema, lips, buccal mucosa, and tongue normal and mucous membranes are moist NECK: supple, no nuchal rigidity, no adenopathy, non-tender LUNGS: Clear to auscultation. Normal chest wall mechanics HEART: no murmurs, S1 normal and S2 normal ABDOMEN: abdomen soft, non-tender, normo-active bowel sounds, no masses, no rebound or guarding. GI: Rectal: Bright red blood around the rectum heme positive on rectal exam performed with Cher chawla bedside RN UPPER EXTREMITIES: upper extremities are grossly normal. LOWER EXTREMITIES: No pitting edema. NEURO EXAM: Normal sensorium, cranial nerves II-XII grossly intact, normal speech, no gross weakness of arms, no gross weakness of legs. MEDICAL DECISION MAKING: Patient is an 86-year-old female who presents ER for bright red blood in her urine. Pulverization she is found to be hypertensive with systolic pressures in the 200s. She notes she has not missed any doses of her medications. IV was established blood work was obtained.Labs show no significant leukocytosis or anemia. INR unremarkable. BMP with elevated BUN. LFTs bilirubin and lipase is unremarkable. UA was clean. COVID was negative.CT abdomen pelvis showed no a cute pathology.On exam she has a clear GI bleed with heme positive stools and bright red blood covering her rectum. She is a poor historian and this in combination with her elevated blood pressure did feel she would benefit from observation. She was given 1 dose of hydralazine. Triage Nursing notes reviewed. Limited review of prior medical records performed Vital Signs: reviewed and remarkable for HTN Differential diagnosis: Differential diagnoses include major intracranial, cervical, spinal, thoracic, abdominal, pelvic and neurologic injury. Fracture, contusion, sprain, strain, laceration, abrasions included as well. ER treatment provided: See below Diagnostics interpreted by me: ECG: Sinus rhythm rate of 61 Left axis No PVCs T wave inversion in the high lateral leads QTC 428 Cardiac Monitoring: An order was placed for continuous cardiac monitoring. The monitor shows a rate of 60 with sinus rhythm. Laboratory studies: As stated above and show below. Imaging studies: CT abdomen pelvis is unremarkable Consultation(s): Discussed with Donald Whitt for further evaluation Procedures: none Critical Care: None Past Med/Surg History Medical History (Updated 10/10/21 @ 18:51 by Ken Thompson MD) Chronic back pain Cirrhosis Diabetes NIDDM History of anesthesia reaction hallucinations after back surgery. Hx of cancer of uterus NO CHEMO/NO RADIATION Hyperlipidemia Hypothyroidism Left ureteral stone Obesity Personal history of kidney stones Poor historian Statin myopathy Stroke Surgical History H/O colonoscopy 10/07/19 Dr. Nilton Sandoval History of arthroplasty of right knee History of lithotripsy LEFT ESWL= 11/26/15= LMA#4 History of lumbar surgery X2 Hx of bilateral cataract extraction Hx of colonoscopy Hx of hand surgery Hx of hernia repair VENTRAL Hx of hysterectomy Robotic Lap hysterectomy with BSO Hx of tonsillectomy Hx of wisdom tooth extraction S/P total knee replacement using cement Family History Father , in his 30s according to the patient Liver cancer Colorectal cancer Mother , age 87 of renal complications Kidney disease Parkinson disease Son Diabetes Unknown Hypertension Denies family history of Ovarian cancer Prostate cancer Myocardial infarction Breast cancer Social History Smoking Status: Never smoker Second Hand Exposure: No; Hx Alcohol Use: No Hx Substance Use: No Preferred Language: Thai Communication Ability: Effective Visual Impairment: No Limitations Hearing Ability: Normal Shaving Machine Operator Required: No Beliefs That Will Affect Care: None marital status: Current Living Situation: Spouse and Family Current Living Situation Comment: and son current occupational status: retired 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 Feels Safe at Home: Yes Childhood Exposure to Second-Hand Smoke: Yes Dental Care, Regularly: Yes Physical Activity Frequency: 1-2 Times per Week Seatbelt Use: always Sunscreen Use: Yes Assistive Devices: Glasses and Walker Allergies Allergies Allergy/AdvReac Type Severity Reaction Status Date / Time iodine Allergy Severe IV Verified 10/10/21 17:27 DYE-TROUBLE BREATHING HOARSENESS-SEVERE REACTION tramadol Allergy Severe HIVES, Verified 10/10/21 17:27 ITCHING morphine Allergy Intermediate HALLUCINATI Verified 10/10/21 17:27 ONS propoxyphene Allergy Intermediate ITCHING Verified 10/10/21 17:27 scallops Allergy Intermediate DIARRHEA, Verified 10/10/21 17:27 VOMITING ciprofloxacin Allergy Mild SICK Verified 10/10/21 17:27 Penicillins Allergy Mild RASH Verified 10/10/21 17:27 candesartan Allergy Unknown UNKNOWN Verified 10/10/21 17:27 oxycodone Allergy Unknown UNKNOWN Verified 10/10/21 17:27 topiramate Allergy Unknown UNKNOWN Verified 10/10/21 17:27 atorvastatin AdvReac Intermediate Muscle Pain Verified 10/10/21 17:27 levothyroxine sodium AdvReac Mild Dry mouth; Verified 10/10/21 17:27 fatigue Home Meds Home Medications Medication Instructions Recorded Confirmed cholecalciferol (vitamin D3) 50 50 mcg PO QPM cap 07/11/21 10/10/21 mcg (2,000 unit) capsule (Vitamin D3) glimepiride 1 mg tablet 1 mg PO QAM tab 07/11/21 10/10/21 atenolol 25 mg tablet 25 mg PO QPM 10/10/21 10/10/21 cyanocobalamin (vitamin B-12) 1,000 mcg PO QAM 10/10/21 10/10/21 1,000 mcg tablet levothyroxine 75 mcg tablet 75 mcg PO DAILYBB 10/10/21 10/10/21 linagliptin 2.5 mg-metformin 500 1 tab PO QAM 10/10/21 10/10/21 mg tablet (Jentadueto) lisinopril 20 mg tablet 20 mg PO QAM 10/10/21 10/10/21 magnesium oxide 400 mg (241.3 mg 400 mg PO HS 10/10/21 10/10/21 magnesium) tablet Previous Rx's Medication Instructions Recorded Diabetic Shoes #1 ea 07/04/19 lancets 33 gauge (OneTouch Delica #200 ea 02/11/20 Plus Lancet) clopidogrel 75 mg tablet 75 mg PO QAM #90 tab 03/02/21 OneTouch Verio test strips (blood #100 ea NS 05/17/21 sugar diagnostic) Results & Data (ED) Vital Signs Vital Signs - 24 hr 10/10/21 13:58 10/10/21 15:42 10/10/21 15:47 Temperature 37.2 C Temperature Source Oral Pulse Rate 72 Pulse Rate [Apical] 62 Respiratory Rate 18 18 20 Respiratory Effort / Characteristics Non-Labored Spontaneous Respiratory Depth Normal Blood Pressure 217/94 H Blood Pressure [Left Arm] 200/91 H Blood Pressure Mean 135 Blood Pressure Mean [Left Arm] 127 Pulse Oximetry 93 98 99 Oxygen Delivery Method Room Air Room Air Room Air Sepsis Recent Fever Within 48 Hours No Sepsis New/Unexplained Change in Mental Status No Sepsis Action Taken by Nursing No Action Required 10/10/21 16:30 10/10/21 17:00 Temperature Temperature Source Pulse Rate Pulse Rate [Apical] 62 57 L Respiratory Rate 19 23 Respiratory Effort / Characteristics Non-Labored Spontaneous Non-Labored Spontaneous Respiratory Depth Normal Normal Blood Pressure Blood Pressure [Left Arm] 165/111 H 179/80 H Blood Pressure Mean Blood Pressure Mean [Left Arm] 129 113 Pulse Oximetry 98 98 Oxygen Delivery Method Room Air Room Air Sepsis Recent Fever Within 48 Hours Sepsis New/Unexplained Change in Mental Status Sepsis Action Taken by Nursing Laboratory Data Result diagrams: 10/10/21 15:38 10/10/21 15:38 Lab Results 10/10/21 10/10/21 10/10/21 Range/Units 15:38 15:38 15:38 WBC 4.99 (4.8-10.8) K/uL RBC 4.03 L (4.2-5.4) M/uL Hgb 12.0 (12.0-16.0) g/dL Hct 36.7 L (37-47) % MCV 91.1 (80-100) fL MCH 29.8 (25-34) pg MCHC 32.7 (32-36) g/dL RDW Std Deviation 48.6 H (36.4-46.3) fL RDW Coeff of Tia 14.5 (11.5-14.5) % Plt Count 147 (130-400) K/uL MPV 10.6 H (7.4-10.4) fL Immature Gran % (Auto) 0.4 % Neut % (Auto) 69.2 % Lymph % (Auto) 23.6 % [place] % (Auto) 5.4 % Eos % (Auto) 1.2 % Baso % (Auto) 0.2 % Neut # (Auto) 3.45 (1.4-6.5) K/uL Lymph # (Auto) 1.18 L (1.2-3.4) K/uL [place] # (Auto) 0.27 (0.11-0.59) K/uL Eos # (Auto) 0.06 (0-0.5) K/uL Baso # (Auto) 0.01 (0-0.2) K/uL Immature Gran # (Auto) 0.02 (0.00-0.02) K/uL PT 10.4 (9.0-12.0) Seconds INR 1.0 (0.9-1.1) APTT 26.8 (21.0-31.0) Seconds PTT Ratio 1.0 Sodium 137 (136-145) mmol/L Potassium 4.4 (3.5-5.1) mmol/L Chloride 105 (98-107) mmol/L Carbon Dioxide 26 (21-32) mmol/L Anion Gap 6 (3-11) BUN 30 H (6-23) mg/dl Creatinine 1.11 (0.6-1.2) mg/dl Est Cr Clr Drug Dosing 37.1 ml/min Est GFR ( Amer) 51.7 ml/min Est GFR (Non-Af Amer) 44.6 ml/min BUN/Creatinine Ratio 27.0 H (10-20) Glucose 102 H (70-99(Fasting)) mg/dl Calcium 10.6 H (8.5-10.1) mg/dl Total Bilirubin 0.5 (0.2-1.0) mg/dl AST 16 (13-39) U/L ALT 12 (7-52) U/L Alkaline Phosphatase 82 (34-104) U/L Total Protein 7.0 (6.0-8.3) gm/dl Albumin 4.0 (3.4-5.0) gm/dl Globulin 3.0 (2.5-4.0) gm/dl Albumin/Globulin Ratio 1.3 (0.9-2) Lipase 45 (11-82) U/L Urine Color Urine Appearance (Clear) Urine pH (4.5-7.5) Ur Specific [place] (1.000-1.030) Urine Protein (Negative) Urine Glucose (UA) (Negative) Urine Ketones (Negative) Urine Blood (Negative) Urine Nitrite (Negative) Urine Bilirubin (Negative) Urine Urobilinogen (Negative) Ur Leukocyte Esterase (Negative) Urine WBC (Auto) (0-5) /hpf Urine RBC (Auto) (0-4) /hpf U Hyaline Cast (Auto) (0-5) /lpf U Epithel Cells (Auto) (0-5) /lpf Urine Bacteria (Auto) (Negative) SARS-CoV-2, RNA, NAAT (NEGATIVE) 10/10/21 10/10/21 Range/Units 15:43 15:45 WBC (4.8-10.8) K/uL RBC (4.2-5.4) M/uL Hgb (12.0-16.0) g/dL Hct (37-47) % MCV (80-100) fL MCH (25-34) pg MCHC (32-36) g/dL RDW Std Deviation (36.4-46.3) fL RDW Coeff of Tia (11.5-14.5) % Plt Count (130-400) K/uL MPV (7.4-10.4) fL Immature Gran % (Auto) % Neut % (Auto) % Lymph % (Auto) % [place] % (Auto) % Eos % (Auto) % Baso % (Auto) % Neut # (Auto) (1.4-6.5) K/uL Lymph # (Auto) (1.2-3.4) K/uL [place] # (Auto) (0.11-0.59) K/uL Eos # (Auto) (0-0.5) K/uL Baso # (Auto) (0-0.2) K/uL Immature Gran # (Auto) (0.00-0.02) K/uL PT (9.0-12.0) Seconds INR (0.9-1.1) APTT (21.0-31.0) Seconds PTT Ratio Sodium (136-145) mmol/L Potassium (3.5-5.1) mmol/L Chloride (98-107) mmol/L Carbon Dioxide (21-32) mmol/L Anion Gap (3-11) BUN (6-23) mg/dl Creatinine (0.6-1.2) mg/dl Est Cr Clr Drug Dosing ml/min Est GFR ( Amer) ml/min Est GFR (Non-Af Amer) ml/min BUN/Creatinine Ratio (10-20) Glucose (70-99(Fasting)) mg/dl Calcium (8.5-10.1) mg/dl Total Bilirubin (0.2-1.0) mg/dl AST (13-39) U/L ALT (7-52) U/L Alkaline Phosphatase (34-104) U/L Total Protein (6.0-8.3) gm/dl Albumin (3.4-5.0) gm/dl Globulin (2.5-4.0) gm/dl Albumin/Globulin Ratio (0.9-2) Lipase (11-82) U/L Urine Color Yellow Urine Appearance Clear (Clear) Urine pH 5.0 (4.5-7.5) Ur Specific [place] 1.010 (1.000-1.030) Urine Protein Negative (Negative) Urine Glucose (UA) Negative (Negative) Urine Ketones Negative (Negative) Urine Blood Negative (Negative) Urine Nitrite Negative (Negative) Urine Bilirubin Negative (Negative) Urine Urobilinogen Negative (Negative) Ur Leukocyte Esterase Trace H (Negative) Urine WBC (Auto) 1-5 (0-5) /hpf Urine RBC (Auto) 0-4 (0-4) /hpf U Hyaline Cast (Auto) 0 (0-5) /lpf U Epithel Cells (Auto) >30 H (0-5) /lpf Urine Bacteria (Auto) Negative (Negative) SARS-CoV-2, RNA, NAAT NEGATIVE (NEGATIVE) Administered Medications Discontinued Medications Hydralazine HCl (Hydralazine Hcl 20 Mg/Ml Vial) 10 mg IV NOW STA Stop: 10/10/21 17:23 Last Admin: 10/10/21 18:14 Dose: 10 mg Documented by: [id number] Imaging Data Radiologist's Impression: Abdomen/Pelvis CT 10/10/21 15:06 CT abd pelvis wo con CLINICAL HISTORY: r flank pain TECHNIQUE: Helical axial images of the abdomen and pelvis were obtained. Automated dose lowering techniques and/or adjustment according to patient size were utilized for this exam. This exam was performed without intravenous contrast. CT DOSE: 892.87 mGy.cm COMPARISON: None available at the time of this dictation. FINDINGS: Lower chest: Peripheral interstitial reticular densities are seen, similar in appearance to prior exam. Liver: Nodular contour of the liver is seen compatible with cirrhosis. Gallbladder and biliary tree: No calcified gallstones. Normal caliber wall. No intra- or extrahepatic biliary ductal dilation. Pancreas: Fatty replacement of the pancreas is seen. Spleen: Splenule is incidentally noted. Adrenals: Unremarkable. Kidneys and ureters: Bilateral cysts are seen in the bilateral kidneys. No hydronephrosis or obstructive nephrolithiasis is seen. Bladder: Unremarkable. Reproductive organs: Patient is status post hysterectomy. Bowel: Unremarkable appearance of the bowel. The appendix is normal. A small hiatal hernia is seen. Lymph nodes Retroperitoneal: Subcentimeter lymph nodes are noted. Mesenteric: Unremarkable. Pelvic: Unremarkable. Peritoneum: Normal. Vessels: Atherosclerotic calcifications are seen. Recanalization of the umbilical artery is incidentally noted. Abdominal wall: Diastases of the rectus abdominis is seen. There is a large fat- containing umbilical hernia. Bones: Degenerative changes in the visualized spine. IMPRESSION: 1. No acute abnormalities to explain right flank pain. In particular, there is no evidence of hydronephrosis or obstructive nephrolithiasis. 2. Cirrhosis. 3. Large fat-containing umbilical hernia. 4. Additional findings as above. ACT 112: Negative or not required by law. Electronically signed by: Junior Lou M.D. 10/10/2021 4:25 PM Discharge Plan Visit Data Chief Complaint: Hematuria Stated Complaint: BLEEDING IN URINE??? SHES NOT SURE ED Provider: Greg Zheng Discharge Problem: Acute GI bleeding, HTN (hypertension) Forms Stand Alone Forms: My [facility] [employer] Prescriptions Prescriptions: No Action (DME) Diabetic Shoes Misc See Rx Instructions .ROUTE .MEDSUPPLY Qty: 1 RF: 0 (DME) lancets [OneTouch Delica Plus Lancet] 33 gauge misc See Dose Instructions .ROUTE .MEDSUPPLY Qty: 200 RF: 1 clopidogrel 75 mg tablet 75 mg PO QAM Qty: 90 RF: 3 (DME) OneTouch Verio test strips Strip See Dose Instructions .ROUTE .MEDSUPPLY Qty: 100 RF: 11 cholecalciferol (vitamin D3) [Vitamin D3] 50 mcg (2,000 unit) capsule 50 mcg PO QPM RF: 0 glimepiride 1 mg tablet 1 mg PO QAM RF: 0 lisinopril 20 mg tablet 20 mg PO QAM RF: 0 levothyroxine 75 mcg tablet 75 mcg PO DAILYBB RF: 0 Jentadueto 2.5-500 mg tablet 1 tab PO QAM RF: 0 cyanocobalamin (vitamin B-12) 1,000 mcg tablet 1,000 mcg PO QAM RF: 0 atenolol 25 mg tablet 25 mg PO QPM RF: 0 magnesium oxide 400 mg (241.3 mg magnesium) tablet 400 mg PO HS RF: 0 Referrals Referrals: Sabine Aldrich MD [Primary Care Provider] - Discharge Problem: HTN (hypertension) Qualifiers: Hypertension type: unspecified Qualified Code(s): I10 - Essential (primary) hypertension
[2021-10-10 16:08] LABS: Basophils # (auto) 0.01 K/uL (0-0.2); Basophils % (auto) 0.2 %; Eosinophils # (auto) 0.06 K/uL (0-0.5); Eosinophils % (auto) 1.2 %; Hematocrit (blood only) 36.7 % (37-47); Immature Granulocytes # (auto) 0.02 K/uL (0.00-0.02); Immature Granulocytes % (auto) 0.4 %; Lymphocytes # (auto) 1.18 K/uL (1.2-3.4); Lymphocytes % (auto) 23.6 %; Mean Corpuscular Hemoglobin 29.8 pg (25-34); Mean Corpuscular Hgb Conc 32.7 g/dL (32-36); Mean Corpuscular Volume 91.1 fL (80-100); Mean Platelet Volume 10.6 fL (7.4-10.4); Monocytes # (auto) 0.27 K/uL (0.11-0.59); Monocytes % (auto) 5.4 %; Neutrophils # (auto) 3.45 K/uL (1.4-6.5); Neutrophils % (auto) 69.2 %; Platelet Count 147 K/uL (130-400); RDW Coefficient of Variation 14.5 % (11.5-14.5); RDW Standard Deviation 48.6 fL (36.4-46.3); Red Blood Count 4.03 M/uL (4.2-5.4); White Blood Count 4.99 K/uL (4.8-10.8)
[2021-10-10 16:13] LABS: Appearance Urine Clear (Clear); Bacteria Urine Automated Negative (Negative); Bilirubin Urine Negative (Negative); Blood Urine Negative (Negative); Cast Urine Automated 0 /lpf (0-5); Color Urine Yellow; Epithelial Cell Urine Auto >30 /lpf (0-5); Glucose Urine UA Negative (Negative); Ketones Urine Negative (Negative); Leukocyte Esterase Urine Trace (Negative); Nitrite Urine Negative (Negative); Protein Urine Negative (Negative); RBC Urine Automated 0-4 /hpf (0-4); Urobilinogen Urine Negative (Negative)
--- NOTE | 2021-10-10 16:26 | CT Scan Report ---
CT abd pelvis wo con CLINICAL HISTORY: r flank pain TECHNIQUE: Helical axial images of the abdomen and pelvis were obtained. Automated dose lowering tech niques and/or adjustment according to patient size were utilized for this exam. This exam was perfor med without intravenous contrast. CT DOSE: 892.87 mGy.cm COMPARISON: None available at the time of this dictation. FINDINGS: Lower chest: Peripheral interstitial reticular densities are seen, similar in appearance to prior ex am. Liver: Nodular contour of the liver is seen compatible with cirrhosis. Gallbladder and biliary tree: No calcified gallstones. Normal caliber wall. No intra- or extrahepatic biliary ductal dilation. Pancreas: Fatty replacement of the pancreas is seen. Spleen: Splenule is incidentally noted. Adrenals: Unremarkable. Kidneys and ureters: Bilateral cysts are seen in the bilateral kidneys. No hydronephrosis or obstruct jude nephrolithiasis is seen. Bladder: Unremarkable. Reproductive organs: Patient is status post hysterectomy. Bowel: Unremarkable appearance of the bowel. The appendix is normal. A small hiatal hernia is seen. Lymph nodes Retroperitoneal: Subcentimeter lymph nodes are noted. Mesenteric: Unremarkable. Pelvic: Unremarkable. Peritoneum: Normal. Vessels: Atherosclerotic calcifications are seen. Recanalization of the umbilical artery is incidenta lly noted. Abdominal wall: Diastases of the rectus abdominis is seen. There is a large fat-containing umbilical hernia. Bones: Degenerative changes in the visualized spine. IMPRESSION: 1. No acute abnormalities to explain right flank pain. In particular, there is no evidence of hydron ephrosis or obstructive nephrolithiasis. 2. Cirrhosis. 3. Large fat-containing umbilical hernia. 4. Additional findings as above. ACT 112: Negative or not required by law. Electronically signed by: Junior Lou M.D. 10/10/2021 4:25 PM
[2021-10-10 16:28] LABS: Albumin Globulin Ratio 1.3 (0.9-2); Bilirubin,Total 0.5 mg/dl (0.2-1.0); Calcium 10.6 mg/dl (8.5-10.1); Creatinine Clr Calc Pharmacy 37.1 ml/min; Est GFR (African American) 51.7 ml/min; Est GFR (Non-African American) 44.6 ml/min; Potassium 4.4 mmol/L (3.5-5.1)
[2021-10-10] MEDS ORDERED: hydrALAZINE HCL 20 MG/ML VIAL IV STA (17:22)
[2021-10-10 18:14] LABS: Partial Thromboplastin Time 26.8 Seconds (21.0-31.0); Prothrombin Time 10.4 Seconds (9.0-12.0)
--- NOTE | 2021-10-10 18:27 | History & Physical Report ---
Date of Service October 10, 2021 Assessment & Plan (1) Bright red blood per rectum: Plan: Tonie Salinas is an 86yo female with PMHx of compensated cirrhosis, hemorrhoids, h/o CVA (on Plavix), T2DM (A1c 6.1 in 06/2021), HTN, HLD, primary hyperparathyroidism and hypothyroidism who presents to [facility] ED for bright red blood per rectum. Bright Red Blood Per Rectum One episode before arriving in the ED without further evidence of GI bleeding. No associated dizziness/lightheadedness and Hgb is at baseline. Suspect bleeding hemorrhoid, but given the patient's cirrhosis (albeit compensated) and use of chronic Plavix, will admit overnight for observation. - repeat H/H at 10pm and again tomorrow AM - guaiac test all stools - hold Plavix for now - no chemoppx - will make NPO at midnight out of abundance of caution Hypertension BP initially 217/94 but improved to 179/80 even before Hydralazine IV was given. No symptoms of emergency. Suspect due to anxiety in setting of hospitalization - continue home Atenolol QPM and Lisinopril QAM - PRN Hydralazine ordered for SBP >180 Lower Right Back Pain Suspect paraspinal muscle spasm. This is not flank pain. No acute abnormalities on CT A/P. - Tylenol PRN ordered H/o CVA: Reportedly was ~2 years ago and has been on Plavix since then. Last took it this AM. Hold for the time being given GI bleed. T2DM: A1c 6.1 in 06/2021. Ordered A1c in AM. SSI while hospitalized. Hypothyroidism: continue home Synthroid Primary Hyperparathyroidism: chronic, with Ca 10.6 here. Trend in AM FEN/GI: DM2 diet, NPO at midnight (abundance of caution in case of repeat GI bleeding) DVT Prophylaxis: no chemoppx at this time (GI bleed) Code Status: full code Disposition: med/tele (2) HTN (hypertension): (3) Cirrhosis: (4) Diabetes: (5) Hypothyroidism: (6) Hypercholesterolemia: (7) Depression: (8) Primary hyperparathyroidism: History of Present Illness Chief Complaint: bright red blood per rectum Primary Care Provider: Sabine Aldrich MD Tonie Salinas is an 86yo female with PMHx of compensated cirrhosis, hemorrhoids, h/o CVA (on Plavix), T2DM (A1c 6.1 in 06/2021), HTN, HLD, primary hyperparathyroidism and hypothyroidism who presents to [facility] ED for bright red blood per rectum. Patient reports having a painless BM earlier this afternoon with associated "bright red blood that filled the toilet bowl" earlier this afternoon without associated lightheadedness/dizziness or diarrhea. Only one ep isode and none since coming to the hospital. Does report h/o "painless" hemorrhoids with only mild associated bleeding; denies previous significant GI bleeds or admissions for GI bleeds. Reportedly she had a screening colonoscopy ~1 year ago which was normal. Denies headache, chest pain, SOB, blurry vision, hematuria, or LE edema. No altered mental status. Does not check BP at home. Sees Dr. Sandoval for compensated cirrhosis; has not been started on medications for this. In the ED the patient was hypertensive to 217/94 but this improved to 179/80 without intervention. Labs with normal Hgb, Ca 10.6 9 (chronic baseline), UA largely clean. CT A/P was performed as patient had reported right low back pain and "flank pain" - no evidence of hydronephrosis or obstructive nephrolithiasis (showed chronic cirrhosis and fat-containing umbilical hernia). Patient was given Hydralazine 10mg IV x1 in the ED. She currently has no complaints and feels well overall. Allergies Allergy/AdvReac Type Severity Reaction Status Date / Time iodine Allergy Severe IV Verified 10/10/21 17:27 DYE-TROUBLE BREATHING HOARSENESS-SEVERE REACTION tramadol Allergy Severe HIVES, Verified 10/10/21 17:27 ITCHING morphine Allergy Intermediate HALLUCINATI Verified 10/10/21 17:27 ONS propoxyphene Allergy Intermediate ITCHING Verified 10/10/21 17:27 scallops Allergy Intermediate DIARRHEA, Verified 10/10/21 17:27 VOMITING ciprofloxacin Allergy Mild SICK Verified 10/10/21 17:27 Penicillins Allergy Mild RASH Verified 10/10/21 17:27 candesartan Allergy Unknown UNKNOWN Verified 10/10/21 17:27 oxycodone Allergy Unknown UNKNOWN Verified 10/10/21 17:27 topiramate Allergy Unknown UNKNOWN Verified 10/10/21 17:27 atorvastatin AdvReac Intermediate Muscle Pain Verified 10/10/21 17:27 levothyroxine sodium AdvReac Mild Dry mouth; Verified 10/10/21 17:27 fatigue Home Medications Medication Instructions Recorded Confirmed Type Diabetic Shoes #1 ea 07/04/19 10/07/21 Rx lancets 33 gauge (OneTouch Delica #200 ea 02/11/20 10/07/21 Rx Plus Lancet) clopidogrel 75 mg tablet 75 mg PO QAM #90 tab 03/02/21 10/10/21 Rx OneTouch Verio test strips (blood #100 ea NS 05/17/21 10/07/21 Rx sugar diagnostic) cholecalciferol (vitamin D3) 50 50 mcg PO QPM cap 07/11/21 10/10/21 History mcg (2,000 unit) capsule (Vitamin D3) glimepiride 1 mg tablet 1 mg PO QAM tab 07/11/21 10/10/21 History atenolol 25 mg tablet 25 mg PO QPM 10/10/21 10/10/21 History cyanocobalamin (vitamin B-12) 1,000 mcg PO QAM 10/10/21 10/10/21 History 1,000 mcg tablet levothyroxine 75 mcg tablet 75 mcg PO DAILYBB 10/10/21 10/10/21 History linagliptin 2.5 mg-metformin 500 1 tab PO QAM 10/10/21 10/10/21 History mg tablet (Jentadueto) lisinopril 20 mg tablet 20 mg PO QAM 10/10/21 10/10/21 History magnesium oxide 400 mg (241.3 mg 400 mg PO HS #90 tab 10/11/21 Rx magnesium) tablet Past Med/Surg History Medical History (Updated 10/10/21 @ 18:51 by Ken Thompson MD) Chronic back pain Cirrhosis Diabetes NIDDM History of anesthesia reaction hallucinations after back surgery. Hx of cancer of uterus NO CHEMO/NO RADIATION Hyperlipidemia Hypothyroidism Left ureteral stone Obesity Personal history of kidney stones Poor historian Statin myopathy Stroke Surgical History H/O colonoscopy 10/07/19 Dr. Nilton Sandoval History of arthroplasty of right knee History of lithotripsy LEFT ESWL= 11/26/15= LMA#4 History of lumbar surgery X2 Hx of bilateral cataract extraction Hx of colonoscopy Hx of hand surgery Hx of hernia repair VENTRAL Hx of hysterectomy Robotic Lap hysterectomy with BSO Hx of tonsillectomy Hx of wisdom tooth extraction S/P total knee replacement using cement Family History Father , in his 30s according to the patient Liver cancer Colorectal cancer Mother , age 87 of renal complications Kidney disease Parkinson disease Son Diabetes Unknown Hypertension Denies family history of Ovarian cancer Prostate cancer Myocardial infarction Breast cancer Social History Smoking Status: Never smoker Second Hand Exposure: No; Hx Alcohol Use: No Hx Substance Use: No Preferred Language: Comoran Communication Ability: Effective Visual Impairment: No Limitations Hearing Ability: Normal [place] Required: No Beliefs That Will Affect Care: None marital status: Current Living Situation: Spouse and Family Current Living Situation Comment: and son current occupational status: retired 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 NAD. Cooperative. HEENT: Atraumatic, normocephalic. Pulm: CTAB A&P. -wheezes, -rales, -rhonchi. Symmetrical chest rise. No increase work of breathing. No respiratory distress. Cardiac: RRR, -mrg. Radial pulses intact and symmetrical. No LE edema. Abdominal: soft, non-tender, non-distended, BS x 4 Skin: warm, dry, no rash Results & Data Results & Data ([facility]) Vital Signs (Past 12 Hours) Vital Signs Temp Pulse Pulse Resp BP BP Pulse Ox 10/10/21 17:00 57 L 23 179/80 H 98 10/10/21 15:47 62 20 200/91 H 99 10/10/21 15:42 18 98 10/10/21 13:58 37.2 C 72 18 217/94 H 93 Code Status & VTE Plan VTE Prophylaxis Plan VTE Prophylaxis will be ordered: No Supervising Physician Co-Signing Physician Notes I personally saw and examined the patient. I verified all caro points and agree with resident physician Dr Jay MD with the following exceptions and/or additions: Resident Activity Tracking Resident Involvement: Resident Care Provided Care Provided: Adult Hospital Medicine (1) Diabetes Diabetes mellitus complication status: without complication Diabetes mellitus termite treater helper insulin use: without termite treater helper use Diabetes mellitus type: type 2 Qualified Code(s): E11.9 - Type 2 diabetes mellitus without complications (2) Hypothyroidism Hypothyroidism type: unspecified Qualified Code(s): E03.9 - Hypothyroidism, unspecified (3) Cirrhosis Ascites presence: unspecified Hepatic cirrhosis type: unspecified hepatic cirrhosis Qualified Code(s): K74.60 - Unspecified cirrhosis of liver (4) HTN (hypertension) Hypertension type: unspecified Qualified Code(s): I10 - Essential (primary) hypertension
[2021-10-10] MEDS ORDERED: CARBOHYDRATES FOR HYPOGLYCEMIA PO PRN (20:25)
[2021-10-10] MEDS ORDERED: GLUCOSE 40% GEL 15 GM TUBE PO PRN (20:25)
[2021-10-10] MEDS ORDERED: ACETAMINOPHEN 325 MG TAB PO PRN (20:25)
[2021-10-10] MEDS ORDERED: GLUCAGON FOR INJ 1 MG VIAL SQ PRN (20:25)
[2021-10-10] MEDS ORDERED: DEXTROSE 50% 50 ML SYRINGE IV PRN (20:25)
[2021-10-10] MEDS ORDERED: GLUCOSE 10 TABS/TUBE PO PRN (20:25)
[2021-10-10] MEDS ORDERED: hydrALAZINE HCL 20 MG/ML VIAL IV PRN (20:25)
[2021-10-10] MEDS ORDERED: ATENOLOL 25 MG TABLET PO SCH (21:00)
[2021-10-10] MEDS ORDERED: CHOLECALCIFEROL 1,000 UNITS 25 MCG TAB PO SCH (21:00)
[2021-10-10] MEDS ORDERED: MAGNESIUM OXIDE 400 MG TAB PO SCH (21:00)
[2021-10-10] MEDS: INSULIN ASPART PER UNIT SC SCH (21:43)
[2021-10-11 06:18] LABS: Basophils # (auto) 0.01 K/uL (0-0.2); Basophils % (auto) 0.2 %; Eosinophils % (auto) 2.1 %; Hematocrit (blood only) 34.5 % (37-47); Hemoglobin 11.3 g/dL (12.0-16.0); Immature Granulocytes # (auto) 0.01 K/uL (0.00-0.02); Immature Granulocytes % (auto) 0.2 %; Lymphocytes # (auto) 1.61 K/uL (1.2-3.4); Lymphocytes % (auto) 34.3 %; Mean Corpuscular Hemoglobin 29.4 pg (25-34); Mean Corpuscular Hgb Conc 32.8 g/dL (32-36); Mean Corpuscular Volume 89.8 fL (80-100); Mean Platelet Volume 11.1 fL (7.4-10.4); Monocytes # (auto) 0.34 K/uL (0.11-0.59); Monocytes % (auto) 7.2 %; Neutrophils # (auto) 2.63 K/uL (1.4-6.5); Platelet Count 147 K/uL (130-400); RDW Coefficient of Variation 14.7 % (11.5-14.5); RDW Standard Deviation 48.4 fL (36.4-46.3); Red Blood Count 3.84 M/uL (4.2-5.4)
[2021-10-11] MEDS ORDERED: LEVOTHYROXINE SODIUM 75 MCG TABLET PO SCH (06:30)
[2021-10-11 06:42] LABS: BUN Creatinine Ratio 25.9 (10-20); Creatinine Clr Calc Pharmacy 36.6 ml/min; Est GFR (African American) 51.2 ml/min; Est GFR (Non-African American) 44.1 ml/min; Magnesium 1.8 mg/dl (1.7-2.4); Potassium 4.4 mmol/L (3.5-5.1)
[2021-10-11 08:14] LABS: Estimated Average Glucose 134 mg/dl; Hemoglobin A1C 6.3 % (4.5-5.6)
[2021-10-11] MEDS ORDERED: CYANOCOBALAMIN (B-12) 500 MCG TABLET PO SCH (09:00)
[2021-10-11] MEDS ORDERED: lisinopril 20 MG TAB PO SCH (09:00)
--- NOTE | 2021-10-11 09:00 | Electrocardiogram Report ---
Test Reason : Blood Pressure : / mmHG Vent. Rate : 061 BPM Atrial Rate : 061 BPM P-R Int : 258 ms QRS Dur : 110 ms QT Int : 426 ms P-R-T Axes : 054 -39 125 degrees QTc Int : 428 ms Sinus rhythm with 1st degree A-V block Left axis deviation Left ventricular hypertrophy with QRS widening and repolarization abnormality Abnormal ECG When compared with ECG of 04-JUL-2021 12:32, Nondiagnostic septal Q wave now present Confirmed by Patrick Blanc ([id number]) on 10/11/2021 8:59:47 AM Referred By: Sabine Aldrich Confirmed By:Patrick Blanc
[2021-10-11] MEDS: INSULIN ASPART PER UNIT SC SCH ×2 (09:01→12:08)
--- NOTE | 2021-10-11 11:50 | Discharge Summary ---
Date of Service October 11, 2021 Admission HPI Per Admitting Provider Tonie Salinas is an 86yo female with PMHx of compensated cirrhosis, hemorrhoids, h/o CVA (on Plavix), T2DM (A1c 6.1 in 06/2021), HTN, HLD, primary hyperparathyroidism and hypothyroidism who presents to [facility] ED for bright red blood per rectum. Patient reports having a painless BM earlier this afternoon with associated "bright red blood that filled the toilet bowl" earlier this afternoon without associated lightheadedness/dizziness or diarrhea. Only one episode and none since coming to the hospital. Does report h/o "painless" hemorrhoids with only mild associated bleeding; denies previous significant GI bleeds or admissions for GI bleeds. Reportedly she had a screening colonoscopy ~1 year ago which was normal. Denies headache, chest pain, SOB, blurry vision, hematuria, or LE edema. No altered mental status. Does not check BP at home. Sees Dr. Sandoval for compensated cirrhosis; has not been started on medications for this. In the ED the patient was hypertensive to 217/94 but this improved to 179/80 without intervention. Labs with normal Hgb, Ca 10.6 9 (chronic baseline), UA largely clean. CT A/P was performed as patient had reported right low back pain and "flank pain" - no evidence of hydronephrosis or obstructive nephrolithiasis (showed chronic cirrhosis and fat-containing umbilical hernia). Patient was given Hydralazine 10mg IV x1 in the ED. She currently has no complaints and feels well overall. Principal Diagnosis 1. BRBPR-suspect hemorrhoids Discharge Exam GENERAL: 86 yo Well-developed, well-nourished elderly WF. NAD. LUNGS: Clear to auscultation bilaterally. No W/R/R. CARDIOVASCULAR: Regular rate and rhythm. ABDOMEN: Soft, non-tender and non-distended. BS normoactive x 4 quad. EXTREMITIES: No edema. Non-tender. Peripheral pulses +2/4. NEUROLOGIC: A&O x3. Nonfocal PSYCHIATRIC: Cooperative. Appropriate mood and affect. SKIN: Warm, dry, intact. No rashes or lesions. Discharge Data Allergies Allergy/AdvReac Type Severity Reaction Status Date / Time iodine Allergy Severe IV Verified 10/10/21 17:27 DYE-TROUBLE BREATHING HOARSENESS-SEVERE REACTION tramadol Allergy Severe HIVES, Verified 10/10/21 17:27 ITCHING morphine Allergy Intermediate HALLUCINATI Verified 10/10/21 17:27 ONS propoxyphene Allergy Intermediate ITCHING Verified 10/10/21 17:27 scallops Allergy Intermediate DIARRHEA, Verified 10/10/21 17:27 VOMITING ciprofloxacin Allergy Mild SICK Verified 10/10/21 17:27 Penicillins Allergy Mild RASH Verified 10/10/21 17:27 candesartan Allergy Unknown UNKNOWN Verified 10/10/21 17:27 oxycodone Allergy Unknown UNKNOWN Verified 10/10/21 17:27 topiramate Allergy Unknown UNKNOWN Verified 10/10/21 17:27 atorvastatin AdvReac Intermediate Muscle Pain Verified 10/10/21 17:27 levothyroxine sodium AdvReac Mild Dry mouth; Verified 10/10/21 17:27 fatigue Consultations 10/10/21 17:22 ED Decision to Admit Stat Ordered Studies Abdomen/Pelvis CT 10/10/21 15:06 CT abd pelvis wo con CLINICAL HISTORY: r flank pain TECHNIQUE: Helical axial images of the abdomen and pelvis were obtained. Automated dose lowering techniques and/or adjustment according to patient size were utilized for this exam. This exam was performed without intravenous contrast. CT DOSE: 892.87 mGy.cm COMPARISON: None available at the time of this dictation. FINDINGS: Lower chest: Peripheral interstitial reticular densities are seen, similar in appearance to prior exam. Liver: Nodular contour of the liver is seen compatible with cirrhosis. Gallbladder and biliary tree: No calcified gallstones. Normal caliber wall. No intra- or extrahepatic biliary ductal dilation. Pancreas: Fatty replacement of the pancreas is seen. Spleen: Splenule is incidentally noted. Adrenals: Unremarkable. Kidneys and ureters: Bilateral cysts are seen in the bilateral kidneys. No hyd ronephrosis or obstructive nephrolithiasis is seen. Bladder: Unremarkable. Reproductive organs: Patient is status post hysterectomy. Bowel: Unremarkable appearance of the bowel. The appendix is normal. A small hiatal hernia is seen. Lymph nodes Retroperitoneal: Subcentimeter lymph nodes are noted. Mesenteric: Unremarkable. Pelvic: Unremarkable. Peritoneum: Normal. Vessels: Atherosclerotic calcifications are seen. Recanalization of the umbilical artery is incidentally noted. Abdominal wall: Diastases of the rectus abdominis is seen. There is a large fat- containing umbilical hernia. Bones: Degenerative changes in the visualized spine. IMPRESSION: 1. No acute abnormalities to explain right flank pain. In particular, there is no evidence of hydronephrosis or obstructive nephrolithiasis. 2. Cirrhosis. 3. Large fat-containing umbilical hernia. 4. Additional findings as above. ACT 112: Negative or not required by law. Electronically signed by: Junior Lou M.D. 10/10/2021 4:25 PM Hospital Course (1) Bright red blood per rectum: - One episode on 10/10 - no further - Placed in observation overnight and plavix held - H&H stable - Suspect hemorrhoidal - will treat empirically with Anusol suppositories BID x 14 days. Give one before she leaves. - Follows with Dr. Sandoval, has a scheduled appt to see him November 07, would advise keeping this scheduled appointment - In the event of any further bleeding, would advise she contact his office to scheduled sooner follow up (2) HTN (hypertension): - BP acceptably controlled with medications (3) Hypothyroidism: - Levothyroxine continued (4) Cirrhosis: - Stable, LFTs within normal limits (5) Diabetes: - NIDDM - Blood sugar readings are well controlled Patient is medically hemodynamically stable for discharge at this time as she has had no further episodes of rectal bleeding and H&H remained stable. She has a scheduled appointment to see Dr. Sandoval at the end of October which she has been advised to keep this. Recommend follow-up with primary care within 1 week of discharge. Can resume her Plavix. Above plan of care has been discussed and agreed upon with Dr. Jenkins who has also seen and evaluated this patient prior to discharge. Total Time Total Time Spent Total Time Spent (In Minutes): >30 minutes Discharge Plan Discharge Items Patient Disposition: Home - Self-Care Reason For Visit: BRIGHT RED BLOOD PER RECTUM Discharge Diagnosis: Bright red blood from rectum, likely hemorrhoids Activity: Resume your previous activity Non-emergency contact: Primary Care Provider and Manager Home Healthcare Call non-emergency contact if: you have any medication questions and your symptoms worsen Follow-up/Referrals: Sabine Aldrich MD [Primary Care Provider] - 10/19/21 9:20 am (Appointment with KT Arguello) Diet: Carb Consistent or DM2 Addtl Attending Provider Instructions: You were hospitalized due to concern for bleeding from your rectum. This was likely an episode due to an inflamed hemorrhoid that caused the bleeding. It is reassuring that your blood counts have not changed at all which suggests that you have NOT had any significant blood loss through your gastrointestinal tract. Since you have an appointment set up with Dr. Sandoval on November 07, I would advise keeping this appointment. I do not believe that you need to see Dr. Sandoval any sooner than is currently scheduled. If you have another episode of passing bright red blood from your rectum, I would advise contacting Dr. Sandoval's office. You may resume all medications as currently prescribed. No changes have been made to your currently prescribed medications. I am adding Hydrocotisone suppositories. You should use use one suppository twice a day x 2 weeks to help reduce the inflammation associated with hemorrhoids. I recommend follow up with your primary care provider within 1 week of discharge. If you have any questions following your discharge, feel free to contact the nonemergency number listed on your discharge paperwork. In the event of a medical emergency, call 911. Pending Studies at Discharge: No Stand-Alone Forms: My [facility], Smoking Cessation Medications and DC Order Prescriptions: New hydrocortisone acetate [Anusol-HC] 25 mg suppository 25 mg VA BID 14 Days Qty: 24 RF: 0 Continued (DME) Diabetic Shoes Misc See Rx Instructions .ROUTE .MEDSUPPLY Qty: 1 RF: 0 (DME) lancets [OneTouch Delica Plus Lancet] 33 gauge misc See Dose Instructions .ROUTE .MEDSUPPLY Qty: 200 RF: 1 clopidogrel 75 mg tablet 75 mg PO QAM Qty: 90 RF: 3 (DME) OneTouch Verio test strips Strip See Dose Instructions .ROUTE .MEDSUPPLY Qty: 100 RF: 11 magnesium oxide 400 mg (241.3 mg magnesium) tablet 400 mg PO HS Qty: 90 RF: 1 cholecalciferol (vitamin D3) [Vitamin D3] 50 mcg (2,000 unit) capsule 50 mcg PO QPM RF: 0 glimepiride 1 mg tablet 1 mg PO QAM RF: 0 lisinopril 20 mg tablet 20 mg PO QAM RF: 0 levothyroxine 75 mcg tablet 75 mcg PO DAILYBB RF: 0 Jentadueto 2.5-500 mg tablet 1 tab PO QAM RF: 0 cyanocobalamin (vitamin B-12) 1,000 mcg tablet 1,000 mcg PO QAM RF: 0 atenolol 25 mg tablet 25 mg PO QPM RF: 0 Discharge Orders: Discharge Order (Routine); Ordered 10/11/21 Ordered By: Milli Way Admission Data Admit Date/Time: 10/10/21 18:25 Attending Provider: David Jenkins Admit Provider: Ken Thompson Primary Care Provider: Sabine Aldrich Other Providers: Donald Whitt Other Interventions: Discharge Summary Assessment (RN) Last Done: 10/11/21 15:40 Supervising Physician Co-Signing Physician Notes Patient seen and examined, chart reviewed, case discussed with Elisabeth Way PA-C and I agree with the assessment and plan as above except as otherwise noted. Patient is a 86-year-old female with a history of hemorrhoids who presented for bright red blood per rectum. Patient seen at bedside prior to discharge. Blood pressure 160s/70s at bedside check, lungs are clear, heart rate is regular. Patient has history of hypertension worsened with anxiety, but which is then reasonably controlled between episodes. Defer additional antihypertensives at this time for risk of hypotension, no sustained SBP greater than 180. Hemoglobin has been stable, no further episodes of bleeding. Has a history of cirrhosis for which she follows with GI. CT shows no acute abnormalities, liver nodularity consistent with cirrhosis, hernia. No evidence of diverticulitis or diverticulosis. No free air. No bowel obstruction. Red blood without melena consistent with lower GI bleed/appearance. Discharged with hydrocortisone with follow-up to GI. Return precautions and monitoring provided. Coding Level of Care Code D/C DAY MANAGEMENT >30 MINS Diagnoses Bright red blood per rectum K62.5 HTN (hypertension) I10 Hypertension type: unspecified Hypothyroidism E03.9 Cirrhosis K74.60 Ascites presence: unspecified Hepatic cirrhosis type: unspecified hepatic cirrhosis Diabetes E11.9 Diabetes mellitus complication status: without complication Diabetes mellitus buttermaker helper insulin use: without buttermaker helper use Diabetes mellitus type: type 2
[2021-10-11] MEDS ORDERED: HYDROCORTISONE ACETATE 25 MG SUPP PR STA (14:59)
== END 2021-10-11 16:22 | disposition home or self-care (01) | DRG 395 ==
LOC: ED 13:56 → 2N 18:25 → SUATTDRO 18:25 → 2N 19:30

== ENCOUNTER 2022-05-02 09:53 | Inpatient (IN) ==
[~2022-05-02 09:53] MED LIST changes: -ALLO300T2 PO; -ALPR-411 PO; -ASPI81TA28 PO; -ATEN50TA8 PO; -ATOR10TA82 PO; -CHOL100010 PO; -ESCI1TAB6 PO; -GLIM1TAB PO; -HYDR-5688 PO; +LABETALOL HCL IV 5 MG/ML 20ML IV PRN; -LEVO112T4 PO; -LORA10TA6 PO; -SITA50TA5 PO; -TERA5CAP PO
--- NOTE | 2022-05-02 09:53 | Emergency Department Note ---
Impression & Plan Acute CVA (cerebrovascular accident), Left arm weakness, Hypomagnesemia ED Provider Note NAME: NIKKI CURIEL AGE: 87 SEX: F : 1935 ARRIVES VIA: Ambulance INFORMANT: Patient, ED PROVIDER(S): Frandy Stoddard MD CHIEF COMPLAINT: Strokelike symptoms MEDICAL DECISION MAKING: Patient presents due to concern for strokelike symptoms. The patient reportedly had felt weak this morning and I did receive a call about a stroke alert. Did speak with EMS who stated the patient's BSG was in the 200s. Patient did have a systolic greater than 200. Patient has a known history of A. fib on Plavix but no blood thinning medications. Patient did have blood work completed along with a CT of the head EKG. Patient not a TNKase candidate given the patient's last known well was around [address] angiography's were not ordered given the patient's iodine contrast allergy which includes difficulty with breathing and severe reaction. Patient CT head negative. I did speak with telestroke neurologist Dr. Andrews and discussed the patient's NIH was approximately 6 given the drift in the right lower as well as the weakness in the right upper extremity. She did recommend aspirin at the patient is no prior issue. The patient would also benefit from MRI and MRA of the head and neck. These were ordered. Upon discussing the aspirin with the patient the patient states that she could not take it. The patient is unsure as to why. This was held for this time. Patient's blood work with a normal white count H&H and platelet count. The patient does have mild kidney dysfunction today with creatinine 1.3. Patient w as ordered a small IV fluid bolus. BSG 168 lab sugar 172. Magnesium low 1.3 ordered for replacement. Patient's troponin is borderline elevated at 19. The patient does not complain of any chest pains or shortness of breath. I did speak the on-call hospitalist service and the patient was admitted to the medicine service by Dr. Whitt. MRI does show concern for left JOSELYN stroke Prior /Outside records reviewed: None Differential diagnosis: Infection, dehydration, metabolic abnormality, hypo/hyperglycemia, electrolyte disturbance, anemia, hypoxia, cardiac sources, intracerebral event, toxicologic, neurologic, as well as other pathologies. Diagnostics, as interpreted by me: ECG: A. fib versus a flutter appears to be a flutter with a variable block ventricular rate of 68, left axis deviation and T wave versions high lateral leads. No ST elevations. Patient's A. fib has replaced sinus rhythm from comparison March 21, 2020 Cardiac monitoring: An order was placed for continuous cardiac monitoring. The monitor shows a rate of with rhythm. Patient was placed on pulse oximetry Medical decision rules: None Imaging studies: See below HPI: Patient presents due to concern for strokelike symptoms with right upper extremity weakness and right lower extremity weakness as well as difficulty with ambulation. Patient denies any head or neck pain. Patient did have a fall this morning and I did receive an EMS command call concern for stroke at the time that they presented. BSG was in the 200s and the patient systolic was greater than 200. Patient states that she did take her morning medications. Patient has no pains but does have some associated nausea. She did receive 4 Zofran in route. No vomiting no diarrhea. Patient does have prior history of stroke and does have a known history of A. fib but takes Plavix no other blood thinning medications. Patient denies any head strike or LOC. PAST MEDICAL HISTORY: See Below PAST SURGICAL HISTORY: See Below SOCIAL HISTORY: See Below HOME MEDICATIONS: See Below ALLERGIES: See Below VITALS: See Below PHYSICAL EXAMINATION: GENERAL: NAD, wearing a mask, non-toxic. EYE EXAM: Normal conjunctiva. PERRL, no anisocoria and EOM's grossly intact w/o pain. NECK: Supple, no nuchal rigidity, no adenopathy, non-tender. No signs of meningismus. FROM of the neck with good chin to chest and neck extension. No stridor. LUNGS: Clear to auscultation. Normal chest wall mechanics. HEART: NSR, no MRG. ABDOMEN: Abdomen soft, non-tender, normo-active bowel sounds, no masses, no rebound or guarding. BACK: No CVA TTP. SKIN: No rashes and no bruising. UPPER EXTREMITIES: Upper extremities are grossly normal. LOWER EXTREMITIES: Grossly normal, no edema. 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 Past Med/Surg History Medical History Acute kidney injury superimposed on CKD Chronic back pain Cirrhosis COVID-19 Diabetes NIDDM History of anesthesia reaction hallucinations after back surgery. Hx of cancer of uterus NO CHEMO/NO RADIATION Hyperlipidemia Left ureteral stone Obesity Personal history of kidney stones Poor historian Statin myopathy Stroke Surgical History H/O colonoscopy 10/07/19 Dr. Nilton Sandoval History of arthroplasty of right knee History of lithotripsy LEFT ESWL= 11/26/15= LMA#4 History of lumbar surgery X2 Hx of bilateral cataract extraction Hx of colonoscopy Hx of hand surgery Hx of hernia repair VENTRAL Hx of hysterectomy Robotic Lap hysterectomy with BSO Hx of tonsillectomy Hx of wisdom tooth extraction S/P total knee replacement using cement Family History Father , in his 30s according to the patient Liver cancer Colorectal cancer Mother , age 87 of renal complications Kidney disease Parkinson disease Son Diabetes Unknown Hypertension Denies family history of Ovarian cancer Prostate cancer Myocardial infarction Breast cancer Social History Smoking Status: Former smoker Second Hand Exposure: No; Do You Dip or Chew Tobacco: No; Tobacco Cessation Education Requested by Patient: No Hx Alcohol Use: No Hx Substance Use: No Preferred Language: Uzbek Communication Ability: Effective Visual Impairment: No Limitations Hearing Ability: Normal 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 Salt Required: No Beliefs That Will Affect Care: None marital status: Current Living Situation: Family Current Living Situation Comment: and son current occupational status: retired 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 Other Information That Helps Us Care for You: No other: 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 Feels Safe at Home: Yes Safety Concerns: Feels Safe At This Time Childhood Exposure to Second-Hand Smoke: Yes Dental Care, Regularly: Yes Physical Activity Frequency: 1-2 Times per Week Seatbelt Use: always Sunscreen Use: Yes Assistive Devices: Denture - Upper, Glasses and Walker Allergies Allergies Allergy/AdvReac Type Severity Reaction Status Date / Time iodine Allergy Severe IV Verified 04/25/22 11:45 DYE-TROUBLE BREATHING HOARSENESS-SEVERE REACTION tramadol Allergy Severe HIVES, Verified 04/25/22 11:45 ITCHING morphine Allergy Intermediate HALLUCINATI Verified 04/25/22 11:45 ONS propoxyphene Allergy Intermediate ITCHING Verified 04/25/22 11:45 scallops Allergy Intermediate DIARRHEA, Verified 04/25/22 11:45 VOMITING ciprofloxacin Allergy Mild SICK Verified 04/25/22 11:45 Penicillins Allergy Mild RASH Verified 04/25/22 11:45 candesartan Allergy Unknown UNKNOWN Verified 04/25/22 11:45 oxycodone Allergy Unknown UNKNOWN Verified 04/25/22 11:45 topiramate Allergy Unknown UNKNOWN Verified 04/25/22 11:45 atorvastatin AdvReac Intermediate Muscle Pain Verified 04/25/22 11:45 levothyroxine sodium AdvReac Mild Dry mouth; Verified 04/25/22 11:45 fatigue Home Meds Home Medications Medication Instructions Recorded Confirmed cholecalciferol (vitamin D3) 50 50 mcg PO QPM 07/11/21 04/05/22 mcg (2,000 unit) capsule (Vitamin D3) cyanocobalamin (vitamin B-12) 1,000 mcg PO QAM 10/10/21 04/05/22 1,000 mcg tablet linagliptin 2.5 mg-metformin 500 1 tab PO QAM 10/10/21 04/05/22 mg tablet (Jentadueto) Previous Rx's Medication Instructions Recorded Diabetic Shoes #1 ea 07/04/19 lancets 33 gauge (OneTouch Delica #200 ea 02/11/20 Plus Lancet) OneTouch Verio test strips (blood #100 ea 05/17/21 sugar diagnostic) levothyroxine 75 mcg tablet 75 mcg PO DAILYBB #90 tabs 10/14/21 hydrocortisone 2.5 % topical cream [address] Q12H PRN hemorrhoids 2 10/19/21 with perineal applicator weeks #30 grams (Proctosol HC) clopidogrel 75 mg tablet 75 mg PO QAM #90 tabs 12/12/21 lisinopril 20 mg tablet 20 mg PO QAM #90 tabs 12/12/21 atenolol 25 mg tablet 25 mg PO QPM #90 tabs 02/01/22 cinacalcet 30 mg tablet (Sensipar) 30 mg PO .COMPLEX #30 tabs 04/26/22 glimepiride 1 mg tablet See Rx Instructions .Route 05/02/22 .COMPLEX #180 tabs Results & Data (ED) Vital Signs Vital Signs - 24 hr 05/02/22 10:21 05/02/22 09:54 05/02/22 10:06 Temperature 36.6 C Temperature Source Oral Pulse Rate 64 71 Pulse Rhythm Irregular Pulse Strength Normal Respiratory Rate 24 25 H Respiratory Effort / Characteristics Non-Labored Respiratory Depth Normal Respiratory Pattern Regular Blood Pressure 182/102 H Blood Pressure Mean 128 Blood Pressure Position Sitting Pulse Oximetry 97 95 95 Oxygen Delivery Method Room Air Room Air Room Air Sepsis Recent Fever Within 48 Hours No Sepsis New/Unexplained Change in Mental Status No Sepsis Action Taken by Nursing No Action Required 05/02/22 10:15 05/02/22 10:15 05/02/22 10:30 Temperature Temperature Source Pulse Rate 67 Pulse Rhythm Pulse Strength Respiratory Rate 22 Respiratory Effort / Characteristics Respiratory Depth Respiratory Pattern Blood Pressure 177/82 H 180/84 H Blood Pressure Mean 113 116 Blood Pressure Position Pulse Oximetry 96 Oxygen Delivery Method Room Air Sepsis Recent Fever Within 48 Hours Sepsis New/Unexplained Change in Mental Status Sepsis Action Taken by Nursing 05/02/22 10:30 Temperature Temperature Source Pulse Rate 63 Pulse Rhythm Pulse Strength Respiratory Rate 24 Respiratory Effort / Characteristics Respiratory Depth Respiratory Pattern Blood Pressure Blood Pressure Mean Blood Pressure Position Pulse Oximetry 98 Oxygen Delivery Method Room Air Sepsis Recent Fever Within 48 Hours Sepsis New/Unexplained Change in Mental Status Sepsis Action Taken by [facility] Medications Current Medication List: was personally reviewed by me Laboratory Data Attestation: I reviewed the patient's lab results. 05/02/22 10:08 05/02/22 10:08 Lab Results 05/02/22 05/02/22 05/02/22 Range/Units 10:02 10:08 10:08 WBC 7.05 (4.8-10.8) K/ul RBC 4.12 (3.93-5.22) M/uL Hgb 12.3 (12.0-16.0) g/dl Hct 37.9 (34.1-44.9) % MCV 92.0 (80.0-100.0) fL MCH 29.9 (25.0-34.0) pg MCHC 32.5 (32.0-36.0) g/dL RDW Std Deviation 47.0 H (36.4-46.3) fL RDW Coeff of Tia 13.9 (11.5-14.5) % Plt Count 151 (130-400) K/uL MPV 10.7 (9.4-12.3) fL Immature Gran % (Auto) 0.6 % Neut % (Auto) 69.0 % Lymph % (Auto) 23.0 % [place] % (Auto) 6.0 % Eos % (Auto) 1.0 % Baso % (Auto) 0.4 % Neut # (Auto) 4.87 (1.4-6.5) K/uL Lymph # (Auto) 1.62 (1.2-3.4) K/uL [place] # (Auto) 0.42 (0.24-0.82) K/uL Eos # (Auto) 0.07 (0-0.50) K/uL Baso # (Auto) 0.03 (0-0.2) K/uL Immature Gran # (Auto) 0.04 H (0.00-0.02) K/uL PT 10.7 (9.0-12.0) Seconds INR 1.0 (0.9-1.1) APTT 27.9 (21.0-31.0) Seconds PTT Ratio 1.0 Sodium (136-145) mmol/L Potassium (3.5-5.1) mmol/L Chloride (98-107) mmol/L Carbon Dioxide (21-32) mmol/L Anion Gap (3-11) BUN (6-23) mg/dl Creatinine (0.6-1.2) mg/dl Est Cr Clr Drug Dosing ml/min Est GFR ( Amer) ml/min Est GFR (Non-Af Amer) ml/min BUN/Creatinine Ratio (10-20) Glucose (70-99(Fasting)) mg/dl POC Glucose 168 H (70-99) mg/dl Calcium (8.5-10.1) mg/dl Magnesium (1.7-2.4) mg/dl Total Bilirubin (0.2-1.0) mg/dl AST (13-39) U/L ALT (7-52) U/L Alkaline Phosphatase (34-104) U/L Troponin I High Sens (0-14) pg/ml Total Protein (6.0-8.3) gm/dl Albumin (3.4-5.0) gm/dl Globulin (2.5-4.0) gm/dl Albumin/Globulin Ratio (0.9-2) 05/02/22 Range/Units 10:08 WBC (4.8-10.8) K/ul RBC (3.93-5.22) M/uL Hgb (12.0-16.0) g/dl Hct (34.1-44.9) % MCV (80.0-100.0) fL MCH (25.0-34.0) pg MCHC (32.0-36.0) g/dL RDW Std Deviation (36.4-46.3) fL RDW Coeff of Tia (11.5-14.5) % Plt Count (130-400) K/uL MPV (9.4-12.3) fL Immature Gran % (Auto) % Neut % (Auto) % Lymph % (Auto) % [place] % (Auto) % Eos % (Auto) % Baso % (Auto) % Neut # (Auto) (1.4-6.5) K/uL Lymph # (Auto) (1.2-3.4) K/uL [place] # (Auto) (0.24-0.82) K/uL Eos # (Auto) (0-0.50) K/uL Baso # (Auto) (0-0.2) K/uL Immature Gran # (Auto) (0.00-0.02) K/uL PT (9.0-12.0) Seconds INR (0.9-1.1) APTT (21.0-31.0) Seconds PTT Ratio Sodium 140 (136-145) mmol/L Potassium 4.2 (3.5-5.1) mmol/L Chloride 108 H (98-107) mmol/L Carbon Dioxide 24 (21-32) mmol/L Anion Gap 8 (3-11) BUN 27 H (6-23) mg/dl Creatinine 1.30 H (0.6-1.2) mg/dl Est Cr Clr Drug Dosing 32.1 ml/min Est GFR ( Amer) 42.4 ml/min Est GFR (Non-Af Amer) 36.6 ml/min BUN/Creatinine Ratio 20.8 H (10-20) Glucose 172 H (70-99(Fasting)) mg/dl POC Glucose (70-99) mg/dl Calcium 9.7 (8.5-10.1) mg/dl Magnesium 1.3 L (1.7-2.4) mg/dl Total Bilirubin 0.4 (0.2-1.0) mg/dl AST 16 (13-39) U/L ALT 13 (7-52) U/L Alkaline Phosphatase 62 (34-104) U/L Troponin I High Sens 19.4 H (0-14) pg/ml Total Protein 6.9 (6.0-8.3) gm/dl Albumin 3.9 (3.4-5.0) gm/dl Globulin 3.0 (2.5-4.0) gm/dl Albumin/Globulin Ratio 1.3 (0.9-2) Administered Medications Lactated Ringer's (Lr) 1,000 mls @ 125 mls/hr IV .Q8H TIFFANY Stop: 05/02/22 22:14 Last Admin: 05/02/22 15:23 Dose: 125 mls/hr Documented By: BHAVIN Insulin Aspart (Insulin Aspart Per Unit) 0 units SC ACHS TIFFANY Stop: 06/01/22 13:42 Last Admin: 05/02/22 15:02 Dose: Not Given Documented By: BHAVIN Discontinued Medications Aspirin (Aspirin Chew 324 Mg) 324 mg PO NOW STA Stop: 05/02/22 12:08 Last Admin: 05/02/22 12:32 Dose: 324 mg Documented By: LILI Gadobutrol (Gadobutrol 65ml Vial) 8.5 ml IV ONCE ONE Stop: 05/02/22 16:50 Last Admin: 05/02/22 16:49 Dose: 8.5 ml Documented By: JENA Sodium Chloride (Nss 1000ml) 500 mls @ 999 mls/hr IV .Q31M ONE Stop: 05/02/22 11:37 Last Infusion: 05/02/22 11:47 Dose: 0 mls/hr Documented By: Admin: 05/02/22 11:14 Dose: 999 mls/hr Documented By: LILI Magnesium Sulfate/Dextrose (Magnesium Sulfate / D5w) 1 gm in 100 mls @ 100 mls/hr IV NOW STA Stop: 05/02/22 12:06 Last Infusion: 05/02/22 12:30 Dose: 0 mls/hr Documented By: Admin: 05/02/22 11:14 Dose: 100 mls/hr Documented By: LILI Magnesium Sulfate/Dextrose (Magnesium Sulfate / D5w) 1 gm in 100 mls @ 50 mls/hr IV ONE ONE Stop: 05/02/22 13:59 Last Infusion: 05/02/22 15:22 Dose: 0 mls/hr Documented By: Admin: 05/02/22 12:33 Dose: 50 mls/hr Documented By: LILI Ondansetron HCl 6 mg/ Dextrose 53 mls @ 200 mls/hr IV NOW STA Stop: 05/02/22 12:19 Last Infusion: 05/02/22 12:43 Dose: 0 mls/hr Documented By: Admin: 05/02/22 12:23 Dose: 200 mls/hr Documented By: LILI Imaging Data Radiologist's Impression: Head CT 05/02/22 09:51 CT head/brain wo con CLINICAL HISTORY: 87 years-old Female with neuro deficit, acute stroke suspected. Acute strokelike symptoms TECHNIQUE: Multiple axial CT images of the head were obtained without contrast. A dose lowering technique was utilized adhering to the principles of ALARA. CT DOSE: 614.27 mGy.cm COMPARISON: 03/21/2022 FINDINGS: No acute intracranial hemorrhage, midline shift, intracranial mass, hydrocephalus, territorial ischemia or abnormal extra-axial collection. Involutional changes with chronic microvascular ischemic disease. Hyperostosis frontalis interna. No acute calvarial fracture. No mucosal thickening of the ethmoid air cells. Mastoid air cells are clear. Unremarkable soft tissues. Prior bilateral lens repair. IMPRESSION: No acute intracranial abnormality identified. ACT 112: Negative or not required by law. The above report was generated using voice recognition software. It may contain grammatical, syntax or spelling errors. Electronically signed by: Derek Martin M.D. 05/02/2022 10:03 AM Brain MRI 05/02/22 10:31 Brain MRI WITHOUT CONTRAST HISTORY: Dizziness. Possible stroke. R arm weakness, R leg drift TECHNIQUE: Multiplanar multisequence MRI of the brain was performed without the use of contrast. COMPARISON STUDY: Head CT 05/02/2022. FINDINGS: Multiple small foci of restricted diffusion seen within the left high convexity and left frontal lobe consistent with acute left JOSELYN territory infarcts. The midline structures are intact. Trace right mastoid effusion. Mild mucosal thickening within the paranasal sinuses. The major vascular flow-voids at the skull base are well-maintained. The ventricles and sulci demonstrate mild age-related involutional changes. There is no mass, hematoma, midline shift. Mild T2 hyperintensity within the periventricular white matter is nonspecific but favors microvascular ischemic change. There is mild cytotoxic edema seen within the left high convexity due to the acute infarct. IMPRESSION: Multiple small foci of restricted diffusion seen within the left frontal lobe/left high convexity consistent with an acute left JOSELYN territory infarct. ACT 112: Negative or not required by law. Electronically signed by: Kenneth Mishra M.D. 05/02/2022 4:35 PM Head MRA 05/02/22 10:31 MR ANGIOGRAM OF THE BRAIN CLINICAL HISTORY: Right arm weakness. COMPARISON STUDY: MRI of the brain performed concurrently on 05/02/2022. TECHNIQUE: 3-D [id number] MR angiography of the intracranial circulation is performed. 3-D tumble views are created and assessed. IV contrast was not administered for this examination. The examination is degraded by motion artifact. FINDINGS: There are bilateral posterior communicating arteries. The internal carotid arteries are patent bilaterally, as are the anterior and middle cerebral arteries. The vertebrobasilar system and posterior cerebral arteries are patent. The vertebral arteries are codominant. There is no aneurysm, high-grade stenosis, or focal vessel cutoff seen throughout the intracranial circulation. IMPRESSION: Unremarkable MR angiogram of the brain noting a motion degraded examination. ACT 112: Negative or not required by law. Electronically signed by: Chi Crystal M.D. 05/02/2022 4:33 PM Discharge Plan Visit Data Chief Complaint: Stroke Alert Stated Complaint: STROKE ALERT ED Provider: Frandy Stoddard Discharge Problem: Acute CVA (cerebrovascular accident), Left arm weakness, Hypomagnesemia Patient Disposition: Admitted As Inpatient Discharge Instructions Interventions: ED Discharge Assessment Last Done: 05/02/22 13:39
--- NOTE | 2022-05-02 10:04 | CT Scan Report ---
CT head/brain wo con CLINICAL HISTORY: 87 years-old Female with neuro deficit, acute stroke suspected. Acute strokelike s ymptoms TECHNIQUE: Multiple axial CT images of the head were obtained without contrast. A dose lowering tech nique was utilized adhering to the principles of ALARA. CT DOSE: 614.27 mGy.cm COMPARISON: 03/21/2022 FINDINGS: No acute intracranial hemorrhage, midline shift, intracranial mass, hydrocephalus, territorial ischem ia or abnormal extra-axial collection. Involutional changes with chronic microvascular ischemic disea se. Hyperostosis frontalis interna. No acute calvarial fracture. No mucosal thickening of the ethmoid ai r cells. Mastoid air cells are clear. Unremarkable soft tissues. Prior bilateral lens repair. IMPRESSION: No acute intracranial abnormality identified. ACT 112: Negative or not required by law. The above report was generated using voice recognition software. It may contain grammatical, syntax o r spelling errors. Electronically signed by: Derek Martin M.D. 05/02/2022 10:03 AM
[2022-05-02 10:34] LABS: Hematocrit (blood only) 37.9 % (34.1-44.9); Hemoglobin 12.3 g/dl (12.0-16.0); Mean Corpuscular Hemoglobin 29.9 pg (25.0-34.0); Mean Corpuscular Hgb Conc 32.5 g/dL (32.0-36.0); Mean Platelet Volume 10.7 fL (9.4-12.3); Platelet Count 151 K/uL (130-400); RDW Coefficient of Variation 13.9 % (11.5-14.5); Red Blood Count 4.12 M/uL (3.93-5.22); White Blood Count 7.05 K/ul (4.8-10.8)
[2022-05-02 10:38] LABS: Partial Thromboplastin Time 27.9 Seconds (21.0-31.0); Prothrombin Time 10.7 Seconds (9.0-12.0)
[2022-05-02 10:40] LABS: Albumin Globulin Ratio 1.3 (0.9-2); Albumin Level 3.9 gm/dl (3.4-5.0); BUN Creatinine Ratio 20.8 (10-20); Bilirubin,Total 0.4 mg/dl (0.2-1.0); Calcium 9.7 mg/dl (8.5-10.1); Creatinine Clr Calc Pharmacy 32.1 ml/min; Est GFR (African American) 42.4 ml/min; Est GFR (Non-African American) 36.6 ml/min; Magnesium 1.3 mg/dl (1.7-2.4); Potassium 4.2 mmol/L (3.5-5.1); Total Protein 6.9 gm/dl (6.0-8.3)
[2022-05-02 10:45] LABS: Troponin I High Sensitivity 19.4 pg/ml (0-14)
[2022-05-02 10:47] LABS: Basophils # (auto) 0.03 K/uL (0-0.2); Basophils % (auto) 0.4 %; Eosinophils # (auto) 0.07 K/uL (0-0.50); Immature Granulocytes # (auto) 0.04 K/uL (0.00-0.02); Immature Granulocytes % (auto) 0.6 %; Lymphocytes # (auto) 1.62 K/uL (1.2-3.4); Monocytes # (auto) 0.42 K/uL (0.24-0.82); Neutrophils # (auto) 4.87 K/uL (1.4-6.5)
--- NOTE | 2022-05-02 11:02 | History & Physical Report ---
Date of Service May 02, 2022 Assessment & Plan (1) CVA (cerebral vascular accident): Plan: - RUE weakness globally weak to use RUE, with unsteadiness, dizziness, nausea. - LKW 1112 AM last evening. Not a TNKase candidate. - Head CT: No acute intracranial abnormality identified. - Patient with severe iodine allergy, therefore MRA head, neck, MRI brain ordered, pending. - Patient already on Plavix 75 mg daily for prior stroke, discussed with telestroke neurologist: Recommending loading dose aspirin 324 mg now, with DAPT aspirin 81 mg plus Plavix 75 mg starting tomorrow. - If patient is consistently in A. fib/a flutter, then would recommend initiating anticoagulation in several days out and reducing DAPT to just 1 agent to reduce bleeding risk. - Echo in a.m. - CBC, BMP, HbA1c, lipid panel in a.m. - PT, OT, ST to evaluate in a.m. - Hold anti-hypertensives (atenolol, lisinopril) and allow for permissive hypertension for next 24 hours. - Avoid hypotension, hypoglycemia. - Telemetry for 24 hours, evaluate for episodes of atrial fibrillation. (2) Atrial flutter: Plan: - EKG shows rate controlled a fib/a flutter, may be elevated due to demand. Will be on PCU and getting echo as above for CVA workup. - If patient needs AC, would change DAPT to single agent. (3) Elevated troponin: Plan: - Troponin elevated 19.4, repeat pending. Will trend overnight. (4) Urinary retention with incomplete bladder emptying: Plan: - History of, patient with purewick catheter and complaining of sensation to urinate without output--bladder scanned for 61 cc. - CT A/P ordered to eval for developing abdominal pain, concern for ischemic colitis with lactate 2.7, new onset atrial flutter-->CTAP with distended bladder, otherwise no acute findings. - Patient has been urinating small amounts on her own over the afternoon, bladder scanned for > 100 cc, Banks catheter placed with 1000cc clear yellow urine drained and alleviation of abdominal pain. (5) Acute kidney injury superimposed on CKD: Plan: - Cr 1.30, GFR 36.0, baseline Cr 1.0 - 1.2. - Received IVF in ED; continue to monitor on AM labs. - Avoid nephrotoxins, renally dose medications as able. (6) Hypomagnesemia: Plan: - 1.3, replete and recheck with AM labs. (7) Memory loss: Plan: - History fo prior stroke affecting short term memory. (8) Primary hyperparathyroidism: Plan: - Follows with PCP with referral to endocrinology. - Continue cinacalcet. - Ca 9.7. (9) Cirrhosis: Plan: - History of, compensated. Follows with GI. - INR 1.0, Na 140, Cr 1.30, t bili 0.4. (10) Hypertension: Plan: - Hold lisinopril, atenolol to allow for permissive HTN. (11) Hypothyroidism: Plan: - Continue levothyroxine. (12) Controlled type 2 diabetes mellitus with kidney complication, without long- term current use of insulin: Plan: - RELIEF CHARGE NURSE--> Jentadueto, glimepiride. - Hold home agents, place on basal/bolus insulin. - A1c in AM. - DM2 diet. Plan - Admit to PCU. - SCDs for VTE ppx. - Full Code. 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 Patient woke up this morning feeling weak and unsteady on her right side. EMS was called, patient was made a stroke alert. Last known well 1112 last evening. On presentation, patient has total right arm weakness and feeling dizzy and nauseous. No other neurodeficits. NIH 6. Presentation BSG in 200s, systolic BP 200s. EKG read as A. fib, appears like atrial flutter, rate controlled. Patient has an isolated incident of A. fib on EKG from May 2020, has not followed up with cardiology regarding anticoagulation. CT head ordered, without evidence of hemorrhage, infarct, midline shift or mass- effect. Telestroke consult was placed, recommending full dose aspirin, further imaging to include MRA head/neck and brain MRI (patient has severe iodine contrast allergy). Labetalol ordered, however SBP dropped to 170-180 prior to administration, therefore it was not given to allow for permissive hypertension. She has no other deficits other than total right arm weakness and decreased histology specialist strength. Allergies Allergy/AdvReac Type Severity Reaction Status Date / Time iodine Allergy Severe IV Verified 04/25/22 11:45 DYE-TROUBLE BREATHING HOARSENESS-SEVERE REACTION tramadol Allergy Severe HIVES, Verified 04/25/22 11:45 ITCHING morphine Allergy Intermediate HALLUCINATI Verified 04/25/22 11:45 ONS propoxyphene Allergy Intermediate ITCHING Verified 04/25/22 11:45 scallops Allergy Intermediate DIARRHEA, Verified 04/25/22 11:45 VOMITING ciprofloxacin Allergy Mild SICK Verified 04/25/22 11:45 Penicillins Allergy Mild RASH Verified 04/25/22 11:45 candesartan Allergy Unknown UNKNOWN Verified 04/25/22 11:45 oxycodone Allergy Unknown UNKNOWN Verified 04/25/22 11:45 topiramate Allergy Unknown UNKNOWN Verified 04/25/22 11:45 atorvastatin AdvReac Intermediate Muscle Pain Verified 04/25/22 11:45 levothyroxine sodium AdvReac Mild Dry mouth; Verified 04/25/22 11:45 fatigue Home Medications Medication Instructions Recorded Confirmed Type Diabetic Shoes #1 ea 07/04/19 04/05/22 Rx lancets 33 gauge (OneTouch Delica #200 ea 02/11/20 04/05/22 Rx Plus Lancet) OneTouch Verio test strips (blood #100 ea 05/17/21 04/05/22 Rx sugar diagnostic) cholecalciferol (vitamin D3) 50 50 mcg PO QPM 07/11/21 04/05/22 History mcg (2,000 unit) capsule (Vitamin D3) cyanocobalamin (vitamin B-12) 1,000 mcg PO QAM 10/10/21 04/05/22 History 1,000 mcg tablet linagliptin 2.5 mg-metformin 500 1 tab PO QAM 10/10/21 04/05/22 History mg tablet (Jentadueto) hydrocortisone 2.5 % topical cream 1 applic GA Q12H PRN hemorrhoids 2 10/19/21 04/05/22 Rx with perineal applicator weeks #30 grams (Proctosol HC) clopidogrel 75 mg tablet 75 mg PO QAM #90 tabs 12/12/21 04/05/22 Rx atenolol 25 mg tablet 25 mg PO QPM #90 tabs 02/01/22 04/05/22 Rx cinacalcet 30 mg tablet (Sensipar) 30 mg PO .COMPLEX #30 tabs 04/26/22 04/26/22 Rx glimepiride 1 mg tablet See Rx Instructions .Route 05/02/22 Rx .COMPLEX #180 tabs levothyroxine 75 mcg tablet 75 mcg PO DAILYBB #90 tabs 05/03/22 Rx aspirin 81 mg tablet,delayed 81 mg PO QAM #4 tabs 05/05/22 Rx release levothyroxine 75 mcg tablet 75 mcg PO DAILYBB #30 tabs 05/05/22 Rx (Synthroid) lisinopril 5 mg tablet (Zestril) 5 mg PO QAM #30 tabs 05/05/22 Rx Past Med/Surg History Medical History Acute kidney injury superimposed on CKD Chronic back pain Cirrhosis COVID-19 Diabetes NIDDM History of anesthesia reaction hallucinations after back surgery. Hx of cancer of uterus NO CHEMO/NO RADIATION Hyperlipidemia Left ureteral stone Obesity Personal history of kidney stones Poor historian Statin myopathy Stroke Surgical History H/O colonoscopy 10/07/19 Dr. Nilton Sandoval History of arthroplasty of right knee History of lithotripsy LEFT ESWL= 11/26/15= LMA#4 History of lumbar surgery X2 Hx of bilateral cataract extraction Hx of colonoscopy Hx of hand surgery Hx of hernia repair VENTRAL Hx of hysterectomy Robotic Lap hysterectomy with BSO Hx of tonsillectomy Hx of wisdom tooth extraction S/P total knee replacement using cement Family History Father , in his 30s according to the patient Liver cancer Colorectal cancer Mother , age 87 of renal complications Kidney disease Parkinson disease Son Diabetes Unknown Hypertension Denies family history of Ovarian cancer Prostate cancer Myocardial infarction Breast cancer Social History Smoking Status: Former smoker Second Hand Exposure: No; Hx Alcohol Use: No Hx Substance Use: No Preferred Language: Upper Sorbian Communication Ability: Effective Visual Impairment: No Limitations Hearing Ability: Normal Cooker Tender Required: No Beliefs That Will Affect Care: None marital status: Current Living Situation: Family Current Living Situation Comment: and son current occupational status: retired 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 Feels Safe at Home: Yes Childhood Exposure to Second-Hand Smoke: Yes Dental Care, Regularly: Yes Physical Activity Frequency: 1-2 Times per Week Seatbelt Use: always Sunscreen Use: Yes Assistive Devices: Cane, Denture - Upper, Glasses and Walker Review of Systems Review of Systems: Constitutional: No fever/chills, weakness, fatigue, myalgias, anorexia, night sweats Eyes: No diplopia, no worsening or blurred vision ENT: normal hearing, no trouble swallowing Respiratory: No cough, sputum, dyspnea at rest or on exertion Cardiovascular: No chest pain, tightness or palpitations Abdomen: No pain, nausea, vomiting, diarrhea or constipation : Denies dysuria, hematuria, increased urgency/frequency, urinary retention Musculoskeletal: No joint pain, calf pain, swelling Neurologic: Right upper extremity total weakness, decreased histology specialist strength; no other weakness, numbness/tingling, or balance problems Psychiatric: No anxiety or depression Skin: No rash or itch Physical Exam Physical Exam: General: awake, alert, no apparent distress Head: Normocephalic, atraumatic ENT: PERRL, EOMI, no pharyngeal exudate, mucous membranes moist Chest: Clear to auscultation, on room air, no adventitious breath sounds Cardiac: Regular rate and rhythm, no murmur, no JVD, normal peripheral pulses, good capillary refill Abdominal: NABS x 4 quadrants, soft, nontender to palpation, no rebound, guarding or tenderness Extremities: Normal inspection, no peripheral edema or erythema, calfs nontender to palpation Psych: Normal mood and affect Neuro: Right upper extremity strength 0/5, reduced histology specialist strength in right hand; strength otherwise intact bilaterally and rated 5/5, sensation intact throughout, AAO x 3, speech is clear, no peripheral sensory deficits Skin: no rash or erythema Results & Data Results & Data ([facility]) Vital Signs (Past 12 Hours) Vital Signs Temp Pulse Resp BP Pulse Ox O2 Del Method 05/02/22 10:30 63 24 98 Room Air 05/02/22 10:30 180/84 H 05/02/22 10:15 67 22 96 Room Air 05/02/22 10:15 177/82 H 05/02/22 10:06 71 25 H 95 Room Air 05/02/22 09:54 36.6 C 64 24 182/102 H 95 Room Air 05/02/22 10:21 97 Room Air Laboratory Results Abnormal lab results 05/02/22 05/02/22 05/02/22 Range/Units 10:02 10:08 10:08 RDW Std Deviation 47.0 H (36.4-46.3) fL Immature Gran # (Auto) 0.04 H (0.00-0.02) K/uL Chloride 108 H (98-107) mmol/L BUN 27 H (6-23) mg/dl Creatinine 1.30 H (0.6-1.2) mg/dl BUN/Creatinine Ratio 20.8 H (10-20) Glucose 172 H (70-99(Fasting)) mg/dl POC Glucose 168 H (70-99) mg/dl Magnesium 1.3 L (1.7-2.4) mg/dl Troponin I High Sens 19.4 H (0-14) pg/ml Diagnostic Findings Head CT 05/02/22 09:51 CT head/brain wo con CLINICAL HISTORY: 87 years-old Female with neuro deficit, acute stroke suspected. Acute strokelike symptoms TECHNIQUE: Multiple axial CT images of the head were obtained without contrast. A dose lowering technique was utilized adhering to the principles of ALARA. CT DOSE: 614.27 mGy.cm COMPARISON: 03/21/2022 FINDINGS: No acute intracranial hemorrhage, midline shift, intracranial mass, hydrocephalus, territorial ischemia or abnormal extra-axial collection. Involutional changes with chronic microvascular ischemic disease. Hyperostosis frontalis interna. No acute calvarial fracture. No mucosal thickening of the ethmoid air cells. Mastoid air cells are clear. Unremarkable soft tissues. Prior bilateral lens repair. IMPRESSION: No acute intracranial abnormality identified. ACT 112: Negative or not required by law. The above report was generated using voice recognition software. It may contain grammatical, syntax or spelling errors. Electronically signed by: Derek Martin M.D. 05/02/2022 10:03 AM ECG Additional Comments: Atrial fibrillation Left axis deviation Incomplete right bundle branch block Voltage criteria for left ventricular hypertrophy Cannot rule out Septal infarct (cited on or before 02-MAY-2022) ST & T wave abnormality, consider lateral ischemia Abnormal ECG When compared with ECG of 21-MAR-2022 16:26, Atrial fibrillation has replaced Sinus rhythm. Code Status & VTE Plan Code Status Full code Supervising Physician Co-Signing Physician Notes I personally saw and examined the patient. I verified all caro points and agree with Kizzy Francis PA-C with the following exceptions and/or additions: 87 year old female admission for RUE weakness. Last known well last evening. Unsteady gait with RLE weakness. Atrial flutter on EKG. O/E Alert & Ox3, normal speech exam, CN 2-> 12 intact, Finger flexion 2/5, finger extension 1/5, thumb movement 0/5, wrist flex/ext 0/5, elbow flex/ext 0/5, HS, irr irregular rhythm, no murmurs, Chest CTAB, Abdo - suprapubic tenderness, no guarding or rebound tenderness A/P Acute CVA - Head MRA without contrast and neck MRA with contrast, Brain MRI w/o contrast to assess CVA size, lipid panel, HbA1C, Consult neurology. Outside [facility] for acute thrombolysis but was a telestroke call in the ER. LUANN discussed with telestroke neurologist and recommended aspirin and clopidogrel for now then eventual switching to Eliquis in several days due to a. flutter - start depending on size of CVA on Brain MRI. A. flutter - rate controlled - anticoagulation as above Urinary retention - unclear cause, banks catheter placed in the ER PG Care Time/CCT Total # of Minutes Spent Total Time Spent with Patient: Total time spent is greater than 50% in coordination of care (as documented) at patient's floor/unit and/or counseling patient: Coding Level of Care Code 56822 INT INP/OBS CARE 3/75MIN Diagnoses CVA (cerebral vascular accident) I63.9 Atrial flutter I48.92 Elevated troponin R77.8 Urinary retention with incomplete bladder emptying R33.9 Acute kidney injury superimposed on CKD N17.9; N18.9 Hypomagnesemia E83.42 Memory loss R41.3 Primary hyperparathyroidism E21.0 Cirrhosis K74.60 Ascites presence: unspecified Hepatic cirrhosis type: unspecified hepatic cirrhosis Hypertension I10 Hypertension type: unspecified Hypothyroidism E03.9 Hypothyroidism type: unspecified Controlled type 2 diabetes mellitus with kidney complication, without long-term current use of insulin E11.29 (1) Hypothyroidism Hypothyroidism type: unspecified Qualified Code(s): E03.9 - Hypothyroidism, unspecified (2) Cirrhosis Ascites presence: unspecified Hepatic cirrhosis type: unspecified hepatic cirrhosis Qualified Code(s): K74.60 - Unspecified cirrhosis of liver (3) Hypertension Hypertension type: unspecified Qualified Code(s): I10 - Essential (primary) hypertension
[2022-05-02] MEDS ORDERED: SODIUM CHLORIDE 0.9% 1000ML 500 ML IV ONE (11:07)
[2022-05-02] MEDS ORDERED: MAGNESIUM SULFATE / D5W 1 GM/100 ML BAG IV STA (11:07)
[2022-05-02] MEDS ORDERED: MAGNESIUM SULFATE / D5W 1 GM/100 ML BAG IV ONE (12:00)
[2022-05-02] MEDS ORDERED: ondansetron HCL 6 MG in DEXTROSE 5% 50 ML IV STA (12:04)
[2022-05-02] MEDS ORDERED: ASPIRIN CHEW 324 MG PO STA (12:07)
[2022-05-02] MEDS ORDERED: GLUCAGON FOR INJ 1 MG VIAL SQ PRN (13:43)
[2022-05-02] MEDS ORDERED: DEXTROSE 50% 50 ML SYRINGE IV PRN (13:43)
[2022-05-02] MEDS ORDERED: HYDROCORTISONE HC 2.5% CRM 30GM TUBE EXT PRN (13:43)
[2022-05-02] MEDS ORDERED: CARBOHYDRATES FOR HYPOGLYCEMIA PO PRN (13:43)
[2022-05-02] MEDS ORDERED: GLUCOSE 10 TAB/TUBE PO PRN (13:43)
[2022-05-02] MEDS ORDERED: PHARMACIST DISCHARGE MED REC CONSULT PRN (13:43)
[2022-05-02] MEDS ORDERED: ONDANSETRON INJ 2 MG/ML 2 ML VIAL IV PRN (13:43)
[2022-05-02] MEDS ORDERED: GLUCOSE 40% GEL 15 GM TUBE PO PRN (13:43)
[2022-05-02] MEDS ORDERED: LACTATED RINGER'S 1,000 ML IV SCH (14:15)
[2022-05-02 14:43] LABS: Appearance Urine Clear (Clear); Bacteria Urine Automated Negative (Negative); Bilirubin Urine Negative (Negative); Blood Urine Negative (Negative); Cast Urine Automated 0 /lpf (0-5); Color Urine Yellow; Epithelial Cell Urine Auto >30 /lpf (0-5); Glucose Urine UA Negative (Negative); Ketones Urine Negative (Negative); Leukocyte Esterase Urine 1+ (Negative); Nitrite Urine Negative (Negative); Protein Urine 2+ (Negative); RBC Urine Automated 0-4 /hpf (0-4); Specific Gravity Urine 1.014 (1.000-1.030); Urobilinogen Urine Negative (Negative)
[2022-05-02] MEDS: INSULIN ASPART PER UNIT SC SCH ×3 (15:02→19:51)
--- NOTE | 2022-05-02 15:45 | Ultrasound Report ---
ULTRASOUND OF THE CAROTID ARTERIES CLINICAL HISTORY: elevated troponin, CVA COMPARISON: Comparison is made to MRA 05/02/2019 TECHNIQUE: Real-time, grayscale, and color Doppler sonography of the carotid arteries is performed. I mages are reviewed in the transverse and longitudinal planes. FINDINGS: The carotid arteries are patent bilaterally and demonstrate antegrade flow. There is severe atheroscl erotic plaque on the right and moderate atherosclerotic plaque on the left. Normal doppler arterial w aveforms are seen throughout. Velocity measurements are listed below. Common carotid peak systolic velocity (cm/sec): RIGHT: 63 LEFT: 83 ICA peak systolic velocity (cm/sec): RIGHT: 182 LEFT: 76 ICA/CC peak systolic ratio: RIGHT: 2.9 LEFT: 0.9 Antegrade flow was shown in the vertebral arteries. The external carotid arteries are patent. IMPRESSION: 1. There is 50-69% stenosis of the right internal carotid artery. The left internal carotid arteries without hemodynamically significant stenosis. 2. Antegrade flow is shown in the vertebral arteries. Society of Radiologists in Ultrasound consensus guidelines: Normal: ICA PSV is <125 cm/sec and no plaque or intimal thickening is visible sonographically additional criteria include ICA/CCA PSV ratio <2.0 and ICA EDV <40 cm/sec <50% ICA stenosis: ICA PSV is <125 cm/sec and plaque or intimal thickening is visible sonographically additional criteria include ICA/CCA PSV ratio <2.0 and ICA EDV <40 cm/sec 50-69% ICA stenosis: ICA PSV is 125-230 cm/sec and plaque is visible sonographically additional criteria include ICA/CCA PSV ratio of 2.0-4.0 and ICA EDV of 40-100 cm/sec ?70% ICA stenosis but less than near occlusion: ICA PSV is >230 cm/sec and visible plaque and luminal narrowing are seen at mcguire-scale and color Dopp ler ultrasound (the higher the Doppler parameters lie above the threshold of 230 cm/sec, the greater the likelihood of severe disease) additional criteria include ICA/CCA PSV ratio >4 and ICA EDV >100 cm/sec ACT 112: Negative or not required by law. Electronically signed by: Junior Lou M.D. 05/02/2022 3:43 PM
--- NOTE | 2022-05-02 16:04 | CT Scan Report ---
ABDOMEN AND PELVIS CT WITHOUT CONTRAST CT DOSE: 1346.14 mGy.cm HISTORY: generalized abdominal pain TECHNIQUE: Multiaxial CT images of the abdomen and pelvis were performed without contrast. A dose lo wering technique was utilized adhering to the principles of ALARA. COMPARISON STUDY: Abdomen and pelvis CT 10/10/2021. FINDINGS: Mild interstitial thickening at the lung bases which is likely chronic. There are few punct ate calcified granulomas within the left lower lobe. No pneumoperitoneum. No pneumatosis. Moderate to severe degenerative changes within the lumbar spine with prior L4-5 posterior decompression. No acut e fractures identified. Small fat-containing left-sided Bochdalek hernia. There is a moderate size fa t-containing umbilical hernia, unchanged. Nodular contour to the liver consistent with cirrhosis. The unenhanced spleen, adrenal glands, and gallbladder are unremarkable. There are few punctate calcific ations within the pancreas consistent with chronic pancreatitis. No CT evidence for acute pancreatiti s. No retroperitoneal lymphadenopathy. Calcified plaque within the normal caliber abdominal aorta. No pelvic lymphadenopathy or pelvic free fluid. There are few punctate stones within the left kidney. S table bilateral renal hypodense lesions which favor cysts. No ureteral stones. No hydronephrosis. The re is a left retrograde aortic renal vein. The bladder is distended. No bladder wall thickening. Prio r hysterectomy. Mild pelvic floor collapse. Suboptimal evaluation for bowel pathology due to the lack of intravenous and oral contrast. However, there is no definite bowel wall thickening or obstruction . Normal appendix. IMPRESSION: 1. No definite bowel wall thickening or obstruction. 2. Normal appendix. 3. Distended bladder. 4. Stable left-sided nephrolithiasis. No ureteral stones. No hydronephrosis. 5. Cirrhotic liver again noted. 6. Additional findings as described above. ACT 112: Negative or not required by law. Electronically signed by: Kenneth Mishra M.D. 05/02/2022 4:01 PM
--- NOTE | 2022-05-02 16:34 | Magnetic Resonance Report ---
MR ANGIOGRAM OF THE BRAIN CLINICAL HISTORY: Right arm weakness. COMPARISON STUDY: MRI of the brain performed concurrently on 05/02/2022. TECHNIQUE: 3-D [id number] MR angiography of the intracranial circulation is performed. 3-D tumble views are created and assessed. IV contrast was not administered for this examination. The examinati on is degraded by motion artifact. FINDINGS: There are bilateral posterior communicating arteries. The internal carotid arteries are pat ent bilaterally, as are the anterior and middle cerebral arteries. The vertebrobasilar system and pos terior cerebral arteries are patent. The vertebral arteries are codominant. There is no aneurysm, hig h-grade stenosis, or focal vessel cutoff seen throughout the intracranial circulation. IMPRESSION: Unremarkable MR angiogram of the brain noting a motion degraded examination. ACT 112: Negative or not required by law. Electronically signed by: Chi Crystal M.D. 05/02/2022 4:33 PM
--- NOTE | 2022-05-02 16:36 | Magnetic Resonance Report ---
Brain MRI WITHOUT CONTRAST HISTORY: Dizziness. Possible stroke. R arm weakness, R leg drift TECHNIQUE: Multiplanar multisequence MRI of the brain was performed without the use of contrast. COMPARISON STUDY: Head CT 05/02/2022. FINDINGS: Multiple small foci of restricted diffusion seen within the left high convexity and left fr ontal lobe consistent with acute left JOSELYN territory infarcts. The midline structures are intact. Trac e right mastoid effusion. Mild mucosal thickening within the paranasal sinuses. The major vascular fl ow-voids at the skull base are well-maintained. The ventricles and sulci demonstrate mild age-related involutional changes. There is no mass, hematoma, midline shift. Mild T2 hyperintensity within the p eriventricular white matter is nonspecific but favors microvascular ischemic change. There is mild cy totoxic edema seen within the left high convexity due to the acute infarct. IMPRESSION: Multiple small foci of restricted diffusion seen within the left frontal lobe/left high convexity con sistent with an acute left JOSELYN territory infarct. ACT 112: Negative or not required by law. Electronically signed by: Kenneth Mishra M.D. 05/02/2022 4:35 PM
[2022-05-02] MEDS ORDERED: GADOBUTROL 65ML VIAL IV ONE (16:49)
--- NOTE | 2022-05-02 17:04 | Magnetic Resonance Report ---
NECK MRA HISTORY: Weakness. Dizziness. Left-sided stroke. TECHNIQUE: [id number] and gadolinium-enhanced MRA of the neck was performed both before and after the intravenous administration of contrast. All measurements were calculated based on NASCET criteri a. COMPARISON STUDY: Carotid Doppler study 05/02/2022. FINDINGS: The aortic arch and proximal great vessels are widely patent. Focal area of high-grade janie nosis at the takeoff of the right vertebral artery. Otherwise, the remaining bilateral vertebral vandana kajal are widely patent. The right common carotid artery is widely patent. Focal area of up to 50% janie nosis within the distal left common carotid artery near the bifurcation. The left internal carotid ar solo appears widely patent. There is a 7 mm segment of 75% stenosis within the proximal right interna l carotid artery. The mid to distal right internal carotid artery is widely patent. No evidence for a rterial occlusion or dissection. IMPRESSION: 1. Approximately 75% focal stenosis involving the proximal 7 mm of right internal carotid artery. 2. Approximately 50% focal stenosis within the distal left common carotid artery near the bifurcation . 3. A focal area of high-grade stenosis at the takeoff of the right vertebral artery. However, this co uld be obscured from the motion artifact. ACT 112: Negative or not required by law. Electronically signed by: Kenneth Mishra M.D. 05/02/2022 5:02 PM
[2022-05-02] MEDS: CHOLECALCIFEROL 1,000 UNITS 25 MCG TAB PO SCH (19:52)
[2022-05-02] MEDS: LANTUS PER UNIT CHARGE SQ SCH (20:02)
[2022-05-02] MEDS ORDERED: ATENOLOL 25 MG TABLET PO SCH ×2 (21:00)
--- NOTE | 2022-05-02 21:27 | XRay Report ---
SINGLE VIEW CHEST CLINICAL HISTORY: Dyspnea. FINDINGS: An AP, portable, upright chest radiograph is compared to study dated 07/04/2021 and correlat ed with chest CT dated 09/20/2018. The heart is enlarged noting atherosclerotic calcification of the th oracic aorta. The pulmonary vasculature is not congested. Chronic interstitial thickening is similar to previous. There is bibasilar scarring/atelectasis. An 11 mm right upper lobe pulmonary nodule is u nchanged. No airspace consolidation or large pleural effusion is identified. No pneumothorax is seen. The skeletal structures are osteopenic. The bony thorax is grossly intact. Arthritic change is noted in the shoulders. IMPRESSION: 1. Cardiomegaly with no acute cardiopulmonary abnormality identified. 2. An 11 mm right upper lobe pulmonary nodule is unchanged. ACT 112: Negative or not required by law. Electronically signed by: Chi Crystal M.D. 05/02/2022 9:25 PM
[2022-05-03] MEDS: LEVOTHYROXINE SODIUM 75 MCG TABLET PO SCH (05:19)
[2022-05-03 07:11] LABS: Basophils # (auto) 0.03 K/uL (0-0.2); Basophils % (auto) 0.5 %; Eosinophils # (auto) 0.04 K/uL (0-0.50); Eosinophils % (auto) 0.7 %; Hematocrit (blood only) 35.8 % (34.1-44.9); Hemoglobin 11.7 g/dl (12.0-16.0); Immature Granulocytes # (auto) 0.02 K/uL (0.00-0.02); Immature Granulocytes % (auto) 0.3 %; Lymphocytes # (auto) 1.41 K/uL (1.2-3.4); Lymphocytes % (auto) 23.2 %; Mean Corpuscular Hemoglobin 29.8 pg (25.0-34.0); Mean Corpuscular Hgb Conc 32.7 g/dL (32.0-36.0); Mean Corpuscular Volume 91.3 fL (80.0-100.0); Mean Platelet Volume 10.7 fL (9.4-12.3); Monocytes # (auto) 0.49 K/uL (0.24-0.82); Neutrophils % (auto) 67.3 %; Platelet Count 147 K/uL (130-400); RDW Standard Deviation 46.2 fL (36.4-46.3); Red Blood Count 3.92 M/uL (3.93-5.22); White Blood Count 6.09 K/ul (4.8-10.8)
[2022-05-03 07:32] LABS: Estimated Average Glucose 143 mg/dl; Hemoglobin A1C 6.6 % (4.5-5.6)
[2022-05-03 08:00] LABS: Magnesium 1.6 mg/dl (1.7-2.4); Potassium 4.3 mmol/L (3.5-5.1)
[2022-05-03 08:06] LABS: BUN Creatinine Ratio 20.2 (10-20); Creatinine Clr Calc Pharmacy 34.5 ml/min; Est GFR (African American) 47.2 ml/min; Est GFR (Non-African American) 40.7 ml/min
--- NOTE | 2022-05-03 08:11 | Hospitalist Progress Note ---
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 Hx of moderate bilateral carotid stenosis. No prior history of Atrial fibrillation. Has been on Plavix 75 mg daily. Currently in Atrial Fibrillation. - RUE weakness globally weak to use RUE, with unsteadiness, dizziness, nausea. - LKW 1112 AM evening of 05/01/22. Not a TNKase candidate. - Head CT: No acute intracranial abnormality identified. - Patient with severe iodine allergy, therefore MRA head, neck, MRI brain ordered: - MRI head with Acute Left JOSELYN territory infarct - MRA neck with Approximately 75% focal stenosis involving the proximal 7 mm of right internal carotid artery. Approximately 50% focal stenosis within the distal left common carotid artery near the bifurcation. A focal area of high-grade stenosis at the takeoff of the right vertebral artery. However, this could be obscured from the motion artifact. - MRA head unremarkable - Patient was already on Plavix 75 mg daily for prior stroke, ER spoke with telestroke neurologist last night: Recommended loading dose aspirin 324 mg, with DAPT aspirin 81 mg plus Plavix 75 mg starting today. - If patient is consistently in A. fib/a flutter, then would recommend initiating anticoagulation in several days out and reducing DAPT to just 1 agent to reduce bleeding risk. - Echo revealed EF 60-65% - PT, OT, ST consults placed - Patient passed the dysphagia screen and is tolerating a heart healthy and carb consistent diet - Held anti-hypertensives (atenolol, lisinopril) and allow for permissive hypertension for next 24 hours. - Avoid hypotension, hypoglycemia. - Continue Telemetry, evaluate for episodes of atrial fibrillation. - Neurology consult placed (2) Atrial flutter: Plan: - EKG initially shows rate controlled a fib/a flutter, may be elevated due to demand. - If patient needs AC, would change DAPT to single agent. - Continue telemetry (3) Elevated troponin: Plan: - Troponin elevated. - 22.9 (26.5) (17.4) (24.8) - Patient denies chest pain or SOB - continue to monitor (4) Urinary retention with incomplete bladder emptying: Plan: - History of, patient with purewick catheter and complaining of sensation to urinate without output--bladder scanned for 61 cc. - CT A/P ordered to eval for developing abdominal pain, concern for ischemic colitis with lactate 2.7, new onset atrial flutter-->CTAP with distended bladder, otherwise no acute findings. - Repeat lactate improved to 1.4 - Patient has been urinating small amounts on her own over the afternoon, bladder scanned for > 100 cc, Bonilla catheter placed with 1000cc clear yellow urine drained and alleviation of abdominal pain. - No further abdominal pain (5) Acute kidney injury superimposed on CKD: Plan: - Cr 1.30, GFR 36.0, baseline Cr 1.0 - 1.2. - Received IVF in ED; continue to monitor on AM labs. - Avoid nephrotoxins, renally dose medications as able. (6) Hypomagnesemia: Plan: - was initially 1.3, repleted and 1.6 this AM - repleted with 1 gm IV mag - Repeat with AM labs (7) Memory loss: Plan: - History fo prior stroke (01/2020) affecting short term memory. (8) Primary hyperparathyroidism: Plan: - Follows with PCP with referral to endocrinology. - Continue cinacalcet. - Ca 9.7. (9) Cirrhosis: Plan: - Compensated. Follows with [facility] - Likely [place] cirrhosis - INR 1.0, Na 140, Cr 1.30, t bili 0.4. (10) Hypertension: Plan: - Hold lisinopril, atenolol to allow for permissive HTN. (11) Hypothyroidism: Plan: - Continue levothyroxine. (12) Controlled type 2 diabetes mellitus with kidney complication, without long- term current use of insulin: Plan: - INFORMATION CLERK--> Jentadueto, glimepiride. - Hold home agents, place on basal/bolus insulin. - A1c 6.6 (6.3 in September) - DM2 diet. Plan - Admit to PCU - SCDs for VTE ppx - Full Code - Neurology consulted - Currently on Plavix 75mg and ASA 81mg Admission and Anticipated Discharge Date Admission Date: May 02, 2022 Subjective Patient was sleeping and awoke to her name. She is alert to person and place. She was able to tell me the month is April was slightly confused on the year (she stated was 32) She was unable to tell me why she was in the hospital, she said, " I should know why but I forget. " She denies any complaints currently. I came back to see patient later in the afternoon when her and son were visiting. Patient was much more awake this afternoon. She was A&O x 3. Patient was still having some difficulty with her memory and mild aphasia. Review of Systems Review of Systems: Patient is slightly confused and unable to get an accurate ROS Physical Exam Constitutional: comfortable and + lethargic; not in distress Neck: trachea midline, no thyromegaly Respiratory: normal respiratory effort, lungs clear to auscultation Cardiovascular: Rate/Rhythm: + irregularly irregular Heart Sounds: no murmur Extremities: no calf tenderness, no pedal edema and no edema Gastrointestinal (Abdomen): normal bowel sounds, soft, nontender, no hepatosplenomegaly Neurologic: awake and + confused decreased invasive cardiovascular technologist strength right 1/5 compared to 5/5 on left, decreased ROM and Strength to right arm, unable to lift arm up off the bed, decreased shoulder shrug right. intact and symmetric facial expressions, tongue protrudes in midline able to move both legs, intact sensation throughout normal speech but mildly aphasic Psychiatric: Orientation: alert, oriented to person, oriented to place and cooperative Results & Data Results & Data ([facility]) Vital Signs (Past 12 Hours) Vital Signs Temp Pulse Resp BP Pulse Ox O2 Del Method 05/03/22 07:57 36.7 C 87 16 185/83 H 96 Room Air 05/03/22 03:10 36.7 C 79 18 166/81 H 95 Room Air 05/02/22 23:07 36.6 C 68 20 170/75 H 95 Room Air Laboratory Results Abnormal lab results 05/02/22 05/02/22 05/02/22 Range/Units 13:48 15:02 15:13 RBC (3.93-5.22) M/uL Hgb (12.0-16.0) g/dl Chloride (98-107) mmol/L BUN (6-23) mg/dl BUN/Creatinine Ratio (10-20) Glucose (70-99(Fasting)) mg/dl POC Glucose 111 H (70-99) mg/dl Hemoglobin A1c (4.5-5.6) % Lactate 2.6 H* (0.4-2.0) mmol/L Magnesium (1.7-2.4) mg/dl Troponin I High Sens (0-14) pg/ml Triglycerides (0-150) mg/dl Cholesterol (0-200) mg/dl VLDL Cholesterol, Calc (0-30) mg/dl Cholesterol/HDL Ratio (0-5) Urine Protein 2+ H (Negative) Ur Leukocyte Esterase 1+ H (Negative) Urine WBC (Auto) 5-10 H (0-5) /hpf U Epithel Cells (Auto) >30 H (0-5) /lpf 05/02/22 05/02/22 05/02/22 Range/Units 16:54 19:04 19:47 RBC (3.93-5.22) M/uL Hgb (12.0-16.0) g/dl Chloride (98-107) mmol/L BUN (6-23) mg/dl BUN/Creatinine Ratio (10-20) Glucose (70-99(Fasting)) mg/dl POC Glucose 113 H 152 H (70-99) mg/dl Hemoglobin A1c (4.5-5.6) % Lactate (0.4-2.0) mmol/L Magnesium (1.7-2.4) mg/dl Troponin I High Sens 24.8 H (0-14) pg/ml Triglycerides (0-150) mg/dl Cholesterol (0-200) mg/dl VLDL Cholesterol, Calc (0-30) mg/dl Cholesterol/HDL Ratio (0-5) Urine Protein (Negative) Ur Leukocyte Esterase (Negative) Urine WBC (Auto) (0-5) /hpf U Epithel Cells (Auto) (0-5) /lpf 05/03/22 05/03/22 05/03/22 Range/Units 01:41 06:58 06:58 RBC 3.92 L (3.93-5.22) M/uL Hgb 11.7 L (12.0-16.0) g/dl Chloride 109 H (98-107) mmol/L BUN 24 H (6-23) mg/dl BUN/Creatinine Ratio 20.2 H (10-20) Glucose 114 H (70-99(Fasting)) mg/dl POC Glucose (70-99) mg/dl Hemoglobin A1c (4.5-5.6) % Lactate (0.4-2.0) mmol/L Magnesium 1.6 L (1.7-2.4) mg/dl Troponin I High Sens 26.5 H (0-14) pg/ml Triglycerides 222 H (0-150) mg/dl Cholesterol 210 H (0-200) mg/dl VLDL Cholesterol, Calc 44 H (0-30) mg/dl Cholesterol/HDL Ratio 5.5 H (0-5) Urine Protein (Negative) Ur Leukocyte Esterase (Negative) Urine WBC (Auto) (0-5) /hpf U Epithel Cells (Auto) (0-5) /lpf 05/03/22 05/03/22 05/03/22 Range/Units 06:58 06:58 07:34 RBC (3.93-5.22) M/uL Hgb (12.0-16.0) g/dl Chloride (98-107) mmol/L BUN (6-23) mg/dl BUN/Creatinine Ratio (10-20) Glucose (70-99(Fasting)) mg/dl POC Glucose 122 H (70-99) mg/dl Hemoglobin A1c 6.6 H (4.5-5.6) % Lactate (0.4-2.0) mmol/L Magnesium (1.7-2.4) mg/dl Troponin I High Sens 22.9 H (0-14) pg/ml Triglycerides (0-150) mg/dl Cholesterol (0-200) mg/dl VLDL Cholesterol, Calc (0-30) mg/dl Cholesterol/HDL Ratio (0-5) Urine Protein (Negative) Ur Leukocyte Esterase (Negative) Urine WBC (Auto) (0-5) /hpf U Epithel Cells (Auto) (0-5) /lpf 05/03/22 Range/Units 11:22 RBC (3.93-5.22) M/uL Hgb (12.0-16.0) g/dl Chloride (98-107) mmol/L BUN (6-23) mg/dl BUN/Creatinine Ratio (10-20) Glucose (70-99(Fasting)) mg/dl POC Glucose 212 H (70-99) mg/dl Hemoglobin A1c (4.5-5.6) % Lactate (0.4-2.0) mmol/L Magnesium (1.7-2.4) mg/dl Troponin I High Sens (0-14) pg/ml Triglycerides (0-150) mg/dl Cholesterol (0-200) mg/dl VLDL Cholesterol, Calc (0-30) mg/dl Cholesterol/HDL Ratio (0-5) Urine Protein (Negative) Ur Leukocyte Esterase (Negative) Urine WBC (Auto) (0-5) /hpf U Epithel Cells (Auto) (0-5) /lpf Diagnostic Findings ECHO Normal LV systolic function EF 60-65% No segmental Left ventricular wall motion abnormalities Brain MRI 05/02/22 10:31 Brain MRI WITHOUT CONTRAST HISTORY: Dizziness. Possible stroke. R arm weakness, R leg drift TECHNIQUE: Multiplanar multisequence MRI of the brain was performed without the use of contrast. COMPARISON STUDY: Head CT 05/02/2022. FINDINGS: Multiple small foci of restricted diffusion seen within the left high convexity and left frontal lobe consistent with acute left JOSELYN territory infarcts. The midline structures are intact. Trace right mastoid effusion. Mild mucosal thickening within the paranasal sinuses. The major vascular flow-voids at the skull base are well-maintained. The ventricles and sulci demonstrate mild age-related involutional changes. There is no mass, hematoma, midline shift. Mild T2 hyperintensity within the periventricular white matter is nonspecific but favors microvascular ischemic change. There is mild cytotoxic edema seen within the left high convexity due to the acute infarct. IMPRESSION: Multiple small foci of restricted diffusion seen within the left frontal lobe/left high convexity consistent with an acute left JOSELYN territory infarct. ACT 112: Negative or not required by law. Electronically signed by: Kenneth Mishra M.D. 05/02/2022 4:35 PM Head MRA 05/02/22 10:31 MR ANGIOGRAM OF THE BRAIN CLINICAL HISTORY: Right arm weakness. COMPARISON STUDY: MRI of the brain performed concurrently on 05/02/2022. TECHNIQUE: 3-D [id number]-[id number] MR angiography of the intracranial circulation is performed. 3-D tumble views are created and assessed. IV contrast was not administered for this examination. The examination is degraded by motion artifact. FINDINGS: There are bilateral posterior communicating arteries. The internal carotid arteries are patent bilaterally, as are the anterior and middle cerebral arteries. The vertebrobasilar system and posterior cerebral arteries are patent. The vertebral arteries are codominant. There is no aneurysm, high-grade stenosis, or focal vessel cutoff seen throughout the intracranial circulation. IMPRESSION: Unremarkable MR angiogram of the brain noting a motion degraded examination. ACT 112: Negative or not required by law. Electronically signed by: Chi Crystal M.D. 05/02/2022 4:33 PM Neck MRA 05/02/22 11:19 NECK MRA HISTORY: Weakness. Dizziness. Left-sided stroke. TECHNIQUE: [id number]-sb-[id number] and gadolinium-enhanced MRA of the neck was performed both before and after the intravenous administration of contrast. All measurements were calculated based on NASCET criteria. COMPARISON STUDY: Carotid Doppler study 05/02/2022. FINDINGS: The aortic arch and proximal great vessels are widely patent. Focal area of high-grade stenosis at the takeoff of the right vertebral artery. Otherwise, the remaining bilateral vertebral arteries are widely patent. The right common carotid artery is widely patent. Focal area of up to 50% stenosis within the distal left common carotid artery near the bifurcation. The left internal carotid artery appears widely patent. There is a 7 mm segment of 75% stenosis within the proximal right internal carotid artery. The mid to distal right internal carotid artery is widely patent. No evidence for arterial occlusion or dissection. IMPRESSION: 1. Approximately 75% focal stenosis involving the proximal 7 mm of right internal carotid artery. 2. Approximately 50% focal stenosis within the distal left common carotid artery near the bifurcation. 3. A focal area of high-grade stenosis at the takeoff of the right vertebral artery. However, this could be obscured from the motion artifact. ACT 112: Negative or not required by law. Electronically signed by: Kenneth Mishra M.D. 05/02/2022 5:02 PM Abdomen/Pelvis CT 05/02/22 12:[address] WITHOUT CONTRAST CT DOSE: 1346.14 mGy.cm HISTORY: generalized abdominal pain TECHNIQUE: Multiaxial CT images of the abdomen and pelvis were performed without contrast. A dose lowering technique was utilized adhering to the principles of ALARA. COMPARISON STUDY: Abdomen and pelvis CT 10/10/2021. FINDINGS: Mild interstitial thickening at the lung bases which is likely chronic. There are few punctate calcified granulomas within the left lower lobe. No pneumoperitoneum. No pneumatosis. Moderate to severe degenerative changes within the lumbar spine with prior L4-5 posterior decompression. No acute fractures identified. Small fat-containing left-sided Bochdalek hernia. There is a moderate size fat-containing umbilical hernia, unchanged. Nodular contour to the liver consistent with cirrhosis. The unenhanced spleen, adrenal glands, and gallbladder are unremarkable. There are few punctate calcifications within the pancreas consistent with chronic pancreatitis. No CT evidence for acute pancreatitis. No retroperitoneal lymphadenopathy. Calcified plaque within the normal caliber abdominal aorta. No pelvic lymphadenopathy or pelvic free fluid. There are few punctate stones within the left kidney. Stable bilateral renal hypodense lesions which favor cysts. No ureteral stones. No hydronephrosis. There is a left retrograde aortic renal vein. The bladder is distended. No bladder wall thickening. Prior hysterectomy. Mild pelvic floor collapse. Suboptimal evaluation for bowel pathology due to the lack of intravenous and oral contrast. However, there is no definite bowel wall thickening or obstruction. Normal appendix. IMPRESSION: 1. No definite bowel wall thickening or obstruction. 2. Normal appendix. 3. Distended bladder. 4. Stable left-sided nephrolithiasis. No ureteral stones. No hydronephrosis. 5. Cirrhotic liver again noted. 6. Additional findings as described above. ACT 112: Negative or not required by law. Electronically signed by: Kenneth Mishra M.D. 05/02/2022 4:01 PM Carotid Doppler Study 05/02/22 13:43 ULTRASOUND OF THE CAROTID ARTERIES CLINICAL HISTORY: elevated troponin, CVA COMPARISON: Comparison is made to MRA 05/02/2019 TECHNIQUE: Real-time, grayscale, and color Doppler sonography of the carotid arteries is performed. Images are reviewed in the transverse and longitudinal planes. FINDINGS: The carotid arteries are patent bilaterally and demonstrate antegrade flow. There is severe atherosclerotic plaque on the right and moderate atherosclerotic plaque on the left. Normal doppler arterial waveforms are seen throughout. Velocity measurements are listed below. Common carotid peak systolic velocity (cm/sec): RIGHT: 63 LEFT: 83 ICA peak systolic velocity (cm/sec): RIGHT: 182 LEFT: 76 ICA/CC peak systolic ratio: RIGHT: 2.9 LEFT: 0.9 Antegrade flow was shown in the vertebral arteries. The external carotid arteries are patent. IMPRESSION: 1. There is 50-69% stenosis of the right internal carotid artery. The left internal carotid arteries without hemodynamically significant stenosis. 2. Antegrade flow is shown in the vertebral arteries. Society of Radiologists in Ultrasound consensus guidelines: Normal: ICA PSV is <125 cm/sec and no plaque or intimal thickening is visible sonographically additional criteria include ICA/CCA PSV ratio <2.0 and ICA EDV <40 cm/sec <50% ICA stenosis: ICA PSV is <125 cm/sec and plaque or intimal thickening is visible sonographically additional criteria include ICA/CCA PSV ratio <2.0 and ICA EDV <40 cm/sec 50-69% ICA stenosis: ICA PSV is 125-230 cm/sec and plaque is visible sonographically additional criteria include ICA/CCA PSV ratio of 2.0-4.0 and ICA EDV of 40-100 cm/sec ?70% ICA stenosis but less than near occlusion: ICA PSV is >230 cm/sec and visible plaque and luminal narrowing are seen at mcguire-scale and color Doppler ultrasound (the higher the Doppler parameters lie above the threshold of 230 cm/sec, the greater the likelihood of severe disease) additional criteria include ICA/CCA PSV ratio >4 and ICA EDV >100 cm/sec ACT 112: Negative or not required by law. Electronically signed by: Junior Lou M.D. 05/02/2022 3:43 PM Chest X-Ray 05/02/22 14:19 SINGLE VIEW CHEST CLINICAL HISTORY: Dyspnea. FINDINGS: An AP, portable, upright chest radiograph is compared to study dated 07/04/2021 and correlated with chest CT dated 09/20/2018. The heart is enlarged noting atherosclerotic calcification of the thoracic aorta. The pulmonary vasculature is not congested. Chronic interstitial thickening is similar to previous. There is bibasilar scarring/atelectasis. An 11 mm right upper lobe pulmonary nodule is unchanged. No airspace consolidation or large pleural effusion is identified. No pneumothorax is seen. The skeletal structures are osteopenic. The bony thorax is grossly intact. Arthritic change is noted in the shoulders. IMPRESSION: 1. Cardiomegaly with no acute cardiopulmonary abnormality identified. 2. An 11 mm right upper lobe pulmonary nodule is unchanged. ACT 112: Negative or not required by law. Electronically signed by: Chi Crystal M.D. 05/02/2022 9:25 PM PG Care Time/CCT Total # of Minutes Spent Total Time Spent with Patient: Total time spent is greater than 50% in coordination of care (as documented) at patient's floor/unit and/or counseling patient: Coding Level of Care Code 62170 SUB INP/OBS CARE 2/35MIN Diagnoses CVA (cerebral vascular accident) I63.9 Laterality of affected vessel: left Precerebral and cerebral artery: anterior cerebral artery Atrial flutter I48.92 Elevated troponin R77.8 Urinary retention with incomplete bladder emptying R33.9 Acute kidney injury superimposed on CKD N17.9; N18.9 Hypomagnesemia E83.42 Memory loss R41.3 Primary hyperparathyroidism E21.0 Cirrhosis K74.60 Ascites presence: unspecified Hepatic cirrhosis type: unspecified hepatic cirrhosis Hypertension I10 Hypertension type: unspecified Hypothyroidism E03.9 Hypothyroidism type: unspecified Controlled type 2 diabetes mellitus with kidney complication, without long-term current use of insulin E11.29 (1) Hypothyroidism Hypothyroidism type: unspecified Qualified Code(s): E03.9 - Hypothyroidism, unspecified (2) Cirrhosis Ascites presence: unspecified Hepatic cirrhosis type: unspecified hepatic cirrhosis Qualified Code(s): K74.60 - Unspecified cirrhosis of liver (3) Hypertension Hypertension type: unspecified Qualified Code(s): I10 - Essential (primary) hypertension (4) CVA (cerebral vascular accident) Laterality of affected vessel: left Precerebral and cerebral artery: anterior cerebral artery
[2022-05-03] MEDS: ASPIRIN 81 MG ECTAB PO SCH (08:49)
[2022-05-03] MEDS: CYANOCOBALAMIN (B-12) 500 MCG TABLET PO SCH (08:49)
[2022-05-03] MEDS: CLOPIDOGREL BISULFATE 75 MG TAB PO SCH (08:51)
[2022-05-03] MEDS: HEPARIN SOD 5,000 UNIT/0.5 ML VIAL SQ SCH ×2 (08:52→19:53)
[2022-05-03] MEDS: INSULIN ASPART PER UNIT SC SCH ×4 (08:54→19:51)
[2022-05-03] MEDS ORDERED: lisinopril 20 MG TAB PO SCH (09:00)
[2022-05-03] MEDS: CINACALCET HCL 30 MG TAB PO SCH (09:01)
[2022-05-03] MEDS: LANTUS PER UNIT CHARGE SQ SCH ×2 (09:04→19:56)
[2022-05-03 09:44] LABS: Chol HDL Ratio 5.5 (0-5)
[2022-05-03] MEDS ORDERED: MAGNESIUM SULFATE / D5W 1 GM/100 ML BAG IV ONE (14:20)
[2022-05-03] MEDS: CHOLECALCIFEROL 1,000 UNITS 25 MCG TAB PO SCH (19:52)
[2022-05-04] MEDS: LEVOTHYROXINE SODIUM 75 MCG TABLET PO SCH (05:58)
--- NOTE | 2022-05-04 06:00 | Electrocardiogram Report ---
Test Reason : Blood Pressure : / mmHG Vent. Rate : 068 BPM Atrial Rate : 069 BPM P-R Int : 000 ms QRS Dur : 108 ms QT Int : 410 ms P-R-T Axes : 000 -35 135 degrees QTc Int : 435 ms Atrial fibrillation Left axis deviation Incomplete right bundle branch block Voltage criteria for left ventricular hypertrophy Cannot rule out Septal infarct (cited on or before 02-MAY-2022) Abnormal ECG When compared with ECG of 21-MAR-2022 16:26, Atrial fibrillation has replaced Sinus rhythm Confirmed by Dawson Gomez ([id number]) on 05/04/2022 6:00:27 AM Referred By: Confirmed By:Dawson Gomez
[2022-05-04 07:41] LABS: Hematocrit (blood only) 36.9 % (34.1-44.9); Hemoglobin 11.7 g/dl (12.0-16.0); Mean Corpuscular Hemoglobin 29.6 pg (25.0-34.0); Mean Corpuscular Hgb Conc 31.7 g/dL (32.0-36.0); Mean Corpuscular Volume 93.4 fL (80.0-100.0); Mean Platelet Volume 11.4 fL (9.4-12.3); Platelet Count 137 K/uL (130-400); RDW Standard Deviation 47.8 fL (36.4-46.3); Red Blood Count 3.95 M/uL (3.93-5.22)
[2022-05-04] MEDS: INSULIN ASPART PER UNIT SC SCH ×4 (08:18→21:11)
[2022-05-04 08:32] LABS: BUN Creatinine Ratio 21.3 (10-20); Calcium 9.2 mg/dl (8.5-10.1); Est GFR (African American) 45.8 ml/min; Est GFR (Non-African American) 39.5 ml/min; Magnesium 1.7 mg/dl (1.7-2.4); Potassium 4.3 mmol/L (3.5-5.1)
[2022-05-04] MEDS: LANTUS PER UNIT CHARGE SQ SCH ×2 (09:02→21:15)
[2022-05-04] MEDS: CYANOCOBALAMIN (B-12) 500 MCG TABLET PO SCH (09:08)
[2022-05-04] MEDS: ASPIRIN 81 MG ECTAB PO SCH (09:08)
[2022-05-04] MEDS: CINACALCET HCL 30 MG TAB PO SCH (09:09)
[2022-05-04] MEDS: CLOPIDOGREL BISULFATE 75 MG TAB PO SCH (09:09)
[2022-05-04] MEDS: HEPARIN SOD 5,000 UNIT/0.5 ML VIAL SQ SCH ×2 (09:09→21:10)
--- NOTE | 2022-05-04 09:12 | Hospitalist Progress Note ---
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 Hx of moderate bilateral carotid stenosis. No prior history of Atrial fibrillation. Has been on Plavix 75 mg daily. Currently in Atrial Fibrillation. Acute cerebrovascular accident with systemic symptoms , not a TNKase candidate. - Head CT: No acute intracranial abnormality identified. - Patient with severe iodine allergy, therefore MRA head, neck, MRI brain ordered: - MRI head with Acute Left JOSELYN territory infarct - MRA neck with Approximately 75% focal stenosis involving the proximal 7 mm of right internal carotid artery. Approximately 50% focal stenosis within the distal left common carotid artery near the bifurcation. A focal area of high-grade stenosis at the takeoff of the right vertebral artery. However, this could be obscured from the motion artifact. - MRA head unremarkable - Patient was already on Plavix 75 mg daily for prior stroke, ER spoke with telestroke neurologist last night: Recommended loading dose aspirin 324 mg, with DAPT aspirin 81 mg plus Plavix 75 mg starting 05/02/2022. - If patient is consistently in A. fib/a flutter, then would recommend initiating anticoagulation in several days out and reducing DAPT to just 1 agent to reduce bleeding risk. Neurology recommending low-dose aspirin and Eliquis and lieu of Plavix, however the patient has Plavix prescription at home and wishes to stay on this medication due to cost. Will discuss with neurology if Plavix and Eliquis is acceptable we will follow stroke recommendations from initial presentation for 1 week of dual antiplatelets before conversion to the formal anticoagulant for atrial fibrillation- - Echo revealed EF 60-65% - PT, OT, ST consults placed patient for placement to acute rehab at [facility] once stable - Patient passed the dysphagia screen and is tolerating a heart healthy and carb consistent diet - Held anti-hypertensives (atenolol, lisinopril) and allow for permissive hypertension for next 24 hours. - Avoid hypotension, hypoglycemia. - Continue Telemetry, evaluate for episodes of atrial fibrillation. - Neurology consult recommended for medical management decisions (2) Atrial flutter: Plan: - EKG initially shows rate controlled a fib/a flutter, may be elevated due to demand. - If patient needs AC, would change DAPT to single agent. -This is a chronic problem that has been stable and rate controlled (3) Elevated troponin: Plan: - Troponin elevated. This is an acute change of laboratory findings felt to suggest demand ischemia - 22.9 (26.5) (17.4) (24.8) - Patient denies chest pain or SOB - continue to monitor (4) Urinary retention with incomplete bladder emptying: Plan: - This is a chronic stable problem patient with purewick catheter and complaining of sensation to urinate without output--bladder scanned for 61 cc. -Bonilla catheter placed due to bladder volume retention will attempt to remove at discharge as her ambulation is not affected by her stroke (5) Acute kidney injury superimposed on CKD: Plan: - Acute kidney injury resolved patient with chronic kidney disease stage III (6) Hypomagnesemia: Plan: - Acute now replete and resolved (7) Memory loss: Plan: - History fo prior stroke (01/2020) affecting short term memory. (8) Primary hyperparathyroidism: Plan: - Follows with PCP with referral to endocrinology. - Continue cinacalcet. - Ca 9.7. (9) Cirrhosis: Plan: - Chronic and stable compensated. Follows with [facility] - [place] cirrhosis - (10) Hypertension: Plan: - Hold lisinopril, atenolol to allow for permissive HTN. (11) Hypothyroidism: Plan: - Continue levothyroxine. (12) Controlled type 2 diabetes mellitus with kidney complication, without long- term current use of insulin: Plan: - Chronic and stable although due to variation of formulary will hold her home Jentadueto, glimepiride. - Hold home agents, place on basal/bolus insulin. - A1c 6.6 (6.3 in September) - DM2 diet. Plan - Admission and Anticipated Discharge Date Admission Date: May 02, 2022 Subjective pt is awake and alert, discussed stroke diagnosis no issues Physical Exam Physical Exam: Pt with fluent speech some minor right arm weakness but no other extremity weakness Cardiac exam is regular with a systolic ejection murmur Discussed the findings of the left acute cerebral artery infarct seen Results & Data Results & Data ([facility]) Vital Signs (Past 12 Hours) Vital Signs Temp Pulse Pulse Resp BP Pulse Ox O2 Del Method 05/04/22 08:05 97.5 F L 61 16 178/91 H 96 Room Air 05/04/22 07:00 65 05/04/22 03:09 98.1 F 58 L 18 152/77 H 94 Room Air 05/03/22 22:55 97.3 F L 76 16 155/74 H 96 Room Air Diagnostic Findings Reviewed CBC to assure no thrombocytopenia with dual antiplatelet therapy Reviewed chemistry profile with concern for KEVIN with CKD 3 Additionally reviewed calcium due to concern for hypercalcemia as an outpatient PG Care Time/CCT Total # of Minutes Spent Total Time Spent with Patient: Total time spent is greater than 50% in coordination of care (as documented) at patient's floor/unit and/or counseling patient: Coding Level of Care Code 03266 SUB INP/OBS CARE 3/50MIN Diagnoses CVA (cerebral vascular accident) I63.9 Laterality of affected vessel: left Precerebral and cerebral artery: anterior cerebral artery Atrial flutter I48.92 Elevated troponin R77.8 Urinary retention with incomplete bladder emptying R33.9 Acute kidney injury superimposed on CKD N17.9; N18.9 Hypomagnesemia E83.42 Memory loss R41.3 Primary hyperparathyroidism E21.0 Cirrhosis K74.60 Ascites presence: unspecified Hepatic cirrhosis type: unspecified hepatic cirrhosis Hypertension I10 Hypertension type: unspecified Hypothyroidism E03.9 Hypothyroidism type: unspecified Controlled type 2 diabetes mellitus with kidney complication, without long-term current use of insulin E11.29 (1) Hypothyroidism Hypothyroidism type: unspecified Qualified Code(s): E03.9 - Hypothyroidism, unspecified (2) Cirrhosis Ascites presence: unspecified Hepatic cirrhosis type: unspecified hepatic cirrhosis Qualified Code(s): K74.60 - Unspecified cirrhosis of liver (3) Hypertension Hypertension type: unspecified Qualified Code(s): I10 - Essential (primary) hypertension (4) CVA (cerebral vascular accident) Laterality of affected vessel: left Precerebral and cerebral artery: anterior cerebral artery
[2022-05-04 09:14] LABS: Basophils # (auto) 0.03 K/uL (0-0.2); Basophils % (auto) 0.6 %; Eosinophils # (auto) 0.05 K/uL (0-0.50); Immature Granulocytes # (auto) 0.02 K/uL (0.00-0.02); Immature Granulocytes % (auto) 0.4 %; Lymphocytes # (auto) 1.64 K/uL (1.2-3.4); Lymphocytes % (auto) 32.8 %; Monocytes # (auto) 0.41 K/uL (0.24-0.82); Monocytes % (auto) 8.2 %; Neutrophils # (auto) 2.85 K/uL (1.4-6.5); Tear Drop Cells 1+
[2022-05-04] MEDS ORDERED: lisinopril 5 MG TAB PO ONE (09:30)
--- NOTE | 2022-05-04 12:06 | Neurology Consultation ---
Date of Consultation May 04, 2022 Assessment & Plan (1) Acute CVA (cerebrovascular accident): (2) Atrial fibrillation: Plan 87-year-old female presenting with acute right arm weakness, outside of the window for administration of thrombolytics, found to have an acute left frontal /high convexity distribution stroke on MRI consistent with left JOSELYN infarct. She does not have significant right lower extremity weakness, aphasia, or dysarthria. Patient's stroke occurs in the context of atrial fibrillation. History also notable for diabetes mellitus, dyslipidemia, hypertension. MR angiography of the head and neck reveals a 75% stenosis of the proximal right internal carotid artery and a 50% stenosis within the distal left common carotid artery, near the bifurcation. These vascular lesions would not likely be related to her current acute stroke. Follow-up carotid ultrasound suggested only moderate stenosis within the right internal carotid artery without significant stenosis on the left. The patient is intolerant to statins, she had been taking clopidogrel 75 mg/day. Aspirin 81 mg/day has been added to her medication regimen. Rather than dual antiplatelet therapy, however, I would recommend starting an anticoagulant such as Eliquis in light of patient's atrial fibrillation. Would recommend Eliquis and daily low-dose aspirin with discontinuation of Plavix. Permissive hypertension acceptable acutely, systolic blood pressure goal 140 to 160 mmHg. Patient does have a history of intolerance to statins, developed muscle pain with atorvastatin previously. Would consider a trial of a different statin to further address patient's dyslipidemia. Goal LDL ideally 70 or below. Patient's diabetes mellitus appears to be adequately controlled, recent hemoglobin A1c was 6.6. PT/OT/speech therapy. Patient should follow-up with her PCP for ongoing monitoring of cardiovascular risk factors. Would also consider outpatient consultation with cardiology in light of atrial fibrillation. History of Present Illness Reason for Consultation: stroke Requesting Physician: Chana Britton PA-C Attending Physician: Rj Alberto MD History of Present Illness The patient is an 87-year-old female who is known to me, I last evaluated her in clinic February 23, 2022, follow-up regarding history of stroke and carotid stenosis. History notable for left occipital parietal infarct occurring in January 2020 without residual neurologic deficits. She has moderate bilateral carotid stenosis. She has a history of intolerance to statins. She has been on clopidogrel 75 mg/day for secondary stroke risk reduction. History also notable for insulin-dependent diabetes mellitus which has been well controlled. She has also been complaining of some mild difficulty with memory and was intolerant to her previous trial of donepezil. She has scored 20 out of 30 on a standardized Mini-Mental state examination this past February. She did have a 30-day cardiac event monitoring completed in February 2020 which was negative for arrhythmia. She has several stroke risk factors including type 2 diabetes mellitus, hypertension, dyslipidemia, and carotid stenosis. She presented to the emergency department yesterday with a chief complaint of right-sided weakness occurring in the context of a fall. She was last known well the previous evening and was outside of the window for administration of thrombolytics. She did have a CT of the head completed which was negative for hemorrhage or acute process. She has an allergy to iodinated contrast and CT angiography was not completed. A follow-up brain MRI does reveal multiple small foci of restricted diffusion within the left frontal lobe/high convexity consistent with an acute left JOSELYN territory infarct. MR angiography of the brain was negative for significant vascular lesion although was degraded by motion artifact. An MR angiogram of the neck revealed a 75% focal stenosis involving the proximal right internal carotid artery and a 50% focal stenosis within the distal left common carotid artery near the bifurcation. There was a focal area of high-grade stenosis at the takeoff of the right vertebral artery although potentially obscured by motion artifact. I independently reviewed these images and was able to appreciate the above findings as described by the interpreting radiologist. The patient also had a follow-up carotid duplex completed which suggested 50 to 69% stenosis within the right internal carotid artery, left internal carotid artery without significant stenosis, antegrade flow noted in both vertebral arteries. Allergies Allergy/AdvReac Type Severity Reaction Status Date / Time iodine Allergy Severe IV Verified 04/25/22 11:45 DYE-TROUBLE BREATHING HOARSENESS-SEVERE REACTION tramadol Allergy Severe HIVES, Verified 04/25/22 11:45 ITCHING morphine Allergy Intermediate HALLUCINATI Verified 04/25/22 11:45 ONS propoxyphene Allergy Intermediate ITCHING Verified 04/25/22 11:45 scallops Allergy Intermediate DIARRHEA, Verified 04/25/22 11:45 VOMITING ciprofloxacin Allergy Mild SICK Verified 04/25/22 11:45 Penicillins Allergy Mild RASH Verified 04/25/22 11:45 candesartan Allergy Unknown UNKNOWN Verified 04/25/22 11:45 oxycodone Allergy Unknown UNKNOWN Verified 04/25/22 11:45 topiramate Allergy Unknown UNKNOWN Verified 04/25/22 11:45 atorvastatin AdvReac Intermediate Muscle Pain Verified 04/25/22 11:45 levothyroxine sodium AdvReac Mild Dry mouth; Verified 04/25/22 11:45 fatigue Home Medications Medication Instructions Recorded Confirmed Type Diabetic Shoes #1 ea 07/04/19 04/05/22 Rx lancets 33 gauge (OneTouch Delica #200 ea 02/11/20 04/05/22 Rx Plus Lancet) OneTouch Verio test strips (blood #100 ea 05/17/21 04/05/22 Rx sugar diagnostic) cholecalciferol (vitamin D3) 50 50 mcg PO QPM 07/11/21 04/05/22 History mcg (2,000 unit) capsule (Vitamin D3) cyanocobalamin (vitamin B-12) 1,000 mcg PO QAM 10/10/21 04/05/22 History 1,000 mcg tablet linagliptin 2.5 mg-metformin 500 1 tab PO QAM 10/10/21 04/05/22 History mg tablet (Jentadueto) hydrocortisone 2.5 % topical cream 1 applic [place] Q12H PRN hemorrhoids 2 10/19/21 04/05/22 Rx with perineal applicator weeks #30 grams (Proctosol HC) clopidogrel 75 mg tablet 75 mg PO QAM #90 tabs 12/12/21 04/05/22 Rx lisinopril 20 mg tablet 20 mg PO QAM #90 tabs 12/12/21 04/05/22 Rx atenolol 25 mg tablet 25 mg PO QPM #90 tabs 02/01/22 04/05/22 Rx cinacalcet 30 mg tablet (Sensipar) 30 mg PO .COMPLEX #30 tabs 04/26/22 04/26/22 Rx glimepiride 1 mg tablet See Rx Instructions .Route 05/02/22 Rx .COMPLEX #180 tabs levothyroxine 75 mcg tablet 75 mcg PO DAILYBB #90 tabs 05/03/22 Rx Patient History Medical History Acute kidney injury superimposed on CKD Chronic back pain Cirrhosis COVID-19 Diabetes NIDDM History of anesthesia reaction hallucinations after back surgery. Hx of cancer of uterus NO CHEMO/NO RADIATION Hyperlipidemia Left ureteral stone Obesity Personal history of kidney stones Poor historian Statin myopathy Stroke Surgical History H/O colonoscopy 10/07/19 Dr. Nilton Sandoval History of arthroplasty of right knee History of lithotripsy LEFT ESWL= 11/26/15= LMA#4 History of lumbar surgery X2 Hx of bilateral cataract extraction Hx of colonoscopy Hx of hand surgery Hx of hernia repair VENTRAL Hx of hysterectomy Robotic Lap hysterectomy with BSO Hx of tonsillectomy Hx of wisdom tooth extraction S/P total knee replacement using cement Family History Father , in his 30s according to the patient Liver cancer Colorectal cancer Mother , age 87 of renal complications Kidney disease Parkinson disease Son Diabetes Unknown Hypertension Denies family history of Ovarian cancer Prostate cancer Myocardial infarction Breast cancer Social History Smoking Status: Former smoker Second Hand Exposure: No; Do You Dip or Chew Tobacco: No; Tobacco Cessation Education Requested by Patient: No Hx Alcohol Use: No Hx Substance Use: No Preferred Language: Turkmen Communication Ability: Effective Visual Impairment: No Limitations Hearing Ability: Normal Budget Counselor Required: No Beliefs That Will Affect Care: None marital status: Current Living Situation: Family Current Living Situation Comment: and son current occupational status: retired 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 Other Information That Helps Us Care for You: No other: 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 Feels Safe at Home: Yes Safety Concerns: Feels Safe At This Time Childhood Exposure to Second-Hand Smoke: Yes Dental Care, Regularly: Yes Physical Activity Frequency: 1-2 Times per Week Seatbelt Use: always Sunscreen Use: Yes Assistive Devices: Cane, Denture - Upper, Glasses and Walker Review of Systems Constitutional: no fever and no chills Eyes: no blind spots and no diplopia Ear, Nose, Mouth, Throat: no hearing loss Respiratory: no cough and no dyspnea Cardiovascular: no chest pain and no palpitations Gastrointestinal: no nausea and no vomiting Genitourinary: no dysuria Musculoskeletal: no neck pain and no myalgia Integumentary: no rash and no lesions Neurologic: as per Subjective / HPI Psychiatric: no depression and no anxiety Hematologic / Lymphatic: no easy bleeding and no easy bruising Exam (Neuro) Constitutional: well developed; no acute distress Eyes: normal visual lazar by confrontation, PERRL, normal accommodation and EOM intact bilaterally; no papilledema Cardiovascular: Vessels: normal carotid upstroke; no carotid bruit Neurologic: Oriented to:: Person, Place and Time Memory: Remote Intact; negative Short Term Intact Attention: Span Intact; negative Concentration Intact Speech Fluency: negative Dysarthria or Dysfluency Speech Aphasia: negative Aphasia Fund of Knowledge: Past History and Vocabulary; negative Current Events Cranial Nerves: Normal II, III, IV, , V, VII, VIII, IX, X, XI and XII Motor Strength: Normal Lower Extremities and Weakness Upper Extremities (Right arm 0 out of 5 at the shoulder and elbow, has trace finger movements and grasping.); negative Normal Upper Extremities Motor Tone: Normal Lower Extremities; negative Normal Upper Extremities Flaccidity: Arms Laterality: Right Muscle Bulk/Involuntary Movements: No Involuntary Movements Sensation: Light Touch Intact and Proprioception Intact; negative Pain/Temperature Intact (Diminished for the right hand and arm) or Vibration Intact (Diminished at the ankles bilaterally) Coordination: Finger-Nose Abnormal Laterality: Right; negative Heel-Yo Abnormal Deep Tendon Reflexes: Rt Triceps: 1+, Lt Triceps: 1+, Rt Biceps: 1+, Lt Biceps: 1+, Rt Brachioradialis: 1+, Lt Brachioradialis: 1+, Rt Patellar: 1+, Lt Patellar: 1+, Rt Ankle: 0 and Lt Ankle: 0 Special Tests: negative Babinski Present Details: Gait cannot be tested in the context of patient's current neurological status. Results & Data ([facility]) Vital Signs (Past 12 Hours) Vital Signs Temp Pulse Pulse Resp BP Pulse Ox O2 Del Method 05/04/22 11:30 36.3 C L 68 18 129/73 95 Room Air 05/04/22 08:05 36.4 C L 61 16 178/91 H 96 Room Air 05/04/22 07:00 65 05/04/22 03:09 36.7 C 58 L 18 152/77 H 94 Room Air Laboratory Results WBC 5.00, hemoglobin 11.7, hematocrit 36.9, MCV 93.4, platelet count 137, sodium 142, potassium 4.3, BUN 26, creatinine 1.22, glucose 84, hemoglobin A1c 6.6, calcium 9.2, magnesium 1.7, high-sensitivity troponin 22.9, triglycerides 222, cholesterol 210, LDL 128, VLDL 44, HDL [address] of the head, brain MRI, neck and head MRA, and carotid ultrasound are as described in the history of present illness. Electrocardiogram reveals atrial fibrillation, 68 bpm. An echocardiogram reveals normal left ventricular chamber size with mild concentric LVH, EF 60 to 65%, no segmental left ventricular wall motion abnormalities, grade 2 diastolic dysfunction, interatrial septum intact, no shunt with injection of contrast, left atrial size normal. PG Care Time/CCT Total # of Minutes Spent Total Time Spent with Patient: Total time spent is greater than 50% in coordination of care (as documented) at patient's floor/unit and/or counseling patient: 90 minutes Coding Level of Care Code 16156 INT INP/OBS CARE 3/75MIN Diagnoses Acute CVA (cerebrovascular accident) I63.9 Atrial fibrillation I48.91
[2022-05-04] MEDS: CHOLECALCIFEROL 1,000 UNITS 25 MCG TAB PO SCH (21:10)
[2022-05-05] MEDS ORDERED: ACETAMINOPHEN 500 MG TAB PO PRN (00:26)
[2022-05-05] MEDS: LEVOTHYROXINE SODIUM 75 MCG TABLET PO SCH (06:03)
[2022-05-05 06:48] LABS: Hematocrit (blood only) 34.4 % (34.1-44.9); Hemoglobin 11.2 g/dl (12.0-16.0); Mean Corpuscular Hemoglobin 29.9 pg (25.0-34.0); Mean Corpuscular Hgb Conc 32.6 g/dL (32.0-36.0); Mean Platelet Volume 11.4 fL (9.4-12.3); Platelet Count 134 K/uL (130-400); RDW Coefficient of Variation 13.9 % (11.5-14.5); RDW Standard Deviation 46.9 fL (36.4-46.3); Red Blood Count 3.74 M/uL (3.93-5.22); White Blood Count 5.41 K/ul (4.8-10.8)
[2022-05-05 07:09] LABS: Basophils # (auto) 0.02 K/uL (0-0.2); Basophils % (auto) 0.4 %; Eosinophils # (auto) 0.07 K/uL (0-0.50); Eosinophils % (auto) 1.3 %; Immature Granulocytes # (auto) 0.03 K/uL (0.00-0.02); Immature Granulocytes % (auto) 0.6 %; Lymphocytes # (auto) 1.71 K/uL (1.2-3.4); Lymphocytes % (auto) 31.6 %; Monocytes # (auto) 0.48 K/uL (0.24-0.82); Monocytes % (auto) 8.9 %; Neutrophils % (auto) 57.2 %
[2022-05-05 07:28] LABS: Calcium 9.1 mg/dl (8.5-10.1); Magnesium 1.5 mg/dl (1.7-2.4)
[2022-05-05 07:34] LABS: BUN Creatinine Ratio 23.6 (10-20); Creatinine Clr Calc Pharmacy 32.7 ml/min; Est GFR (African American) 45.4 ml/min; Est GFR (Non-African American) 39.1 ml/min
[2022-05-05] MEDS: INSULIN ASPART PER UNIT SC SCH ×2 (08:42→12:28)
[2022-05-05] MEDS ORDERED: lisinopril 5 MG TAB PO SCH (09:00)
[2022-05-05] MEDS: CLOPIDOGREL BISULFATE 75 MG TAB PO SCH (09:41)
[2022-05-05] MEDS: CYANOCOBALAMIN (B-12) 500 MCG TABLET PO SCH (09:41)
[2022-05-05] MEDS: CINACALCET HCL 30 MG TAB PO SCH (09:41)
[2022-05-05] MEDS: HEPARIN SOD 5,000 UNIT/0.5 ML VIAL SQ SCH (09:41)
[2022-05-05] MEDS: ASPIRIN 81 MG ECTAB PO SCH (09:41)
[2022-05-05] MEDS: LANTUS PER UNIT CHARGE SQ SCH (09:55)
--- NOTE | 2022-05-05 13:02 | Pharmacy Report ---
- Date of Service May 05, 2022 - Pharmacy CVA/TIA Medication Review Medications to Prevent Stroke handout has been added to the patients discharge packet. Antiplatelet(s) * Dual antiplatelet therapy for 1 week with ASA 81 mg daily + Plavix 75 mg daily then reducing to 1 antiplatelet agent and adding Eliquis. Cholesterol * High intensity statin deferred due to allergic to statin. Patient tried Atorvastatin in past but had muscle weakness. Per neurology, recommend trying a different statin for goal LDL 70 or below DVT Prophylaxis * Heparin SQ and SCD knee Therapeutic Anticoagulation * Hx Afib/Aflutter noted, but anticoagulation is being deferred to start 1 week after dual antiplatelet therapy per due to patient wishing to continue on Plavix therapy since she has it at home and due to cost. Hospital ist to discuss with neurology if Plavix and Eliquis is acceptable after 1 week of dual antiplatelet therapy. Type 2 Diabetes * Patient has T2DM and it is well controlled. Prescribed Jentadueto and Glimepiride. * Patient is not on a diabetes medication with proven CVD benefit. Will defer to their outpatient provider due to familiarity with risks/benefits of such therapies. "Medications to prevent stroke" handout has already been added to the patient's discharge packet, which instructs the patient to follow up with their outpatient provider to evaluate which diabetes medication with proven CVD benefit is best for them
[2022-05-05] MEDS ORDERED: STROKE PATIENT DISCHARGE STA (14:22)
--- NOTE | 2022-05-05 14:35 | Discharge Summary ---
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 Patient woke up this morning feeling weak and unsteady on her right side. EMS was called, patient was made a stroke alert. Last known well 1112 last evening. On presentation, patient has total right arm weakness and feeling dizzy and nauseous. No other neurodeficits. NIH 6. Presentation BSG in 200s, systolic BP 200s. EKG read as A. fib, appears like atrial flutter, rate controlled. Patient has an isolated incident of A. fib on EKG from May 2020, has not followed up with cardiology regarding anticoagulation. CT head ordered, without evidence of hemorrhage, infarct, midline shift or mass- effect. Telestroke consult was placed, recommending full dose aspirin, further imaging to include MRA head/neck and brain MRI (patient has severe iodine contrast allergy). Labetalol ordered, however SBP dropped to 170-180 prior to administration, therefore it was not given to allow for permissive hypertension. 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 Is irregular but rate controlled with her cardiac rhythm With trace peripheral edema Discharge Data Allergies Allergy/AdvReac Type Severity Reaction Status Date / Time iodine Allergy Severe IV Verified 04/25/22 11:45 DYE-TROUBLE BREATHING HOARSENESS-SEVERE REACTION tramadol Allergy Severe HIVES, Verified 04/25/22 11:45 ITCHING morphine Allergy Intermediate HALLUCINATI Verified 04/25/22 11:45 ONS propoxyphene Allergy Intermediate ITCHING Verified 04/25/22 11:45 scallops Allergy Intermediate DIARRHEA, Verified 04/25/22 11:45 VOMITING ciprofloxacin Allergy Mild SICK Verified 04/25/22 11:45 Penicillins Allergy Mild RASH Verified 04/25/22 11:45 candesartan Allergy Unknown UNKNOWN Verified 04/25/22 11:45 oxycodone Allergy Unknown UNKNOWN Verified 04/25/22 11:45 topiramate Allergy Unknown UNKNOWN Verified 04/25/22 11:45 atorvastatin AdvReac Intermediate Muscle Pain Verified 04/25/22 11:45 levothyroxine sodium AdvReac Mild Dry mouth; Verified 04/25/22 11:45 fatigue Consultations 05/02/22 10:49 ED Decision to Admit Stat 05/03/22 14:04 Consult Neurology Routine Ordered Studies 05/02/22 09:51 CT head/brain wo con Stat 05/02/22 10:31 MR angio head wo con Stat MR brain wo con Stat 05/02/22 11:19 MRI Angio Neck [MR angio neck wo/w con] Routine 05/02/22 12:31 CT Abd and Pelvis [CT abd pelvis wo con] Urgent 05/02/22 13:43 US carotid doppler BI Routine Hospital Course (1) CVA (cerebral vascular accident): 87 year old female with a history of Left Occipital parietal infarct in January 2020. Hx of moderate bilateral carotid stenosis. No prior history of Atrial fibrillation. Has been on Plavix 75 mg daily. Currently in Atrial Fibrillation. Acute cerebrovascular accident with systemic symptoms , not a TNKase candidate. - Head CT: No acute intracranial abnormality identified. - Patient with severe iodine allergy, therefore MRA head, neck, MRI brain ordered: - MRI head with Acute Left JOSELYN territory infarct - MRA neck with Approximately 75% focal stenosis involving the proximal 7 mm of right internal carotid artery. Approximately 50% focal stenosis within the distal left common carotid artery near the bifurcation. A focal area of high-grade stenosis at the takeoff of the right vertebral artery. However, this could be obscured from the motion artifact. - MRA head unremarkable -Patient be on dual antiplatelets until approximately May 10, 2022 then will transition to Plavix and Eliquis this is to avoid hemorrhagic conversion of ischemic stroke. This may be an embolic stroke from atrial fibrillation and thus the request for formal anticoagulation - Echo revealed EF 60-65% - Patient passed the dysphagia screen and is tolerating a heart healthy and carb consistent diet - - Neurology consult recommended for medical management decisions (2) Atrial flutter: - EKG initially shows rate controlled a fib/a flutter, troponin elevated due to demand. -Will need to be converted to full thromboembolic prevention -This is a chronic problem that has been stable and rate controlled (3) Elevated troponin: - Troponin elevated. This is an acute change of laboratory findings felt to suggest demand ischemia - 22.9 (26.5) (17.4) (24.8) (4) Urinary retention with incomplete bladder emptying: Patient had Bonilla removed at the time of discharge consider bladder scanning if urinary issues become more about acute problem (5) Acute kidney injury superimposed on CKD: - Acute kidney injury resolved patient with chronic kidney disease stage III (6) Hypomagnesemia: - Acute now replete and resolved (7) Memory loss: - History fo prior stroke (01/2020) affecting short term memory. (8) Primary hyperparathyroidism: - Follows with PCP with referral to endocrinology. - Continue cinacalcet. - Ca 9.7. (9) Cirrhosis: - Chronic and stable compensated. [facility]s [facility] -Chronic [place] cirrhosis - (10) Hypertension: - Outpatient dose of lisinopril has been reduced for 20-5 with acceptable blood pressure control remains on atenolol (11) Hypothyroidism: - Continue levothyroxine. (12) Controlled type 2 diabetes mellitus with kidney complication, without long- term current use of insulin: - Chronic and stable although due to variation of formulary will hold her home Jentadueto, glimepiride. - Hold home agents, place on basal/bolus insulin. - A1c 6.6 (6.3 in September) - DM2 diet. Plan - Total Time Total Time Spent Total Time Spent (In Minutes): It required greater than 30 minutes to prepare this patient for discharge Discharge Plan Discharge Items Patient Disposition: Transfer Inpatient Rehab Fac Reason For Visit: STROKE Discharge Diagnosis: Anterior Cerebral artery stroke atrial fibrillation with start of DOAC 05/10/22 Activity: Per Instructions section Activity Comment: per PT/OT Non-emergency contact: Primary Care Provider and Neurologist Call non-emergency contact if: your symptoms worsen Follow-up/Referrals: Sabine Aldrich MD [Primary Care Provider] - Diet: Carb Consistent or DM2 and Heart Healthy Addtl Attending Provider Instructions: Patient suffered a left anterior cerebral artery stroke with history of atrial fibrillation not currently on anticoagulation. She had most recently been just started on clopidogrel 3 days prior to the event. Initial neurology recommended changing the clopidogrel to aspirin however there are because of the short duration of her taking the clopidogrel and the patient is persistence to continue this medicine we will use clopidogrel and aspirin overlap for 1 week and then discussed recommend discontinuing the aspirin and starting formal anticoagulation for atrial fibrillation likely with Eliquis approximately start 05/10/22 Patient is previous has been intolerant to statins this is been atorvastatin consideration could be trying rosuvastatin with monitoring her LFTs and symptoms of muscle discomfort We do not include the institution of rosuvastatin on the patient's discharge med reconciliation Patient was on basal bolus insulin while inpatient. Patient will be most likely resumed on her sulfonylurea and Jentadueto, however if basal bolus insulin is considered the patient was controlled on Glargine 16 unts bid and ssi with Goal BSG Range: Low 140 mg/dL, High 180 mg/dL --Correction Factor: 25 mg/dL/unit --Carbohydrate ratio = 9 g/unit Pending Studies at Discharge: No Stand-Alone Forms: [employer], Medications to Prevent Stroke Skilled Items Patient informed of condition?: Yes DNR: No Discharge Level of Care: Acute rehab Communicable Disease: No Discharge Prognosis: Stable Lines: None Urinary Catheter: No Medications and DC Order Prescriptions: New aspirin 81 mg Tablet,Delayed Release (Dr/Ec) 81 mg PO QAM Qty: 4 0RF lisinopril [Zestril] 5 mg Tablet 5 mg PO QAM Qty: 30 0RF levothyroxine [Synthroid] 75 mcg Tablet 75 mcg PO DAILYBB Qty: 30 0RF Continued (DME) Diabetic Shoes Misc See Rx Instructions .ROUTE .MEDSUPPLY Qty: 1 0RF Rx Instructions: diabetic shoes (DME) lancets [OneTouch Delica Plus Lancet] 33 gauge misc See Dose Instructions .ROUTE .MEDSUPPLY Qty: 200 1RF Rx Instructions: Use to test twice daily (DME) OneTouch Verio test strips Strip See Dose Instructions .ROUTE .MEDSUPPLY Qty: 100 11RF Dose Instruction: As directed Rx Instructions: Test three x daily hydrocortisone [Proctosol HC] 2.5 % cream with perineal applicator 1 applic [place] Q12H PRN (Reason: hemorrhoids) 14 Days Qty: 30 0RF clopidogrel 75 mg tablet 75 mg PO QAM Qty: 90 3RF atenolol 25 mg tablet 25 mg PO QPM Qty: 90 3RF Rx Instructions: TAKE 1 TABLET EVERY EVENING glimepiride 1 mg tablet See Rx Instructions .ROUTE .COMPLEX Qty: 180 1RF Dose Instruction: TAKE 1 TABLET BY MOUTH TWICE A DAY Rx Instructions: TAKE 1 TABLET BY MOUTH TWICE A DAY levothyroxine 75 mcg tablet 75 mcg PO DAILYBB Qty: 90 1RF cinacalcet [Sensipar] 30 mg tablet 30 mg PO .COMPLEX Qty: 30 5RF Rx Instructions: 30 mg PO with breakfast; cholecalciferol (vitamin D3) [Vitamin D3] 50 mcg (2,000 unit) capsule 50 mcg PO QPM Jentadueto 2.5-500 mg tablet 1 tab PO QAM Rx Instructions: TAKE ONE TABLET BY MOUTH EVERY DAY cyanocobalamin (vitamin B-12) 1,000 mcg tablet 1,000 mcg PO QAM Discontinued lisinopril 20 mg tablet 20 mg PO QAM Qty: 90 3RF Discharge Orders: Discharge Order (Routine); Ordered 05/05/22 Ordered By: Rj Hammond/Other Patient Handouts: High Blood Sugar (Hyperglycemia), Hypoglycemia (Low Blood Sugar), Managing Type 2 Diabetes Admission Data Admit Date/Time: 05/02/22 11:19 Attending Provider: Rj Alberto Admit Provider: Donald Whitt Primary Care Provider: Sabine Aldrich Other Providers: Donald Whitt ; Nilton Briggs ; Ajay Sanchez ; Sonja Mena ; Meredith Steen ; Manuel Pollock ; Meredith Coppola ; Marquis Casillas ; Samantha Huston ; Carlos Hart ; Nevin Fuchs ; Teena Holm ; Manuel Bradley ; Anders Fry ; [facility] ; [facility] Coding Level of Care Code HOSP INP/OBS DISCH >30 MIN Diagnoses CVA (cerebral vascular accident) I63.9 Precerebral and cerebral artery: anterior cerebral artery Laterality of affected vessel: left Atrial flutter I48.92 Elevated troponin R77.8 Urinary retention with incomplete bladder emptying R33.9 Acute kidney injury superimposed on CKD N17.9; N18.9 Hypomagnesemia E83.42 Memory loss R41.3 Primary hyperparathyroidism E21.0 Cirrhosis K74.60 Hepatic cirrhosis type: unspecified hepatic cirrhosis Ascites presence: unspecified Hypertension I10 Hypertension type: unspecified Hypothyroidism E03.9 Hypothyroidism type: unspecified Controlled type 2 diabetes mellitus with kidney complication, without long-term current use of insulin E11.29
== END 2022-05-05 15:49 | DRG 65 ==
LOC: ED 09:53 → SUATTDRO 11:19 → 2S 11:19
DX: Z88.0 Allergy status to penicillin; I48.91 Unspecified atrial fibrillation; Z91.041 Radiographic dye allergy status; R33.9 Retention of urine, unspecified; I69.398 Other sequelae of cerebral infarction; Z79.02 Long term (current) use of antithrombotics/antiplatelets; E03.9 Hypothyroidism, unspecified; K75.81 Nonalcoholic steatohepatitis (NASH); Z96.651 Presence of right artificial knee joint; G83.31 Monoplegia, unspecified affecting right dominant side; Z86.16 Personal history of COVID-19; Z79.890 Hormone replacement therapy; I24.8 Other forms of acute ischemic heart disease; I65.23 Occlusion and stenosis of bilateral carotid arteries; E11.22 Type 2 diabetes mellitus with diabetic chronic kidney disease; Z87.891 Personal history of nicotine dependence; E83.42 Hypomagnesemia; Z88.5 Allergy status to narcotic agent; Z85.42 Personal history of malignant neoplasm of other parts of uterus; Z88.1 Allergy status to other antibiotic agents; I45.5 Other specified heart block; N17.9 Acute kidney failure, unspecified; I63.522 Cerebral infarction due to unspecified occlusion or stenosis of left anterior cerebral artery; I12.9 Hypertensive chronic kidney disease with stage 1 through stage 4 chronic kidney disease, or unspecified chronic kidney disease; I48.92 Unspecified atrial flutter; E21.0 Primary hyperparathyroidism; R29.706 NIHSS score 6; N18.30 Chronic kidney disease, stage 3 unspecified; R47.01 Aphasia; K74.60 Unspecified cirrhosis of liver

== ENCOUNTER 2022-06-28 16:53 | Inpatient (IN) ==
--- NOTE | 2022-06-28 17:47 | Emergency Department Note ---
Impression & Plan Bright red rectal bleeding, Anticoagulant long-term use, CKD (chronic kidney disease) stage 3, GFR 30-59 ml/min ED Provider Note NAME: NIKKI CURIEL AGE: 87 SEX: F : 1935 ARRIVES VIA: Walk-In INFORMANT: Patient, ED PROVIDER(S): Frandy Stoddard MD CHIEF COMPLAINT: Rectal bleeding MEDICAL DECISION MAKING: Patient states that she developed rectal bleeding in the afternoon today. Patient is on Eliquis. An IV was established, blood work was obtained. Blood work shows a normal white count hemoglobin 11.6 with a normal platelet count. Patient's kidney function is creatinine 1.2. Blood sugar 134 but not DKA with normal bicarb and anion gap. COVID-negative. Given the patient's Eliquis use and associated bright red blood per rectum to believe the patient would benefit from observation and treatment. I did speak the on-call hospitalist service Dr. Ramírez and the patient was admitted to the medicine service. Prior /Outside records reviewed: none Differential diagnosis: Diverticulosis, AVM, coagulopathy, colitis, inflammatory bowel disease, malignancy, Aretha-Cross tear, esophagitis, peptic ulcer disease, variceal bleed, gastritis, epistaxis, fissure, hemorrhoids, as well as other pathologies. Diagnostics, as interpreted by me: ECG: A-fib, rate of 67 left axis deviation no ST elevations Cardiac monitoring: An order was placed for continuous cardiac monitoring. The monitor shows a rate of 77 with irregularly irregular rhythm. Patient was placed on pulse oximetry Medical decision rules: none Imaging studies: See below HPI: Patient presents due to concern for GI bleeding. Patient states that began in the early afternoon states that it has been intermittent but was bright red blood. Patient denies any pain. Patient states that she might of had an ache but is not sure she would have call it that at this time. Patient denies any shortness of breath chest pains dizziness or lightheadedness. No recent falls or trauma. Patient has not had a colonoscopy many years no history of IBD, colitis or diverticulitis. The patient has no left lower quadrant pain. Patient was concerned given the symptoms and presented here today. PAST MEDICAL HISTORY: See Below PAST SURGICAL HISTORY: See Below SOCIAL HISTORY: See Below HOME MEDICATIONS: See Below ALLERGIES: See Below VITALS: See Below PHYSICAL EXAMINATION: GENERAL: NAD, wearing a mask, non-toxic. Wearing glasses. EYE EXAM: Normal conjunctiva. PERRL, no anisocoria and EOM's grossly intact w/o pain. NECK: Supple, no nuchal rigidity, no adenopathy, non-tender. No signs of meningismus. FROM of the neck with good chin to chest and neck extension. No stridor. LUNGS: Clear to auscultation. Normal chest wall mechanics. HEART: Irregularly irregular, no MRG. ABDOMEN: Abdomen soft, non-tender, normo-active bowel sounds, no masses, no rebound or guarding. BACK: No CVA TTP. SKIN: No rashes and no bruising. UPPER EXTREMITIES: Upper extremities are grossly normal. LOWER EXTREMITIES: Grossly normal, no edema. NEURO EXAM: A&O x3, cranial nerves II-XII grossly intact, normal speech, moves all 4 extremities. Past Med/Surg History Medical History Acute kidney injury superimposed on CKD Chronic back pain Cirrhosis CKD (chronic kidney disease), stage III COVID-19 Diabetes NIDDM History of anesthesia reaction hallucinations after back surgery. Hx of cancer of uterus NO CHEMO/NO RADIATION Hyperlipidemia Left ureteral stone Obesity Personal history of kidney stones Poor historian Statin myopathy Surgical History H/O colonoscopy 10/07/19 Dr. Nilton Sandoval History of arthroplasty of right knee History of lithotripsy LEFT ESWL= 11/26/15= LMA#4 History of lumbar surgery X2 Hx of bilateral cataract extraction Hx of colonoscopy Hx of hand surgery Hx of hernia repair VENTRAL Hx of hysterectomy Robotic Lap hysterectomy with BSO Hx of tonsillectomy Hx of wisdom tooth extraction S/P total knee replacement using cement Family History Father , in his 30s according to the patient Liver cancer Colorectal cancer Mother , age 87 of renal complications Kidney disease Parkinson disease Son Diabetes Unknown Hypertension Denies family history of Ovarian cancer Prostate cancer Myocardial infarction Breast cancer Social History Smoking Status: Former smoker Second Hand Exposure: No; Hx Alcohol Use: No Hx Substance Use: No Preferred Language: Georgian Communication Ability: Effective Visual Impairment: No Limitations Hearing Ability: Normal Momd Teacher Required: No Beliefs That Will Affect Care: None marital status: Current Living Situation: Family Current Living Situation Comment: and son current occupational status: retired 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 Feels Safe at Home: Yes Childhood Exposure to Second-Hand Smoke: Yes Diet Comment: regular Dental Care, Regularly: Yes Physical Activity Frequency: 1-2 Times per Week Seatbelt Use: always Sunscreen Use: Yes Assistive Devices: Glasses and Walker Allergies Allergies Allergy/AdvReac Type Severity Reaction Status Date / Time iodine Allergy Severe IV Verified 06/16/22 15:53 DYE-TROUBLE BREATHING HOARSENESS-SEVERE REACTION tramadol Allergy Severe HIVES, Verified 06/16/22 15:53 ITCHING morphine Allergy Intermediate HALLUCINATI Verified 06/16/22 15:53 ONS propoxyphene Allergy Intermediate ITCHING Verified 06/16/22 15:53 scallops Allergy Intermediate DIARRHEA, Verified 06/16/22 15:53 VOMITING ciprofloxacin Allergy Mild SICK Verified 06/16/22 15:53 Penicillins Allergy Mild RASH Verified 06/16/22 15:53 candesartan Allergy Unknown UNKNOWN Verified 06/16/22 15:53 oxycodone Allergy Unknown UNKNOWN Verified 06/16/22 15:53 topiramate Allergy Unknown UNKNOWN Verified 06/16/22 15:53 atorvastatin AdvReac Intermediate Muscle Pain Verified 06/16/22 15:53 levothyroxine sodium AdvReac Mild Dry mouth; Verified 06/16/22 15:53 fatigue Home Meds Home Medications Medication Instructions Recorded Confirmed acetaminophen 325 mg capsule 325 mg PO QID PRN Fever Or Pain 05/24/22 06/28/22 cinacalcet 30 mg tablet (Sensipar) 30 mg PO QDB 06/28/22 06/28/22 Previous Rx's Medication Instructions Recorded Diabetic Shoes #1 ea 07/04/19 hydrocortisone 2.5 % topical cream 1 applic [place] Q12H PRN hemorrhoids 2 10/19/21 with perineal applicator weeks #30 grams (Proctosol HC) atenolol 25 mg tablet 25 mg PO QPM #90 tabs 02/01/22 lancets 33 gauge (OneTouch Delica #200 ea 05/24/22 Plus Lancet) clopidogrel 75 mg tablet 75 mg PO QAM #90 tabs 05/31/22 OneTouch Verio test strips (blood #100 ea 06/19/22 sugar diagnostic) apixaban 5 mg tablet (Eliquis) 5 mg PO BID #180 tabs 06/19/22 cholecalciferol (vitamin D3) 50 50 mcg PO QPM #90 caps 06/19/22 mcg (2,000 unit) capsule (Vitamin D3) cyanocobalamin (vitamin B-12) 1,000 mcg PO QAM #90 tabs 06/19/22 1,000 mcg tablet docusate sodium 100 mg tablet 100 mg PO BID #180 tabs 06/19/22 linagliptin 2.5 mg-metformin 500 1 tab PO QAM #90 tabs 06/19/22 mg tablet (Jentadueto) lisinopril 5 mg tablet (Zestril) 5 mg PO QAM #90 tabs 06/19/22 nystatin 100,000 unit/gram topical 1 applic topical BID #60 grams 06/23/22 powder levothyroxine 75 mcg tablet 75 mcg PO DAILY #90 tabs 06/27/22 Results & Data (ED) Vital Signs Vital Signs - 24 hr 06/28/22 16:54 06/28/22 16:54 Temperature 36.4 C L Temperature Source Temporal Artery Scan Pulse Rate 74 Respiratory Rate 16 16 Blood Pressure 162/74 H Blood Pressure Mean 103 Pulse Oximetry 98 Oxygen Delivery Method Room Air Sepsis Recent Fever Within 48 Hours No Sepsis New/Unexplained Change in Mental Status N/A Sepsis Action Taken by Nursing No Action Required Home Medications Current Medication List: was personally reviewed by me Laboratory Data Attestation: I reviewed the patient's lab results. 06/28/22 18:12 06/28/22 18:12 Lab Results 06/28/22 06/28/22 06/28/22 Range/Units 18:12 18:12 18:12 WBC 4.98 (4.8-10.8) K/ul RBC 3.87 L (4.20-5.40) M/uL Hgb 11.6 L (12.0-16.0) g/dl Hct 35.6 L (37.0-47.0) % MCV 92.0 (80.0-100.0) fL MCH 30.0 (25.0-34.0) pg MCHC 32.6 (32.0-36.0) g/dL RDW Std Deviation 45.8 (36.4-46.3) fL RDW Coeff of Tia 13.7 (11.5-14.5) % Plt Count 151 (130-400) K/uL MPV 11.5 (9.4-12.4) fL Immature Gran % (Auto) 0.8 % Neut % (Auto) 63.7 % Lymph % (Auto) 26.7 % Baker % (Auto) 7.2 % Eos % (Auto) 0.8 % Baso % (Auto) 0.8 % Neut # (Auto) 3.17 (1.40-6.50) K/uL Lymph # (Auto) 1.33 (1.2-3.4) K/uL Baker # (Auto) 0.36 (0.11-0.59) K/uL Eos # (Auto) 0.04 (0-0.50) K/uL Baso # (Auto) 0.04 (0-0.2) K/uL Immature Gran # (Auto) 0.04 (0.01-0.20) K/uL PT 10.9 (9.0-12.0) Seconds INR 1.0 (0.9-1.1) APTT 30.0 (21.0-31.0) Seconds PTT Ratio 1.1 Sodium 140 (136-145) mmol/L Potassium 4.3 (3.5-5.1) mmol/L Chloride 106 (98-107) mmol/L Carbon Dioxide 26 (21-32) mmol/L Anion Gap 8 (3-11) BUN 22 (6-23) mg/dl Creatinine 1.22 H (0.6-1.2) mg/dl Est Cr Clr Drug Dosing Not Reportable Est GFR ( Amer) 45.8 ml/min Est GFR (Non-Af Amer) 39.5 ml/min BUN/Creatinine Ratio 18.0 (10-20) Glucose 134 H (70-99(Fasting)) mg/dl Calcium 8.6 (8.5-10.1) mg/dl Total Bilirubin 0.4 (0.2-1.0) mg/dl AST 14 (13-39) U/L ALT 9 (7-52) U/L Alkaline Phosphatase 74 (34-104) U/L Total Protein 6.8 (6.0-8.3) gm/dl Albumin 3.9 (3.4-5.0) gm/dl Globulin 2.9 (2.5-4.0) gm/dl Albumin/Globulin Ratio 1.3 (0.9-2) Administered Medications Sodium Chloride (Nss 1000ml) 1,000 mls @ 80 mls/hr IV .[id number] [facility] Stop: 06/29/22 23:14 Last Admin: 06/28/22 22:57 Dose: 80 mls/hr Documented By: BRIAN Discontinued Medications Atenolol (Atenolol 50 Mg Tablet) 25 mg PO ONE STA Stop: 06/28/22 22:03 Last Admin: 06/28/22 22:29 Dose: 25 mg Documented By: CANDIE Discharge Plan Visit Data Chief Complaint: Rectal Bleed Stated Complaint: RECTAL BLEED, ED Provider: Frandy Stoddard Discharge Problem: Bright red rectal bleeding, Anticoagulant long-term use, CKD (chronic kidney disease) stage 3, GFR 30-59 ml/min Patient Disposition: Admitted As Inpatient Discharge Instructions Interventions: ED Discharge Assessment Last Done: 06/28/22 22:26
[2022-06-28 18:37] LABS: Basophils # (auto) 0.04 K/uL (0-0.2); Basophils % (auto) 0.8 %; Eosinophils # (auto) 0.04 K/uL (0-0.50); Eosinophils % (auto) 0.8 %; Hematocrit (blood only) 35.6 % (37.0-47.0); Hemoglobin 11.6 g/dl (12.0-16.0); Immature Granulocytes # (auto) 0.04 K/uL (0.01-0.20); Immature Granulocytes % (auto) 0.8 %; Lymphocytes # (auto) 1.33 K/uL (1.2-3.4); Lymphocytes % (auto) 26.7 %; Mean Corpuscular Hgb Conc 32.6 g/dL (32.0-36.0); Mean Platelet Volume 11.5 fL (9.4-12.4); Monocytes # (auto) 0.36 K/uL (0.11-0.59); Monocytes % (auto) 7.2 %; Neutrophils # (auto) 3.17 K/uL (1.40-6.50); Neutrophils % (auto) 63.7 %; Platelet Count 151 K/uL (130-400); RDW Coefficient of Variation 13.7 % (11.5-14.5); RDW Standard Deviation 45.8 fL (36.4-46.3); Red Blood Count 3.87 M/uL (4.20-5.40); White Blood Count 4.98 K/ul (4.8-10.8)
[2022-06-28 18:53] LABS: Alanine Aminotransferase 9 U/L (7-52); Albumin Globulin Ratio 1.3 (0.9-2); Albumin Level 3.9 gm/dl (3.4-5.0); Alkaline Phosphatase 74 U/L (34-104); Anion Gap 8 (3-11); Aspartate Aminotransferase 14 U/L (13-39); Bilirubin,Total 0.4 mg/dl (0.2-1.0); Blood Urea Nitrogen 22 mg/dl (6-23); Calcium 8.6 mg/dl (8.5-10.1); Carbon Dioxide 26 mmol/L (21-32); Chloride 106 mmol/L (98-107); Est GFR (African American) 45.8 ml/min; Est GFR (Non-African American) 39.5 ml/min; Globulin 2.9 gm/dl (2.5-4.0); Glucose 134 mg/dl (70-99(Fasting)); Potassium 4.3 mmol/L (3.5-5.1); Sodium 140 mmol/L (136-145); Total Protein 6.8 gm/dl (6.0-8.3)
[2022-06-28 19:05] LABS: Partial Thromboplastin Ratio 1.1; Prothrombin Time 10.9 Seconds (9.0-12.0)
--- NOTE | 2022-06-28 20:11 | History & Physical Report ---
Date of Service June 28, 2022 Assessment & Plan (1) Bright red blood per rectum: Plan: Differential includes LGIB, occult GIB, and less likely UGIB, and hemorrhoids (has hx of, but less likely per description of symptoms). Check H/H ~q8h. Hold Eliquis. Fecal occult pending. Consult GI. Recent stroke hx would be relative contraindication for endoscopy. Will assess clinical, lab, and symptom stability overnight. (2) Atrial fibrillation: Plan: Rate controlled, continue home atenolol. Hold Eliquis. Follows [facility] cardiology. Will consult to assist in determination of duration of holding Janey eliseo. (3) H/O: stroke with residual effects: Plan: Left high convexity/JOSELYN territory ischemic infarct 04/2022. Follows [facility] neuro. PT/OT evals. Residual mild RUE weakness, but much improved from initial per patient. (4) CKD (chronic kidney disease), stage III: Plan: Cr 1.22, baseline 1.1. Stage 3a/3b. Follow BMP. (5) Hypertension: Plan: Continue atenolol. Hold lisinopril in setting of slightly increased Cr. (6) Lower extremity edema: Plan: Considered venous stasis, but also considered diastolic CHF. 05/03/22 echo mild concentric lvh. EF 60-65. grade 2 diastolic dysfunciton. mod mitral annular calcification. no shunt. Check BNP. (7) Hypothyroidism: Plan: Continue levothyroxine. (8) Cirrhosis: Plan: Per chart hx. (9) Primary hyperparathyroidism: Plan: Continue home cinacalcet. (10) Carotid stenosis: Plan: Continue home Plavix (benefit outweighs risk of bleeding) (11) Hyperlipidemia: Plan: Not on statin. Plan NPO midnight. NSS 80mL/hr. SCDs only. Hold anticoag/chemoppx. Full code. Med tele. History of Present Illness Chief Complaint: rectal bleeding Primary Care Provider: Sabine Aldrich MD 87 y/o female w/ PMHx of 04/2022 CVA w/ residual LUE weakness, afib, CKD, primary hyperparathyroidism, carotid stenosis, cirrhosis, neurogenic bladder, hypothyroidism, HTN, HLD, DM2, and anxiety who presents w/ BRBPR this afternoon. There was a moderate amount when wiping and she endorsed a damp senstion. She had BRBPR that was slightly milder over 10 years ago, but was not on Eliquis at the time. There may have been mild rectal discomfort. No other symptoms. She denies dizziness, chest pain, SOB. She has chronic diarrhea. She has not had recent colonoscopy. ED course: Fecal occult pending. Hb at baseline. VSS. Allergies Allergy/AdvReac Type Severity Reaction Status Date / Time iodine Allergy Severe IV Verified 06/16/22 15:53 DYE-TROUBLE BREATHING HOARSENESS-SEVERE REACTION tramadol Allergy Severe HIVES, Verified 06/16/22 15:53 ITCHING morphine Allergy Intermediate HALLUCINATI Verified 06/16/22 15:53 ONS propoxyphene Allergy Intermediate ITCHING Verified 06/16/22 15:53 scallops Allergy Intermediate DIARRHEA, Verified 06/16/22 15:53 VOMITING ciprofloxacin Allergy Mild SICK Verified 06/16/22 15:53 Penicillins Allergy Mild RASH Verified 06/16/22 15:53 candesartan Allergy Unknown UNKNOWN Verified 06/16/22 15:53 oxycodone Allergy Unknown UNKNOWN Verified 06/16/22 15:53 topiramate Allergy Unknown UNKNOWN Verified 06/16/22 15:53 atorvastatin AdvReac Intermediate Muscle Pain Verified 06/16/22 15:53 levothyroxine sodium AdvReac Mild Dry mouth; Verified 06/16/22 15:53 fatigue Home Medications Medication Instructions Recorded Confirmed Type Diabetic Shoes #1 ea 07/04/19 06/28/22 Rx hydrocortisone 2.5 % topical cream 1 applic [place] Q12H PRN hemorrhoids 2 10/19/21 06/28/22 Rx with perineal applicator weeks #30 grams (Proctosol HC) atenolol 25 mg tablet 25 mg PO QPM #90 tabs 02/01/22 06/28/22 Rx acetaminophen 325 mg capsule 325 mg PO QID PRN Fever Or Pain 05/24/22 06/28/22 History lancets 33 gauge (OneTouch Delica #200 ea 05/24/22 06/16/22 Rx Plus Lancet) clopidogrel 75 mg tablet 75 mg PO QAM #90 tabs 05/31/22 06/28/22 Rx OneTouch Verio test strips (blood #100 ea 06/19/22 Rx sugar diagnostic) apixaban 5 mg tablet (Eliquis) 5 mg PO BID #180 tabs 06/19/22 06/28/22 Rx cholecalciferol (vitamin D3) 50 50 mcg PO QPM #90 caps 06/19/22 06/28/22 Rx mcg (2,000 unit) capsule (Vitamin D3) cyanocobalamin (vitamin B-12) 1,000 mcg PO QAM #90 tabs 06/19/22 06/28/22 Rx 1,000 mcg tablet docusate sodium 100 mg tablet 100 mg PO BID #180 tabs 06/19/22 06/28/22 Rx linagliptin 2.5 mg-metformin 500 1 tab PO QAM #90 tabs 06/19/22 06/28/22 Rx mg tablet (Jentadueto) lisinopril 5 mg tablet (Zestril) 5 mg PO QAM #90 tabs 06/19/22 06/28/22 Rx nystatin 100,000 unit/gram topical 1 applic topical BID #60 grams 06/23/22 06/28/22 Rx powder levothyroxine 75 mcg tablet 75 mcg PO DAILY #90 tabs 06/27/22 06/28/22 Rx cinacalcet 30 mg tablet (Sensipar) 30 mg PO QDB 06/28/22 06/28/22 History Past Med/Surg History Medical History Acute kidney injury superimposed on CKD Chronic back pain Cirrhosis CKD (chronic kidney disease), stage III COVID-19 Diabetes NIDDM History of anesthesia reaction hallucinations after back surgery. Hx of cancer of uterus NO CHEMO/NO RADIATION Hyperlipidemia Left ureteral stone Obesity Personal history of kidney stones Poor historian Statin myopathy Surgical History H/O colonoscopy 10/07/19 Dr. Nilton Sandoval History of arthroplasty of right knee History of lithotripsy LEFT ESWL= 11/26/15= LMA#4 History of lumbar surgery X2 Hx of bilateral cataract extraction Hx of colonoscopy Hx of hand surgery Hx of hernia repair VENTRAL Hx of hysterectomy Robotic Lap hysterectomy with BSO Hx of tonsillectomy Hx of wisdom tooth extraction S/P total knee replacement using cement Family History Father , in his 30s according to the patient Liver cancer Colorectal cancer Mother , age 87 of renal complications Kidney disease Parkinson disease Son Diabetes Unknown Hypertension Denies family history of Ovarian cancer Prostate cancer Myocardial infarction Breast cancer Social History Smoking Status: Former smoker Second Hand Exposure: No; Hx Alcohol Use: No Hx Substance Use: No Preferred Language: Austrian Communication Ability: Effective Visual Impairment: No Limitations Hearing Ability: Normal Assistant Banquet Manager Required: No Beliefs That Will Affect Care: None marital status: Current Living Situation: Spouse and Family Current Living Situation Comment: lives w/ & son current occupational status: retired 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 NAD. Cooperative. HEENT: Atraumatic, normocephalic. EOMI Pulm: CTAB. -wheezes, -rales, -rhonchi. No respiratory distress. Cardiac: RRR, -mrg. 1+ bilat lower extremity edema at shins. Abdominal: Nontender, nondistended, soft. Integ: No gross pallor. Results & Data Results & Data Vital Signs (Past 12 Hours) Vital Signs Temp Pulse Resp BP Pulse Ox O2 Del Method 06/28/22 16:54 16 06/28/22 16:54 36.4 C L 74 16 162/74 H 98 Room Air Laboratory Results Cardiac Enzymes 06/28/22 Range/Units 18:12 AST 14 (13-39) U/L Coagulation 06/28/22 Range/Units 18:12 PT 10.9 (9.0-12.0) Seconds APTT 30.0 (21.0-31.0) Seconds CBC 06/28/22 Range/Units 18:12 WBC 4.98 (4.8-10.8) K/ul RBC 3.87 L (4.20-5.40) M/uL Hgb 11.6 L (12.0-16.0) g/dl Hct 35.6 L (37.0-47.0) % Plt Count 151 (130-400) K/uL Neut # (Auto) 3.17 (1.40-6.50) K/uL Lymph # (Auto) 1.33 (1.2-3.4) K/uL [place] # (Auto) 0.36 (0.11-0.59) K/uL Eos # (Auto) 0.04 (0-0.50) K/uL Baso # (Auto) 0.04 (0-0.2) K/uL Comprehensive Metabolic Panel 06/28/22 Range/Units 18:12 Sodium 140 (136-145) mmol/L Potassium 4.3 (3.5-5.1) mmol/L Chloride 106 (98-107) mmol/L Carbon Dioxide 26 (21-32) mmol/L BUN 22 (6-23) mg/dl Creatinine 1.22 H (0.6-1.2) mg/dl Glucose 134 H (70-99(Fasting)) mg/dl Calcium 8.6 (8.5-10.1) mg/dl AST 14 (13-39) U/L ALT 9 (7-52) U/L Alkaline Phosphatase 74 (34-104) U/L Total Protein 6.8 (6.0-8.3) gm/dl Albumin 3.9 (3.4-5.0) gm/dl Intake and Output 06/28/22 06/28/22 06/28/22 06:59 14:59 22:59 Other: Weight 89 kg Weight Measurement Method Built in [facility] Patient Weight 06/29/22 06:59 Weight 89 kg ECG Additional Comments: rate controlled afib 60s Code Status & VTE Plan Code Status full VTE Prophylaxis Plan VTE Prophylaxis will be ordered: Yes Supervising Physician Co-Signing Physician Notes Attending addendum: I have physically seen this patient, have supervised the medical residents activities, and agree with the H&P unless as otherwise noted. Assessment and Plan: Bright red blood per rectum- H&H every 6 hours for the first 24 Hold Eliquis Consult gastroenterology Has had negative evaluations in the past but bleeding has been noted without definite source being determined Atrial fibrillation/hypertension- Continue atenolol Hold lisinopril Hold Eliquis as noted Consult [facility] cardiology Recent stroke with residual deficit Residual mild right upper extremity weakness but continues to improve per patient's history Consult PT/OT while in hospital CKD stage III- Creatinine 1.22 close to her baseline of 1.1 Hypothyroidism- Continue home dose of levothyroxine Hyperparathyroidism- Continue Cinacalcet Remaining orders and notations as noted Resident Activity Tracking Resident Involvement: Resident Care Provided Care Provided: Adult Hospital Medicine (5) Hypertension Hypertension type: unspecified Qualified Code(s): I10 - Essential (primary) hypertension (7) Hypothyroidism Hypothyroidism type: unspecified Qualified Code(s): E03.9 - Hypothyroidism, unspecified (8) Cirrhosis Ascites presence: unspecified Hepatic cirrhosis type: unspecified hepatic cirrhosis Qualified Code(s): K74.60 - Unspecified cirrhosis of liver
[2022-06-28] MEDS ORDERED: GLUCAGON FOR INJ 1 MG VIAL SQ PRN (21:57)
[2022-06-28] MEDS ORDERED: CARBOHYDRATES FOR HYPOGLYCEMIA PO PRN (21:57)
[2022-06-28] MEDS ORDERED: DEXTROSE 50% 50 ML SYRINGE IV PRN (21:57)
[2022-06-28] MEDS ORDERED: GLUCOSE 40% GEL 15 GM TUBE PO PRN (21:57)
[2022-06-28] MEDS ORDERED: GLUCOSE 10 TAB/TUBE PO PRN (21:57)
[2022-06-28] MEDS ORDERED: ATENOLOL 50 MG TABLET PO STA (22:02)
[2022-06-28] MEDS ORDERED: LANTUS PER UNIT CHARGE SQ STA (22:02)
[2022-06-28] MEDS: SODIUM CHLORIDE 0.9% 1000ML 1,000 ML IV SCH (22:57)
[2022-06-28] MEDS: INSULIN ASPART PER UNIT SC SCH (23:20)
[2022-06-28] MEDS: MELATONIN 3 MG TAB PO PRN (23:36)
[2022-06-29 01:24] LABS: Hemoglobin 10.8 g/dl (12.0-16.0)
[2022-06-29] MEDS: INSULIN ASPART PER UNIT SC SCH ×4 (05:33→20:06)
[2022-06-29] MEDS: LEVOTHYROXINE SODIUM 75 MCG TABLET PO SCH (05:33)
[2022-06-29 06:54] LABS: Basophils # (auto) 0.03 K/uL (0-0.2); Basophils % (auto) 0.6 %; Eosinophils # (auto) 0.06 K/uL (0-0.50); Eosinophils % (auto) 1.2 %; Hematocrit (blood only) 32.6 % (37.0-47.0); Hemoglobin 10.5 g/dl (12.0-16.0); Immature Granulocytes # (auto) 0.07 K/uL (0.01-0.20); Immature Granulocytes % (auto) 1.4 %; Lymphocytes # (auto) 1.63 K/uL (1.2-3.4); Lymphocytes % (auto) 32.7 %; Mean Corpuscular Hemoglobin 29.3 pg (25.0-34.0); Mean Corpuscular Hgb Conc 32.2 g/dL (32.0-36.0); Mean Corpuscular Volume 91.1 fL (80.0-100.0); Mean Platelet Volume 11.8 fL (9.4-12.4); Monocytes # (auto) 0.36 K/uL (0.11-0.59); Monocytes % (auto) 7.2 %; Neutrophils # (auto) 2.83 K/uL (1.40-6.50); Neutrophils % (auto) 56.9 %; Platelet Count 145 K/uL (130-400); RDW Coefficient of Variation 13.5 % (11.5-14.5); RDW Standard Deviation 45.5 fL (36.4-46.3); Red Blood Count 3.58 M/uL (4.20-5.40); White Blood Count 4.98 K/ul (4.8-10.8)
[2022-06-29 07:19] LABS: Albumin Globulin Ratio 1.4 (0.9-2); Albumin Level 3.4 gm/dl (3.4-5.0); BUN Creatinine Ratio 19.6 (10-20); Bilirubin,Total 0.5 mg/dl (0.2-1.0); Calcium 8.2 mg/dl (8.5-10.1); Creatinine Clr Calc Pharmacy 41.7 ml/min; Est GFR (African American) 60.4 ml/min; Est GFR (Non-African American) 52.1 ml/min; Globulin 2.5 gm/dl (2.5-4.0); Potassium 3.8 mmol/L (3.5-5.1); Total Protein 5.9 gm/dl (6.0-8.3)
[2022-06-29] MEDS: CINACALCET HCL 30 MG TAB PO SCH (08:50)
[2022-06-29] MEDS ORDERED: CLOPIDOGREL BISULFATE 75 MG TAB PO SCH (09:00)
[2022-06-29] MEDS: LANTUS PER UNIT CHARGE SQ SCH ×2 (09:39→20:10)
--- NOTE | 2022-06-29 09:39 | Cardiology Consultation ---
Date of Consultation June 29, 2022 Assessment & Plan (1) Bright red rectal bleeding: (2) Anticoagulant long-term use: (3) Atrial fibrillation: (4) H/O: stroke with residual effects: (5) Carotid stenosis: Plan Patient is a complex 87-year-old female admitted with bright red blood per rectum while on anticoagulation and antiplatelet therapy. Issues addressed as follows 1. Persistent atrial fibrillation with relatively slow ventricular response rate. 2. Hypertension with left ventricular hypertrophy 3. Moderate stable carotid atherosclerosis 4. Hyperlipidemia 5. Recurrent stroke Recommendations: Patient persistent atrial fibrillation with [id number] 2 score of 6 representing high risk for recurrent stroke as manifested in patient history. GI evaluation pending for bright red blood per rectum Would recommend holding clopidogrel given stable carotid artery disease and limited effect on stroke reduction in atrial fibrillation. Goal will be to resume Eliquis at reduced dose based on age and variable GFR at 2.5 mg twice per day. Apixaban should be sufficient in stable atherosclerotic disease for risk reduction Would optimize medical therapies. Reduce beta- ben by discontinuing atenolol begin metoprolol succinate at 12.5 mg/day. Add amlodipine 2.5 mg every afternoon for blood pressure control. Resume lisinopril when renal function stable Lipid reduction indicated in this patient. Consider rosuvastatin 5 mg 3 days/week versus ezetimibe on discharge Orders placed History of Present Illness Reason for Consultation: Bright red blood per rectum, chronic anticoagulation Requesting Physician: Dr Gandhi Attending Physician: Donald Warner History of Present Illness Patient is a complex 87-year-old female with ongoing issues which include 1. Persistent atrial fibrillation 2. Recurrent stroke, January 2020, most recent event 05/02/2022 3. Moderate atherosclerotic carotid disease 4. CKD stage III, prior ureteral stone 5. Hyperlipidemia with poor statin tolerance Patient is referred now after acute hospitalization for bright red blood per rectum. Review of records notes hospitalization as noted in April for acute neurologic event with patient found to be in atrial fibrillation with controlled ventricular sponsor rate Patient discharged on antiplatelet therapy with clopidogrel as well as apixaban. She presents now noting gradual improvement since hospital discharge. Still with mild motor deficits. Main complaint generalized fatigue. This admission, presents with at least 2 episodes of observed bright red blood per rectum on chronic anticoagulation. Currently denies any acute complaints. No further episodes of bleeding since initial hospitalization last night. Blood pressures have been somewhat variable. No fevers chills or unexplained infections. Taking medications as prescribed and being followed by in-home nursing. No falls or injuries. Follows with gastroenterology chronically due to hepatic cirrhosis per report Allergies Allergy/AdvReac Type Severity Reaction Status Date / Time iodine Allergy Severe IV Verified 06/16/22 15:53 DYE-TROUBLE BREATHING HOARSENESS-SEVERE REACTION tramadol Allergy Severe HIVES, Verified 06/16/22 15:53 ITCHING morphine Allergy Intermediate HALLUCINATI Verified 06/16/22 15:53 ONS propoxyphene Allergy Intermediate ITCHING Verified 06/16/22 15:53 scallops Allergy Intermediate DIARRHEA, Verified 06/16/22 15:53 VOMITING ciprofloxacin Allergy Mild SICK Verified 06/16/22 15:53 Penicillins Allergy Mild RASH Verified 06/16/22 15:53 candesartan Allergy Unknown UNKNOWN Verified 06/16/22 15:53 oxycodone Allergy Unknown UNKNOWN Verified 06/16/22 15:53 topiramate Allergy Unknown UNKNOWN Verified 06/16/22 15:53 atorvastatin AdvReac Intermediate Muscle Pain Verified 06/16/22 15:53 levothyroxine sodium AdvReac Mild Dry mouth; Verified 06/16/22 15:53 fatigue Home Medications Medication Instructions Recorded Confirmed Type Diabetic Shoes #1 ea 07/04/19 06/28/22 Rx hydrocortisone 2.5 % topical cream 1 applic [place] Q12H PRN hemorrhoids 2 10/19/21 06/28/22 Rx with perineal applicator weeks #30 grams (Proctosol HC) atenolol 25 mg tablet 25 mg PO QPM #90 tabs 02/01/22 06/28/22 Rx acetaminophen 325 mg capsule 325 mg PO QID PRN Fever Or Pain 05/24/22 06/28/22 History lancets 33 gauge (OneTouch Delica #200 ea 05/24/22 06/16/22 Rx Plus Lancet) clopidogrel 75 mg tablet 75 mg PO QAM #90 tabs 05/31/22 06/28/22 Rx OneTouch Verio test strips (blood #100 ea 06/19/22 Rx sugar diagnostic) apixaban 5 mg tablet (Eliquis) 5 mg PO BID #180 tabs 06/19/22 06/28/22 Rx cholecalciferol (vitamin D3) 50 50 mcg PO QPM #90 caps 06/19/22 06/28/22 Rx mcg (2,000 unit) capsule (Vitamin D3) cyanocobalamin (vitamin B-12) 1,000 mcg PO QAM #90 tabs 06/19/22 06/28/22 Rx 1,000 mcg tablet docusate sodium 100 mg tablet 100 mg PO BID #180 tabs 06/19/22 06/28/22 Rx linagliptin 2.5 mg-metformin 500 1 tab PO QAM #90 tabs 06/19/22 06/28/22 Rx mg tablet (Jentadueto) lisinopril 5 mg tablet (Zestril) 5 mg PO QAM #90 tabs 06/19/22 06/28/22 Rx nystatin 100,000 unit/gram topical 1 applic topical BID #60 grams 06/23/22 06/28/22 Rx powder levothyroxine 75 mcg tablet 75 mcg PO DAILY #90 tabs 06/27/22 06/28/22 Rx cinacalcet 30 mg tablet (Sensipar) 30 mg PO QDB 06/28/22 06/28/22 History Patient History Medical History Acute kidney injury superimposed on CKD Chronic back pain Cirrhosis CKD (chronic kidney disease), stage III COVID-19 Diabetes NIDDM History of anesthesia reaction hallucinations after back surgery. Hx of cancer of uterus NO CHEMO/NO RADIATION Hyperlipidemia Left ureteral stone Obesity Personal history of kidney stones Poor historian Statin myopathy Surgical History H/O colonoscopy 10/07/19 Dr. Nilton Sandoval History of arthroplasty of right knee History of lithotripsy LEFT ESWL= 11/26/15= LMA#4 History of lumbar surgery X2 Hx of bilateral cataract extraction Hx of colonoscopy Hx of hand surgery Hx of hernia repair VENTRAL Hx of hysterectomy Robotic Lap hysterectomy with BSO Hx of tonsillectomy Hx of wisdom tooth extraction S/P total knee replacement using cement Family History Father , in his 30s according to the patient Liver cancer Colorectal cancer Mother , age 87 of renal complications Kidney disease Parkinson disease Son Diabetes Unknown Hypertension Denies family history of Ovarian cancer Prostate cancer Myocardial infarction Breast cancer Social History Smoking Status: Former smoker Second Hand Exposure: No; Hx Alcohol Use: No Hx Substance Use: No Preferred Language: Kenyan Communication Ability: Effective Visual Impairment: No Limitations Hearing Ability: Normal Boom Tender Required: No Beliefs That Will Affect Care: None marital status: Current Living Situation: Spouse and Family Current Living Situation Comment: lives w/ & son current occupational status: retired 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 Other Information That Helps Us Care for You: No other: 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 Feels Safe at Home: Yes Safety Concerns: Feels Safe At This Time Childhood Exposure to Second-Hand Smoke: Yes Diet Comment: regular Dental Care, Regularly: Yes Physical Activity Frequency: 1-2 Times per Week Seatbelt Use: always Sunscreen Use: Yes Assistive Devices: Glasses and Walker Review of Systems Review of Systems: All systems reviewed & are unremarkable except as noted in HPI & below Physical Exam Constitutional: WD/WN, vitals as above + obese; no acute distress Eyes: PERRL, conjunctivae normal, anicteric sclerae Neck: trachea midline, no thyromegaly Respiratory: normal respiratory effort, lungs clear to auscultation Cardiovascular: Rate/Rhythm: + irregularly irregular Heart Sounds: normal S1 and normal S2; no murmur Vessels: no JVD Extremities: no edema Musculoskeletal: Head/Neck/Chest: normocephalic and head atraumatic Neurologic: Mild right upper extremity weakness Psychiatric: A+Ox3, euthymic affect Results & Data Vital Signs (Past 12 Hours) Vital Signs Temp Pulse Pulse Resp BP Pulse Ox O2 Del Method 06/29/22 07:29 36.7 C 47 L 20 151/74 H 95 Room Air 06/29/22 03:28 36.5 C 48 L 16 127/68 94 Room Air 06/28/22 23:08 58 L 06/28/22 22:45 36.8 C 79 20 190/91 H 98 Room Air 06/28/22 22:55 36.8 C 79 20 190/91 H 98 Room Air Laboratory Results Laboratory Results - last 24 hr 06/28/22 06/28/22 06/28/22 18:12 18:12 18:12 WBC 4.98 RBC 3.87 L Hgb 11.6 L Hct 35.6 L MCV 92.0 MCH 30.0 MCHC 32.6 RDW Std Deviation 45.8 RDW Coeff of Tia 13.7 Plt Count 151 MPV 11.5 Immature Gran % (Auto) 0.8 Neut % (Auto) 63.7 Lymph % (Auto) 26.7 [place] % (Auto) 7.2 Eos % (Auto) 0.8 Baso % (Auto) 0.8 Neut # (Auto) 3.17 Lymph # (Auto) 1.33 [place] # (Auto) 0.36 Eos # (Auto) 0.04 Baso # (Auto) 0.04 Immature Gran # (Auto) 0.04 Peripher Smr Path Cons PT 10.9 INR 1.0 APTT 30.0 PTT Ratio 1.1 Sodium 140 Potassium 4.3 Chloride 106 Carbon Dioxide 26 Anion Gap 8 BUN 22 Creatinine 1.22 H Est Cr Clr Drug Dosing Not Reportable Est GFR ( Amer) 45.8 Est GFR (Non-Af Amer) 39.5 BUN/Creatinine Ratio 18.0 Glucose 134 H POC Glucose Calcium 8.6 Total Bilirubin 0.4 AST 14 ALT 9 Alkaline Phosphatase 74 B-Natriuretic Peptide Total Protein 6.8 Albumin 3.9 Globulin 2.9 Albumin/Globulin Ratio 1.3 POC Stool Occult Blood SARS-CoV-2, RNA, NAAT 06/28/22 06/28/22 06/28/22 21:12 22:46 Unknown WBC RBC Hgb Hct MCV MCH MCHC RDW Std Deviation RDW Coeff of Tia Plt Count MPV Immature Gran % (Auto) Neut % (Auto) Lymph % (Auto) [place] % (Auto) Eos % (Auto) Baso % (Auto) Neut # (Auto) Lymph # (Auto) [place] # (Auto) Eos # (Auto) Baso # (Auto) Immature Gran # (Auto) Peripher Smr Path Cons PT INR APTT PTT Ratio Sodium Potassium Chloride Carbon Dioxide Anion Gap BUN Creatinine Est Cr Clr Drug Dosing Est GFR ( Amer) Est GFR (Non-Af Amer) BUN/Creatinine Ratio Glucose POC Glucose 145 H Calcium Total Bilirubin AST ALT Alkaline Phosphatase B-Natriuretic Peptide Total Protein Albumin Globulin Albumin/Globulin Ratio POC Stool Occult Blood Positive A SARS-CoV-2, RNA, NAAT NEGATIVE 06/29/22 06/29/22 06/29/22 00:14 05:30 06:01 WBC 4.98 RBC 3.58 L Hgb 10.8 L 10.5 L Hct 34.0 L 32.6 L MCV 91.1 MCH 29.3 MCHC 32.2 RDW Std Deviation 45.5 RDW Coeff of Tia 13.5 Plt Count 145 MPV 11.8 Immature Gran % (Auto) 1.4 Neut % (Auto) 56.9 Lymph % (Auto) 32.7 [place] % (Auto) 7.2 Eos % (Auto) 1.2 Baso % (Auto) 0.6 Neut # (Auto) 2.83 Lymph # (Auto) 1.63 [place] # (Auto) 0.36 Eos # (Auto) 0.06 Baso # (Auto) 0.03 Immature Gran # (Auto) 0.07 Peripher Smr Path Cons Pending PT INR APTT PTT Ratio Sodium Potassium Chloride Carbon Dioxide Anion Gap BUN Creatinine Est Cr Clr Drug Dosing Est GFR ( Amer) Est GFR (Non-Af Amer) BUN/Creatinine Ratio Glucose POC Glucose 122 H Calcium Total Bilirubin AST ALT Alkaline Phosphatase B-Natriuretic Peptide Total Protein Albumin Globulin Albumin/Globulin Ratio POC Stool Occult Blood SARS-CoV-2, RNA, NAAT 06/29/22 06/29/22 06/29/22 06:01 06:01 09:24 WBC RBC Hgb Hct MCV MCH MCHC RDW Std Deviation RDW Coeff of Tia Plt Count MPV Immature Gran % (Auto) Neut % (Auto) Lymph % (Auto) [place] % (Auto) Eos % (Auto) Baso % (Auto) Neut # (Auto) Lymph # (Auto) [place] # (Auto) Eos # (Auto) Baso # (Auto) Immature Gran # (Auto) Peripher Smr Path Cons PT INR APTT PTT Ratio Sodium 141 Potassium 3.8 Chloride 107 Carbon Dioxide 28 Anion Gap 6 BUN 19 Creatinine 0.97 Est Cr Clr Drug Dosing 41.7 Est GFR ( Amer) 60.4 Est GFR (Non-Af Amer) 52.1 BUN/Creatinine Ratio 19.6 Glucose 119 H POC Glucose 122 H Calcium 8.2 L Total Bilirubin 0.5 AST 11 L ALT 7 Alkaline Phosphatase 65 B-Natriuretic Peptide 335 H Total Protein 5.9 L Albumin 3.4 Globulin 2.5 Albumin/Globulin Ratio 1.4 POC Stool Occult Blood SARS-CoV-2, RNA, NAAT Diagnostic Findings Echocardiogram 05/03/2022 Normal left ventricular chamber size with left ventricular hypertrophy and normal wall motion, grade 2 diastolic dysfunction Moderate mitral valve annular calcification without mitral sufficiency or stenosis No intracardiac shunt ECG Additional Comments: 28-JUN-2022 18:05:46 [facility]-EDSTAT ROUTINE RETRIEVAL Atrial fibrillation with a competing junctional pacemaker Left axis deviation Incomplete right bundle branch block Voltage criteria for left ventricular hypertrophy Cannot rule out Septal infarct (cited on or before 02-MAY-2022) ST & T wave abnormality, consider lateral ischemia Abnormal ECG When compared with ECG of 02-MAY-2022 10:04, Questionable change in initial forces of Septal leads
--- NOTE | 2022-06-29 12:07 | Gastrointestinal Consultation ---
Date of Consultation June 29, 2022 Assessment & Plan (1) Bright red rectal bleeding: She has hematochezia which by her description suggests hemorrhoidal bleeding. Her H/H are stable and she is not having what we normally see with diverticular hemorrhage. With recent CVA would rather not do a procedure unless it is emergent. I explained to her that I would just observe things for now. She had a lot of questions about just observing and wants to know why I can't just stop the bleeding. I did explain to her that hemorrhoidal bleeding will stop and it usually does not cause issues to the patient other than fear. I also explained to her that she doesn't want hemorrhoidal surgery. I don't think eliquis/plavix are unsafe with what she is describing and I think she can stay on them. I am off service starting tomorrow. I things change and GI is needed please call GI auctioneer art. History of Present Illness Reason for Consultation: rectal bleeding Attending Physician: Donald Warner History of Present Illness 87 year old female who had a CVA a few weeks ago is admitted with rectal bleeding. She describes blood "streaming out" when she goes to the bathroom. She will have a bowel movement that is solid with the bleeding. She has no cramping with it. She says she sees bright red blood on the tissue as well. She has had several episodes but it isn't urgent, she bleeds when she has a bowel movement. She has passed some clots. She is not having "bloody diarrhea". She had a colonoscopy in 2019. She is on plavix and eliquis. She is very worried about the bleeding and the changes that are happening with her medications Allergies Allergy/AdvReac Type Severity Reaction Status Date / Time iodine Allergy Severe IV Verified 06/16/22 15:53 DYE-TROUBLE BREATHING HOARSENESS-SEVERE REACTION tramadol Allergy Severe HIVES, Verified 06/16/22 15:53 ITCHING morphine Allergy Intermediate HALLUCINATI Verified 06/16/22 15:53 ONS propoxyphene Allergy Intermediate ITCHING Verified 06/16/22 15:53 scallops Allergy Intermediate DIARRHEA, Verified 06/16/22 15:53 VOMITING ciprofloxacin Allergy Mild SICK Verified 06/16/22 15:53 Penicillins Allergy Mild RASH Verified 06/16/22 15:53 candesartan Allergy Unknown UNKNOWN Verified 06/16/22 15:53 oxycodone Allergy Unknown UNKNOWN Verified 06/16/22 15:53 topiramate Allergy Unknown UNKNOWN Verified 06/16/22 15:53 atorvastatin AdvReac Intermediate Muscle Pain Verified 06/16/22 15:53 levothyroxine sodium AdvReac Mild Dry mouth; Verified 06/16/22 15:53 fatigue Home Medications Medication Instructions Recorded Confirmed Type Diabetic Shoes #1 ea 07/04/19 06/28/22 Rx hydrocortisone 2.5 % topical cream 1 applic PA Q12H PRN hemorrhoids 2 10/19/21 06/28/22 Rx with perineal applicator weeks #30 grams (Proctosol HC) atenolol 25 mg tablet 25 mg PO QPM #90 tabs 02/01/22 06/28/22 Rx acetaminophen 325 mg capsule 325 mg PO QID PRN Fever Or Pain 05/24/22 06/28/22 History lancets 33 gauge (OneTouch Delica #200 ea 05/24/22 06/16/22 Rx Plus Lancet) clopidogrel 75 mg tablet 75 mg PO QAM #90 tabs 05/31/22 06/28/22 Rx OneTouch Verio test strips (blood #100 ea 06/19/22 Rx sugar diagnostic) apixaban 5 mg tablet (Eliquis) 5 mg PO BID #180 tabs 06/19/22 06/28/22 Rx cholecalciferol (vitamin D3) 50 50 mcg PO QPM #90 caps 06/19/22 06/28/22 Rx mcg (2,000 unit) capsule (Vitamin D3) cyanocobalamin (vitamin B-12) 1,000 mcg PO QAM #90 tabs 06/19/22 06/28/22 Rx 1,000 mcg tablet docusate sodium 100 mg tablet 100 mg PO BID #180 tabs 06/19/22 06/28/22 Rx linagliptin 2.5 mg-metformin 500 1 tab PO QAM #90 tabs 06/19/22 06/28/22 Rx mg tablet (Jentadueto) lisinopril 5 mg tablet (Zestril) 5 mg PO QAM #90 tabs 06/19/22 06/28/22 Rx nystatin 100,000 unit/gram topical 1 applic topical BID #60 grams 06/23/22 06/28/22 Rx powder levothyroxine 75 mcg tablet 75 mcg PO DAILY #90 tabs 06/27/22 06/28/22 Rx cinacalcet 30 mg tablet (Sensipar) 30 mg PO QDB 06/28/22 06/28/22 History Patient History Medical History Acute kidney injury superimposed on CKD Chronic back pain Cirrhosis CKD (chronic kidney disease), stage III COVID-19 Diabetes NIDDM History of anesthesia reaction hallucinations after back surgery. Hx of cancer of uterus NO CHEMO/NO RADIATION Hyperlipidemia Left ureteral stone Obesity Personal history of kidney stones Poor historian Statin myopathy Surgical History H/O colonoscopy 10/07/19 Dr. Nilton Sandoval History of arthroplasty of right knee History of lithotripsy LEFT ESWL= 11/26/15= LMA#4 History of lumbar surgery X2 Hx of bilateral cataract extraction Hx of colonoscopy Hx of hand surgery Hx of hernia repair VENTRAL Hx of hysterectomy Robotic Lap hysterectomy with BSO Hx of tonsillectomy Hx of wisdom tooth extraction S/P total knee replacement using cement Family History Father , in his 30s according to the patient Liver cancer Colorectal cancer Mother , age 87 of renal complications Kidney disease Parkinson disease Son Diabetes Unknown Hypertension Denies family history of Ovarian cancer Prostate cancer Myocardial infarction Breast cancer Social History Smoking Status: Former smoker Second Hand Exposure: No; Hx Alcohol Use: No Hx Substance Use: No Preferred Language: Polish Communication Ability: Effective Visual Impairment: No Limitations Hearing Ability: Normal Taco Maker Required: No Beliefs That Will Affect Care: None marital status: Current Living Situation: Spouse and Family Current Living Situation Comment: lives w/ & son current occupational status: retired 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 Other Information That Helps Us Care for You: No other: 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 Feels Safe at Home: Yes Safety Concerns: Feels Safe At This Time Childhood Exposure to Second-Hand Smoke: Yes Diet Comment: regular Dental Care, Regularly: Yes Physical Activity Frequency: 1-2 Times per Week Seatbelt Use: always Sunscreen Use: Yes Assistive Devices: Glasses and Walker Review of Systems Review of Systems: All systems reviewed & are unremarkable except as noted in HPI & below Physical Exam Constitutional: WD/WN, vitals as above no acute distress Eyes: PERRL, conjunctivae normal, anicteric sclerae ENMT: external ear and nose normal, oropharynx normal Neck: trachea midline, no thyromegaly Respiratory: normal respiratory effort, lungs clear to auscultation Cardiovascular: RRR, no murmur, no edema Gastrointestinal (Abdomen): normal bowel sounds, soft, nontender, no hepatosplenomegaly Musculoskeletal: Extremities: no cyanosis and no clubbing Skin: no rashes, warm and dry Neurologic: PERRL, EOMI, accommodation nl, no face palsy, no dysarthria Psychiatric: Orientation: alert and oriented x 3 Results & Data Vital Signs (Past 12 Hours) Vital Signs Temp Pulse Resp BP Pulse Ox O2 Del Method 06/29/22 11:43 37 C 61 21 171/74 H 95 Room Air 06/29/22 07:29 36.7 C 47 L 20 151/74 H 95 Room Air 06/29/22 03:28 36.5 C 48 L 16 127/68 94 Room Air Laboratory Results 06/29/22 06/29/22 06/29/22 Range/Units 09:24 06:01 06:01 WBC (4.8-10.8) K/ul RBC (4.20-5.40) M/uL Hgb (12.0-16.0) g/dl Hct (37.0-47.0) % MCV (80.0-100.0) fL MCH (25.0-34.0) pg MCHC (32.0-36.0) g/dL RDW Std Deviation (36.4-46.3) fL RDW Coeff of Tia (11.5-14.5) % Plt Count (130-400) K/uL MPV (9.4-12.4) fL Immature Gran % (Auto) % Neut % (Auto) % Lymph % (Auto) % [place] % (Auto) % Eos % (Auto) % Baso % (Auto) % Neut # (Auto) (1.40-6.50) K/uL Lymph # (Auto) (1.2-3.4) K/uL [place] # (Auto) (0.11-0.59) K/uL Eos # (Auto) (0-0.50) K/uL Baso # (Auto) (0-0.2) K/uL Immature Gran # (Auto) (0.01-0.20) K/uL Peripher Smr Path Cons PT (9.0-12.0) Seconds INR (0.9-1.1) APTT (21.0-31.0) Seconds PTT Ratio Sodium 141 (136-145) mmol/L Potassium 3.8 (3.5-5.1) mmol/L Chloride 107 (98-107) mmol/L Carbon Dioxide 28 (21-32) mmol/L Anion Gap 6 (3-11) BUN 19 (6-23) mg/dl Creatinine 0.97 (0.6-1.2) mg/dl Est Cr Clr Drug Dosing 41.7 Est GFR ( Amer) 60.4 ml/min Est GFR (Non-Af Amer) 52.1 ml/min BUN/Creatinine Ratio 19.6 (10-20) Glucose 119 H (70-99(Fasting)) mg/dl POC Glucose 122 H (70-99) mg/dl Calcium 8.2 L (8.5-10.1) mg/dl Total Bilirubin 0.5 (0.2-1.0) mg/dl AST 11 L (13-39) U/L ALT 7 (7-52) U/L Alkaline Phosphatase 65 (34-104) U/L B-Natriuretic Peptide 335 H (0-100) pg/ml Total Protein 5.9 L (6.0-8.3) gm/dl Albumin 3.4 (3.4-5.0) gm/dl Globulin 2.5 (2.5-4.0) gm/dl Albumin/Globulin Ratio 1.4 (0.9-2) POC Stool Occult Blood (Negative) SARS-CoV-2, RNA, NAAT (NEGATIVE) 06/29/22 06/29/22 06/29/22 Range/Units 06:01 05:30 00:14 WBC 4.98 (4.8-10.8) K/ul RBC 3.58 L (4.20-5.40) M/uL Hgb 10.5 L 10.8 L (12.0-16.0) g/dl Hct 32.6 L 34.0 L (37.0-47.0) % MCV 91.1 (80.0-100.0) fL MCH 29.3 (25.0-34.0) pg MCHC 32.2 (32.0-36.0) g/dL RDW Std Deviation 45.5 (36.4-46.3) fL RDW Coeff of Tia 13.5 (11.5-14.5) % Plt Count 145 (130-400) K/uL MPV 11.8 (9.4-12.4) fL Immature Gran % (Auto) 1.4 % Neut % (Auto) 56.9 % Lymph % (Auto) 32.7 % [place] % (Auto) 7.2 % Eos % (Auto) 1.2 % Baso % (Auto) 0.6 % Neut # (Auto) 2.83 (1.40-6.50) K/uL Lymph # (Auto) 1.63 (1.2-3.4) K/uL [place] # (Auto) 0.36 (0.11-0.59) K/uL Eos # (Auto) 0.06 (0-0.50) K/uL Baso # (Auto) 0.03 (0-0.2) K/uL Immature Gran # (Auto) 0.07 (0.01-0.20) K/uL Peripher Smr Path Cons PT (9.0-12.0) Seconds INR (0.9-1.1) APTT (21.0-31.0) Seconds PTT Ratio Sodium (136-145) mmol/L Potassium (3.5-5.1) mmol/L Chloride (98-107) mmol/L Carbon Dioxide (21-32) mmol/L Anion Gap (3-11) BUN (6-23) mg/dl Creatinine (0.6-1.2) mg/dl Est Cr Clr Drug Dosing Est GFR ( Amer) ml/min Est GFR (Non-Af Amer) ml/min BUN/Creatinine Ratio (10-20) Glucose (70-99(Fasting)) mg/dl POC Glucose 122 H (70-99) mg/dl Calcium (8.5-10.1) mg/dl Total Bilirubin (0.2-1.0) mg/dl AST (13-39) U/L ALT (7-52) U/L Alkaline Phosphatase (34-104) U/L B-Natriuretic Peptide (0-100) pg/ml Total Protein (6.0-8.3) gm/dl Albumin (3.4-5.0) gm/dl Globulin (2.5-4.0) gm/dl Albumin/Globulin Ratio (0.9-2) POC Stool Occult Blood (Negative) SARS-CoV-2, RNA, NAAT (NEGATIVE) 06/28/22 06/28/22 06/28/22 Range/Units Unknown 22:46 21:12 WBC (4.8-10.8) K/ul RBC (4.20-5.40) M/uL Hgb (12.0-16.0) g/dl Hct (37.0-47.0) % MCV (80.0-100.0) fL MCH (25.0-34.0) pg MCHC (32.0-36.0) g/dL RDW Std Deviation (36.4-46.3) fL RDW Coeff of Tia (11.5-14.5) % Plt Count (130-400) K/uL MPV (9.4-12.4) fL Immature Gran % (Auto) % Neut % (Auto) % Lymph % (Auto) % [place] % (Auto) % Eos % (Auto) % Baso % (Auto) % Neut # (Auto) (1.40-6.50) K/uL Lymph # (Auto) (1.2-3.4) K/uL [place] # (Auto) (0.11-0.59) K/uL Eos # (Auto) (0-0.50) K/uL Baso # (Auto) (0-0.2) K/uL Immature Gran # (Auto) (0.01-0.20) K/uL Peripher Smr Path Cons PT (9.0-12.0) Seconds INR (0.9-1.1) APTT (21.0-31.0) Seconds PTT Ratio Sodium (136-145) mmol/L Potassium (3.5-5.1) mmol/L Chloride (98-107) mmol/L Carbon Dioxide (21-32) mmol/L Anion Gap (3-11) BUN (6-23) mg/dl Creatinine (0.6-1.2) mg/dl Est Cr Clr Drug Dosing Est GFR ( Amer) ml/min Est GFR (Non-Af Amer) ml/min BUN/Creatinine Ratio (10-20) Glucose (70-99(Fasting)) mg/dl POC Glucose 145 H (70-99) mg/dl Calcium (8.5-10.1) mg/dl Total Bilirubin (0.2-1.0) mg/dl AST (13-39) U/L ALT (7-52) U/L Alkaline Phosphatase (34-104) U/L B-Natriuretic Peptide (0-100) pg/ml Total Protein (6.0-8.3) gm/dl Albumin (3.4-5.0) gm/dl Globulin (2.5-4.0) gm/dl Albumin/Globulin Ratio (0.9-2) POC Stool Occult Blood Positive A (Negative) SARS-CoV-2, RNA, NAAT NEGATIVE (NEGATIVE) 06/28/22 06/28/22 06/28/22 Range/Units 18:12 18:12 18:12 WBC 4.98 (4.8-10.8) K/ul RBC 3.87 L (4.20-5.40) M/uL Hgb 11.6 L (12.0-16.0) g/dl Hct 35.6 L (37.0-47.0) % MCV 92.0 (80.0-100.0) fL MCH 30.0 (25.0-34.0) pg MCHC 32.6 (32.0-36.0) g/dL RDW Std Deviation 45.8 (36.4-46.3) fL RDW Coeff of Tia 13.7 (11.5-14.5) % Plt Count 151 (130-400) K/uL MPV 11.5 (9.4-12.4) fL Immature Gran % (Auto) 0.8 % Neut % (Auto) 63.7 % Lymph % (Auto) 26.7 % [place] % (Auto) 7.2 % Eos % (Auto) 0.8 % Baso % (Auto) 0.8 % Neut # (Auto) 3.17 (1.40-6.50) K/uL Lymph # (Auto) 1.33 (1.2-3.4) K/uL [place] # (Auto) 0.36 (0.11-0.59) K/uL Eos # (Auto) 0.04 (0-0.50) K/uL Baso # (Auto) 0.04 (0-0.2) K/uL Immature Gran # (Auto) 0.04 (0.01-0.20) K/uL Peripher Smr Path Cons PT 10.9 (9.0-12.0) Seconds INR 1.0 (0.9-1.1) APTT 30.0 (21.0-31.0) Seconds PTT Ratio 1.1 Sodium 140 (136-145) mmol/L Potassium 4.3 (3.5-5.1) mmol/L Chloride 106 (98-107) mmol/L Carbon Dioxide 26 (21-32) mmol/L Anion Gap 8 (3-11) BUN 22 (6-23) mg/dl Creatinine 1.22 H (0.6-1.2) mg/dl Est Cr Clr Drug Dosing Not Reportable Est GFR ( Amer) 45.8 ml/min Est GFR (Non-Af Amer) 39.5 ml/min BUN/Creatinine Ratio 18.0 (10-20) Glucose 134 H (70-99(Fasting)) mg/dl POC Glucose (70-99) mg/dl Calcium 8.6 (8.5-10.1) mg/dl Total Bilirubin 0.4 (0.2-1.0) mg/dl AST 14 (13-39) U/L ALT 9 (7-52) U/L Alkaline Phosphatase 74 (34-104) U/L B-Natriuretic Peptide (0-100) pg/ml Total Protein 6.8 (6.0-8.3) gm/dl Albumin 3.9 (3.4-5.0) gm/dl Globulin 2.9 (2.5-4.0) gm/dl Albumin/Globulin Ratio 1.3 (0.9-2) POC Stool Occult Blood (Negative) SARS-CoV-2, RNA, NAAT (NEGATIVE)
[2022-06-29] MEDS: SODIUM CHLORIDE 0.9% 1000ML 1,000 ML IV SCH (13:36)
[2022-06-29] MEDS: ANUSOL SUPP 1 EA PR SCH ×2 (14:07→20:03)
[2022-06-29 15:19] LABS: Hematocrit (blood only) 34.8 % (37.0-47.0); Hemoglobin 11.1 g/dl (12.0-16.0)
[2022-06-29 15:56] LABS: Ferritin 43.4 ng/ml (8-388)
[2022-06-29] MEDS: METOPROLOL SUCC 25MG EXT REL TAB PO SCH (20:03)
[2022-06-29] MEDS: amLODIPine BESYLATE 5 MG TAB PO SCH (20:04)
[2022-06-29] MEDS: SERTRALINE HCL 50 MG TABLET PO SCH (20:09)
--- NOTE | 2022-06-29 20:37 | Hospitalist Progress Note ---
Date of Service June 29, 2022 Assessment & Plan (1) Bleeding hemorrhoids: Plan: colonoscopy 2019 with large hemorrhoids only; no diverticular disease or other pathology during that endoscopy. GI has seen today - believes that current presentation likely due to the he morrhoids. will start anusol suppositories BID. patient admits to frequent straining and firm/hard stools - needs bowel regimen to prevent such. H/H remain quite stable. repeat CBC am. hopefully can resume Eliquis tomorrow if H/H remain stable and no significant bleeding. (2) Bright red blood per rectum: Plan: 2nd to #1 see above Eliquis, plavix on hold for now but hopefully can resume next 1-2 days (3) Atrial fibrillation: Plan: atenolol stopped metoprolol succinate started Eliquis on hold for now - see above appreciate cardiology consultation (4) H/O: stroke with residual effects: Plan: Left [place] ischemic infarct 04/2022. Went to [facility] following that event. Started on Eliquis during that admission due to a.fib. Also on plavix. PT, OT evals. She has had another prior stroke event in the past. 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 Resume eliquis and/or plavix when able. (5) CKD (chronic kidney disease), stage III: Plan: stable Cr today BMP am (6) Hypertension: Plan: H/H are stable Cr is <1 can resume SARI but increase dose to 10mg/day due to very high BPs atenolol changed to metoprolol succinate by cardiology which I agree with adjust meds as needed (7) Lower extremity edema: Plan: likely 2nd venous insufficiency no evidence of decompensated diastolic CHF (8) Hypothyroidism: Plan: Continue levothyroxine. Several previous TSHs were high. Recheck in am. if still high - compliance with meds?? (9) Cirrhosis: Plan: 2nd [place]. hemorrhoids may be worsened by such. (10) Primary hyperparathyroidism: Plan: Continue home cinacalcet. calcium wnl. 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 could also be playing a role B12 level wnl recheck TSH in am Plan stop IV fluids serial H/H's son was updated by phone this evening patient would benefit from HH nursing AT MINIMUM but it sounds like pt & her hus band would be best in assisted living given the cognitive/memory issues, etc will d/w social work Admission and Anticipated Discharge Date Admission Date: June 28, 2022 Subjective BRBPR has improved since admission she denies any abd pain colonoscopy in 2019 showed large hemorrhoids but no other pathology (no diverticulosis, etc) during my visit the patient was very anxious she was quite focused on issues at home -- worried about her pill packs she gets from her pharmacy, worry that us changing her meds will lead to problems with these pill packs, concerns about her , voicing frustration over memory problems, feeling like she is not thriving, etc she admits to sleeping poorly at night when asked about depression she reports "maybe" she has such we had lengthy discussion about the potential for home health nursing to assist with her medications was very against it, stating "what are they going to do?" son helps with she & her tremendously but she kept stating over and over she didn't want to bother him with anything more she reports she and her can't afford assisted living Review of Systems Review of Systems: cv - no cp pulm - no dyspnea GI - no nausea/emesis Physical Exam Physical Exam: gen - VERY anxious, but NAD otherwise mouth - MMM neck - no JVD heart - irregular, s1 s2 lungs - CTA b/l abd - soft NT ND BS+ ext - pulses 2+ b/l psych - mild cognitive issues with severe anxiety Results & Data Results & Data Vital Signs (Past 12 Hours) Vital Signs Temp Pulse Pulse Resp BP Pulse Ox O2 Del Method 06/29/22 19:50 36.9 C 65 18 193/82 H 97 Room Air 06/29/22 15:46 37 C 62 19 160/75 H 95 Room Air 06/29/22 15:31 60 06/29/22 11:43 37 C 61 21 171/74 H 95 Room Air Laboratory Results Laboratory Results - last 24 hr 06/28/22 06/28/22 06/28/22 21:12 22:46 Unknown WBC RBC Hgb Hct MCV MCH MCHC RDW Std Deviation RDW Coeff of Tia Plt Count MPV Immature Gran % (Auto) Neut % (Auto) Lymph % (Auto) [place] % (Auto) Eos % (Auto) Baso % (Auto) Neut # (Auto) Lymph # (Auto) [place] # (Auto) Eos # (Auto) Baso # (Auto) Immature Gran # (Auto) Peripher Smr Path Cons Sodium Potassium Chloride Carbon Dioxide Anion Gap BUN Creatinine Est Cr Clr Drug Dosing Est GFR ( Amer) Est GFR (Non-Af Amer) BUN/Creatinine Ratio Glucose POC Glucose 145 H Calcium Iron TIBC Unsaturated IBC Transferrin % Sat Ferritin Total Bilirubin AST ALT Alkaline Phosphatase B-Natriuretic Peptide Total Protein Albumin Globulin Albumin/Globulin Ratio Vitamin B12 Folate POC Stool Occult Blood Positive A SARS-CoV-2, RNA, NAAT NEGATIVE 06/29/22 06/29/22 06/29/22 00:14 05:30 06:01 WBC 4.98 RBC 3.58 L Hgb 10.8 L 10.5 L Hct 34.0 L 32.6 L MCV 91.1 MCH 29.3 MCHC 32.2 RDW Std Deviation 45.5 RDW Coeff of Tia 13.5 Plt Count 145 MPV 11.8 Immature Gran % (Auto) 1.4 Neut % (Auto) 56.9 Lymph % (Auto) 32.7 [place] % (Auto) 7.2 Eos % (Auto) 1.2 Baso % (Auto) 0.6 Neut # (Auto) 2.83 Lymph # (Auto) 1.63 [place] # (Auto) 0.36 Eos # (Auto) 0.06 Baso # (Auto) 0.03 Immature Gran # (Auto) 0.07 Peripher Smr Path Cons Sodium Potassium Chloride Carbon Dioxide Anion Gap BUN Creatinine Est Cr Clr Drug Dosing Est GFR ( Amer) Est GFR (Non-Af Amer) BUN/Creatinine Ratio Glucose POC Glucose 122 H Calcium Iron TIBC Unsaturated IBC Transferrin % Sat Ferritin Total Bilirubin AST ALT Alkaline Phosphatase B-Natriuretic Peptide Total Protein Albumin Globulin Albumin/Globulin Ratio Vitamin B12 Folate POC Stool Occult Blood SARS-CoV-2, RNA, NAAT 06/29/22 06/29/22 06/29/22 06:01 06:01 09:24 WBC RBC Hgb Hct MCV MCH MCHC RDW Std Deviation RDW Coeff of Tia Plt Count MPV Immature Gran % (Auto) Neut % (Auto) Lymph % (Auto) [place] % (Auto) Eos % (Auto) Baso % (Auto) Neut # (Auto) Lymph # (Auto) [place] # (Auto) Eos # (Auto) Baso # (Auto) Immature Gran # (Auto) Peripher Smr Path Cons Sodium 141 Potassium 3.8 Chloride 107 Carbon Dioxide 28 Anion Gap 6 BUN 19 Creatinine 0.97 Est Cr Clr Drug Dosing 41.7 Est GFR ( Amer) 60.4 Est GFR (Non-Af Amer) 52.1 BUN/Creatinine Ratio 19.6 Glucose 119 H POC Glucose 122 H Calcium 8.2 L Iron TIBC Unsaturated IBC Transferrin % Sat Ferritin Total Bilirubin 0.5 AST 11 L ALT 7 Alkaline Phosphatase 65 B-Natriuretic Peptide 335 H Total Protein 5.9 L Albumin 3.4 Globulin 2.5 Albumin/Globulin Ratio 1.4 Vitamin B12 Folate POC Stool Occult Blood SARS-CoV-2, RNA, NAAT 06/29/22 06/29/22 06/29/22 12:05 14:57 14:57 WBC RBC Hgb 11.1 L Hct 34.8 L MCV MCH MCHC RDW Std Deviation RDW Coeff of Tia Plt Count MPV Immature Gran % (Auto) Neut % (Auto) Lymph % (Auto) [place] % (Auto) Eos % (Auto) Baso % (Auto) Neut # (Auto) Lymph # (Auto) [place] # (Auto) Eos # (Auto) Baso # (Auto) Immature Gran # (Auto) Peripher Smr Path Cons Sodium Potassium Chloride Carbon Dioxide Anion Gap BUN Creatinine Est Cr Clr Drug Dosing Est GFR ( Amer) Est GFR (Non-Af Amer) BUN/Creatinine Ratio Glucose POC Glucose 133 H Calcium Iron 62 TIBC 271 Unsaturated IBC 209 Transferrin % Sat 23 Ferritin 43.4 Total Bilirubin AST ALT Alkaline Phosphatase B-Natriuretic Peptide Total Protein Albumin Globulin Albumin/Globulin Ratio Vitamin B12 Folate POC Stool Occult Blood SARS-CoV-2, RNA, NAAT 06/29/22 06/29/22 06/29/22 14:57 16:33 20:03 WBC RBC Hgb Hct MCV MCH MCHC RDW Std Deviation RDW Coeff of Tia Plt Count MPV Immature Gran % (Auto) Neut % (Auto) Lymph % (Auto) [place] % (Auto) Eos % (Auto) Baso % (Auto) Neut # (Auto) Lymph # (Auto) [place] # (Auto) Eos # (Auto) Baso # (Auto) Immature Gran # (Auto) Peripher Smr Path Cons Sodium Potassium Chloride Carbon Dioxide Anion Gap BUN Creatinine Est Cr Clr Drug Dosing Est GFR ( Amer) Est GFR (Non-Af Amer) BUN/Creatinine Ratio Glucose POC Glucose 118 H 132 H Calcium Iron TIBC Unsaturated IBC Transferrin % Sat Ferritin Total Bilirubin AST ALT Alkaline Phosphatase B-Natriuretic Peptide Total Protein Albumin Globulin Albumin/Globulin Ratio Vitamin B12 1009 H Folate 8.36 POC Stool Occult Blood SARS-CoV-2, RNA, NAAT PG Care Time/CCT Total # of Minutes Spent Total Time Spent with Patient: Total time spent is greater than 50% in coordination of care (as documented) at patient's floor/unit and/or counseling patient: Coding Level of Care Code 41425 SUB INP/OBS CARE 3/50MIN Diagnoses Bleeding hemorrhoids K64.9 Bright red blood per rectum K62.5 Atrial fibrillation I48.91 H/O: stroke with residual effects I69.30 CKD (chronic kidney disease), stage III N18.30 Hypertension I10 Hypertension type: unspecified Lower extremity edema R60.0 Hypothyroidism E03.9 Hypothyroidism type: unspecified Cirrhosis K74.60 Hepatic cirrhosis type: unspecified hepatic cirrhosis Ascites presence: unspecified Primary hyperparathyroidism E21.0 Carotid stenosis I65.29 Hyperlipidemia E78.5 Depression with anxiety F41.8 Memory loss R41.3 (6) Hypertension Hypertension type: unspecified Qualified Code(s): I10 - Essential (primary) hypertension (8) Hypothyroidism Hypothyroidism type: unspecified Qualified Code(s): E03.9 - Hypothyroidism, unspecified (9) Cirrhosis Hepatic cirrhosis type: unspecified hepatic cirrhosis Ascites presence: unspecified Qualified Code(s): K74.60 - Unspecified cirrhosis of liver
[2022-06-29] MEDS ORDERED: ATENOLOL 25 MG TABLET PO SCH (21:00)
[2022-06-30] MEDS: LEVOTHYROXINE SODIUM 75 MCG TABLET PO SCH (04:24)
[2022-06-30] MEDS: CINACALCET HCL 30 MG TAB PO SCH (07:59)
[2022-06-30] MEDS: INSULIN ASPART PER UNIT SC SCH ×4 (08:08→20:47)
[2022-06-30] MEDS: LANTUS PER UNIT CHARGE SQ SCH ×2 (08:08→20:47)
[2022-06-30 08:47] LABS: Hematocrit (blood only) 37.6 % (37.0-47.0); Mean Corpuscular Hgb Conc 31.9 g/dL (32.0-36.0); Mean Corpuscular Volume 90.8 fL (80.0-100.0); Mean Platelet Volume 11.2 fL (9.4-12.4); Platelet Count 169 K/uL (130-400); RDW Coefficient of Variation 13.6 % (11.5-14.5); RDW Standard Deviation 45.2 fL (36.4-46.3); Red Blood Count 4.14 M/uL (4.20-5.40); White Blood Count 5.15 K/ul (4.8-10.8)
[2022-06-30 09:02] LABS: BUN Creatinine Ratio 14.7 (10-20); Calcium 8.7 mg/dl (8.5-10.1); Creatinine Clr Calc Pharmacy 42.5 ml/min; Est GFR (Non-African American) 53.5 ml/min
[2022-06-30] MEDS: POLYETHYLENE (MIRALAX) 17 GM PACK PO SCH (09:08)
[2022-06-30] MEDS: lisinopril 10 MG TAB PO SCH (09:08)
[2022-06-30] MEDS: ANUSOL SUPP 1 EA PR SCH ×2 (09:08→20:11)
--- NOTE | 2022-06-30 10:31 | Cardiology Progress Note ---
Date of Service June 30, 2022 Assessment & Plan (1) Bright red rectal bleeding: (2) Anticoagulant long-term use: (3) Atrial fibrillation: (4) H/O: stroke with residual effects: (5) Carotid stenosis: Plan Patient is a complex 87-year-old female admitted with bright red blood per rectum while on anticoagulation and antiplatelet therapy. Issues addressed as follows 1. Persistent atrial fibrillation with relatively slow ventricular response rate. 2. Hypertension with left ventricular hypertrophy 3. Moderate stable carotid atherosclerosis 4. Hyperlipidemia 5. Recurrent stroke Recommendations: Patient persistent atrial fibrillation with [id number] 2 score of 6 representing high risk for recurrent stroke as manifested in patient history. GI evaluation pending for bright red blood per rectum Would recommend holding clopidogrel given stable carotid artery disease and limited effect on stroke reduction in atrial fibrillation. Goal will be to resume Eliquis at reduced dose based on age and variable GFR at 2.5 mg twice per day. Apixaban should be sufficient in stable atherosclerotic disease for risk reduction Would optimize medical therapies. Reduce beta- ben by discontinuing atenolol begin metoprolol succinate at 12.5 mg/day. Add amlodipine 2.5 mg every afternoon for blood pressure control. Resume lisinopril when renal function stable Lipid reduction indicated in this patient. Consider rosuvastatin 5 mg 3 days/week versus ezetimibe 10 mg/day on discharge 06/30/2022 No further visualized bleeding since yesterday. If no further GI evaluation planned would resume apixaban as noted at reduced dose of 2.5 mg/day. Consider restarting Plavix in 1 to 2 weeks Treat hypertension as above with amlodipine in addition to baseline medical therapy Lipids should be addressed either this admission or post discharge. History of statin intolerance would consider ezetimibe 10 mg/day Admission and Anticipated Discharge Date Admission Date: June 28, 2022 Subjective Patient seen and examined, chart, medications, telemetry reviewed Patient remains anxious regarding multiple issues and medical care No noted bright red blood per rectum since yesterday Blood pressure is labile No chest pain or shortness of breath Review of Systems Review of Systems: All systems reviewed & are unremarkable except as noted in Subjective Physical Exam Constitutional: WD/WN, vitals as above + obese; no acute distress Eyes: PERRL, conjunctivae normal, anicteric sclerae Neck: trachea midline, no thyromegaly Respiratory: normal respiratory effort, lungs clear to auscultation Cardiovascular: Rate/Rhythm: + irregularly irregular Heart Sounds: normal S1 and normal S2; no murmur Vessels: no JVD Extremities: no edema Musculoskeletal: Head/Neck/Chest: normocephalic and head atraumatic Psychiatric: A+Ox3, euthymic affect Results & Data Vital Signs (Past 12 Hours) Vital Signs Temp Pulse Pulse Resp BP Pulse Ox O2 Del Method 06/30/22 07:16 60 06/30/22 06:37 36.5 C 60 18 180/90 H 93 Room Air 06/30/22 04:30 36.4 C L 64 18 180/78 H 95 Room Air 06/30/22 00:00 61 Laboratory Results Laboratory Results - last 24 hr 06/29/22 06/29/22 06/29/22 06:01 12:05 14:57 WBC RBC Hgb 11.1 L Hct 34.8 L MCV MCH MCHC RDW Std Deviation RDW Coeff of Tia Plt Count MPV Peripher Smr Path Cons Sodium Potassium Chloride Carbon Dioxide Anion Gap BUN Creatinine Est Cr Clr Drug Dosing Est GFR ( Amer) Est GFR (Non-Af Amer) BUN/Creatinine Ratio Glucose POC Glucose 133 H Calcium Iron TIBC Unsaturated IBC Transferrin % Sat Ferritin Vitamin B12 Folate TSH 06/29/22 06/29/22 06/29/22 14:57 14:57 16:33 WBC RBC Hgb Hct MCV MCH MCHC RDW Std Deviation RDW Coeff of Tia Plt Count MPV Peripher Smr Path Cons Sodium Potassium Chloride Carbon Dioxide Anion Gap BUN Creatinine Est Cr Clr Drug Dosing Est GFR ( Amer) Est GFR (Non-Af Amer) BUN/Creatinine Ratio Glucose POC Glucose 118 H Calcium Iron 62 TIBC 271 Unsaturated IBC 209 Transferrin % Sat 23 Ferritin 43.4 Vitamin B12 1009 H Folate 8.36 TSH 06/29/22 06/30/22 06/30/22 20:03 07:27 08:06 WBC 5.15 RBC 4.14 L Hgb 12.0 Hct 37.6 MCV 90.8 MCH 29.0 MCHC 31.9 L RDW Std Deviation 45.2 RDW Coeff of Tia 13.6 Plt Count 169 MPV 11.2 Peripher Smr Path Cons Sodium Potassium Chloride Carbon Dioxide Anion Gap BUN Creatinine Est Cr Clr Drug Dosing Est GFR ( Amer) Est GFR (Non-Af Amer) BUN/Creatinine Ratio Glucose POC Glucose 132 H 134 H Calcium Iron TIBC Unsaturated IBC Transferrin % Sat Ferritin Vitamin B12 Folate TSH 06/30/22 06/30/22 08:06 08:06 WBC RBC Hgb Hct MCV MCH MCHC RDW Std Deviation RDW Coeff of Tia Plt Count MPV Peripher Smr Path Cons Sodium 140 Potassium 4.0 Chloride 105 Carbon Dioxide 28 Anion Gap 7 BUN 14 Creatinine 0.95 Est Cr Clr Drug Dosing 42.5 Est GFR ( Amer) 62.0 Est GFR (Non-Af Amer) 53.5 BUN/Creatinine Ratio 14.7 Glucose 131 H POC Glucose Calcium 8.7 Iron TIBC Unsaturated IBC Transferrin % Sat Ferritin Vitamin B12 Folate TSH 2.236
[2022-06-30] MEDS: APIXABAN 2.5 MG TAB PO SCH ×2 (11:16→20:10)
[2022-06-30] MEDS: busPIRone 5 MG TAB PO SCH ×2 (11:16→20:09)
[2022-06-30] MEDS: SERTRALINE HCL 50 MG TABLET PO SCH (20:08)
[2022-06-30] MEDS: amLODIPine BESYLATE 5 MG TAB PO SCH (20:10)
[2022-06-30] MEDS: METOPROLOL SUCC 25MG EXT REL TAB PO SCH (20:11)
--- NOTE | 2022-06-30 20:13 | Hospitalist Progress Note ---
Date of Service June 30, 2022 Assessment & Plan (1) Bright red rectal bleeding: Plan (1) Bleeding hemorrhoids: Plan: colonoscopy 2019 with large hemorrhoids only; no diverticular disease or other pathology during that endoscopy. GI saw her in consult - believes that current presentation likely due to the hemorrhoids. H/H remain very stable. cont anusol suppositories BID for presumed hemorrhoids.. patient admits to frequent straining and firm/hard stools - needs bowel regimen to prevent such. repeat CBC am. GI ok with resuming Eliquis - will do so today and follow her clinically for recurrent GI bleeding. 2) Bright red blood per rectum: Plan: 2nd to #1 see above cont to hold plavix (3) Atrial fibrillation: Plan: atenolol stopped metoprolol succinate started rates adequate Eliquis resumed today appreciate cardiology consultation (4) H/O: stroke with residual effects: Plan: [place] ischemic infarct 04/2022. Went to [facility] following that event. Started on Eliquis during that admission due to a.fib. PT, OT evals - ok for home w/ family. She has had another prior stroke event in the past. 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 Resume eliquis today but hold plavix now & at discharge. (5) CKD (chronic kidney disease), stage III: Plan: stable Cr today BMP am (6) Hypertension: Plan: H/H are stable Cr is <1 lisinopril resumed at 10mg daily atenolol changed to metoprolol succinate by cardiology BPs still quite high - some of this may be due to severe anxiety monitor overnight if still high tomorrow then increase amlodipine to 5mg daily (7) h/o Lower extremity edema: Plan: likely 2nd venous insufficiency no evidence of decompensated diastolic CHF no edema today (8) Hypothyroidism: Plan: Continue levothyroxine. Several previous TSHs were high. recheck this admission wnl. (9) Cirrhosis: Plan: 2nd [place]. hemorrhoids may be worsened by such. (10) Primary hyperparathyroidism: Plan: Continue home cinacalcet. calcium wnl. 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 could also be playing a role B12 level wnl TSH wnl , son updated at bedside monitor overnight due to marked elevation in BPs hopefully home tomorrow with services for med checks, BP checks, general assistance, etc Admission and Anticipated Discharge Date Admission Date: June 30, 2022 Subjective tele overnight - rate controlled a.fib during the visit the pt's son (with whom she lives) and were present she cont to be very anxious worried about her meds at home, the med changes we have made here, etc much of the visit was consumed by her worries about her medications she has had NO further rectal bleeding did have BM today w/o blood scant rectal pain no dyspnea or cp no abd pain eating fine Review of Systems Review of Systems: gen - no fever cv - no cp, no orthopnea pum - no cough, no dyspnea GI - no N/V Physical Exam Physical Exam: gen - very anxious, NAD mouth - MMM neck - no JVD heart - irregular, s1 s2 lungs - CTA b/l, scant faint dry rales bases abd - soft NT ND BS+ ext - no edema, pulses 2+ b/l psych - pressured speech at times; very anxious; occasional confusion for names of things, etc Results & Data Results & Data Vital Signs (Past 12 Hours) Vital Signs Temp Pulse Pulse Resp BP Pulse Ox O2 Del Method 06/30/22 19:19 36.8 C 61 20 164/73 H 95 Room Air 06/30/22 15:46 67 06/30/22 15:04 36.8 C 75 20 158/61 H 95 Room Air 06/30/22 11:28 36.9 C 52 L 18 170/80 H 96 Room Air Laboratory Results Laboratory Results - last 24 hr 06/30/22 06/30/22 06/30/22 07:27 08:06 08:06 WBC 5.15 RBC 4.14 L Hgb 12.0 Hct 37.6 MCV 90.8 MCH 29.0 MCHC 31.9 L RDW Std Deviation 45.2 RDW Coeff of Tia 13.6 Plt Count 169 MPV 11.2 Sodium 140 Potassium 4.0 Chloride 105 Carbon Dioxide 28 Anion Gap 7 BUN 14 Creatinine 0.95 Est Cr Clr Drug Dosing 42.5 Est GFR ( Amer) 62.0 Est GFR (Non-Af Amer) 53.5 BUN/Creatinine Ratio 14.7 Glucose 131 H POC Glucose 134 H Calcium 8.7 TSH 06/30/22 06/30/22 06/30/22 08:06 11:34 16:42 WBC RBC Hgb Hct MCV MCH MCHC RDW Std Deviation RDW Coeff of Tia Plt Count MPV Sodium Potassium Chloride Carbon Dioxide Anion Gap BUN Creatinine Est Cr Clr Drug Dosing Est GFR ( Amer) Est GFR (Non-Af Amer) BUN/Creatinine Ratio Glucose POC Glucose 120 H 114 H Calcium TSH 2.236 06/30/22 20:02 WBC RBC Hgb Hct MCV MCH MCHC RDW Std Deviation RDW Coeff of Tia Plt Count MPV Sodium Potassium Chloride Carbon Dioxide Anion Gap BUN Creatinine Est Cr Clr Drug Dosing Est GFR ( Amer) Est GFR (Non-Af Amer) BUN/Creatinine Ratio Glucose POC Glucose 176 H Calcium TSH PG Care Time/CCT Total # of Minutes Spent Total Time Spent with Patient: Total time spent is greater than 50% in coordination of care (as documented) at patient's floor/unit and/or counseling patient: Coding Level of Care Code 49256 SUB INP/OBS CARE 2/35MIN Diagnoses Bright red rectal bleeding K62.5
[2022-06-30] MEDS: MELATONIN 3 MG TAB PO PRN (21:24)
--- NOTE | 2022-07-01 00:06 | Electrocardiogram Report ---
Test Reason : Blood Pressure : / mmHG Vent. Rate : 067 BPM Atrial Rate : 326 BPM P-R Int : 000 ms QRS Dur : 106 ms QT Int : 430 ms P-R-T Axes : 000 -35 141 degrees QTc Int : 454 ms Atrial fibrillation Left axis deviation Incomplete right bundle branch block Voltage criteria for left ventricular hypertrophy Cannot rule out Septal infarct (cited on or before 02-MAY-2022) Abnormal ECG When compared with ECG of 02-MAY-2022 10:04, No significant change Confirmed by Dawson Gomez ([id number]) on 07/01/2022 12:06:03 AM Referred By: REFERRED SELF Confirmed By:Dawson Gomez
[2022-07-01] MEDS: LEVOTHYROXINE SODIUM 75 MCG TABLET PO SCH (06:00)
--- NOTE | 2022-07-01 06:21 | Billing Data ---
Date of Service July 01, 2022 Coding Level of Care Code 64165 INT INP/OBS CARE
[2022-07-01] MEDS: CINACALCET HCL 30 MG TAB PO SCH (08:47)
[2022-07-01] MEDS: INSULIN ASPART PER UNIT SC SCH ×2 (08:49→12:34)
[2022-07-01] MEDS: busPIRone 5 MG TAB PO SCH (09:02)
[2022-07-01] MEDS: lisinopril 10 MG TAB PO SCH (09:02)
[2022-07-01] MEDS: APIXABAN 2.5 MG TAB PO SCH (09:03)
[2022-07-01] MEDS: POLYETHYLENE (MIRALAX) 17 GM PACK PO SCH (09:03)
[2022-07-01] MEDS: ANUSOL SUPP 1 EA PR SCH (09:04)
[2022-07-01] MEDS: LANTUS PER UNIT CHARGE SQ SCH (09:45)
[2022-07-01] MEDS ORDERED: amLODIPine BESYLATE 5 MG TAB PO SCH (10:30)
[2022-07-01 11:49] LABS: Calcium 8.9 mg/dl (8.5-10.1); Potassium 4.1 mmol/L (3.5-5.1)
[2022-07-01 11:55] LABS: BUN Creatinine Ratio 17.4 (10-20); Creatinine Clr Calc Pharmacy 36.6 ml/min; Est GFR (African American) 52.5 ml/min; Est GFR (Non-African American) 45.3 ml/min
[2022-07-01 13:55] LABS: Hematocrit (blood only) 37.3 % (37.0-47.0); Hemoglobin 12.2 g/dl (12.0-16.0)
--- NOTE | 2022-07-01 16:01 | Discharge Summary ---
Date of Service July 01, 2022 Admission HPI Per Admitting Provider 87 y/o female w/ PMHx of 04/2022 CVA w/ residual LUE weakness, afib, CKD, primary hyperparathyroidism, carotid stenosis, cirrhosis, neurogenic bladder, hypothyroidism, HTN, HLD, DM2, and anxiety who presents w/ BRBPR this afternoon. There was a moderate amount when wiping and she endorsed a damp senstion. She had BRBPR that was slightly milder over 10 years ago, but was not on Eliquis at the time. There may have been mild rectal discomfort. No other symptoms. She denies dizziness, chest pain, SOB. She has chronic diarrhea. She has not had recent colonoscopy. ED course: Fecal occult pending. Hb at baseline. VSS. Discharge Data Allergies Allergy/AdvReac Type Severity Reaction Status Date / Time iodine Allergy Severe IV Verified 06/16/22 15:53 DYE-TROUBLE BREATHING HOARSENESS-SEVERE REACTION tramadol Allergy Severe HIVES, Verified 06/16/22 15:53 ITCHING morphine Allergy Intermediate HALLUCINATI Verified 06/16/22 15:53 ONS propoxyphene Allergy Intermediate ITCHING Verified 06/16/22 15:53 scallops Allergy Intermediate DIARRHEA, Verified 06/16/22 15:53 VOMITING ciprofloxacin Allergy Mild SICK Verified 06/16/22 15:53 Penicillins Allergy Mild RASH Verified 06/16/22 15:53 candesartan Allergy Unknown UNKNOWN Verified 06/16/22 15:53 oxycodone Allergy Unknown UNKNOWN Verified 06/16/22 15:53 topiramate Allergy Unknown UNKNOWN Verified 06/16/22 15:53 atorvastatin AdvReac Intermediate Muscle Pain Verified 06/16/22 15:53 levothyroxine sodium AdvReac Mild Dry mouth; Verified 06/16/22 15:53 fatigue Consultations 06/28/22 19:52 ED Decision to Admit Stat 06/28/22 20:52 Consult Gastroenterology Routine 06/28/22 22:10 Consult Cardiology Routine Discharge Plan Discharge Items Patient Disposition: Home - Home Health Services Reason For Visit: bright red blood per rectum Discharge Diagnosis: 1. bleeding hemorrhoids - improved 2. high blood pressure - improved 3. anxiety 4. history of strokes 5. atrial fibrillation 6. diabetes Activity: Resume your previous activity Non-emergency contact: Primary Care Provider Call non-emergency contact if: you have any medication questions and your symptoms worsen Follow-up/Referrals: Sabine Aldrich MD [Primary Care Provider] - 07/07/22 10:20 am Diet: Carb Consistent or DM2 Addtl Attending Provider Instructions: Mrs Salinas, You were hospitalized due to seeing blood in the stool/toilet at home. You were seen by the paradichlorobenzene tender ("GI doctor") and he felt that the blood that you saw was due to hemorrhoids. Your last colonoscopy was in 2019 and at that time you had very large hemorrhoids. The rest of the colonoscopy at that time was normal. During the hospital stay your bleeding stopped by using anusol suppositories. In addition, your blood pressures were elevated. Cardiology saw you in consult and made some changes with your heart and blood pressure medications to help this. Your blood pressures have improved while here. Finally, you have been suffering from difficulty with sleep, anxiety, and perhaps low-grade depression. We have started you on new medicines to help with these troubles. Recommendations -- 1. For your hemorrhoids -- * use anusol suppositories TWICE A DAY (morning & evening) for the next 3 days; take your next suppository TONIGHT * after that you can use the anusol on an as needed basis 2. For your high blood pressure please TAKE the following medications -- * amlodipine 5mg EACH MORNING - this medication is new; prescription sent to [facility] for you * metoprolol succinate - take 1/2 tablet (12.5mg) EACH EVENING - this medication is new; prescription sent to [facility] for you; start this medication TONIGHT. * lisinopril 5mg tablets -- take TWO tablets EACH MORNING; you already have this medication at home 3. For anxiety -- * buspirone 5mg twice daily - take EVERY MORNING and EVERY EVENING; this medication is new; prescription sent to [facility] for you; start this medication TONIGHT. 4. For anxiety/depression/sleep -- * sertraline - take 1/2 tablet (12.5mg) AT BEDTIME; this medication is new; prescription sent to [facility] for you; start this TONIGHT. 5. STOP THE FOLLOWING MEDICATIONS. DO NOT TAKE -- * clopidogrel (plavix) * atenolol 6. For constipation -- * continue your docusate (colace) TWICE DAILY as you were previously doing * if you find that your stools are firm/hard and you have to strain while having a bowel movement you can purchase [id number] MIRALAX (also known as glycolax) and take in addition to the docusate * take 1/2 capful of miralax powder once a day mixed in 8 ounces of beverage of your choice * if you have to take miralax it can be taken every day, every other day, or simply as needed depending on your bowels Return to [facility] if - * you have large amounts of blood in your stool * you have abdominal pains * you have chest pains * you are short of breath * you feel dizzy or lightheaded * any other concerns The home health visiting nurse will be calling you 07/02/22, and will let you know what time they will be arriving at your home to see you. Best wishes, Dr Warner Pending Studies at Discharge: No Stand-Alone Forms: [facility], Smoking Cessation Medications and DC Order Prescriptions: New buspirone 5 mg Tablet 5 mg PO BID Qty: 60 1RF Rx Instructions: for anxiety. Take each morning and every evening. amlodipine [Norvasc] 5 mg Tablet 5 mg PO QAM Qty: 30 1RF Rx Instructions: for high blood pressure. Take each morning. hydrocortisone acetate [Anusol-HC] 25 mg Suppository 25 mg OR BID Qty: 12 0RF Rx Instructions: for hemorrhoids. metoprolol succinate 25 mg Tablet Extended Release 24 Hr 12.5 mg PO QPM Qty: 30 1RF Rx Instructions: for your a.fib and high blood pressure. Take each evening. sertraline 25 mg tablet 12.5 mg PO HS Qty: 30 1RF Rx Instructions: for anxiety/depression/sleep. Take at bedtime. Continued (DME) Diabetic Shoes Misc See Rx Instructions .ROUTE .MEDSUPPLY Qty: 1 0RF Rx Instructions: diabetic shoes cholecalciferol (vitamin D3) [Vitamin D3] 50 mcg (2,000 unit) capsule 50 mcg PO QPM Qty: 90 3RF cyanocobalamin (vitamin B-12) 1,000 mcg tablet 1,000 mcg PO QAM Qty: 90 3RF docusate sodium 100 mg tablet 100 mg PO BID Qty: 180 3RF Jentadueto 2.5-500 mg tablet 1 tab PO QAM Qty: 90 3RF Rx Instructions: TAKE ONE TABLET BY MOUTH EVERY DAY (DME) OneTouch Verio test strips Strip See Dose Instructions .ROUTE .MEDSUPPLY Qty: 100 11RF Dose Instruction: As directed Rx Instructions: Test three x daily nystatin 100,000 unit/gram powder 1 applic topical BID Qty: 60 2RF acetaminophen 325 mg capsule 325 mg PO QID PRN (Reason: Fever Or Pain) (DME) lancets [OneTouch Delica Plus Lancet] 33 gauge misc See Dose Instructions .ROUTE .MEDSUPPLY Qty: 200 1RF Rx Instructions: Use to test twice daily cinacalcet [Sensipar] 30 mg tablet 30 mg PO QDB Rx Instructions: 30 mg PO with breakfast; Eliquis 5 mg tablet 5 mg PO BID Qty: 180 3RF Rx Instructions: take every morning and each evening. This is your blood thinner for your a.fib. Changed levothyroxine 75 mcg tablet 75 mcg PO QAM Qty: 90 3RF lisinopril [Zestril] 5 mg tablet 10 mg PO QAM Qty: 90 3RF Rx Instructions: for high blood pressure. Take 2 tablets each morning. Discontinued hydrocortisone [Proctosol HC] 2.5 % cream with perineal applicator 1 applic OR Q12H PRN (Reason: hemorrhoids) 14 Days Qty: 30 0RF atenolol 25 mg tablet 25 mg PO QPM Qty: 90 3RF Rx Instructions: TAKE 1 TABLET EVERY EVENING clopidogrel 75 mg tablet 75 mg PO QAM Qty: 90 3RF Discharge Orders: Discharge Order (Routine); Ordered 07/01/22 Ordered By: Donald Warner Admission Data Admit Date/Time: 06/30/22 15:57 Attending Provider: Donald Warner Admit Provider: Frank Adan Primary Care Provider: Sabine Aldrich Other Providers: Moshe Robert Jr ; Frank Adan ; Rj Becerra ; [facility] Other Interventions: Discharge Summary Assessment (RN) Last Done: 07/01/22 15:47 Coding Diagnoses
== END 2022-07-01 17:36 | disposition home health service (06) | DRG 394 ==
LOC: ED 16:53 → 2W 16:53 → SUATTDRO 20:52 → 2W 22:26
DX: K62.5 Hemorrhage of anus and rectum; Z87.891 Personal history of nicotine dependence; I12.9 Hypertensive chronic kidney disease with stage 1 through stage 4 chronic kidney disease, or unspecified chronic kidney disease; Z79.01 Long term (current) use of anticoagulants; Z88.5 Allergy status to narcotic agent; I69.331 Monoplegia of upper limb following cerebral infarction affecting right dominant side; E21.0 Primary hyperparathyroidism; E11.22 Type 2 diabetes mellitus with diabetic chronic kidney disease; Z79.84 Long term (current) use of oral hypoglycemic drugs; Z79.890 Hormone replacement therapy; K64.9 Unspecified hemorrhoids; E78.5 Hyperlipidemia, unspecified; Z87.19 Personal history of other diseases of the digestive system; Z88.8 Allergy status to other drugs, medicaments and biological substances; K74.60 Unspecified cirrhosis of liver; N18.30 Chronic kidney disease, stage 3 unspecified; I48.19 Other persistent atrial fibrillation; I65.29 Occlusion and stenosis of unspecified carotid artery; Z88.1 Allergy status to other antibiotic agents; Z91.013 Allergy to seafood; R60.0 Localized edema; I87.2 Venous insufficiency (chronic) (peripheral); Z88.0 Allergy status to penicillin; Z79.02 Long term (current) use of antithrombotics/antiplatelets; E03.9 Hypothyroidism, unspecified; G47.00 Insomnia, unspecified; F41.8 Other specified anxiety disorders; F01.50 Vascular dementia, unspecified severity, without behavioral disturbance, psychotic disturbance, mood disturbance, and anxiety; Z79.899 Other long term (current) drug therapy